=== PATIENT | female | born 1940 | race Caucasian/White ===

== ENCOUNTER 2016-03-16 10:28 | Emergency (ER) | payer MEDICARE, BC ==
[~2016-03-16] VITALS: Ht 170.2 cm; Wt 59.0 kg
[~2016-03-16 10:28] MED LIST: ALBUAER3 INH; ASPI81TA81 PO; ATEN25TA PO; CLON0.1T PO; CYCL5TAB PO; DONE10TA7 PO; FENT100T T-DERMAL; FOLI1TAB4 PO; HYDR50TA15 PO; LORA-373 PO; LORA1TAB12 PO; LOSA50TA PO; METH2.5T PO; METH8TAB3 PO; OXYC1TAB36 PO; PRAV40TA2 PO; REST0.05 EACH EYE; TORS20TA PO; TRAZ50TA12 PO; VENL37.5 PO; VIST25CA PO; VITA200013 PO
[2016-03-16 10:37] VITALS: BP 168/96; PULSE 75; RESP 18; TEMP 98.2; O2SAT 96
[2016-03-16 11:01] LABS: BLOOD, URINE TRACE (NEG); GLUCOSE,URINE NEG (NEG); KETONE, URINE NEG (NEG); NITRITE,URINE NEG (NEG)
[2016-03-16 11:06] LABS: COMMENT (UR) CULT NOT INDICATED; CULTURE IF INDICATED CULT NOT INDICATED; METHOD OF COLLECTION CLEAN CATCH; RBC, URINE 0-3 /hpf (0-3); SQUAMOUS EPITHELIAL CELL URINE 0-5 /hpf (0-5); URINE COLOR YELLOW (YELLW/STRAW)
[2016-03-16] MEDS ORDERED: ZITHTAB PO (12:26)
[2016-03-16] MEDS ORDERED: VIST25CA PO (12:26)
--- NOTE | 2016-03-16 12:26 | PD ---
HPI Chief Complaint: Hypertension Time Seen by Provider: 12:14 Travel History International Travel<30 days: No Contact w/Intl Traveler<30days: No Traveled to known affect area: No History of Present Illness HPI 75 years old female complains of coughing congestion short of breath and transient elevated blood pressure. Patient has history of asthma and has been using albuterol nebulizer treatment at home. Patient states the cough is dry cough intermittent cough worse in the morning and at night. Patient denies any chest pain. Patient states that she has intermittently shortness of breath. Patient denies any fever chills. Patient states that her blood pressures has been up and down recently. Patient blood pressure was elevated this morning and patient was advised by her home health nurse to go the ED for evaluation. Patient has been taking her blood pressure medications as directed. Patient has history anxiety. Patient states feeling anxious occasionally during the day. Patient has been taking [id number] cough medications recently. PFSH Past Medical History Hx Anticoagulant Therapy: Yes (BABY ASA DAILY) Arthritis: Yes Asthma: Yes Blood Disorders: No Anxiety: Yes Heart Rhythm Problems: No Cancer: No Cardiac Catheterization: Yes Cardiovascular Problems: Yes (HTN) High Cholesterol: Yes Chest Pain: Yes Congestive Heart Failure: No COPD: No Coronary Artery Disease: Yes Diabetes: No Diminished Hearing: No Endocrine: No Gastrointestinal Disorders: Yes (CONSTIPATION SECONDARY TO MEDICATIONS - takes laxatives regularly) Glaucoma: Yes (SX REPAIR) Genitourinary: Yes Hepatitis: No Hiatal Hernia: No Hypertension: Yes Immune Disorder: No Implanted Vascular Access Dvce: Yes Musculoskeletal: Yes (FEET AND LEGS WEAK) Neurologic: No Psychiatric: No Reproductive: No Respiratory: No Immunizations Current: Yes Myocardial Infarction: No Sleep Apnea: No Thyroid Disease: No Influenza Vaccination: Yes PNEUMOCCOCAL Vaccine (Year): 1 ?: Not Menopausal: Yes Past Surgical History Abdominal Surgery: Yes AICD: No Body Medical Devices: PLATE IN NECK; PIN LEFT HIP Cardiac Surgery: Yes (CABG X) Coronary Artery Bypass Graft: Yes (TRIPLE BYPASS 1998) Ear Surgery: No Eye Surgery: Yes (GLAUCOMA ) Gynecologic Surgery: Yes (HYSTERECTOMY,) Hysterectomy: Yes Joint Replacement: Yes ( LEFT HIP ) Neurologic Surgery: Yes (pain stimulator by conrado- since removed ) Oral Surgery: No Pacemaker: No Thoracic Surgery: No Other Surgery: Yes (cervical decompression C &, C 08/11, iliac crest bone graft C6/7) Social History Alcohol Use: No Tobacco Use: No (quit 2005? smoked for approx 10 yrs 1 ppd) Substance Use: No Allergies-Medications (Allergen,Severity, Reaction): Coded Allergies: Aricept (Verified Allergy, Severe, BLURRED VISION; PT TAKES DONEPEZIL DAILY, 03/16/16) Augmentin (Verified Allergy, Severe, VOMITING, 03/16/16) Celebrex (Verified Allergy, Severe, RASH; PT DENIES ALLERGY, 03/16/16) Contrast Media (Verified Allergy, Severe, Hives, BURNING, 03/16/16) [place] (Verified Allergy, Severe, MUSCLE SPASMS, 03/16/16) Levaquin (Verified Allergy, Severe, SOB, 03/16/16) Methadone (Verified Allergy, Severe, UNKNOWN, 03/16/16) Mobic (Verified Allergy, Severe, WHEEZING, 03/16/16) Naproxen (Verified Allergy, Severe, SWEATING, 03/16/16) Neurontin (Verified Allergy, Severe, SWELLING, 03/16/16) Sulfa (Verified Allergy, Severe, ITCHING, 03/16/16) Zydone (Verified Allergy, Severe, 03/16/16) ARTHROTEC (Verified Allergy, Unknown, 03/16/16) Baclofen (Verified Allergy, Unknown, SHAKING, PT UNSURE, 03/16/16) Cleocin (Verified Allergy, Unknown, MUSCLE PAIN, 03/16/16) Detrol (Verified Allergy, Unknown, 03/16/16) Marinol (Verified Allergy, Unknown, UNKNOWN, 03/16/16) Pletal (Verified Allergy, Unknown, UNKNOWN, 03/16/16) Soma (Verified Allergy, Unknown, UNKNOWN, 03/16/16) Topamax (Verified Allergy, Unknown, 03/16/16) Ultram (Verified Allergy, Unknown, 03/16/16) Vicodin (Verified Allergy, Unknown, 03/16/16) Cymbalta (Verified Adverse Reaction, Severe, NAUSEA, 03/16/16) Effexor (Verified Adverse Reaction, Severe, "SLEEPY", 03/16/16) Erythromycin (Verified Adverse Reaction, Severe, STOMACH CRAMPING, 03/16/16 ) Keflex (Verified Adverse Reaction, Severe, STOMACH PAIN, 03/16/16) Lexapro (Verified Adverse Reaction, Severe, "SLEEPLESSNESS", 03/16/16) Lipitor (Verified Adverse Reaction, Severe, VOMITING, 03/16/16) Lyrica (Verified Adverse Reaction, Severe, "WEAKNESS", 03/16/16) Mevacor (Verified Adverse Reaction, Severe, HEADACHE, 03/16/16) Paxil (Verified Adverse Reaction, Severe, SWEATING, 03/16/16) Provigil (Verified Adverse Reaction, Severe, ANXIETY, 03/16/16) Remeron Liliam-Tab (Verified Adverse Reaction, Severe, WEAKNESS, 03/16/16) Skelaxin (Verified Adverse Reaction, Severe, "FEEL DRUNK", 03/16/16) Tylenol/Codeine (Verified Adverse Reaction, Severe, NAUSEA, 03/16/16) Valium (Verified Adverse Reaction, Severe, JOINT PAIN, 03/16/16) Zanaflex (Verified Adverse Reaction, Severe, JITTERY, 03/16/16) Zetia (Verified Adverse Reaction, Severe, MUSCLE PAIN, 03/16/16) Zocor (Verified Adverse Reaction, Severe, MUSCLE PAIN, 03/16/16) Zoloft (Verified Adverse Reaction, Severe, DIZZINESS, 03/16/16) Celexa (Verified Adverse Reaction, Unknown, HEADACHE, 03/16/16) Cipro (Verified Adverse Reaction, Unknown, NAUSEA, 03/16/16) Cortisone (Verified Adverse Reaction, Unknown, HEADACHE, 03/16/16) PT DENIES ALLERGY TO MED 09/17 Depakote (Verified Adverse Reaction, Unknown, HEADACHE, 03/16/16) Ditropan (Verified Adverse Reaction, Unknown, NAUSEA, 03/16/16) Elavil (Verified Adverse Reaction, Unknown, SWEATING, 03/16/16) Prozac (Verified Adverse Reaction, Unknown, ITCHING, 03/16/16) Uncoded Allergies: VESICARE (Adverse Reaction, Severe, SWEATING, 10/18/08) VYTORIN (Adverse Reaction, Severe, CONSTIPATION, 10/18/08) Reported Meds & Prescriptions Reported Meds & Active Scripts Active Vistaril (Hydroxyzine Pamoate) 25 Mg Cap 25 Mg PO TID PRN Zithromax Z-Kevin (Azithromycin) 250 Mg Dspk 250 Mg PO DIRECTED 500 MG (2 tabs) day 1, then 1 tab days 2-5. Vistaril (Hydroxyzine Pamoate) 25 Mg Cap 25 Mg PO TID PRN Reported Oxycodone-Acetaminophen 10-325 mg Tab 1 Tab PO TID PRN Duragesic Patch 72 HR (Fentanyl) 100 Mcg/Hr Patch 100 Mcg T-DERMAL Q72H Remove old patch when new one placed. Proair Hfa 8.5 GM Inh (Albuterol Sulfate) 90 Mcg/Act Aer 1 Puff INH Q4H PRN 108 mcg/actuation Effexor (Venlafaxine HCl) 37.5 Mg Tab 37.5 Mg PO HS Losartan (Losartan Potassium) 50 Mg Tab 50 Mg PO DAILY Restasis Opth Drops (Cyclosporine Opth Drops) 0.05% Emul 1 Drop EACH EYE BID Pravastatin 40 Mg Tab 40 Mg PO DAILY Donepezil 10 Mg Tab 10 Mg PO HS Trazodone (Trazodone HCl) 50 Mg Tab 25 Mg PO HS Flexeril (Cyclobenzaprine HCl) 5 Mg Tab 5 Mg PO DAILY Aspir-81 (Aspirin) 81 Mg Tabdr 1 Tab PO DAILY Folate (Folic Acid) 1 Mg Tab 1 Mg PO DAILY Methotrexate 2.5 Mg Tab 5 Mg PO Q7D Vitamin D (Cholecalciferol) 2,000 Unit Cap 1 Tab PO BID Hydralazine (Hydralazine HCl) 50 Mg Tab 50 Mg PO BID Take with a meal Lorazepam 1 Mg Tab 1 Mg PO DAILY PRN Clonidine (Clonidine HCl) 0.1 Mg Tab 0.1 Mg PO BID Atenolol 25 Mg Tab 25 Mg PO BID Review of Systems General / Constitutional: No: Fever Eyes: No: Visual changes HENT: No: Headaches Cardiovascular: No: Chest Pain or Discomfort Respiratory: Positive: Cough, Shortness of Breath, Wheezing Gastrointestinal: No: Abdominal Pain Genitourinary: No: Dysuria Musculoskeletal: No: Pain Skin: No Rash Neurologic: No: Weakness Psychiatric: No: Depression Endocrine: No: Polydipsia Hematologic/Lymphatic: No: Easy Bruising Physical Exam Narrative GENERAL: Well-nourished, well-developed patient. SKIN: Warm and dry. HEAD: Normocephalic. EYES: No scleral icterus. No injection or drainage. NECK: Supple, trachea midline. No JVD or lymphadenopathy. CARDIOVASCULAR: Regular rate and rhythm without murmurs, gallops, or rubs. RESPIRATORY: Breath sounds equal bilaterally. No accessory muscle use. Patient has mild expiratory wheezes bilaterally. No rhonchi. GASTROINTESTINAL: Abdomen soft, non-tender, nondistended. MUSCULOSKELETAL: No cyanosis, or edema. BACK: Nontender without obvious deformity. No CVA tenderness. Neurologic exam normal. Data Data Last Documented VS Vital Signs Date Time Temp Pulse Resp B/P Pulse Ox O2 Delivery O2 Flow Rate FiO2 03/16/16 10:40 96 Room Air 03/16/16 10:37 98.2 75 18 168/96 Orders Urinalysis - C+S If Indicated (03/16/16 10:51) Albuterol-Ipratropium Neb (Duoneb Neb) (03/16/16 12:30) Labs Laboratory Tests Test 03/16/16 11:00 Urine Collection Type CLEAN CATCH Urine Color YELLOW Urine Turbidity CLEAR Urine pH 6.0 Urine Specific [place] 1.005 Urine Protein NEG mg/dL Urine Glucose (UA) NEG mg/dL Urine Ketones NEG mg/dL Urine Occult Blood TRACE Urine Nitrite NEG Urine Bilirubin NEG Urine Leukocyte Esterase NEG Urine RBC 0-3 /hpf Urine Squamous Epithelial 0-5 /hpf Cells Microscopic Urinalysis Comment CULT NOT INDICATED Urine Collection Time 11:00 [facility] Medical Decision Making Medical Screen Exam Complete: Yes Emergency Medical Condition: Yes Interpretation(s) 12:23 PM. UA is negative. Differential Diagnosis Differential diagnosis including transient hypertension, anxiety, acute exacerbation of asthma, bronchitis, pneumonia. Narrative Course 75 years old female with coughing wheezing and transient elevated blood pressure. History hypertension. History of asthma. Albuterol with Atrovent unit dose treatment times one. Blood pressure under control in the ED. Diagnosis Primary Impression: Acute asthma exacerbation Qualified Code: J45.31 - Mild persistent asthma with acute exacerbation Additional Impression: Labile hypertension Patient Instructions: General Instructions Additional Instructions: Take medications as directed. Continue with albuterol treatment every 4 hours at home as needed for shortness of breath. Follow-up with personal physician. Return if worse. Med/Other Pt SpecificInfo: Prescription(s) given Scripts Benzonatate (Tessalon Perles)100 Mg [id number] Mg PO TID PRN (COUGH) #21 CAP Prov:Dez Bailey MD 03/16/16 Hydroxyzine Pamoate (Vistaril)25 Mg Cap25 Mg PO TID PRN (ANXIETY) #30 CAP Ref 0 Prov:Dez Bailey MD 03/16/16 Azithromycin (Zithromax Z-Kevin)250 Mg [id number] Mg PO DIRECTED #1 DSPK 500 MG (2 tabs) day 1, then 1 tab days 2-5. Prov:Dez Bailey MD 03/16/16 Disposition: 01 DISCHARGE HOME Condition: Stable Dez Bailey MD Mar 16, 2016 12:26
[2016-03-16] MEDS ORDERED: RESP: ALBUTEROL 2.5 MG/IPRATROPIUM 0.5 MG NEB (SCH) INH ONE (12:30)
[2016-03-16] MEDS ORDERED: BENZ100 PO (12:34)
[2016-03-16 13:00] VITALS: BP 164/77; PULSE 67; RESP 18; O2SAT 95
[2016-08-02] MEDS ORDERED: LATA0.002 EACH EYE (15:11)
== END 2016-03-16 13:05 | disposition home or self-care (01) ==
LOC: PHED 10:28
DX: J45.901 Unspecified asthma with (acute) exacerbation (principal); I10 Essential (primary) hypertension; E78.00 Pure hypercholesterolemia, unspecified; I25.10 Atherosclerotic heart disease of native coronary artery without angina pectoris; Z79.01 Long term (current) use of anticoagulants; Z79.82 Long term (current) use of aspirin
CPT/HCPCS: 81001; 94664; 99283

== ENCOUNTER → 2016-04-01 | Outpatient (CLI) | payer MEDICARE, BC ==
[~2016-04-01] MED LIST changes: +ASPI-110 PO; +BENZ100 PO; +COEN400C PO; +DOXY100C PO; +FOLI400T PO; +HYDR-3800 PO; +LATA0.002 EACH EYE; -LORA-373 PO; +LORA-474 PO; -METH8TAB3 PO; +NORV2.5T PO; +SPIR25 PO; +ZITHTAB PO
[2016-04-01 12:41] LABS: HEMATOCRIT 31.1 % (35.0-46.0); MEAN CELL VOLUME 94.7 FL (80.0-100.0); MEAN CORPUSCULAR HEMOGLOBIN 31.4 PG (27.0-34.0); MEAN CORPUSCULAR HGB CONC 33.1 % (32.0-36.0); PLATELET COUNT 249 TH/MM3 (150-450); RED BLOOD COUNT 3.28 MIL/MM3 (4.00-5.30); RED CELL DISTRIBUTION WIDTH 14.2 % (11.6-17.2); REVIEW FLAG FINAL; WHITE BLOOD COUNT 7.6 TH/MM3 (4.0-11.0)
[2016-04-01 13:05] LABS: WESTERGREN SEDIMENTATION RATE 24 mm/hr (0-30)
[2016-04-01 13:10] LABS: ALKALINE PHOSPHATASE 50 U/L (45-117); ALT (GPT) 16 U/L (10-53); ANION GAP 9 MEQ/L (5-15); AST (GOT) 13 U/L (15-37); BICARBONATE 26.5 MEQ/L (21.0-32.0); BLOOD UREA NITROGEN 12 MG/DL (7-18); CHLORIDE 103 MEQ/L (98-107); GLOMERULAR FILTRATION RATE 46 ML/MIN (>89); GLUCOSE,FASTING 117 MG/DL (74-99); HDL CHOLESTEROL 63.8 MG/DL (40.0-60.0); LDL CHOLESTEROL 208 MG/DL (0-99); LDL CHOLESTEROL DIRECT 226 MG/DL (0-99); POTASSIUM 3.7 MEQ/L (3.5-5.1); SODIUM (NA) 138 MEQ/L (136-145); TOTAL BILIRUBIN ADULT 0.6 MG/DL (0.2-1.0); TRANSFERRIN IRON PROFILE 180 MG/DL (200-360)
== END ==
LOC: PLAB 10:31
PROVIDERS: ATTEND Internal Medicine Rheumatology
DX: M06.89 Other specified rheumatoid arthritis, multiple sites (principal); D64.9 Anemia, unspecified; I51.9 Heart disease, unspecified; I10 Essential (primary) hypertension; Z79.899 Other long term (current) drug therapy
CPT/HCPCS: 36415; 80053; 80061; 82746; 83540; 83550; 83721; 85027; 85652

== ENCOUNTER 2016-04-19 17:39 | Emergency (ER) | payer MEDICARE, BC ==
[~2016-04-19] VITALS: Ht 170.2 cm; Wt 60.0 kg
[~2016-04-19 17:39] MED LIST changes: -ASPI-110 PO; -COEN400C PO; -DOXY100C PO; -FOLI400T PO; -HYDR-3800 PO; -LATA0.002 EACH EYE; -LORA-474 PO; -NORV2.5T PO; -SPIR25 PO; -TORS20TA PO
[2016-04-19 17:40] VITALS: BP 155/77; PULSE 84; RESP 18; TEMP 98; O2SAT 99
[2016-04-19] MEDS ORDERED: BENZ100 PO (18:12)
[2016-04-19] MEDS ORDERED: DOXY100C PO (18:12)
--- NOTE | 2016-04-19 18:17 | PD ---
HPI Chief Complaint: Respiratory Symptoms Time Seen by Provider: 18:05 Travel History International Travel<30 days: No Contact w/Intl Traveler<30days: No Traveled to known affect area: No History of Present Illness HPI This patient called paramedics when she checked her blood pressure home and was 224 systolic. She took her medicine but it didn't go down promptly and she got nervous. No chest pain or headache or presyncopal symptoms. She's had a hacking cough for a few days sometimes bringing up dark colored phlegm. No fever. She used to smoke but quit 20 years ago. She is not short of breath. Symptoms severity is mild to moderate PFSH Past Medical History Hx Anticoagulant Therapy: Yes (BABY ASA DAILY) Arthritis: Yes Asthma: Yes Blood Disorders: No Anxiety: Yes Heart Rhythm Problems: No Cancer: No Cardiac Catheterization: Yes Cardiovascular Problems: Yes (HTN) High Cholesterol: Yes Chest Pain: Yes Congestive Heart Failure: No COPD: No Coronary Artery Disease: Yes Diabetes: No Diminished Hearing: No Endocrine: No Gastrointestinal Disorders: Yes (CONSTIPATION SECONDARY TO MEDICATIONS - takes laxatives regularly) Glaucoma: Yes (SX REPAIR) Genitourinary: Yes Hepatitis: No Hiatal Hernia: No Hypertension: Yes Immune Disorder: No Implanted Vascular Access Dvce: Yes Musculoskeletal: Yes (FEET AND LEGS WEAK) Neurologic: No Psychiatric: No Reproductive: No Respiratory: No Immunizations Current: Yes Myocardial Infarction: No Sleep Apnea: No Thyroid Disease: No Influenza Vaccination: Yes PNEUMOCCOCAL Vaccine (Year): 1 ?: Not Menopausal: Yes Past Surgical History Abdominal Surgery: Yes AICD: No Body Medical Devices: PLATE IN NECK; PIN LEFT HIP Cardiac Surgery: Yes (CABG X) Coronary Artery Bypass Graft: Yes (TRIPLE BYPASS 1998) Ear Surgery: No Eye Surgery: Yes (GLAUCOMA ) Gynecologic Surgery: Yes (HYSTERECTOMY,) Hysterectomy: Yes Joint Replacement: Yes ( LEFT HIP ) Neurologic Surgery: Yes (pain stimulator by conrado- since removed ) Oral Surgery: No Pacemaker: No Thoracic Surgery: No Other Surgery: Yes (cervical decompression C &, C 08/11, iliac crest bone graft C6/7) Social History Alcohol Use: No Tobacco Use: No (quit 2005? smoked for approx 10 yrs 1 ppd) Substance Use: No Allergies-Medications (Allergen,Severity, Reaction): Coded Allergies: Aricept (Verified Allergy, Severe, BLURRED VISION; PT TAKES DONEPEZIL DAILY, 04/19/16) Augmentin (Verified Allergy, Severe, VOMITING, 04/19/16) Celebrex (Verified Allergy, Severe, RASH; PT DENIES ALLERGY, 04/19/16) Contrast Media (Verified Allergy, Severe, Hives, BURNING, 04/19/16) [place] (Verified Allergy, Severe, MUSCLE SPASMS, 04/19/16) Levaquin (Verified Allergy, Severe, SOB, 04/19/16) Methadone (Verified Allergy, Severe, UNKNOWN, 04/19/16) Mobic (Verified Allergy, Severe, WHEEZING, 04/19/16) Naproxen (Verified Allergy, Severe, SWEATING, 04/19/16) Neurontin (Verified Allergy, Severe, SWELLING, 04/19/16) Sulfa (Verified Allergy, Severe, ITCHING, 04/19/16) Zydone (Verified Allergy, Severe, 04/19/16) ARTHROTEC (Verified Allergy, Unknown, 04/19/16) Baclofen (Verified Allergy, Unknown, SHAKING, PT UNSURE, 04/19/16) Cleocin (Verified Allergy, Unknown, MUSCLE PAIN, 04/19/16) Detrol (Verified Allergy, Unknown, 04/19/16) Marinol (Verified Allergy, Unknown, UNKNOWN, 04/19/16) Pletal (Verified Allergy, Unknown, UNKNOWN, 04/19/16) Soma (Verified Allergy, Unknown, UNKNOWN, 04/19/16) Topamax (Verified Allergy, Unknown, 04/19/16) Ultram (Verified Allergy, Unknown, 04/19/16) Vicodin (Verified Allergy, Unknown, 04/19/16) Cymbalta (Verified Adverse Reaction, Severe, NAUSEA, 04/19/16) Effexor (Verified Adverse Reaction, Severe, "SLEEPY", 04/19/16) Erythromycin (Verified Adverse Reaction, Severe, STOMACH CRAMPING, 04/19/16 ) Keflex (Verified Adverse Reaction, Severe, STOMACH PAIN, 04/19/16) Lexapro (Verified Adverse Reaction, Severe, "SLEEPLESSNESS", 04/19/16) Lipitor (Verified Adverse Reaction, Severe, VOMITING, 04/19/16) Lyrica (Verified Adverse Reaction, Severe, "WEAKNESS", 04/19/16) Mevacor (Verified Adverse Reaction, Severe, HEADACHE, 04/19/16) Paxil (Verified Adverse Reaction, Severe, SWEATING, 04/19/16) Provigil (Verified Adverse Reaction, Severe, ANXIETY, 04/19/16) Remeron Liliam-Tab (Verified Adverse Reaction, Severe, WEAKNESS, 04/19/16) Skelaxin (Verified Adverse Reaction, Severe, "FEEL DRUNK", 04/19/16) Tylenol/Codeine (Verified Adverse Reaction, Severe, NAUSEA, 04/19/16) Valium (Verified Adverse Reaction, Severe, JOINT PAIN, 04/19/16) Zanaflex (Verified Adverse Reaction, Severe, JITTERY, 04/19/16) Zetia (Verified Adverse Reaction, Severe, MUSCLE PAIN, 04/19/16) Zocor (Verified Adverse Reaction, Severe, MUSCLE PAIN, 04/19/16) Zoloft (Verified Adverse Reaction, Severe, DIZZINESS, 04/19/16) Celexa (Verified Adverse Reaction, Unknown, HEADACHE, 04/19/16) Cipro (Verified Adverse Reaction, Unknown, NAUSEA, 04/19/16) Cortisone (Verified Adverse Reaction, Unknown, HEADACHE, 04/19/16) PT DENIES ALLERGY TO MED 09/17 Depakote (Verified Adverse Reaction, Unknown, HEADACHE, 04/19/16) Ditropan (Verified Adverse Reaction, Unknown, NAUSEA, 04/19/16) Elavil (Verified Adverse Reaction, Unknown, SWEATING, 04/19/16) Prozac (Verified Adverse Reaction, Unknown, ITCHING, 04/19/16) Uncoded Allergies: VESICARE (Adverse Reaction, Severe, SWEATING, 10/18/08) VYTORIN (Adverse Reaction, Severe, CONSTIPATION, 10/18/08) Reported Meds & Prescriptions Reported Meds & Active Scripts Active Vistaril (Hydroxyzine Pamoate) 25 Mg Cap 25 Mg PO TID PRN Reported Duragesic Patch 72 HR (Fentanyl) 100 Mcg/Hr Patch 100 Mcg T-DERMAL Q72H Remove old patch when new one placed. Proair Hfa 8.5 GM Inh (Albuterol Sulfate) 90 Mcg/Act Aer 1 Puff INH Q4H PRN 108 mcg/actuation Effexor (Venlafaxine HCl) 37.5 Mg Tab 37.5 Mg PO HS Losartan (Losartan Potassium) 50 Mg Tab 50 Mg PO DAILY Restasis Opth Drops (Cyclosporine Opth Drops) 0.05% Emul 1 Drop EACH EYE BID Pravastatin 40 Mg Tab 40 Mg PO DAILY Donepezil 10 Mg Tab 10 Mg PO HS Trazodone (Trazodone HCl) 50 Mg Tab 25 Mg PO HS Flexeril (Cyclobenzaprine HCl) 5 Mg Tab 5 Mg PO DAILY Aspir-81 (Aspirin) 81 Mg Tabdr 1 Tab PO DAILY Folate (Folic Acid) 1 Mg Tab 1 Mg PO DAILY Methotrexate 2.5 Mg Tab 5 Mg PO Q7D Vitamin D (Cholecalciferol) 2,000 Unit Cap 1 Tab PO BID Hydralazine (Hydralazine HCl) 50 Mg Tab 50 Mg PO BID Take with a meal Lorazepam 1 Mg Tab 1 Mg PO DAILY PRN Clonidine (Clonidine HCl) 0.1 Mg Tab 0.1 Mg PO BID Atenolol 25 Mg Tab 25 Mg PO BID Review of Systems General / Constitutional: No: Fever HENT: No: Headaches Cardiovascular: No: Chest Pain or Discomfort Respiratory: Positive: Cough Physical Exam Narrative GENERAL: Well-nourished, well-developed patient in no apparent distress. SKIN: Warm and dry. HEAD: Atraumatic. Normocephalic. EYES: Pupils equal and round. No scleral icterus. No injection or drainage. ENT: No nasal bleeding or discharge. Mucous membranes pink and moist. NECK: Trachea midline. No JVD. CARDIOVASCULAR: Regular rate and rhythm. No murmur appreciated. RESPIRATORY: No accessory muscle use. Scattered rhonchi. Breath sounds equal bilaterally. GASTROINTESTINAL: Abdomen soft, non-tender, nondistended. Hepatic and splenic margins not palpable. MUSCULOSKELETAL: No obvious deformities. No clubbing. No cyanosis. No edema. NEUROLOGICAL: Awake and alert. No obvious cranial nerve deficits. Motor grossly within normal limits. Normal speech. PSYCHIATRIC: Appropriate mood and affect; insight and judgment normal. Data Data Last Documented VS Vital Signs Date Time Temp Pulse Resp B/P Pulse Ox O2 Delivery O2 Flow Rate FiO2 04/19/16 17:52 99 Room Air 04/19/16 17:40 98.0 84 18 155/77 [facility] Medical Decision Making Medical Screen Exam Complete: Yes Emergency Medical Condition: Yes Medical Record Reviewed: Yes Differential Diagnosis Accelerated hypertension, bronchitis, pneumonia Narrative Course I have reviewed the patient's electronic medical record. Patient had a significantly high blood pressure but after taking her medicine and came down on its own. It is right now 155/77 Presentation consistent with bronchitis. I wrote her doxycycline for one week and some Tessalon Perles The patient was advised to follow up with their physician and return if they worsen. Diagnosis Primary Impression: Accelerated hypertension Additional Impression: Bronchitis Additional Instructions: The patient was advised to follow up with their physician and return if they worsen. Check and record blood pressure daily Med/Other Pt SpecificInfo: Prescription(s) given Scripts Benzonatate (Tessalon Perles)100 Mg [id number] Mg PO TID PRN (COUGH) #20 CAP Ref 0 Prov:Judd Wheatley MD 04/19/16 Doxycycline Hyclate 100 Mg [id number] Mg PO BID #14 CAP Ref 0 Prov:Judd Wheatley MD 04/19/16 Disposition: 01 DISCHARGE HOME Condition: Stable Judd Wheatley MD Apr 19, 2016 18:17
[2016-08-02] MEDS ORDERED: LATA0.002 EACH EYE (15:11)
== END 2016-04-19 18:57 | disposition home or self-care (01) ==
LOC: PHED 17:39
DX: I10 Essential (primary) hypertension (principal); J40 Bronchitis, not specified as acute or chronic; E78.00 Pure hypercholesterolemia, unspecified; Z79.82 Long term (current) use of aspirin; Z87.39 Personal history of other diseases of the musculoskeletal system and connective tissue; Z87.09 Personal history of other diseases of the respiratory system; Z86.59 Personal history of other mental and behavioral disorders; Z86.79 Personal history of other diseases of the circulatory system; Z87.19 Personal history of other diseases of the digestive system; Z87.448 Personal history of other diseases of urinary system; Z87.891 Personal history of nicotine dependence
CPT/HCPCS: 99283

== ENCOUNTER 2016-04-26 21:21 | Observation (INO) | payer MEDICARE, BC ==
[~2016-04-26] VITALS: Ht 170.2 cm; Wt 61.4 kg
[~2016-04-26 21:21] MED LIST changes: +DOXY100C PO; -OXYC1TAB36 PO; -ZITHTAB PO
[2016-04-26 21:25] VITALS: BP_SYST 137; BP_SYST 200; BP_DIAS 65; BP_DIAS 81; PULSE 62; RESP 20; TEMP 98.1
[2016-04-26] MEDS ORDERED: SODIUM CHLORIDE 0.9% FLUSH 5 ML FLUSH IVF PRN (21:45)
[2016-04-26] MEDS ORDERED: ASPIRIN 81 MG CHEW TAB PO ONE (21:45)
--- NOTE | 2016-04-26 21:51 | PD ---
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 Lord, here for evaluation of chest pain. The patient reports that she had pain throughout the night last night over her left chest described as squeezing, radiating to her left shoulder, worse with laying flat. Pain subsided, then returned this afternoon. Currently the pain is 3 out of 10. She denies dyspnea. No paresthesias or motor deficits. She reports that she is currently recovering from bronchitis. No history of DVT or PE. She took clonidine and 81 mg aspirin at 5:30 PM. PFSH Past Medical History Hx Anticoagulant Therapy: Yes (BABY ASA DAILY) Arthritis: Yes Asthma: Yes Blood Disorders: No Anxiety: Yes Heart Rhythm Problems: No Cancer: No Cardiac Catheterization: Yes Cardiovascular Problems: Yes (HTN) High Cholesterol: Yes Chest Pain: Yes Congestive Heart Failure: No COPD: No Coronary Artery Disease: Yes Diabetes: No Diminished Hearing: No Endocrine: No Gastrointestinal Disorders: Yes (CONSTIPATION SECONDARY TO MEDICATIONS - takes laxatives regularly) Glaucoma: Yes (SX REPAIR) Genitourinary: Yes Hepatitis: No Hiatal Hernia: No Hypertension: Yes Immune Disorder: No Implanted Vascular Access Dvce: Yes Musculoskeletal: Yes (FEET AND LEGS WEAK) Neurologic: No Psychiatric: No Reproductive: No Respiratory: No Immunizations Current: Yes Myocardial Infarction: No Sleep Apnea: No Thyroid Disease: No PNEUMOCCOCAL Vaccine (Year): 1 Menopausal: Yes Past Surgical History Abdominal Surgery: Yes AICD: No Body Medical Devices: PLATE IN NECK; PIN LEFT HIP Cardiac Surgery: Yes (CABG X3,) Coronary Artery Bypass Graft: Yes (TRIPLE BYPASS 1998) Ear Surgery: No Eye Surgery: Yes (GLAUCOMA ) Gynecologic Surgery: Yes (HYSTERECTOMY,) Hysterectomy: Yes Joint Replacement: Yes ( LEFT HIP ) Neurologic Surgery: Yes (pain stimulator by conrado- since removed ) Oral Surgery: No Pacemaker: No Thoracic Surgery: No Other Surgery: Yes (cervical decompression C 3&4 , C /, iliac crest bone graft C6/7) Social History Alcohol Use: No Tobacco Use: No (quit 2005? smoked for approx 10 yrs 1 ppd) Substance Use: No Allergies-Medications (Allergen,Severity, Reaction): Coded Allergies: Aricept (Verified Allergy, Severe, BLURRED VISION; PT TAKES DONEPEZIL DAILY, 04/26/16) Augmentin (Verified Allergy, Severe, VOMITING, 04/26/16) Celebrex (Verified Allergy, Severe, RASH; PT DENIES ALLERGY, 04/26/16) Contrast Media (Verified Allergy, Severe, Hives, BURNING, 04/26/16) Wallace (Verified Allergy, Severe, MUSCLE SPASMS, 04/26/16) Levaquin (Verified Allergy, Severe, SOB, 04/26/16) Methadone (Verified Allergy, Severe, UNKNOWN, 04/26/16) Mobic (Verified Allergy, Severe, WHEEZING, 04/26/16) Naproxen (Verified Allergy, Severe, SWEATING, 04/26/16) Neurontin (Verified Allergy, Severe, SWELLING, 04/26/16) Sulfa (Verified Allergy, Severe, ITCHING, 04/26/16) Zydone (Verified Allergy, Severe, 04/26/16) ARTHROTEC (Verified Allergy, Unknown, 04/26/16) Baclofen (Verified Allergy, Unknown, SHAKING, PT UNSURE, 04/26/16) Cleocin (Verified Allergy, Unknown, MUSCLE PAIN, 04/26/16) Detrol (Verified Allergy, Unknown, 04/26/16) Marinol (Verified Allergy, Unknown, UNKNOWN, 04/26/16) Pletal (Verified Allergy, Unknown, UNKNOWN, 04/26/16) Soma (Verified Allergy, Unknown, UNKNOWN, 04/26/16) Topamax (Verified Allergy, Unknown, 04/26/16) Ultram (Verified Allergy, Unknown, 04/26/16) Vicodin (Verified Allergy, Unknown, 04/26/16) Cymbalta (Verified Adverse Reaction, Severe, NAUSEA, 04/26/16) Effexor (Verified Adverse Reaction, Severe, "SLEEPY", 04/26/16) Erythromycin (Verified Adverse Reaction, Severe, STOMACH CRAMPING, 04/26/16 ) Keflex (Verified Adverse Reaction, Severe, STOMACH PAIN, 04/26/16) Lexapro (Verified Adverse Reaction, Severe, "SLEEPLESSNESS", 04/26/16) Lipitor (Verified Adverse Reaction, Severe, VOMITING, 04/26/16) Lyrica (Verified Adverse Reaction, Severe, "WEAKNESS", 04/26/16) Mevacor (Verified Adverse Reaction, Severe, HEADACHE, 04/26/16) Paxil (Verified Adverse Reaction, Severe, SWEATING, 04/26/16) Provigil (Verified Adverse Reaction, Severe, ANXIETY, 04/26/16) Remeron Liliam-Tab (Verified Adverse Reaction, Severe, WEAKNESS, 04/26/16) Skelaxin (Verified Adverse Reaction, Severe, "FEEL DRUNK", 04/26/16) Tylenol/Codeine (Verified Adverse Reaction, Severe, NAUSEA, 04/26/16) Valium (Verified Adverse Reaction, Severe, JOINT PAIN, 04/26/16) Zanaflex (Verified Adverse Reaction, Severe, JITTERY, 04/26/16) Zetia (Verified Adverse Reaction, Severe, MUSCLE PAIN, 04/26/16) Zocor (Verified Adverse Reaction, Severe, MUSCLE PAIN, 04/26/16) Zoloft (Verified Adverse Reaction, Severe, DIZZINESS, 04/26/16) Celexa (Verified Adverse Reaction, Unknown, HEADACHE, 04/26/16) Cipro (Verified Adverse Reaction, Unknown, NAUSEA, 04/26/16) Cortisone (Verified Adverse Reaction, Unknown, HEADACHE, 04/26/16) PT DENIES ALLERGY TO MED 09/17 Depakote (Verified Adverse Reaction, Unknown, HEADACHE, 04/26/16) Ditropan (Verified Adverse Reaction, Unknown, NAUSEA, 04/26/16) Elavil (Verified Adverse Reaction, Unknown, SWEATING, 04/26/16) Prozac (Verified Adverse Reaction, Unknown, ITCHING, 04/26/16) Uncoded Allergies: VESICARE (Adverse Reaction, Severe, SWEATING, 10/18/08) VYTORIN (Adverse Reaction, Severe, CONSTIPATION, 10/18/08) Reported Meds & Prescriptions Reported Meds & Active Scripts Active Reported Duragesic Patch 72 HR (Fentanyl) 100 Mcg/Hr Patch 100 Mcg T-DERMAL Q72H Remove old patch when new one placed. Proair Hfa 8.5 GM Inh (Albuterol Sulfate) 90 Mcg/Act Aer 1 Puff INH Q4H PRN 108 mcg/actuation Losartan (Losartan Potassium) 50 Mg Tab 50 Mg PO DAILY Restasis Opth Drops (Cyclosporine Opth Drops) 0.05% Emul 1 Drop EACH EYE BID Pravastatin 40 Mg Tab 40 Mg PO DAILY Donepezil 10 Mg Tab 10 Mg PO HS Trazodone (Trazodone HCl) 50 Mg Tab 25 Mg PO HS Flexeril (Cyclobenzaprine HCl) 5 Mg Tab 5 Mg PO DAILY Aspir-81 (Aspirin) 81 Mg Tabdr 1 Tab PO DAILY Folate (Folic Acid) 1 Mg Tab 1 Mg PO DAILY Methotrexate 2.5 Mg Tab 5 Mg PO Q7D Vitamin D (Cholecalciferol) 2,000 Unit Cap 1 Tab PO BID Hydralazine (Hydralazine HCl) 50 Mg Tab 50 Mg PO BID Take with a meal Lorazepam 1 Mg Tab 1 Mg PO DAILY PRN Clonidine (Clonidine HCl) 0.1 Mg Tab 0.1 Mg PO BID Atenolol 25 Mg Tab 25 Mg PO BID Review of Systems Except as stated in HPI: all other systems reviewed are Neg Physical Exam Narrative GENERAL: Well-developed, well-nourished, elderly-appearing female, comfortable, no acute distress. SKIN: Warm and dry. HEAD: Atraumatic. Normocephalic. EYES: Pupils equal and round. No scleral icterus. No injection or drainage. ENT: No nasal bleeding or discharge. Mucous membranes pink and moist. NECK: Trachea midline. No JVD. CARDIOVASCULAR: Regular rate and rhythm. Distal pulses brisk and equal bilaterally. RESPIRATORY: No accessory muscle use. Clear to auscultation. Breath sounds equal bilaterally. GASTROINTESTINAL: Abdomen soft, non-tender, nondistended. MUSCULOSKELETAL: No obvious deformities. No clubbing. No cyanosis. No edema. NEUROLOGICAL: Awake and alert. No obvious cranial nerve deficits. Motor grossly within normal limits. Normal speech. PSYCHIATRIC: Appropriate mood and affect; insight and judgment normal. Data Data Last Documented VS Vital Signs Date Time Temp Pulse Resp B/P Pulse Ox O2 Delivery O2 Flow Rate FiO2 04/26/16 23:31 18 04/26/16 22:52 224/93 04/26/16 22:47 96 04/26/16 22:36 62 04/26/16 22:27 Room Air 04/26/16 21:25 98.1 Orders Basic Metabolic Panel (Bmp) (04/26/16 21:43) Ckmb (Isoenzyme) Profile (04/26/16 21:43) Complete Blood Count With Diff (04/26/16 21:43) Magnesium (Mg) (04/26/16 21:43) Prothrombin Time / Inr (Pt) (04/26/16 21:43) Act Partial Throm Time (Ptt) (04/26/16 21:43) Troponin I (04/26/16 21:43) Chest, Single Ap (04/26/16 21:43) Ecg Monitoring (04/26/16 21:43) Bilateral Bp Monitoring (04/26/16 21:43) Iv Access Insert/Monitor (04/26/16 21:43) Oximetry (04/26/16 21:43) Aspirin Chew (Aspirin Chew) (04/26/16 21:45) Sodium Chloride 0.9% Flush (Ns Flush) (04/26/16 21:45) Nitroglycerin Sl (Nitrostat Sl) (04/26/16 21:45) Labs Laboratory Tests Test 04/26/16 22:00 White Blood Count 12.6 TH/MM3 Red Blood Count 4.09 MIL/MM3 Hemoglobin 12.7 GM/DL Hematocrit 37.9 % Mean Corpuscular Volume 92.9 FL Mean Corpuscular Hemoglobin 31.1 PG Mean Corpuscular Hemoglobin 33.5 % Concent Red Cell Distribution Width 13.6 % Platelet Count 316 TH/MM3 Mean Platelet Volume 7.3 FL CBC Comment AUTO DIFF Differential Total Cells 100 Counted Neutrophils % (Manual) 90 % Band Neutrophils % 1 % Lymphocytes % 5 % Monocytes % 3 % Eosinophils % 1 % Neutrophils # (Manual) 11.5 TH/MM3 Differential Comment FINAL DIFF MANUAL Hypersegmented Polys 1+ Platelet Estimate NORMAL Platelet Morphology Comment NORMAL Red Cell Morphology Comment NORMAL Prothrombin Time 10.6 SEC Prothromb Time International 1.0 RATIO Ratio Activated Partial 29.3 SEC Thromboplast Time Sodium Level 137 MEQ/L Potassium Level 3.9 MEQ/L Chloride Level 98 MEQ/L Carbon Dioxide Level 30.5 MEQ/L Anion Gap 9 MEQ/L Blood Urea Nitrogen 23 MG/DL Creatinine 1.30 MG/DL Estimat Glomerular Filtration 40 ML/MIN Rate Random Glucose 103 MG/DL Calcium Level 9.6 MG/DL Magnesium Level 2.4 MG/DL Total Creatine Kinase 58 U/L Troponin I LESS THAN 0.02 NG/ML MDM Medical Decision Making Medical Screen Exam Complete: Yes Emergency Medical Condition: Yes Medical Record Reviewed: Yes Interpretation(s) EKG: Sinus, rate 65, PVCs, normal axis, normal intervals, LVH, lateral ST depression and T-wave inversion, essentially unchanged from prior. Differential Diagnosis ACS, pneumothorax, pericarditis, PE, pneumonia, dissection Narrative Course Vital signs show heart rate 62, blood pressure 200/81 in the left upper extremity, 137/65 in the right upper extremity, pulse ox 95% on room air, oral temp of 98.1F. Patient reports history of unequal blood pressures in bilateral arms. CBC is unremarkable. BMP is remarkable for BUN 23, creatinine 1.3, GFR 40, otherwise unremarkable. Cardiac enzymes are negative. Chest x-ray shows compensated mild to moderate cardiomegaly, no acute cardio pulmonary disease. Again the patient reports that she has unequal blood pressures in her bilateral arms stating that the blood pressure in her right arm is usually much lower than her left arm. Patient was made aware of all findings. She is resting comfortably. She is still complaining of an ache/squeezing sensation over her left chest that is 3 out of 10, constant. She ambulated to the restroom without difficulty and without assistance. She is in no acute distress. I do not believe she is suffering from an aortic dissection. I believe she is a good candidate for further cardiac evaluation in the chest pain center given her significant cardiac history. The patient is amenable to this plan. Case discussed with hospitalist Dr. Sandoval who will admit the patient to her service. Diagnosis Primary Impression: Chest pain Qualified Code: R07.9 - Chest pain, unspecified type Admitting Information Admitting Physician Requests: Matthew Rowland MD Apr 26, 2016 21:51
[2016-04-26 22:18] LABS: CHLORIDE 98 MEQ/L (98-107); HEMATOCRIT 37.9 % (35.0-46.0); MEAN CELL VOLUME 92.9 FL (80.0-100.0); MEAN CORPUSCULAR HEMOGLOBIN 31.1 PG (27.0-34.0); MEAN CORPUSCULAR HGB CONC 33.5 % (32.0-36.0); PLATELET COUNT 316 TH/MM3 (150-450); POTASSIUM 3.9 MEQ/L (3.5-5.1); RED BLOOD COUNT 4.09 MIL/MM3 (4.00-5.30); RED CELL DISTRIBUTION WIDTH 13.6 % (11.6-17.2); SODIUM (NA) 137 MEQ/L (136-145); WHITE BLOOD COUNT 12.6 TH/MM3 (4.0-11.0)
[2016-04-26] MEDS: NITROGLYCERIN 0.4 MG SL 25 TABS/BTL SL SCH ×3 (22:19→22:52)
[2016-04-26 22:21] LABS: ANION GAP 9 MEQ/L (5-15); BICARBONATE 30.5 MEQ/L (21.0-32.0); BLOOD UREA NITROGEN 23 MG/DL (7-18); MAGNESIUM 2.4 MG/DL (1.5-2.5)
[2016-04-26 22:22] LABS: APTT (PATIENT) 29.3 SEC (24.3-30.1); HEMO FLAGS AUTO DIFF; PROTHROMBIN TIME - PATIENT 10.6 SEC (9.8-11.6)
[2016-04-26 22:24] LABS: GLOMERULAR FILTRATION RATE 40 ML/MIN (>89)
[2016-04-26 22:27] VITALS: BP 202/65; PULSE 60; RESP 20; O2SAT 95
--- NOTE | 2016-04-26 22:31 | RADHPO ---
EXAM DATE/TIME: 04/26/2016 22:07 [facility] COMPARISON: CHEST SINGLE AP, November 17, 2015, 11:25. INDICATIONS : Patient states cough. MEDICAL HISTORY : Hypertension. Hypercholesterolemia. SURGICAL HISTORY : CABG. ENCOUNTER: Initial ACUITY: 2 days PAIN SCORE: 0/10 LOCATION: Bilateral chest FINDINGS: No infiltrate, effusion or pneumothorax demonstrated. No overt failure seen. Mild to moderate cardiom egaly again noted. Patient has had median sternotomy. CONCLUSION: Compensated mild to moderate cardiomegaly. No acute cardiopulmonary disease demonstrated. Tal Vera MD on April 26, 2016 at 22:29 Board Certified Radiologist. This report was verified electronically.
[2016-04-26 22:42] LABS: CREATINE KINASE 58 U/L (26-192)
[2016-04-26 22:47] VITALS: O2SAT 96
[2016-04-26 22:52] VITALS: BP 224/93
[2016-04-26 23:06] LABS: BANDS 1 % (0-6); EOSINOPHILS 1 % (0-4); HYPERSEGMENTED POLYS 1+ (NORMAL); NEUTROPHIL # MANUAL DIFF 11.5 TH/MM3 (1.8-7.7); PLATELET ESTIMATE SMEAR NORMAL (NORMAL); PLATELET MORPHOLOGY NORMAL (NORMAL); POLYS (SEG NEUTROPHILS) 90 % (16-70); SCAN/DIFF FINAL DIFF MANUAL; WBC DIFF SAMPLE 100
[2016-04-26 23:36] VITALS: BP 188/66; PULSE 64; RESP 18; O2SAT 97
[2016-04-27] VITALS (10 sets, daily range): BP systolic 111–208; BP diastolic 56–84; PULSE 60–76; RESP 16–18; TEMP 97.2–98.1; O2SAT 93–98
[2016-04-27] MEDS ORDERED: SODIUM CHLORIDE 0.9% FLUSH 5 ML FLUSH IVF PRN (00:45)
[2016-04-27] MEDS ORDERED: hydrALAZINE HCL 20 MG/ML VIAL IV PUSH ONE (01:45)
[2016-04-27] MEDS ORDERED: LORazepam 1 MG TAB PO PRN (02:45)
[2016-04-27 02:50] LABS: CREATINE KINASE 48 U/L (26-192)
[2016-04-27 06:23] LABS: CREATINE KINASE 43 U/L (26-192)
--- NOTE | 2016-04-27 08:12 | HHI.HP ---
cc: Sherly Salguero MD [facility] Service [facility] Primary Care Physician Sherly Salguero MD Admission Diagnosis chest pain Diagnoses: (1) Chest pain Diagnosis: Principal (2) Hypertensive urgency Diagnosis: Principal (3) Leukocytosis Diagnosis: Principal (4) Acute kidney injury superimposed on CKD Diagnosis: Principal Chief Complaint: chest pain Travel History International Travel<30 Days: No Contact w/Intl Traveler <30 Da: No Traveled to Known Affected Are: No History of Present Illness 75-year-old female with history of coronary artery disease with h/o CABG, hypertension, hyperlipidemia, arthritis presents complaining of chest pain. Patient states it started the night before last but then it came on again yesterday afternoon and states it was constant until 3:30 this morning lasting approximately 12 hours. She states it felt like her heart was "pounding " and describes the pain as "pounding" stating the pain was under the left breast and over the left shoulder blade. Patient states the pain in its worst was only a 3-4/10. Lying down makes the pain worse. Nothing alleviated the pain. She admits to a night sweat last night but denies any associated numbness or tingling, weakness, or shortness of breath. Denies any current chest pain. Patient states she has been coughing a lot but denies it being productive. She states she is getting over bronchitis and states it was gone but came back last night. She was recently on antibiotics. Denies any fevers or chills. Patient additionally states that her blood pressure was greater than 220 yesterday at home and she took an extra clonidine. The patient was recently seen in the ED last week for accelerated hypertension and bronchitis and prescribed doxycycline. Patient admits to her legs being fairly swollen when she arrived, but she denies any history of DVT or pulmonary embolus, hemoptysis, exogenous estrogen use, history of trauma/surgeries/hospitalization in the last 12 weeks, sedentary travel, or active cancer. Patient additionally states she has been urinating every 20 minutes since coming to the hospital, but later informed me she took 20 mg of Lasix and she takes this as needed for leg swelling. She denies any burning with urination. Denies any diarrhea. She denies any abdominal pain, nausea, or vomiting. Patient's protective services officer is Dr. Lord though she does not recall when she last saw him. Denies any recent stress test. Review of Systems Constitutional: COMPLAINS OF: Night Sweats, DENIES: Fever, Chills Eyes: DENIES: Blurred vision Ears, nose, mouth, throat: DENIES: Throat pain, Ear Pain, Running Nose Respiratory: COMPLAINS OF: Cough, DENIES: Sputum production, Shortness of breath Cardiovascular: COMPLAINS OF: Chest pain, Lower Extremity Edema Gastrointestinal: DENIES: Abdominal pain, Diarrhea, Nausea, Vomiting Genitourinary: COMPLAINS OF: Urinary frequency, DENIES: Dysuria Musculoskeletal: COMPLAINS OF: Back pain (L shoulder blade) Integumentary: DENIES: Rash Neurologic: COMPLAINS OF: Headache (minor), DENIES: Localized weakness, Paresthesias Past Family Social History Past Medical History CAD Hypertension Hyperlipidemia Arthritis Glaucoma Childhood asthma Past Surgical History CABG x 3 1998 Hysterectomy Glaucoma surgery right eye Left hip replacement Cervical decompression with plate in cervical spine Pain stimulator which has since been removed. Reported Medications Duragesic Patch 72 HR (Fentanyl) 100 Mcg/Hr Patch 100 Mcg T-DERMAL Q72H Remove old patch when new one placed. Proair Hfa 8.5 GM Inh (Albuterol Sulfate) 90 Mcg/Act Aer 1 Puff INH Q4H PRN 108 mcg/actuation Losartan (Losartan Potassium) 50 Mg Tab 50 Mg PO DAILY Restasis Opth Drops (Cyclosporine Opth Drops) 0.05% Emul 1 Drop EACH EYE BID Pravastatin 40 Mg Tab 40 Mg PO DAILY Donepezil 10 Mg Tab 10 Mg PO HS Trazodone (Trazodone HCl) 50 Mg Tab 25 Mg PO HS Flexeril (Cyclobenzaprine HCl) 5 Mg Tab 5 Mg PO DAILY Aspir-81 (Aspirin) 81 Mg Tabdr 1 Tab PO DAILY Folate (Folic Acid) 1 Mg Tab 1 Mg PO DAILY Methotrexate 2.5 Mg Tab 5 Mg PO Q7D Vitamin D (Cholecalciferol) 2,000 Unit Cap 1 Tab PO BID Hydralazine (Hydralazine HCl) 50 Mg Tab 50 Mg PO BID Take with a meal Lorazepam 1 Mg Tab 1 Mg PO DAILY PRN Clonidine (Clonidine HCl) 0.1 Mg Tab 0.1 Mg PO BID Atenolol 25 Mg Tab 25 Mg PO BID Allergies: Coded Allergies: Aricept (Verified Allergy, Severe, BLURRED VISION; PT TAKES DONEPEZIL DAILY, 04/26/16) Augmentin (Verified Allergy, Severe, VOMITING, 04/26/16) Celebrex (Verified Allergy, Severe, RASH; PT DENIES ALLERGY, 04/26/16) Contrast Media (Verified Allergy, Severe, Hives, BURNING, 04/26/16) [place] (Verified Allergy, Severe, MUSCLE SPASMS, 04/26/16) Levaquin (Verified Allergy, Severe, SOB, 04/26/16) Methadone (Verified Allergy, Severe, UNKNOWN, 04/26/16) Mobic (Verified Allergy, Severe, WHEEZING, 04/26/16) Naproxen (Verified Allergy, Severe, SWEATING, 04/26/16) Neurontin (Verified Allergy, Severe, SWELLING, 04/26/16) Sulfa (Verified Allergy, Severe, ITCHING, 04/26/16) Zydone (Verified Allergy, Severe, 04/26/16) ARTHROTEC (Verified Allergy, Unknown, 04/26/16) Baclofen (Verified Allergy, Unknown, SHAKING, PT UNSURE, 04/26/16) Cleocin (Verified Allergy, Unknown, MUSCLE PAIN, 04/26/16) Detrol (Verified Allergy, Unknown, 04/26/16) Marinol (Verified Allergy, Unknown, UNKNOWN, 04/26/16) Pletal (Verified Allergy, Unknown, UNKNOWN, 04/26/16) Soma (Verified Allergy, Unknown, UNKNOWN, 04/26/16) Topamax (Verified Allergy, Unknown, 04/26/16) Ultram (Verified Allergy, Unknown, 04/26/16) Vicodin (Verified Allergy, Unknown, 04/26/16) Cymbalta (Verified Adverse Reaction, Severe, NAUSEA, 04/26/16) Effexor (Verified Adverse Reaction, Severe, "SLEEPY", 04/26/16) Erythromycin (Verified Adverse Reaction, Severe, STOMACH CRAMPING, 04/26/16 ) Keflex (Verified Adverse Reaction, Severe, STOMACH PAIN, 04/26/16) Lexapro (Verified Adverse Reaction, Severe, "SLEEPLESSNESS", 04/26/16) Lipitor (Verified Adverse Reaction, Severe, VOMITING, 04/26/16) Lyrica (Verified Adverse Reaction, Severe, "WEAKNESS", 04/26/16) Mevacor (Verified Adverse Reaction, Severe, HEADACHE, 04/26/16) Paxil (Verified Adverse Reaction, Severe, SWEATING, 04/26/16) Provigil (Verified Adverse Reaction, Severe, ANXIETY, 04/26/16) Remeron Liliam-Tab (Verified Adverse Reaction, Severe, WEAKNESS, 04/26/16) Skelaxin (Verified Adverse Reaction, Severe, "FEEL DRUNK", 04/26/16) Tylenol/Codeine (Verified Adverse Reaction, Severe, NAUSEA, 04/26/16) Valium (Verified Adverse Reaction, Severe, JOINT PAIN, 04/26/16) Zanaflex (Verified Adverse Reaction, Severe, JITTERY, 04/26/16) Zetia (Verified Adverse Reaction, Severe, MUSCLE PAIN, 04/26/16) Zocor (Verified Adverse Reaction, Severe, MUSCLE PAIN, 04/26/16) Zoloft (Verified Adverse Reaction, Severe, DIZZINESS, 04/26/16) Celexa (Verified Adverse Reaction, Unknown, HEADACHE, 04/26/16) Cipro (Verified Adverse Reaction, Unknown, NAUSEA, 04/26/16) Cortisone (Verified Adverse Reaction, Unknown, HEADACHE, 04/26/16) PT DENIES ALLERGY TO MED 09/17 Depakote (Verified Adverse Reaction, Unknown, HEADACHE, 04/26/16) Ditropan (Verified Adverse Reaction, Unknown, NAUSEA, 04/26/16) Elavil (Verified Adverse Reaction, Unknown, SWEATING, 04/26/16) Prozac (Verified Adverse Reaction, Unknown, ITCHING, 04/26/16) Uncoded Allergies: VESICARE (Adverse Reaction, Severe, SWEATING, 10/18/08) VYTORIN (Adverse Reaction, Severe, CONSTIPATION, 10/18/08) Family History Mother: Severe arthritis, cancer. Father: Heart disease; patient states he was hospitalized at least twice a year. Social History Denies alcohol use. Quit smoking cigarettes 14 years ago. Denies illicit drug use. Physical Exam Vital Signs Vital Signs Date Time Temp Pulse Resp B/P Pulse Ox O2 Delivery O2 Flow Rate FiO2 2/21/17 07:20 71 16 96 Room Air 04/27/16 07:20 98.1 71 16 158/79 96 Room Air 04/27/16 05:14 72 16 111/56 97 Room Air 04/27/16 05:01 Room Air 21 04/27/16 05:01 76 16 170/68 97 Room Air 04/27/16 02:59 60 18 196/80 98 Room Air 04/27/16 02:16 70 18 179/68 Room Air 04/27/16 01:51 97 21 04/27/16 00:51 63 18 208/66 97 Room Air 04/26/16 23:36 64 18 188/66 97 Room Air 04/26/16 23:31 18 04/26/16 22:52 224/93 04/26/16 22:47 96 04/26/16 22:36 62 20 04/26/16 22:27 60 20 202/65 95 Room Air 04/26/16 21:25 200/81 137/65 04/26/16 21:25 98.1 62 20 Physical Exam GENERAL: This is an elderly well-nourished, well-developed patient, in no apparent distress. SKIN: Ecchymoses over the forearms. Dark pigmentation over the tibias bilaterally, appears as venous stasis. HEAD: Atraumatic. Normocephalic. EYES: No scleral icterus. No injection or drainage. CHEST: No reproducible chest wall tenderness. CARDIOVASCULAR: Regular rate and rhythm without murmurs, gallops, or rubs. RESPIRATORY: Clear to auscultation. Breath sounds equal bilaterally. No wheezes , rales, or rhonchi. GASTROINTESTINAL: Abdomen soft, non-tender, nondistended. No guarding. MUSCULOSKELETAL: No lower extremity edema bilaterally. Tender over bilateral calves. 2+ DP pulses bilaterally. NEUROLOGICAL: Awake and alert. Motor grossly within normal limits. Patient is able to get up out of bed unassisted to use the bedside commode, cane at bedside. 4/5 quadriceps strength bilaterally. Normal speech. PSYCHIATRIC: Normal mood and affect. Insight and judgement normal. Laboratory Laboratory Tests Test 04/26/16 04/27/16 04/27/16 22:00 02:14 04:55 White Blood Count 12.6 Red Blood Count 4.09 Hemoglobin 12.7 Hematocrit 37.9 Mean Corpuscular Volume 92.9 Mean Corpuscular Hemoglobin 31.1 Mean Corpuscular Hemoglobin 33.5 Concent Red Cell Distribution Width 13.6 Platelet Count 316 Mean Platelet Volume 7.3 CBC Comment AUTO DIFF Differential Total Cells 100 Counted Neutrophils % (Manual) 90 Band Neutrophils % 1 Lymphocytes % 5 Monocytes % 3 Eosinophils % 1 Neutrophils # (Manual) 11.5 Differential Comment FINAL DIFF MANUAL Hypersegmented Polys 1+ Platelet Estimate NORMAL Platelet Morphology Comment NORMAL Red Cell Morphology Comment NORMAL Prothrombin Time 10.6 Prothromb Time International 1.0 Ratio Activated Partial 29.3 Thromboplast Time Sodium Level 137 Potassium Level 3.9 Chloride Level 98 Carbon Dioxide Level 30.5 Anion Gap 9 Blood Urea Nitrogen 23 Creatinine 1.30 Estimat Glomerular Filtration 40 Rate Random Glucose 103 Calcium Level 9.6 Magnesium Level 2.4 Total Creatine Kinase 58 48 43 Troponin I LESS THAN 0.02 LESS THAN 0.02 LESS THAN 0.02 Result Diagram: 04/26/16219904/26/162199 Imaging Last Impressions Chest X-Ray 04/26/162142 Signed Impressions: Service Date/Time: Tuesday, April 26, 2016 22:07 - CONCLUSION: Compensated mild to moderate cardiomegaly. No acute cardiopulmonary disease demonstrated. Tal Vera MD Assessment and Plan Assessment and Plan 75-year-old female with: Chest pain: Appears atypical, constant "pounding". Chest x-ray personally interpreted with compensated mild to moderate cardiomegaly; sternal wires present; no acute disease. EKGs 3 personally interpreted. EKG #1 with sinus rhythm with PAC and left ventricular hypertrophy; T-wave inversion in aVL. EKG #2 with sinus bradycardia and left ventricular hypertrophy with flattened T waves in lead 1 and T-wave inversion in aVL although there is artifact present in these leads. EKG #3 with sinus rhythm, left ventricular hypertrophy and same isolated T- wave inversion in aVL. EKG from 03/05/16 with same T-wave inversion in aVL. -Patient received 243 mg of aspirin and 3 doses of nitroglycerin SL in ED. -Continue 81 mg aspirin daily -Patient to undergo Lexiscan as she has not had a recent stress test. Patient is informed that if test is positive for ischemia she may need a heart catheterization and she is agreeable to cath if it is absolutely necessary. -Last Lexiscan on 10/19/08 was normal; Echo 08/29/13 with mild LVH and EF of 60-65 %. Hypertensive urgency: BP 200/81 last night, persistently elevated in the supervisor record press hours. Patient received 10 mg of IV hydralazine in the ED. Could be cause of patient's chest pain. -Continue home medications unless otherwise indicated. Patient received Losartan and clonidine this morning, but atenolol and hydralazine held temporarily for stress test. Leukocytosis: WBC 12.6. Could be due to stress reaction although neutrophil count is elevated at 90%. Patient states she is recovering from bronchitis. Chest x-ray shows no acute disease. Patient is afebrile. Patient has recently been on antibiotics, but denies diarrhea. -Repeat CBC this morning with normal WBC of 10 with NO left shift. MAT on CKD: Patient appears to have stage III chronic kidney disease on record review, but BUN/Cr acutely worse at 23/1.30 whereas previously 12/1.15 on . Likely attributed to Lasix patient took at home yesterday. -Repeat BMP this morning with resolution of MAT, but mild hypokalemia of 3.3 likely due to Lasix use as well. 20 mEq po KCl ordered. DVT prevention: Early ambulation. Myocardial perfusion scan negative for ischemia. EF normal. Patient has chronic pain and is on fentanyl patch and Percocet at home. She requests pain medication for her neck, but then tells me she is going to drive home. I informed the patient that I cannot give her pain medication if she is driving and she should not be driving with Fentanyl patch either. She declines transport home. Discharge disposition: Home in stable condition. Diet: Heart healthy Activity: Resume prior activity status. Home health PT may be resumed. Medications: Resume home medications. Patient requests Tessalon Perles for cough. Follow up: PCP 1 week, Dr. Lord. Attending Statement The exam, history, and the medical decision-making described in the above note were completed with the assistance of the mid-level provider. I reviewed and agree with the findings presented. I attest that I had a [id number] encounter with the patient on the same day, and personally performed and documented my assessment and findings in the medical record. Problem Qualifiers (1) Chest pain: Qualified Code: R07.9 - Chest pain, unspecified type Kristyn Painting Apr 27, 2016 08:12 Patricia Banks MD Apr 27, 2016 16:41
[2016-04-27] MEDS ORDERED: PILL SPLITTER OTHER PRN (08:30)
[2016-04-27] MEDS ORDERED: PRAVASTATIN SOD 40 MG TAB PO SCH ×2 (09:00→21:00)
[2016-04-27] MEDS ORDERED: RESTASIS EACH EYE SCH (09:00)
[2016-04-27] MEDS ORDERED: CYCLOSPORINE OPTH EACH EYE SCH (09:00)
[2016-04-27] MEDS ORDERED: ASPIRIN EC 81 MG TABEC PO SCH (09:00)
[2016-04-27] MEDS ORDERED: CYCLOBENZAPRINE HCL 10 MG TAB PO SCH (09:00)
[2016-04-27] MEDS ORDERED: CHOLECALCIFEROL (VIT D3) 1000 UNIT TAB PO SCH (09:00)
[2016-04-27] MEDS ORDERED: FOLIC ACID 1 MG TAB PO SCH (09:00)
[2016-04-27] MEDS ORDERED: SODIUM CHLORIDE 0.9% FLUSH 5 ML FLUSH IVF SCH (09:00)
[2016-04-27] MEDS ORDERED: cloNIDine HCL 0.1 MG TAB PO SCH (09:00)
[2016-04-27] MEDS ORDERED: LOSARTAN 50 MG TAB PO SCH (09:00)
[2016-04-27] MEDS ORDERED: REGADENOSON INJ 0.4 MG/5 ML SYR IV ONE (09:57)
[2016-04-27 11:15] LABS: HEMATOCRIT 38.6 % (35.0-46.0); MEAN CELL VOLUME 92.6 FL (80.0-100.0); MEAN CORPUSCULAR HEMOGLOBIN 30.8 PG (27.0-34.0); MEAN CORPUSCULAR HGB CONC 33.2 % (32.0-36.0); PLATELET COUNT 297 TH/MM3 (150-450); RED BLOOD COUNT 4.17 MIL/MM3 (4.00-5.30); RED CELL DISTRIBUTION WIDTH 12.9 % (11.6-17.2)
[2016-04-27 11:16] LABS: HEMO FLAGS AUTO DIFF
[2016-04-27 11:17] LABS: POTASSIUM 3.3 MEQ/L (3.5-5.1)
--- NOTE | 2016-04-27 11:17 | RADHPO ---
EXAM DATE/TIME: 04/27/2016 10:06 [facility] COMPARISON: CHEST SINGLE AP, April 26, 2016, 22:07. INDICATIONS : Left sided chest pain radiating to the left shoulder for one day. Coronary artery disease. DOSE: 25.4 mCi Tc99m Myoview at stress. 8.8 mCi Tc99m Myoview at rest. 0.4 mg Lexiscan STRESS SYMPTOMS: Shortness of breath with stomach cramps. EJECTION FRACTION: 59% MEDICAL HISTORY : Peripheral vascular disease. Hypertension. SURGICAL HISTORY : CABG Hysterectomy. ENCOUNTER: Initial ACUITY: 1 day PAIN SCALE: 3/10 LOCATION: Left chest TECHNIQUE: The patient underwent pharmacologic stress with infusion of prescribed dose. Continuous ECG tracing was monitored during stress. Gated SPECT imaging was performed after stress and conventional SPECT i maging was performed at rest. The examination was performed on a SPECT/CT scanner, both attenuation and non-corrected datasets were reviewed. FINDINGS: DISTRIBUTION: The maximum perfused segment at stress is in the anterolateral wall. PERFUSION STUDY: The pattern of perfusion at stress is within normal limits. GATED STUDY: There is intact wall motion and thickening without hypokinetic or dyskinetic segments. CONCLUSION: 1. Left ventricle perfusion is within normal limits. No fixed or reversible perfusion defect is ident ified. 2. Normal left ventricle wall motion with a calculated ejection fraction of 59%. RISK CATEGORY: Low (<1% Annual Mortality Rate) Tal Vallecillo MD on April 27, 2016 at 11:13 Board Certified Radiologist. This report was verified electronically.
[2016-04-27 11:21] LABS: BICARBONATE 29.1 MEQ/L (21.0-32.0)
[2016-04-27 12:00] LABS: EOSINOPHILS 2 % (0-4); NEUTROPHIL # MANUAL DIFF 6.8 TH/MM3 (1.8-7.7); POLYS (SEG NEUTROPHILS) 68 % (16-70); WBC DIFF SAMPLE 100
[2016-04-27 12:01] LABS: PLATELET ESTIMATE SMEAR NORMAL (NORMAL); PLATELET MORPHOLOGY NORMAL (NORMAL); SCAN/DIFF AUTO DIFF CONFIRMED
[2016-04-27] MEDS ORDERED: ATENOLOL 25 MG TAB PO SCH (12:15)
[2016-04-27] MEDS ORDERED: hydrALAZINE HCL 50 MG TAB PO SCH (12:15)
[2016-04-27] MEDS ORDERED: POTASSIUM CHLORIDE 20 MEQ CONTROLLED RELEASE TAB PO ONE (12:15)
--- NOTE | 2016-04-27 12:36 | TR ---
Date Performed: 04/27/2016 Time Performed: 10:09:37 DOCTOR: Katie Woodruff DRUG LIST: CLINICAL HISTORY: ANGINA REASON FOR TEST: Angina REASON FOR ENDING: OBSERVATION: CONCLUSION: Lexiscan stress test was performed under standard four minute protocol. Radionuclid e was injected one minute prior to ending the test. No electrocardiographic abormalities were present to suggest ischemia. Nuclear imaging and interpretation are pending. COMMENTS:
--- NOTE | 2016-04-27 12:48 | HHI.FF ---
Face to Face Verification Diagnosis: (1) Pain in left hip Physical Therapy Order: Evaluate and Treat Instructions: Resume previous PT orders I have seen patient Bella Escobar on 04/27/16. My clinical findings support the need for the requested home health care services because: Ltd mobility - disease progression High risk of falls I certify that my clinical findings support that this patient is homebound because: Unsteady gait/balance (uses cane) Kristyn Painting Apr 27, 2016 12:48
[2016-04-27] MEDS ORDERED: BENZ100 PO (13:09)
--- NOTE | 2016-04-27 13:10 | HHI.DCPOC ---
Discharge Care Plan Diagnosis: (1) Chest pain (2) Hypertensive urgency (3) Acute kidney injury superimposed on CKD (4) Leukocytosis Your Health Problems Are: Chest Pain Goals to Promote Your Health * To prevent worsening of your condition and complications * To maintain your health at the optimal level Directions to Meet Your Goals Take your medications as prescribed Follow your dietary instruction Follow activity as directed Keep your appointments as scheduled Take your immunizations and boosters as scheduled If your symptoms worsen call your PCP, if no PCP go to Urgent Care Center or Emergency Room Smoking is Dangerous to Your Health. Avoid second hand smoke Call the 24-hour hour crisis hotline for domestic abuse at Kristyn Painting Apr 27, 2016 13:10
[2016-04-27] MEDS ORDERED: traZODone HCL 50 MG TAB PO SCH (21:00)
[2016-04-27] MEDS ORDERED: DONEPEZIL HCL 5 MG TAB PO SCH (21:00)
--- NOTE | 2016-04-28 23:17 | EKG ---
Date Performed: 04/27/2016 Time Performed: 04:10:12 PTAGE: 75 years EKG: Sinus rhythm . Left ventricular hypertrophy Lateral T wave changes are probably due to ventricular hypertrophy Abn ormal ECG PREVIOUS TRACING : 04/27/2016 01.04 Compared to prior tracing no significant change DOCTOR: Avtar Silvestre Interpretating Date/Time 04/28/2016 23:16:22
--- NOTE | 2016-04-28 23:20 | EKG ---
Date Performed: 04/27/2016 Time Performed: 01:04:36 PTAGE: 75 years EKG: Sinus bradycardia. Left ventricular hypertrophy Lateral T wave changes are probably due to ventricular hypertrophy Abnormal ECG PREVIOUS TRACING : 04/26/2016 21.30 Compared to prior tracing no significant change DOCTOR: Avtar Silvestre Interpretating Date/Time 04/28/2016 23:19:52
--- NOTE | 2016-04-28 23:21 | EKG ---
Date Performed: 04/26/2016 Time Performed: 21:30:12 PTAGE: 75 years EKG: Sinus rhythm with PAC(s) Left ventricular hypertrophy Lateral ST-T changes are probably due to ventricular hypert rophy Abnormal ECG PREVIOUS TRACING : 03/05/2016 17.53 Compared to the previous tracing, PACs now noted DOCTOR: Avtar Silvestre Interpretating Date/Time 04/28/2016 23:20:40
[2016-08-02] MEDS ORDERED: LATA0.002 EACH EYE (15:11)
== END 2016-04-27 15:15 | disposition home or self-care (01) ==
LOC: PHEFT 21:21 → UNDOADMOB 23:35 → PHEDA 23:35 → PHEDH 04-27 03:35 → PH3B 04-27 08:14 → UNDODISOB 04-27 15:15
PROVIDERS: ADMIT Family Medicine; ATTEND Family Medicine
DX: R07.9 Chest pain, unspecified (principal); I16.0 Hypertensive urgency; N17.9 Acute kidney failure, unspecified; D72.829 Elevated white blood cell count, unspecified; I10 Essential (primary) hypertension; I25.10 Atherosclerotic heart disease of native coronary artery without angina pectoris; E78.00 Pure hypercholesterolemia, unspecified; Z95.1 Presence of aortocoronary bypass graft; Z79.82 Long term (current) use of aspirin; Z87.891 Personal history of nicotine dependence
CPT/HCPCS: 71010; 78452; 80048; 82550; 83735; 84484; 85007; 85025; 85027; 85610; 85730; 93005; 93017; 99285; A9502; G0378; J0360; J2785

== ENCOUNTER → 2016-05-31 | Outpatient (CLI) | payer MEDICARE, BC ==
[~2016-05-31] MED LIST changes: +ASPI-110 PO; +COEN400C PO; -DOXY100C PO; +FOLI400T PO; +HYDR-3800 PO; +LATA0.002 EACH EYE; +LORA-474 PO; +NORV2.5T PO; +SPIR25 PO; +TORS20TA PO; -VENL37.5 PO; -VIST25CA PO
[2016-05-31 13:56] LABS: BICARBONATE 28.4 MEQ/L (21.0-32.0); POTASSIUM 3.8 MEQ/L (3.5-5.1)
== END ==
LOC: PLAB 10:45
PROVIDERS: ATTEND Internal Medicine Cardiovascular Disease
DX: R60.9 Edema, unspecified (principal); I34.0 Nonrheumatic mitral (valve) insufficiency; I25.10 Atherosclerotic heart disease of native coronary artery without angina pectoris
CPT/HCPCS: 36415; 80048

== ENCOUNTER → 2016-07-05 | Outpatient (CLI) | payer MEDICARE, BC ==
[~2016-07-05] MED LIST changes: +IRON27TA PO; +LACT10SO5 PO; +METH8TAB3 PO; +OXYC1TAB36 PO
[2016-07-05 18:00] LABS: HEMATOCRIT 33.7 % (35.0-46.0); MEAN CELL VOLUME 93.7 FL (80.0-100.0); MEAN CORPUSCULAR HEMOGLOBIN 30.2 PG (27.0-34.0); MEAN CORPUSCULAR HGB CONC 32.2 % (32.0-36.0); PLATELET COUNT 253 TH/MM3 (150-450); RED CELL DISTRIBUTION WIDTH 15.7 % (11.6-17.2); REVIEW FLAG FINAL; WHITE BLOOD COUNT 17.4 TH/MM3 (4.0-11.0)
[2016-07-05 18:15] LABS: ANION GAP 7 MEQ/L (5-15); AST (GOT) 20 U/L (15-37); BICARBONATE 28.2 MEQ/L (21.0-32.0); BLOOD UREA NITROGEN 37 MG/DL (7-18); CHLORIDE 104 MEQ/L (98-107); GLOMERULAR FILTRATION RATE 35 ML/MIN (>89); GLUCOSE,FASTING 97 MG/DL (74-99); POTASSIUM 4.3 MEQ/L (3.5-5.1); SODIUM (NA) 139 MEQ/L (136-145)
[2016-07-05 18:18] LABS: ALKALINE PHOSPHATASE 54 U/L (45-117); ALT (GPT) 29 U/L (10-53); TOTAL BILIRUBIN ADULT 0.4 MG/DL (0.2-1.0)
[2016-07-05 18:59] LABS: WESTERGREN SEDIMENTATION RATE 23 mm/hr (0-30)
== END ==
LOC: PLAB 14:33
PROVIDERS: ATTEND Internal Medicine Rheumatology
DX: M05.89 Other rheumatoid arthritis with rheumatoid factor of multiple sites (principal); Z79.899 Other long term (current) drug therapy
CPT/HCPCS: 80053; 85027; 85652

== ENCOUNTER 2016-08-02 14:27 | Emergency (ER) | payer MEDICARE, BC ==
[~2016-08-02 14:27] MED LIST changes: -ASPI-110 PO; -COEN400C PO; -FOLI400T PO; -HYDR-3800 PO; -IRON27TA PO; -LACT10SO5 PO; -LATA0.002 EACH EYE; -LORA-474 PO; -METH8TAB3 PO; -NORV2.5T PO; -OXYC1TAB36 PO; -SPIR25 PO; -TORS20TA PO
[2016-08-02 14:31] VITALS: BP 177/69; PULSE 70; RESP 20; TEMP 98.1; O2SAT 95
--- NOTE | 2016-08-02 14:57 | PD ---
HPI Chief Complaint: Edema Time Seen by Provider: 14:43 Travel History International Travel<30 days: No Contact w/Intl Traveler<30days: No Traveled to known affect area: No History of Present Illness HPI 76yo F with PMH of CAD s/p bypass presents to the ED with c/o worsening lower extremity edema for about 10 days. States she takes her torsemide every morning but it is not helping. Also states when she lies down, she has trouble breathing for the last few days. Uses 1 pillow. However, no sob when sitting up. Pt states she has nasal congestion and thinks she cant breathe because of her congestion. +Cough. Denies any chest pain, n/v, abdominal pain, focal weakness or numbness, or trauma. PFSH Past Medical History Hx Anticoagulant Therapy: Yes (ASA) Arthritis: Yes Asthma: Yes Atrial Fibrillation: Yes Blood Disorders: No Anxiety: Yes Heart Rhythm Problems: No Cancer: No Cardiac Catheterization: Yes Cardiovascular Problems: Yes (HTN) High Cholesterol: Yes Chest Pain: Yes Congestive Heart Failure: No COPD: No Cerebrovascular Accident: No Coronary Artery Disease: Yes Diabetes: No Diminished Hearing: No Endocrine: No Gastrointestinal Disorders: Yes (CONSTIPATION SECONDARY TO MEDICATIONS - takes laxatives regularly) Glaucoma: Yes (SX REPAIR) Genitourinary: Yes (bladder extension) Hepatitis: No Hiatal Hernia: No Hypertension: Yes Immune Disorder: No Implanted Vascular Access Dvce: Yes Kidney Stones: No Musculoskeletal: Yes (FEET AND LEGS WEAK) Neurologic: No Psychiatric: No Reproductive: No Respiratory: No Immunizations Current: Yes Migraines: No Myocardial Infarction: No Renal Failure: No Seizures: No Sleep Apnea: No Thyroid Disease: No PNEUMOCCOCAL Vaccine (Year): 1 Menopausal: Yes Past Surgical History Abdominal Surgery: Yes AICD: No Body Medical Devices: PLATE IN NECK; PIN LEFT HIP Cardiac Surgery: Yes (CABG X3,) Coronary Artery Bypass Graft: Yes (TRIPLE BYPASS 1998) Ear Surgery: No Eye Surgery: Yes (GLAUCOMA ) Gynecologic Surgery: Yes (HYSTERECTOMY,) Hysterectomy: Yes Joint Replacement: Yes ( LEFT HIP ) Neurologic Surgery: Yes (pain stimulator by conrado- since removed ) Oral Surgery: No Pacemaker: No Thoracic Surgery: No Other Surgery: Yes (cervical decompression C &, C 08/11, iliac crest bone graft C6/7) Social History Alcohol Use: No Tobacco Use: No (quit 2005? smoked for approx 10 yrs 1 ppd) Substance Use: No Allergies-Medications (Allergen,Severity, Reaction): Coded Allergies: Aricept (Verified Allergy, Severe, BLURRED VISION; PT TAKES DONEPEZIL DAILY, 04/26/16) Augmentin (Verified Allergy, Severe, VOMITING, 04/26/16) Celebrex (Verified Allergy, Severe, RASH; PT DENIES ALLERGY, 04/26/16) Contrast Media (Verified Allergy, Severe, Hives, BURNING, 04/26/16) [place] (Verified Allergy, Severe, MUSCLE SPASMS, 04/26/16) Levaquin (Verified Allergy, Severe, SOB, 04/26/16) Methadone (Verified Allergy, Severe, UNKNOWN, 04/26/16) Mobic (Verified Allergy, Severe, WHEEZING, 04/26/16) Naproxen (Verified Allergy, Severe, SWEATING, 04/26/16) Neurontin (Verified Allergy, Severe, SWELLING, 04/26/16) Sulfa (Verified Allergy, Severe, ITCHING, 04/26/16) Zydone (Verified Allergy, Severe, 04/26/16) ARTHROTEC (Verified Allergy, Unknown, 04/26/16) Baclofen (Verified Allergy, Unknown, SHAKING, PT UNSURE, 04/26/16) Cleocin (Verified Allergy, Unknown, MUSCLE PAIN, 04/26/16) Detrol (Verified Allergy, Unknown, 04/26/16) Marinol (Verified Allergy, Unknown, UNKNOWN, 04/26/16) Pletal (Verified Allergy, Unknown, UNKNOWN, 04/26/16) Soma (Verified Allergy, Unknown, UNKNOWN, 04/26/16) Topamax (Verified Allergy, Unknown, 04/26/16) Ultram (Verified Allergy, Unknown, 04/26/16) Vicodin (Verified Allergy, Unknown, 04/26/16) Cymbalta (Verified Adverse Reaction, Severe, NAUSEA, 04/26/16) Effexor (Verified Adverse Reaction, Severe, "SLEEPY", 04/26/16) Erythromycin (Verified Adverse Reaction, Severe, STOMACH CRAMPING, 04/26/16 ) Keflex (Verified Adverse Reaction, Severe, STOMACH PAIN, 04/26/16) Lexapro (Verified Adverse Reaction, Severe, "SLEEPLESSNESS", 04/26/16) Lipitor (Verified Adverse Reaction, Severe, VOMITING, 04/26/16) Lyrica (Verified Adverse Reaction, Severe, "WEAKNESS", 04/26/16) Mevacor (Verified Adverse Reaction, Severe, HEADACHE, 04/26/16) Paxil (Verified Adverse Reaction, Severe, SWEATING, 04/26/16) Provigil (Verified Adverse Reaction, Severe, ANXIETY, 04/26/16) Remeron Liliam-Tab (Verified Adverse Reaction, Severe, WEAKNESS, 04/26/16) Skelaxin (Verified Adverse Reaction, Severe, "FEEL DRUNK", 04/26/16) Tylenol/Codeine (Verified Adverse Reaction, Severe, NAUSEA, 04/26/16) Valium (Verified Adverse Reaction, Severe, JOINT PAIN, 04/26/16) Zanaflex (Verified Adverse Reaction, Severe, JITTERY, 04/26/16) Zetia (Verified Adverse Reaction, Severe, MUSCLE PAIN, 04/26/16) Zocor (Verified Adverse Reaction, Severe, MUSCLE PAIN, 04/26/16) Zoloft (Verified Adverse Reaction, Severe, DIZZINESS, 04/26/16) Celexa (Verified Adverse Reaction, Unknown, HEADACHE, 04/26/16) Cipro (Verified Adverse Reaction, Unknown, NAUSEA, 04/26/16) Cortisone (Verified Adverse Reaction, Unknown, HEADACHE, 04/26/16) PT DENIES ALLERGY TO MED 09/17 Depakote (Verified Adverse Reaction, Unknown, HEADACHE, 04/26/16) Ditropan (Verified Adverse Reaction, Unknown, NAUSEA, 04/26/16) Elavil (Verified Adverse Reaction, Unknown, SWEATING, 04/26/16) Prozac (Verified Adverse Reaction, Unknown, ITCHING, 04/26/16) Uncoded Allergies: VESICARE (Adverse Reaction, Severe, SWEATING, 10/18/08) VYTORIN (Adverse Reaction, Severe, CONSTIPATION, 10/18/08) Reported Meds & Prescriptions Reported Meds & Active Scripts Active Reported Aspirin 81 (Aspirin) 81 Mg Tabdr 81 Mg PO HS Latanoprost Opth Drops (Latanoprost) 0.005% Drops 1 Drop EACH EYE HS Refrigerate until opened. Latanoprost Opth Drops (Latanoprost) 0.005% Drops 1 Drop EACH EYE HS Refrigerate until opened. Restasis Opth 0.05% (Cyclosporine Opth 0.05%) 0.05% Emul 1 Drop EACH EYE BID Ativan (Lorazepam) 1 Mg Tab 1 Mg PO HS PRN Flexeril (Cyclobenzaprine HCl) 5 Mg Tab 5 Mg PO HS Norvasc (Amlodipine Besylate) 2.5 Mg Tab 2.5 Mg PO DAILY Coq-10 (Coenzyme Q10 (Ubidecarenone)) 400 Mg Cap 1 Tab PO DAILY Aldactone (Spironolactone) 25 Mg Tab 25 Mg PO DAILY Torsemide 20 Mg Tab 20 Mg PO DAILY Vitamin D (Cholecalciferol) 2,000 Unit Cap 2 Mg PO DAILY Hydralazine HCl 50 Mg Tablet 1 Tab PO QID Folic Acid 400 Mcg Tab 1 Mg PO DAILY Duragesic Patch 72 HR (Fentanyl) 100 Mcg/Hr Patch 100 Mcg T-DERMAL Q72H Remove old patch when new one placed. Proair Hfa 8.5 GM Inh (Albuterol Sulfate) 90 Mcg/Act Aer 1 Puff INH Q4H PRN 108 mcg/actuation Losartan (Losartan Potassium) 50 Mg Tab 50 Mg PO BID Restasis Opth 0.05% (Cyclosporine Opth 0.05%) 0.05% Emul 1 Drop EACH EYE BID Pravastatin 40 Mg Tab 40 Mg PO DAILY Donepezil 10 Mg Tab 10 Mg PO HS Trazodone (Trazodone HCl) 50 Mg Tab 25 Mg PO HS Flexeril (Cyclobenzaprine HCl) 5 Mg Tab 5 Mg PO DAILY Aspir-81 (Aspirin) 81 Mg Tabdr 1 Tab PO DAILY Methotrexate 2.5 Mg Tab 5 Mg PO Q7D Vitamin D (Cholecalciferol) 2,000 Unit Cap 1 Tab PO BID Lorazepam 1 Mg Tab 1 Mg PO DAILY PRN Clonidine (Clonidine HCl) 0.1 Mg Tab 0.1 Mg PO BID Atenolol 25 Mg Tab 25 Mg PO BID Review of Systems Except as stated in HPI: all other systems reviewed are Neg Physical Exam Narrative GENERAL: 76yo F not in distress. SKIN: Focused skin assessment warm/dry. HEAD: Atraumatic. Normocephalic. EYES: Pupils equal and round. No scleral icterus. No injection or drainage. ENT: No nasal bleeding or discharge. Mucous membranes pink and moist. NECK: Trachea midline. No JVD. CARDIOVASCULAR: Regular rate and rhythm. No murmur appreciated. RESPIRATORY: No accessory muscle use. Clear to auscultation. Breath sounds equal bilaterally. Speaking in complete sentences. GASTROINTESTINAL: Abdomen soft, non-tender, nondistended. MUSCULOSKELETAL: No obvious deformities. No clubbing. No cyanosis. +Bilateral lower ext pitting edema. Bilateral lower extremity brown discoloration. No erythema or warmth. NEUROLOGICAL: Awake and alert. No obvious cranial nerve deficits. Motor grossly within normal limits. Normal speech. PSYCHIATRIC: Appropriate mood and affect; insight and judgment normal. Data Data Last Documented VS Vital Signs Date Time Temp Pulse Resp B/P Pulse Ox O2 Delivery O2 Flow Rate FiO2 08/02/16 16:30 55 16 176/70 93 Room Air 08/02/16 14:31 98.1 Orders Complete Blood Count With Diff (08/02/16 14:53) Basic Metabolic Panel (Bmp) (08/02/16 14:53) B-Type Natriuretic Peptide (08/02/16 14:53) Act Partial Throm Time (Ptt) (08/02/16 14:53) Prothrombin Time / Inr (Pt) (08/02/16 14:53) Ckmb (Isoenzyme) Profile (08/02/16 14:53) Troponin I (08/02/16 14:53) Iv Access Insert/Monitor (08/02/16 14:53) Electrocardiogram (08/02/16 14:53) Ecg Monitoring (08/02/16 14:53) Oximetry (08/02/16 14:53) Chest, Single Ap (08/02/16 14:53) Furosemide Inj (Lasix Inj) (08/02/16 16:45) Labs Laboratory Tests Test 08/02/16 15:35 White Blood Count 11.9 TH/MM3 Red Blood Count 3.47 MIL/MM3 Hemoglobin 10.8 GM/DL Hematocrit 32.6 % Mean Corpuscular Volume 94.2 FL Mean Corpuscular Hemoglobin 31.1 PG Mean Corpuscular Hemoglobin 33.0 % Concent Red Cell Distribution Width 15.1 % Platelet Count 368 TH/MM3 Mean Platelet Volume 6.7 FL Neutrophils (%) (Auto) 74.6 % Lymphocytes (%) (Auto) 13.8 % Monocytes (%) (Auto) 8.6 % Eosinophils (%) (Auto) 2.3 % Basophils (%) (Auto) 0.7 % Neutrophils # (Auto) 8.9 TH/MM3 Lymphocytes # (Auto) 1.6 TH/MM3 Monocytes # (Auto) 1.0 TH/MM3 Eosinophils # (Auto) 0.3 TH/MM3 Basophils # (Auto) 0.1 TH/MM3 CBC Comment DIFF FINAL Differential Comment Prothrombin Time 10.3 SEC Prothromb Time International 0.9 RATIO Ratio Activated Partial 29.9 SEC Thromboplast Time Sodium Level 138 MEQ/L Potassium Level 3.9 MEQ/L Chloride Level 98 MEQ/L Carbon Dioxide Level 33.7 MEQ/L Anion Gap 6 MEQ/L Blood Urea Nitrogen 30 MG/DL Creatinine 1.40 MG/DL Estimat Glomerular Filtration 36 ML/MIN Rate Random Glucose 95 MG/DL Calcium Level 8.7 MG/DL Total Creatine Kinase 75 U/L Troponin I LESS THAN 0.02 NG/ML B-Type Natriuretic Peptide 264 PG/ML MDM Medical Decision Making Medical Screen Exam Complete: Yes Emergency Medical Condition: Yes Interpretation(s) EKG: Sinus bradycardia at 59bpm. Normal axis. No ST segment elevation or depression. Differential Diagnosis CHF exacerbation vs. kidney disease vs. liver disease vs. chronic venous stasis. Narrative Course 76yo F presents to the ED with c/o bilateral lower extremity edema. Denies any leg pain. States it is better when she elevates them with pillow. Labs reviewed, H/H low but at baseline. BUN/creatinine elevated but at baseline. Troponin negative. BNP mildly elevated at 264. CXR showed cardiomegaly. No acute focal pulmonary infiltrate or pulmonary vascular congestion. Pt is speaking in complete sentences and not sob when she sits there. Saturating at 97% on RA. Pt given lasix 40mg IV and has been diuresing. Pt reevaluated at bedside and states she thinks it is better. Pt has appointment with PMD tomorrow. Return precautions given. Diagnosis Primary Impression: Bilateral lower extremity edema Patient Instructions: General Instructions Departure Forms: Tests/Procedures Additional Instructions: Please follow up with your PMD tomorrow. Return to the ED if symptoms worsen. Disposition: 01 DISCHARGE HOME Condition: Stable Brigid Ballesteros DO August 02, 2016 14:57
[2016-08-02] MEDS ORDERED: CYCL5TAB PO (15:11)
[2016-08-02] MEDS ORDERED: HYDR-3800 PO (15:11)
[2016-08-02] MEDS ORDERED: NORV2.5T PO (15:11)
[2016-08-02] MEDS ORDERED: LATA0.002 EACH EYE ×2 (15:11)
[2016-08-02] MEDS ORDERED: LORA-474 PO (15:11)
[2016-08-02] MEDS ORDERED: TORS20TA PO (15:11)
[2016-08-02] MEDS ORDERED: SPIR25 PO (15:11)
[2016-08-02] MEDS ORDERED: ASPI-110 PO (15:11)
[2016-08-02] MEDS ORDERED: REST0.05 EACH EYE (15:11)
[2016-08-02] MEDS ORDERED: FOLI400T PO (15:11)
[2016-08-02] MEDS ORDERED: COEN400C PO (15:11)
[2016-08-02] MEDS ORDERED: VITA200013 PO (15:11)
[2016-08-02 15:16] VITALS: O2SAT 98
[2016-08-02 15:53] LABS: AUTOMATED NEUTROPHIL # 8.9 TH/MM3 (1.8-7.7); BASOPHIL # 0.1 TH/MM3 (0-0.2); BASOPHIL % 0.7 % (0.0-2.0); EOSINOPHIL # 0.3 TH/MM3 (0-0.4); EOSINOPHIL % 2.3 % (0.0-4.0); HEMATOCRIT 32.6 % (35.0-46.0); HEMO FLAGS DIFF FINAL; LYMPH % 13.8 % (9.0-44.0); LYMPHOCYTE # 1.6 TH/MM3 (1.0-4.8); MEAN CELL VOLUME 94.2 FL (80.0-100.0); MEAN CORPUSCULAR HEMOGLOBIN 31.1 PG (27.0-34.0); MONO % 8.6 % (0.0-8.0); NEUT % 74.6 % (16.0-70.0); PLATELET COUNT 368 TH/MM3 (150-450); RED BLOOD COUNT 3.47 MIL/MM3 (4.00-5.30); RED CELL DISTRIBUTION WIDTH 15.1 % (11.6-17.2); WHITE BLOOD COUNT 11.9 TH/MM3 (4.0-11.0)
[2016-08-02 16:09] LABS: CHLORIDE 98 MEQ/L (98-107); POTASSIUM 3.9 MEQ/L (3.5-5.1); SODIUM (NA) 138 MEQ/L (136-145)
--- NOTE | 2016-08-02 16:12 | RADHPO ---
EXAM DATE/TIME: 08/02/2016 15:38 [facility] COMPARISON: CHEST SINGLE AP, April 26, 2016, 22:07. INDICATIONS : Short of breath. MEDICAL HISTORY : None. SURGICAL HISTORY : CABG. ENCOUNTER: Initial ACUITY: 1 day PAIN SCORE: 2/10 LOCATION: Bilateral chest FINDINGS: Median sternotomy wires are noted status-post cardiac surgery. The heart is enlarged. Hardware is a gain noted within the cervicothoracic spine and is unchanged. The lungs are clear. Degenerative alvaro nges and scoliosis of the thoracic spine are again noted. CONCLUSION: 1. Cardiomegaly. 2. No acute focal pulmonary infiltrate or pulmonary vascular congestion. 3. Degenerative changes and scoliosis of the thoracolumbar spine. Raad Gregg MD on August 02, 2016 at 15:52 Board Certified Radiologist. This report was verified electronically.
[2016-08-02 16:13] LABS: ANION GAP 6 MEQ/L (5-15); APTT (PATIENT) 29.9 SEC (24.3-30.1); BICARBONATE 33.7 MEQ/L (21.0-32.0); BLOOD UREA NITROGEN 30 MG/DL (7-18); INTERNATIONAL NORMALIZED RATIO 0.9 RATIO; PROTHROMBIN TIME - PATIENT 10.3 SEC (9.8-11.6)
[2016-08-02 16:17] LABS: GLOMERULAR FILTRATION RATE 36 ML/MIN (>89)
[2016-08-02 16:30] VITALS: BP 176/70; PULSE 55; RESP 16; O2SAT 93
[2016-08-02 16:37] LABS: CREATINE KINASE 75 U/L (26-192)
[2016-08-02] MEDS ORDERED: FUROSEMIDE 40 MG/4 ML VIAL IV PUSH ONE (16:45)
--- NOTE | 2016-08-03 08:23 | EKG ---
Date Performed: 08/02/2016 Time Performed: 14:57:14 PTAGE: 76 years EKG: Sinus bradycardia Normal ECG except for rate PREVIOUS TRACING : 04/27/2016 04.10 No significant change from previous tracing noted. DOCTOR: Brent Schofield Interpretating Date/Time 08/03/2016 08:22:50
== END 2016-08-02 17:40 | disposition home or self-care (01) ==
LOC: PHED 14:27
DX: R60.0 Localized edema (principal); I51.7 Cardiomegaly; R00.1 Bradycardia, unspecified; R09.81 Nasal congestion; R05 Cough; R06.89 Other abnormalities of breathing; I25.10 Atherosclerotic heart disease of native coronary artery without angina pectoris; I48.91 Unspecified atrial fibrillation; Z95.1 Presence of aortocoronary bypass graft
CPT/HCPCS: 71010; 80048; 82550; 83880; 84484; 85025; 85610; 85730; 93005; 96374; 99285; J1940

== ENCOUNTER → 2016-08-25 | Outpatient (CLI) | payer MEDICARE, BC ==
[~2016-08-25] MED LIST changes: +ASPI-110 PO; -BENZ100 PO; +COEN400C PO; -FOLI1TAB4 PO; +FOLI400T PO; +HYDR-3800 PO; -HYDR50TA15 PO; +LATA0.002 EACH EYE; +LORA-474 PO; +NORV2.5T PO; +SPIR25 PO; +TORS20TA PO
[2016-08-25 13:04] LABS: AUTOMATED NEUTROPHIL # 5.5 TH/MM3 (1.8-7.7); BASOPHIL # 0.1 TH/MM3 (0-0.2); BASOPHIL % 0.8 % (0.0-2.0); EOSINOPHIL # 0.1 TH/MM3 (0-0.4); EOSINOPHIL % 0.8 % (0.0-4.0); HEMATOCRIT 32.7 % (35.0-46.0); HEMO FLAGS DIFF FINAL; LYMPH % 16.6 % (9.0-44.0); LYMPHOCYTE # 1.2 TH/MM3 (1.0-4.8); MEAN CELL VOLUME 94.2 FL (80.0-100.0); MONO % 5.9 % (0.0-8.0); NEUT % 75.9 % (16.0-70.0); PLATELET COUNT 332 TH/MM3 (150-450); RED BLOOD COUNT 3.47 MIL/MM3 (4.00-5.30); RED CELL DISTRIBUTION WIDTH 14.5 % (11.6-17.2); WHITE BLOOD COUNT 7.3 TH/MM3 (4.0-11.0)
[2016-08-25 13:18] LABS: URINE TOTAL PROTEIN TIMED 5.2 MG/DL
[2016-08-25 13:19] LABS: BLOOD, URINE NEG (NEG); GLUCOSE,URINE NEG (NEG); HYALINE CAST, URINE 1 /lpf (RARE); KETONE, URINE NEG (NEG); NITRITE,URINE NEG (NEG); SQUAMOUS EPITHELIAL CELL URINE <1 /hpf (0-5); URINE COLOR LIGHT-YELLOW (YELLW/STRAW)
[2016-08-25 13:42] LABS: ANION GAP 8 MEQ/L (5-15); BICARBONATE 30.8 MEQ/L (21.0-32.0); BLOOD UREA NITROGEN 22 MG/DL (7-18); CHLORIDE 100 MEQ/L (98-107); POTASSIUM 3.5 MEQ/L (3.5-5.1); SODIUM (NA) 139 MEQ/L (136-145)
[2016-08-25 14:02] LABS: ALKALINE PHOSPHATASE 49 U/L (45-117); ALT (GPT) 24 U/L (10-53); AST (GOT) 23 U/L (15-37); GLOMERULAR FILTRATION RATE 50 ML/MIN (>89); GLUCOSE,FASTING 79 MG/DL (74-99); HDL CHOLESTEROL 63.2 MG/DL (40.0-60.0); LDL CHOLESTEROL 269 MG/DL (0-99); LDL CHOLESTEROL DIRECT 263 MG/DL (0-99); TOTAL BILIRUBIN ADULT 0.8 MG/DL (0.2-1.0)
[2016-08-25 14:09] LABS: IMMUNOGLOBULIN A 82 MG/DL (90-497); IMMUNOGLOBULIN G 400 MG/DL (650-1610); IMMUNOGLOBULIN M 155 MG/DL (42-255); LAMBDA LIGHT CHAIN 69 MG/DL (90-210); TRANSFERRIN IRON PROFILE 236 MG/DL (200-360)
[2016-08-26 22:20] LABS: ALBUMIN SPE 4.84 GM/DL (3.50-5.00); ALPHA 1 GLOBULIN 0.25 GM/DL (0.11-0.29); ALPHA 2 GLOBULIN 0.73 GM/DL (0.22-1.00); BETA GLOBULINS (SPE) 0.69 GM/DL (0.53-1.03)
[2016-08-27 03:52] LABS: KAPPA/LAMBDA FREE 0.85 (0.26-1.65)
[2016-08-27 13:53] LABS: MYELOPEROXIDASE LESS THAN 1.0 AI (<1.0); PROTEINASE-3 LESS THAN 1.0 AI (<1.0)
== END ==
LOC: PLAB 10:42
PROVIDERS: ATTEND Family Medicine
DX: E55.9 Vitamin D deficiency, unspecified (principal); N18.3 Chronic kidney disease, stage 3 (moderate); D63.1 Anemia in chronic kidney disease; R50.9 Fever, unspecified; I25.10 Atherosclerotic heart disease of native coronary artery without angina pectoris; R53.83 Other fatigue; M35.3 Polymyalgia rheumatica
CPT/HCPCS: 36415; 80053; 80061; 81001; 82570; 82784; 83540; 83550; 83721; 83883; 83970; 84100; 84156; 84165; 84443; 85025; 85652; 86021; 86160; 86162; 86334; 86335; 86803; 87040

== ENCOUNTER 2016-09-06 11:09 | Emergency (ER) | payer MEDICARE, BC ==
[~2016-09-06] VITALS: Ht 170.2 cm; Wt 65.0 kg
[2016-09-06 11:14] VITALS: BP 131/44; PULSE 67; RESP 18; TEMP 98.2; O2SAT 98
[2016-09-06] MEDS ORDERED: LACT10SO5 PO (11:36)
[2016-09-06] MEDS ORDERED: IRON27TA PO (11:36)
[2016-09-06] MEDS ORDERED: OXYC1TAB36 PO (11:36)
[2016-09-06] MEDS ORDERED: METH8TAB3 PO (11:36)
--- NOTE | 2016-09-06 11:38 | PD ---
HPI Chief Complaint: Injury Time Seen by Provider: 11:38 Travel History International Travel<30 days: No Contact w/Intl Traveler<30days: No Traveled to known affect area: No History of Present Illness HPI 76-year-old female presents to the ED for evaluation of injury to the fifth digit of the right hand. Patient states she was attempting to put her flight and the flagpole when her finger got caught and she fell, catching the finger between the flagpole and the mounting hardware. She denies numbness, tingling, weakness, limitations or range of motion of the extremity. Baby aspirin daily. PFSH Past Medical History Hx Anticoagulant Therapy: Yes (BABY ASA DAILY) Arthritis: Yes Asthma: Yes Atrial Fibrillation: Yes Blood Disorders: No Anxiety: Yes Heart Rhythm Problems: No Cancer: No Cardiac Catheterization: Yes Cardiovascular Problems: Yes (HTN, CHOL) High Cholesterol: Yes Chest Pain: Yes Congestive Heart Failure: No COPD: No Cerebrovascular Accident: No Coronary Artery Disease: Yes Diabetes: No Diminished Hearing: No Endocrine: No Gastrointestinal Disorders: Yes (CONSTIPATION SECONDARY TO MEDICATIONS - takes laxatives regularly) Glaucoma: Yes (SX REPAIR) Genitourinary: Yes (bladder extension) Headaches: No Hepatitis: No Hiatal Hernia: No Hypertension: Yes Immune Disorder: No Implanted Vascular Access Dvce: Yes Kidney Stones: No Medical other: Yes (CHR. NECK PAIN) Musculoskeletal: Yes (FEET AND LEGS WEAK) Neurologic: No Psychiatric: No Reproductive: No Respiratory: Yes (ATHMA) Immunizations Current: Yes Migraines: No Myocardial Infarction: No Renal Failure: No Seizures: No Sleep Apnea: No Thyroid Disease: No Tetanus Vaccination: < 5 Years Influenza Vaccination: Yes PNEUMOCCOCAL Vaccine (Year): 1 ?: Not Menopausal: Yes Past Surgical History Abdominal Surgery: Yes AICD: No Body Medical Devices: PLATE IN NECK; PIN LEFT HIP Cardiac Surgery: Yes (CABG X3,) Coronary Artery Bypass Graft: Yes (Triple) Ear Surgery: No Eye Surgery: Yes (Glaucoma ) Gynecologic Surgery: Yes (HYSTERECTOMY,) Hysterectomy: Yes Joint Replacement: Yes (Lt. hip) Neurologic Surgery: Yes (Pain stimulator by Radha, since removed ) Oral Surgery: No Pacemaker: No Thoracic Surgery: No Other Surgery: Yes (cervical decompression C &, C 08/11, iliac crest bone graft C6/7) Social History Alcohol Use: No Tobacco Use: No (quit 2005? smoked for approx 10 yrs 1 ppd) Substance Use: No Allergies-Medications (Allergen,Severity, Reaction): Coded Allergies: Aricept (Verified Allergy, Severe, BLURRED VISION; PT TAKES DONEPEZIL DAILY, 09/06/16) Augmentin (Verified Allergy, Severe, VOMITING, 09/06/16) Celebrex (Verified Allergy, Severe, RASH; PT DENIES ALLERGY, 09/06/16) Contrast Media (Verified Allergy, Severe, Hives, BURNING, 09/06/16) [place] (Verified Allergy, Severe, MUSCLE SPASMS, 09/06/16) Levaquin (Verified Allergy, Severe, SOB, 09/06/16) Methadone (Verified Allergy, Severe, UNKNOWN, 09/06/16) Mobic (Verified Allergy, Severe, WHEEZING, 09/06/16) Naproxen (Verified Allergy, Severe, SWEATING, 09/06/16) Neurontin (Verified Allergy, Severe, SWELLING, 09/06/16) Sulfa (Verified Allergy, Severe, ITCHING, 09/06/16) Zydone (Verified Allergy, Severe, 09/06/16) ARTHROTEC (Verified Allergy, Unknown, 09/06/16) Baclofen (Verified Allergy, Unknown, SHAKING, PT UNSURE, 09/06/16) Cleocin (Verified Allergy, Unknown, MUSCLE PAIN, 09/06/16) Detrol (Verified Allergy, Unknown, 09/06/16) Marinol (Verified Allergy, Unknown, UNKNOWN, 09/06/16) Pletal (Verified Allergy, Unknown, UNKNOWN, 09/06/16) Soma (Verified Allergy, Unknown, UNKNOWN, 09/06/16) Topamax (Verified Allergy, Unknown, 09/06/16) Ultram (Verified Allergy, Unknown, 09/06/16) Vicodin (Verified Allergy, Unknown, 09/06/16) Cymbalta (Verified Adverse Reaction, Severe, NAUSEA, 09/06/16) Effexor (Verified Adverse Reaction, Severe, "SLEEPY", 09/06/16) Erythromycin (Verified Adverse Reaction, Severe, STOMACH CRAMPING, 09/06/16) Keflex (Verified Adverse Reaction, Severe, STOMACH PAIN, 09/06/16) Lexapro (Verified Adverse Reaction, Severe, "SLEEPLESSNESS", 09/06/16) Lipitor (Verified Adverse Reaction, Severe, VOMITING, 09/06/16) Lyrica (Verified Adverse Reaction, Severe, "WEAKNESS", 09/06/16) Mevacor (Verified Adverse Reaction, Severe, HEADACHE, 09/06/16) Paxil (Verified Adverse Reaction, Severe, SWEATING, 09/06/16) Provigil (Verified Adverse Reaction, Severe, ANXIETY, 09/06/16) Remeron Liliam-Tab (Verified Adverse Reaction, Severe, WEAKNESS, 09/06/16) Skelaxin (Verified Adverse Reaction, Severe, "FEEL DRUNK", 09/06/16) Tylenol/Codeine (Verified Adverse Reaction, Severe, NAUSEA, 09/06/16) Valium (Verified Adverse Reaction, Severe, JOINT PAIN, 09/06/16) Zanaflex (Verified Adverse Reaction, Severe, JITTERY, 09/06/16) Zetia (Verified Adverse Reaction, Severe, MUSCLE PAIN, 09/06/16) Zocor (Verified Adverse Reaction, Severe, MUSCLE PAIN, 09/06/16) Zoloft (Verified Adverse Reaction, Severe, DIZZINESS, 09/06/16) Celexa (Verified Adverse Reaction, Unknown, HEADACHE, 09/06/16) Cipro (Verified Adverse Reaction, Unknown, NAUSEA, 09/06/16) Cortisone (Verified Adverse Reaction, Unknown, HEADACHE, 09/06/16) PT DENIES ALLERGY TO MED 09/17 Depakote (Verified Adverse Reaction, Unknown, HEADACHE, 09/06/16) Ditropan (Verified Adverse Reaction, Unknown, NAUSEA, 09/06/16) Elavil (Verified Adverse Reaction, Unknown, SWEATING, 09/06/16) Prozac (Verified Adverse Reaction, Unknown, ITCHING, 09/06/16) Uncoded Allergies: VESICARE (Adverse Reaction, Severe, SWEATING, 10/18/08) VYTORIN (Adverse Reaction, Severe, CONSTIPATION, 10/18/08) Reported Meds & Prescriptions Reported Meds & Active Scripts Active Reported Iron (Ferrous Gluconate) 27 Mg Tab 1 Tab PO DAILY Lactulose 10 Gm/15 Ml Solution 10 Gm PO DIRECTED Methylprednisolone 8 Mg Tab 4 Mg PO DIRECTED Oxycodone-Acetaminophen 10-325 mg Tab 1 Tab PO TID PRN Latanoprost Opth Drops (Latanoprost) 0.005% Drops 1 Drop EACH EYE BID Refrigerate until opened. Norvasc (Amlodipine Besylate) 2.5 Mg Tab 5 Mg PO DIRECTED Torsemide 20 Mg Tab 20 Mg PO DAILY Hydralazine HCl 50 Mg Tablet 1 Tab PO QID Folic Acid 400 Mcg Tab 1 Mg PO DAILY Duragesic Patch 72 HR (Fentanyl) 100 Mcg/Hr Patch 100 Mcg T-DERMAL Q72H Remove old patch when new one placed. Proair Hfa 8.5 GM Inh (Albuterol Sulfate) 90 Mcg/Act Aer 1 Puff INH Q4H PRN 108 mcg/actuation Losartan (Losartan Potassium) 50 Mg Tab 50 Mg PO BID Restasis Opth 0.05% (Cyclosporine Opth 0.05%) 0.05% Emul 1 Drop EACH EYE BID Pravastatin 40 Mg Tab 40 Mg PO DAILY Donepezil 10 Mg Tab 10 Mg PO HS Trazodone (Trazodone HCl) 50 Mg Tab 25 Mg PO HS Flexeril (Cyclobenzaprine HCl) 5 Mg Tab 5 Mg PO DAILY Aspir-81 (Aspirin) 81 Mg Tabdr 1 Tab PO DAILY Methotrexate 2.5 Mg Tab 5 Mg PO Q7D Vitamin D (Cholecalciferol) 2,000 Unit Cap 1 Tab PO BID Lorazepam 1 Mg Tab 1 Mg PO DAILY PRN Atenolol 25 Mg Tab 25 Mg PO BID Review of Systems Except as stated in HPI: all other systems reviewed are Neg Physical Exam Narrative GENERAL: Well-nourished, well-developed elderly white female in no acute distress. SKIN: Focused skin assessment warm/dry. There is a 1 cm skin tear on the palmar aspect of the distal tip of the right fifth digit. HEAD: Normocephalic. EYES: No scleral icterus. No injection or drainage. NECK: Supple, trachea midline. No JVD or lymphadenopathy. CARDIOVASCULAR: Regular rate and rhythm without murmurs, gallops, or rubs. RESPIRATORY: Breath sounds equal bilaterally. No accessory muscle use. GASTROINTESTINAL: Abdomen soft, non-tender, nondistended. MUSCULOSKELETAL: No cyanosis, or edema. FOCUSED RIGHT UPPER EXTREMITY EXAM: 2+ radial pulse. Patient retains full, active, painless ROM of the entire extremity. Vascular intact. BACK: Nontender without obvious deformity. No CVA tenderness. Data Data Last Documented VS Vital Signs Date Time Temp Pulse Resp B/P Pulse Ox O2 Delivery O2 Flow Rate FiO2 09/06/16 11:14 98.2 67 18 131/44 98 Orders Finger ([id number]) (09/06/16 11:48) MDM Medical Decision Making Medical Screen Exam Complete: Yes Emergency Medical Condition: Yes Differential Diagnosis Laceration versus nail avulsion versus fracture versus contusion versus other Narrative Course 76-year-old female presents to the ED for evaluation of injury to the fifth digit of the right hand. Patient states she was attempting to put her flight and the flagpole when her finger got caught and she fell, catching the finger between the flagpole and the mounting hardware. She denies numbness, tingling, weakness, limitations or range of motion of the extremity. Baby aspirin daily. Vitals reviewed. Physical exam reveals a 1 cm skin flap of the tuft of the fifth digit of the right hand. X-ray reveals no acute bony injury. Laceration repair was performed. Please see my procedure note for details. Patient was advised to keep the wound clean, dry, covered, follow up with primary care provider. She indicated understanding of the instructions and is agreeable with the care plan. She is stable and discharged home. Procedures Procedure Narrative LACERATION LOCATION: Tuft of right fifth finger LENGTH: 1 cm NUMBER OF STITCHES/QUANG: 3/4 inch Steri-Strips x 3 REPAIR: The area of the laceration was cleaned with peroxide, irrigated and explored without evidence of tendon injury or neurovascular injury. The wound was closed with Steri-Strips, single layer repair. A sterile dressing was applied. The patient was advised to keep the dressing clean and dry. Patient tolerated the procedure well. Diagnosis Primary Impression: Skin tear of right hand without complication Qualified Code: S61.411A - Skin tear of right hand without complication, initial encounter Referrals: Primary Care Physician Patient Instructions: General Instructions, Skin Tear (ED) Additional Instructions: Keep the wound clean, dry and covered. The Steri-Strips will fall off on their own. Follow-up with the primary care provider. Return to the ED for any urgent or emergent medical condition. Disposition: 01 DISCHARGE HOME Condition: Stable Lacey Hernandez Sep 06, 2016 11:38
--- NOTE | 2016-09-06 12:14 | RADRPT ---
EXAM DATE/TIME: 09/06/2016 12:03 [facility] COMPARISON: No previous studies available for comparison. INDICATIONS : Laceration right hand 5th digit. MEDICAL HISTORY : None. SURGICAL HISTORY : None. ENCOUNTER: Initial ACUITY: 1 day PAIN SCORE: 9/10 LOCATION: Right 5th digit FINDINGS: Examination of the fifth digit of the right hand demonstrates no evidence of fracture or dislocation. No radiopaque foreign bodies are seen. There is no radiopaque foreign body. CONCLUSION: Laceration without radiopaque foreign body. Rasheed Xiao MD FACR on September 06, 2016 at 12:11 Board Certified Radiologist. This report was verified electronically.
== END 2016-09-06 12:40 | disposition home or self-care (01) ==
LOC: PHEFT 11:09
DX: S61.216A Laceration without foreign body of right little finger without damage to nail, initial encounter (principal); W23.1XXA Caught, crushed, jammed, or pinched between stationary objects, initial encounter; Y93.89 Activity, other specified; Y92.009 Unspecified place in unspecified non-institutional (private) residence as the place of occurrence of the external cause; I48.91 Unspecified atrial fibrillation; I10 Essential (primary) hypertension; E78.00 Pure hypercholesterolemia, unspecified; H40.9 Unspecified glaucoma; Z95.1 Presence of aortocoronary bypass graft; Z96.642 Presence of left artificial hip joint
CPT/HCPCS: 73140; 99283

== ENCOUNTER 2016-09-16 19:58 | Emergency (ER) | payer MEDICARE, BC ==
[~2016-09-16] VITALS: Ht 170.2 cm; Wt 68.0 kg
[~2016-09-16 19:58] MED LIST changes: -ASPI-110 PO; -CLON0.1T PO; -COEN400C PO; +IRON27TA PO; +LACT10SO5 PO; -LORA-474 PO; +METH8TAB3 PO; +OXYC1TAB36 PO; -SPIR25 PO
[2016-09-16 20:16] VITALS: BP 137/56; PULSE 75; RESP 20; TEMP 98; O2SAT 96
[2016-09-16] MEDS ORDERED: SODIUM CHLORIDE 0.9% FLUSH 10 ML FLUSH IVF PRN (20:45)
--- NOTE | 2016-09-16 21:03 | PD ---
HPI Chief Complaint: Flank/Kidney Pain Time Seen by Provider: 20:44 Travel History International Travel<30 days: No Contact w/Intl Traveler<30days: No Traveled to known affect area: No History of Present Illness HPI 76-year-old female presents to the emergency department by private transportation the care of her friend for complaint of generalized myalgias arthralgias increasing chronic right flank pain that has been worsening over the past 2 months and swelling and pain to the right lower extremity with recent development of an open wound to the distal anterior jade. Patient denies fever or chills. Patient states at times she has felt warm and flushed but when she checks her temperature her temperature is in normal range. Patient has not contacted her primary care provider regarding any of these concerns. Patient is under the care of Dr. Atkinson. Patient reports that she has extensive past medical history that includes rheumatoid arthritis CAD with previous CABG multiple back surgeries hypertension dyslipidemia and COPD. Patient also reports history of atrial fibrillation and is presently on aspirin patient's had no increasing shortness of breath and no chest pain or pleuritic pain. Patient denies any abdominal pain. Patient's had no nausea or vomiting and denies any diarrhea has chronic constipation related to chronic opiate use and chronic laxative dependence. Patient denies any recent change in medications denies any recent antibiotic use. Patient rates her pain as 3/10 in intensity. Patient denies any new numbness tingling or weakness to the lower extremities. Patient has not noticed any coolness or pallor of the legs. Patient does not report pain with ambulation. Patient does not report any bladder or bowel incontinence. PFSH Past Medical History Narrative Medical Rheumatoid arthritis asthma atrial fibrillation anxiety CABG CAD cardiac catheterization hypertension dyslipidemia opiate-induced and laxative-induced chronic constipation, chronic neck and back pain back surgery neck surgery left hip surgery CABG hysterectomy nerve stimulator removed multiple medication allergies; no tobacco use; nursing notes reviewed Hx Anticoagulant Therapy: Yes (BABY ASA DAILY) Arthritis: Yes Asthma: Yes Atrial Fibrillation: Yes Blood Disorders: No Anxiety: Yes Heart Rhythm Problems: No Cancer: No Cardiac Catheterization: Yes Cardiovascular Problems: Yes (HTN, CHOL) High Cholesterol: Yes Chest Pain: Yes Congestive Heart Failure: No COPD: No Cerebrovascular Accident: No Coronary Artery Disease: Yes Diabetes: No Diminished Hearing: No Endocrine: No Gastrointestinal Disorders: Yes (CONSTIPATION SECONDARY TO MEDICATIONS - takes laxatives regularly) Glaucoma: Yes (SX REPAIR) Genitourinary: Yes (bladder extension) Headaches: No Hepatitis: No Hiatal Hernia: No Hypertension: Yes Immune Disorder: No Implanted Vascular Access Dvce: Yes Kidney Stones: No Musculoskeletal: Yes (FEET AND LEGS WEAK) Neurologic: No Psychiatric: No Reproductive: No Respiratory: Yes (ATHMA) Immunizations Current: Yes Migraines: No Myocardial Infarction: No Renal Failure: No Seizures: No Sleep Apnea: No Thyroid Disease: No PNEUMOCCOCAL Vaccine (Year): 1 Menopausal: Yes Past Surgical History Abdominal Surgery: Yes AICD: No Body Medical Devices: PLATE IN NECK; PIN LEFT HIP Cardiac Surgery: Yes (CABG X3,') Coronary Artery Bypass Graft: Yes (Triple) Ear Surgery: No Eye Surgery: Yes (Glaucoma ) Gynecologic Surgery: Yes (HYSTERECTOMY,) Hysterectomy: Yes Joint Replacement: Yes (Lt. hip) Neurologic Surgery: Yes (Pain stimulator by Radha, since removed ) Oral Surgery: No Pacemaker: No Thoracic Surgery: No Other Surgery: Yes (cervical decompression C 3&4 , C / ', iliac crest bone graft C6/7) Social History Alcohol Use: No Tobacco Use: No (quit 2005? smoked for approx 10 yrs 1 ppd) Substance Use: No Allergies-Medications (Allergen,Severity, Reaction): Coded Allergies: Aricept (Verified Allergy, Severe, BLURRED VISION; PT TAKES DONEPEZIL DAILY, 09/16/16) Augmentin (Verified Allergy, Severe, VOMITING, 09/16/16) Celebrex (Verified Allergy, Severe, RASH; PT DENIES ALLERGY, 09/16/16) Contrast Media (Verified Allergy, Severe, Hives, BURNING, 09/16/16) Cubero (Verified Allergy, Severe, MUSCLE SPASMS, 09/16/16) Levaquin (Verified Allergy, Severe, SOB, 09/16/16) Methadone (Verified Allergy, Severe, UNKNOWN, 09/16/16) Mobic (Verified Allergy, Severe, WHEEZING, 09/16/16) Naproxen (Verified Allergy, Severe, SWEATING, 09/16/16) Neurontin (Verified Allergy, Severe, SWELLING, 09/16/16) Sulfa (Verified Allergy, Severe, ITCHING, 09/16/16) Zydone (Verified Allergy, Severe, 09/16/16) ARTHROTEC (Verified Allergy, Unknown, 09/16/16) Baclofen (Verified Allergy, Unknown, SHAKING, PT UNSURE, 09/16/16) Cleocin (Verified Allergy, Unknown, MUSCLE PAIN, 09/16/16) Detrol (Verified Allergy, Unknown, 09/16/16) Marinol (Verified Allergy, Unknown, UNKNOWN, 09/16/16) Pletal (Verified Allergy, Unknown, UNKNOWN, 09/16/16) Soma (Verified Allergy, Unknown, UNKNOWN, 09/16/16) Topamax (Verified Allergy, Unknown, 09/16/16) Ultram (Verified Allergy, Unknown, 09/16/16) Vicodin (Verified Allergy, Unknown, 09/16/16) Cymbalta (Verified Adverse Reaction, Severe, NAUSEA, 09/16/16) Effexor (Verified Adverse Reaction, Severe, "SLEEPY", 09/16/16) Erythromycin (Verified Adverse Reaction, Severe, STOMACH CRAMPING, 09/16/16 ) Keflex (Verified Adverse Reaction, Severe, STOMACH PAIN, 09/16/16) Lexapro (Verified Adverse Reaction, Severe, "SLEEPLESSNESS", 09/16/16) Lipitor (Verified Adverse Reaction, Severe, VOMITING, 09/16/16) Lyrica (Verified Adverse Reaction, Severe, "WEAKNESS", 09/16/16) Mevacor (Verified Adverse Reaction, Severe, HEADACHE, 09/16/16) Paxil (Verified Adverse Reaction, Severe, SWEATING, 09/16/16) Provigil (Verified Adverse Reaction, Severe, ANXIETY, 09/16/16) Remeron Liliam-Tab (Verified Adverse Reaction, Severe, WEAKNESS, 09/16/16) Skelaxin (Verified Adverse Reaction, Severe, "FEEL DRUNK", 09/16/16) Tylenol/Codeine (Verified Adverse Reaction, Severe, NAUSEA, 09/16/16) Valium (Verified Adverse Reaction, Severe, JOINT PAIN, 09/16/16) Zanaflex (Verified Adverse Reaction, Severe, JITTERY, 09/16/16) Zetia (Verified Adverse Reaction, Severe, MUSCLE PAIN, 09/16/16) Zocor (Verified Adverse Reaction, Severe, MUSCLE PAIN, 09/16/16) Zoloft (Verified Adverse Reaction, Severe, DIZZINESS, 09/16/16) Celexa (Verified Adverse Reaction, Unknown, HEADACHE, 09/16/16) Cipro (Verified Adverse Reaction, Unknown, NAUSEA, 09/16/16) Cortisone (Verified Adverse Reaction, Unknown, HEADACHE, 09/16/16) PT DENIES ALLERGY TO MED 09/17 Depakote (Verified Adverse Reaction, Unknown, HEADACHE, 09/16/16) Ditropan (Verified Adverse Reaction, Unknown, NAUSEA, 09/16/16) Elavil (Verified Adverse Reaction, Unknown, SWEATING, 09/16/16) Prozac (Verified Adverse Reaction, Unknown, ITCHING, 09/16/16) Uncoded Allergies: VESICARE (Adverse Reaction, Severe, SWEATING, 10/18/08) VYTORIN (Adverse Reaction, Severe, CONSTIPATION, 10/18/08) Reported Meds & Prescriptions Reported Meds & Active Scripts Active Reported Albuterol Neb (Albuterol Sulfate) 1.25 Mg/3 Ml Neb 1.25 Mg NEB Q6HR NEB PRN Restasis Opth 0.05% (Cyclosporine Opth 0.05%) 0.05% Emul 1 Drop EACH EYE BID Clonidine (Clonidine HCl) 0.2 Mg Tab 0.2 Mg PO BID Iron (Ferrous Gluconate) 27 Mg Tab 1 Tab PO DAILY Lactulose 10 Gm/15 Ml Solution 10 Gm PO DIRECTED Methylprednisolone 8 Mg Tab 4 Mg PO DIRECTED Oxycodone-Acetaminophen 10-325 mg Tab 1 Tab PO TID PRN Latanoprost Opth Drops (Latanoprost) 0.005% Drops 1 Drop EACH EYE BID Refrigerate until opened. Torsemide 20 Mg Tab 20 Mg PO DAILY Hydralazine HCl 50 Mg Tablet 1 Tab PO QID Folic Acid 400 Mcg Tab 1 Mg PO DAILY Duragesic Patch 72 HR (Fentanyl) 100 Mcg/Hr Patch 100 Mcg T-DERMAL Q48 Remove old patch when new one placed. Proair Hfa 8.5 GM Inh (Albuterol Sulfate) 90 Mcg/Act Aer 1 Puff INH Q4H PRN 108 mcg/actuation Losartan (Losartan Potassium) 50 Mg Tab 50 Mg PO BID Pravastatin 40 Mg Tab 40 Mg PO DAILY Donepezil 10 Mg Tab 10 Mg PO HS Trazodone (Trazodone HCl) 50 Mg Tab 25 Mg PO HS Flexeril (Cyclobenzaprine HCl) 5 Mg Tab 5 Mg PO DAILY Aspir-81 (Aspirin) 81 Mg Tabdr 1 Tab PO DAILY Methotrexate 2.5 Mg Tab 5 Mg PO Q7D Vitamin D (Cholecalciferol) 2,000 Unit Cap 1 Tab PO BID Lorazepam 1 Mg Tab 1 Mg PO DAILY PRN Atenolol 25 Mg Tab 25 Mg PO BID Review of Systems Except as stated in HPI: all other systems reviewed are Neg General / Constitutional: No: Fever, Chills HENT: No: Congestion Cardiovascular: No: Chest Pain or Discomfort Respiratory: No: Shortness of Breath Gastrointestinal: Positive: Constipation, No: Nausea, Vomiting, Diarrhea, Abdominal Pain, Loss of Appetite Genitourinary: No: Dysuria, Decreased Urinary Output Musculoskeletal: Positive: Edema, No: Myalgias, Arthralgias Skin: Positive Rash (RLE) Neurologic: Positive: Weakness, No: Dizziness, Syncope, Focal Abnormalities, Coordination Problem Psychiatric: No: Anxiety Hematologic/Lymphatic: No: Easy Bruising Physical Exam Narrative GENERAL: Well-developed well-nourished female in no acute distress no respiratory distress; GCS 15; triage blood pressure hypotensive SKIN: Warm and dry. HEAD: Normocephalic. EYES: No scleral icterus. No injection or drainage. NECK: Supple, trachea midline. No JVD or lymphadenopathy. CARDIOVASCULAR: Regular rate and rhythm without murmurs, gallops, or rubs. RESPIRATORY: Breath sounds equal bilaterally. No accessory muscle use. GASTROINTESTINAL: Abdomen soft, non-tender, nondistended. MUSCULOSKELETAL: No cyanosis, right lower extremity edema with erythema and tenderness to similar by 2 cm oval superficial pretibial ulceration with scant purulence noted no induration nonfluctuant. Bilateral lower extremities without pallor or coolness brisk capillary refill less than 2 seconds per digit BACK: Nontender without obvious deformity. No CVA tenderness. Data Data Last Documented VS Vital Signs Date Time Temp Pulse Resp B/P Pulse Ox O2 Delivery O2 Flow Rate FiO2 09/16/16 22:26 71 18 126/52 97 Room Air 09/16/16 20:16 98.0 Orders Electrocardiogram (09/16/16 20:44) Complete Blood Count With Diff (09/16/16 20:44) Comprehensive Metabolic Panel (09/16/16 20:44) Magnesium (Mg) (09/16/16 20:44) B-Type Natriuretic Peptide (09/16/16 20:44) Ckmb (Isoenzyme) Profile (09/16/16 20:44) Troponin I (09/16/16 20:44) Act Partial Throm Time (Ptt) (09/16/16 20:44) Prothrombin Time / Inr (Pt) (09/16/16 20:44) Urinalysis - C+S If Indicated (09/16/16 20:44) Chest, Single Ap (09/16/16 20:44) Ecg Monitoring (09/16/16 20:44) Iv Access Insert/Monitor (09/16/16 20:44) Oximetry (09/16/16 20:44) Sodium Chloride 0.9% Flush (Ns Flush) (09/16/16 20:45) Us Leg Venous Doppler (09/16/16 ) Wound Culture And Gram Stain (09/16/16 20:44) Ct Abd/Pel W/O Iv Contrast (09/16/16 ) CKMB (09/16/16 21:07) CKMB% (09/16/16 21:07) Labs Laboratory Tests Test 09/16/16 09/16/16 21:07 21:10 White Blood Count 6.9 TH/MM3 Red Blood Count 3.32 MIL/MM3 Hemoglobin 10.4 GM/DL Hematocrit 31.0 % Mean Corpuscular Volume 93.3 FL Mean Corpuscular Hemoglobin 31.3 PG Mean Corpuscular Hemoglobin 33.5 % Concent Red Cell Distribution Width 12.9 % Platelet Count 311 TH/MM3 Mean Platelet Volume 6.8 FL Neutrophils (%) (Auto) 71.5 % Lymphocytes (%) (Auto) 15.7 % Monocytes (%) (Auto) 9.0 % Eosinophils (%) (Auto) 2.6 % Basophils (%) (Auto) 1.2 % Neutrophils # (Auto) 4.9 TH/MM3 Lymphocytes # (Auto) 1.1 TH/MM3 Monocytes # (Auto) 0.6 TH/MM3 Eosinophils # (Auto) 0.2 TH/MM3 Basophils # (Auto) 0.1 TH/MM3 CBC Comment DIFF FINAL Differential Comment Prothrombin Time 10.5 SEC Prothromb Time International 1.0 RATIO Ratio Activated Partial 34.1 SEC Thromboplast Time Sodium Level 132 MEQ/L Potassium Level 4.1 MEQ/L Chloride Level 95 MEQ/L Carbon Dioxide Level 31.9 MEQ/L Anion Gap 5 MEQ/L Blood Urea Nitrogen 25 MG/DL Creatinine 1.40 MG/DL Estimat Glomerular Filtration 36 ML/MIN Rate Random Glucose 100 MG/DL Calcium Level 9.0 MG/DL Magnesium Level 2.2 MG/DL Total Bilirubin 0.6 MG/DL Aspartate Amino Transf 30 U/L (AST/SGOT) Alanine Aminotransferase 27 U/L (ALT/SGPT) Alkaline Phosphatase 66 U/L Total Creatine Kinase 256 U/L Creatine Kinase MB 2.0 NG/ML Creatine Kinase MB % 0.8 % Troponin I LESS THAN 0.02 NG/ML B-Type Natriuretic Peptide 217 PG/ML Total Protein 6.9 GM/DL Albumin 3.9 GM/DL Urine Color YELLOW Urine Turbidity CLEAR Urine pH 5.5 Urine Specific [place] 1.015 Urine Protein NEG mg/dL Urine Glucose (UA) NEG mg/dL Urine Ketones NEG mg/dL Urine Occult Blood NEG Urine Nitrite NEG Urine Bilirubin NEG Urine Leukocyte Esterase NEG Urine WBC 0-2 /hpf Urine Squamous Epithelial 0-5 /hpf Cells Microscopic Urinalysis Comment CULT NOT INDICATED MDM Medical Decision Making Medical Screen Exam Complete: Yes Emergency Medical Condition: Yes Medical Record Reviewed: Yes Interpretation(s) EKG: Normal sinus rhythm rate [address] elevation or injury pattern change or ectopy CK total less than 0.02, not elevated; CK total mildly elevated 256 with 0.8% MB percent not elevated BNP mildly elevated to 17 Increase in size in normal range LFTs within normal limits Last Impressions Chest X-Ray 09/16/162043 Signed Impressions: Service Date/Time: September 21:03 - CONCLUSION: No acute cardiopulmonary disease. Lexi Hdez MD Lower Extremity Ultrasound 09/16/16 0000 Signed Impressions: Service Date/Time: September 21:48 - CONCLUSION: Normal examination. Lexi Hdez MD Abdomen/Pelvis CT 09/16/16 0000 Signed Impressions: Service Date/Time: September 21:30 - CONCLUSION: 1. Small right kidney with a tiny nonobstructing stone. 2. Mild right lung base atelectasis and/or infiltrate is seen. Lexi Hdez MD CBC & BMP Diagram 09/16/16 21:07 Vital Signs Date Time Temp Pulse Resp B/P Pulse Ox O2 Delivery O2 Flow Rate FiO2 09/16/16 22:26 71 18 126/52 97 Room Air 09/16/16 21:45 69 18 164/72 97 Room Air 09/16/16 20:58 Room Air 09/16/16 20:16 98.0 75 20 137/56 96 Differential Diagnosis Generalized weakness, sepsis, cellulitis, DVT, exacerbation chronic pain syndrome, excess opiate use, UTI, renal colic, abdominal aortic aneurysm Narrative Course IV access obtained specimens collected and sent for resulting ultrasound ordered CT abdomen and pelvis ordered EKG reveals no acute injury pattern change Ultrasound shows no DVT extent CT abdomen and pelvis remarkable for small area of atelectasis and small nephrolithiasis without obstruction no other acute findings identified next line chest x-ray no lobar infiltrate Patient clinically improved will start on oral antibiotic for focal area of right lower leg cellulitis at site of skin contusion abrasion with secondary superficial ulceration patient is stable for outpatient management and follow- up with her primary care provider will be given oral prescription for antibiotic. Patient encouraged to monitor temperature every 4 hours and take acetaminophen as needed for fever return to the emergency department for fever or pain or any concerns. Patient is encouraged to follow up with her primary care provider and call office in a.m. to schedule follow-up appointment Diagnosis Primary Impression: Cellulitis of right leg without foot Referrals: Primary Care Physician 1 day Patient Instructions: General Instructions Additional Instructions: Monitor temperature every 4 hours with thermometer take acetaminophen/Tylenol every 4 hours for fever 100.4F or greater Complete course of antibiotic as prescribed Elevate right lower extremity Return to the emergency department for any concerns or change in condition Keep Polysporin ointment dressing to right lower leg abrasion/superficial ulceration Follow-up with primary care provider call office in a.m. to schedule follow-up appointment Med/Other Pt SpecificInfo: Prescription(s) given Scripts Doxycycline Hyclate 100 Mg [id number] Mg PO BID 7 Days Ref 0 Prov:Yi Calloway MD 09/16/16 Disposition: 01 DISCHARGE HOME Condition: Stable Yi Calloway MD Sep 16, 2016 21:03
--- NOTE | 2016-09-16 21:14 | RADRPT ---
EXAM DATE/TIME: 09/16/2016 21:03 [facility] COMPARISON: CHEST SINGLE AP, August 02, 2016, 15:38. INDICATIONS : Right lower chest pain and heart palpitations. MEDICAL HISTORY : Hypertension. Hypercholesterolemia. SURGICAL HISTORY : CABG. ENCOUNTER: Initial ACUITY: 2 days PAIN SCORE: 5/10 LOCATION: Bilateral chest FINDINGS: The lungs are clear without infiltrate, nodule, or mass. There is no appreciable pleural effusion fo r technique. Cardiomegaly has not changed. There is evidence for prior median sternotomy. CONCLUSION: No acute cardiopulmonary disease. Lexi Hdez MD on September 16, 2016 at 21:12 Board Certified Radiologist. This report was verified electronically.
[2016-09-16 21:23] LABS: AUTOMATED NEUTROPHIL # 4.9 TH/MM3 (1.8-7.7); BASOPHIL # 0.1 TH/MM3 (0-0.2); BASOPHIL % 1.2 % (0.0-2.0); EOSINOPHIL # 0.2 TH/MM3 (0-0.4); EOSINOPHIL % 2.6 % (0.0-4.0); HEMO FLAGS DIFF FINAL; LYMPH % 15.7 % (9.0-44.0); LYMPHOCYTE # 1.1 TH/MM3 (1.0-4.8); MEAN CELL VOLUME 93.3 FL (80.0-100.0); MEAN CORPUSCULAR HEMOGLOBIN 31.3 PG (27.0-34.0); MEAN CORPUSCULAR HGB CONC 33.5 % (32.0-36.0); NEUT % 71.5 % (16.0-70.0); PLATELET COUNT 311 TH/MM3 (150-450); RED BLOOD COUNT 3.32 MIL/MM3 (4.00-5.30); RED CELL DISTRIBUTION WIDTH 12.9 % (11.6-17.2); WHITE BLOOD COUNT 6.9 TH/MM3 (4.0-11.0)
[2016-09-16 21:26] LABS: BLOOD, URINE NEG (NEG); GLUCOSE,URINE NEG (NEG); KETONE, URINE NEG (NEG); NITRITE,URINE NEG (NEG); PH, URINE 5.5 (5.0-8.5)
[2016-09-16 21:33] LABS: URINE COLOR YELLOW (YELLW/STRAW)
[2016-09-16 21:34] LABS: COMMENT (UR) CULT NOT INDICATED; CULTURE IF INDICATED CULT NOT INDICATED; SQUAMOUS EPITHELIAL CELL URINE 0-5 /hpf (0-5); WBC, URINE 0-2 /hpf (0-5)
[2016-09-16] MEDS ORDERED: CLON0.2T PO (21:38)
[2016-09-16] MEDS ORDERED: REST0.05 EACH EYE (21:38)
[2016-09-16] MEDS ORDERED: ALBU1.25 NEB (21:38)
[2016-09-16 21:42] LABS: CHLORIDE 95 MEQ/L (98-107); POTASSIUM 4.1 MEQ/L (3.5-5.1); SODIUM (NA) 132 MEQ/L (136-145)
[2016-09-16 21:45] VITALS: BP 164/72; PULSE 69; RESP 18; O2SAT 97
[2016-09-16 21:46] LABS: ANION GAP 5 MEQ/L (5-15); BICARBONATE 31.9 MEQ/L (21.0-32.0); BLOOD UREA NITROGEN 25 MG/DL (7-18); MAGNESIUM 2.2 MG/DL (1.5-2.5)
[2016-09-16 21:48] LABS: APTT (PATIENT) 34.1 SEC (24.3-30.1); PROTHROMBIN TIME - PATIENT 10.5 SEC (9.8-11.6)
[2016-09-16 21:49] LABS: ALT (GPT) 27 U/L (10-53); AST (GOT) 30 U/L (15-37); GLOMERULAR FILTRATION RATE 36 ML/MIN (>89)
[2016-09-16 21:51] LABS: TOTAL BILIRUBIN ADULT 0.6 MG/DL (0.2-1.0)
[2016-09-16 21:52] LABS: ALKALINE PHOSPHATASE 66 U/L (45-117); CREATINE KINASE 256 U/L (26-192)
--- NOTE | 2016-09-16 22:01 | RADRPT ---
EXAM DATE/TIME: 09/16/2016 21:30 [facility] COMPARISON: No previous studies available for comparison. INDICATIONS : Right flank pain ORAL CONTRAST: No oral contrast ingested. RADIATION DOSE: 7.05 CTDIvol (mGy) MEDICAL HISTORY : Cardiovascular disease. Dementia. Hypertension. SURGICAL HISTORY : CABG Hysterectomy.Left hip ENCOUNTER: Initial ACUITY: 2 weeks PAIN SCALE: 6/10 LOCATION: Right flank TECHNIQUE: Volumetric scanning of the abdomen and pelvis was performed. Using automated exposure control and ad justment of the mA and/or kV according to patient size, radiation dose was kept as low as reasonably achievable to obtain optimal diagnostic quality images. DICOM format image data is available electro nically for review and comparison. FINDINGS: CT Abdomen: The liver, spleen, pancreas, left kidney, adrenals are unremarkable. There is no evidence for any appreciable pathological adenopathy, free fluid, or bowel obstruction. There are old healed rib fractures in the left chest. Mild right lung base and right middle lobe atelectasis and/or infil trate is seen. Chronic vascular calcifications are present involving the aorta, iliac arteries withou t any significant stenosis or aneurysmal dilatations for technique, however a stenosis at the origin of visceral arteries is suspected not adequately characterized. The right kidney is small and measure s 6.9 cm in length chronic in nature with a tiny 3 mm stone within it. This is probably due to chroni c long-standing renal artery stenosis. The right kidney measures 9.1 cm in size. There is no ureteral stone and there is no hydronephrosis on either side. CT pelvis: There is no evidence for mass, abscess formation, or any significant adenopathy within the pelvis. There are old healed fractures of right symphysis pubis and pubic rami. There is evidence fo r prior vertebroplasty. CONCLUSION: 1. Small right kidney with a tiny nonobstructing stone. 2. Mild right lung base atelectasis and/or infiltrate is seen. Lexi Hdez MD on September 16, 2016 at 21:54 Board Certified Radiologist. This report was verified electronically.
--- NOTE | 2016-09-16 22:13 | RADRPT ---
EXAM DATE/TIME: 09/16/2016 21:48 [facility] COMPARISON: No previous studies available for comparison. INDICATIONS : Right leg swelling. MEDICAL HISTORY : Hypercholesterolemia. Glaucoma. Enlarged heart. Asthma. Dementia. A-fib. Claustraphobia. Depress ion. SURGICAL HISTORY : Hysterectomy. Coronary bypass. Cervical disectomy. ENCOUNTER: Initial ACUITY: 4 - 6 days PAIN SCORE: 5/10 LOCATION: Right leg. TECHNIQUE: Venous ultrasound of the leg was performed from the inguinal ligament to the proximal calf. Real-carla e, color Doppler and spectral tracing, compression and augmentation techniques were used. FINDINGS: There is normal compressibility of the deep venous system from the inguinal region to the proximal ca lf. No echogenic clot is seen in the lumen of the common femoral, femoral, popliteal, and posterior tibial veins. There is a normal response of the venous system to proximal and distal augmentation an d respiration. CONCLUSION: Normal examination. Lexi Hdez MD on September 16, 2016 at 22:12 Board Certified Radiologist. This report was verified electronically.
[2016-09-16 22:26] VITALS: BP 126/52; PULSE 71; RESP 18; O2SAT 97
[2016-09-16] MEDS ORDERED: DOXY100C PO (23:13)
[2016-09-16] MEDS ORDERED: DOXYCYCLINE HYCLATE 100 MG CAP PO ONE (23:15)
[2016-09-16 23:20] VITALS: BP 135/68; PULSE 73; RESP 18; O2SAT 98
[2016-09-17 00:50] VITALS: BP 125/64; PULSE 82; RESP 16; O2SAT 98
--- NOTE | 2016-09-18 11:00 | EKG ---
Date Performed: 09/16/2016 Time Performed: 20:56:47 PTAGE: 76 years EKG: Sinus rhythm NONSPECIFIC T-WAVE ABNORMALITY BORDERLINE ECG PREVIOUS TRACING : 08/02/2016 14.57 DOCTOR: Israel Porter Interpretating Date/Time 09/18/2016 10:54:58
== END 2016-09-16 23:57 | disposition home or self-care (01) ==
LOC: PHED 19:58
DX: L03.115 Cellulitis of right lower limb (principal); B95.62 Methicillin resistant Staphylococcus aureus infection as the cause of diseases classified elsewhere; B96.89 Other specified bacterial agents as the cause of diseases classified elsewhere; R10.9 Unspecified abdominal pain; I48.91 Unspecified atrial fibrillation; I25.10 Atherosclerotic heart disease of native coronary artery without angina pectoris; I10 Essential (primary) hypertension; Z87.891 Personal history of nicotine dependence
CPT/HCPCS: 71010; 74176; 80053; 81001; 82550; 82552; 83735; 83880; 84484; 85025; 85610; 85730; 86403; 87070; 87077; 87186; 87205; 93005; 93971; 99285

== ENCOUNTER 2016-09-20 14:41 | Emergency (ER) | payer MEDICARE, BC ==
[~2016-09-20 14:41] MED LIST changes: +ALBU1.25 NEB; +CLON0.2T PO; +DOXY100C PO; -NORV2.5T PO
[2016-09-20 14:57] VITALS: BP 124/39; PULSE 66; RESP 20; TEMP 98.3; O2SAT 90
--- NOTE | 2016-09-20 17:33 | PD ---
HPI . Bleeding Chief Complaint: Bleeding Time Seen by Provider: 16:21 Travel History International Travel<30 days: No Contact w/Intl Traveler<30days: No Traveled to known affect area: No History of Present Illness HPI Patient presents with a chief complaint of bleeding from her right lower extremity. This patient was seen here on 09/16 and diagnosed with cellulitis of her right lower extremity. She was treated with doxycycline. She states that she was doing something with the dressing today and inadvertently pulled off some skin and that it started bleeding. She states that it has continued issues. She further reports some drainage of serous fluid. She was very concerned and came to the hospital for treatment. She states that she is not running fever. She is not having any significant pain in her leg. The bleeding and oozing has improved with a dressing. PFSH Past Medical History Hx Anticoagulant Therapy: Yes (asa) Arthritis: Yes (ra) Asthma: Yes Atrial Fibrillation: Yes Blood Disorders: No Anxiety: Yes Heart Rhythm Problems: No Cancer: No Cardiac Catheterization: Yes Cardiovascular Problems: Yes High Cholesterol: Yes Chest Pain: Yes Congestive Heart Failure: No COPD: No Cerebrovascular Accident: No Coronary Artery Disease: Yes (enlarged heart, ) Dementia: Yes Diabetes: No Diminished Hearing: No Endocrine: No Gastrointestinal Disorders: Yes (CONSTIPATION SECONDARY TO MEDICATIONS - takes laxatives regularly) Glaucoma: Yes (SX REPAIR) Genitourinary: Yes (bladder extension) Headaches: No Hepatitis: No Hiatal Hernia: No Hypertension: Yes Immune Disorder: No Implanted Vascular Access Dvce: Yes Kidney Stones: No Medical other: No (CHR. NECK PAIN) Musculoskeletal: Yes (FEET AND LEGS WEAK, hip surgery) Neurologic: No Psychiatric: No Reproductive: No Respiratory: Yes (ATHMA) Immunizations Current: Yes Migraines: No Myocardial Infarction: No Renal Failure: No Seizures: No Sleep Apnea: No Thyroid Disease: No PNEUMOCCOCAL Vaccine (Year): 1 Menopausal: Yes Past Surgical History Abdominal Surgery: Yes AICD: No Body Medical Devices: PLATE IN NECK; PIN LEFT HIP Cardiac Surgery: Yes (CABG X3,') Coronary Artery Bypass Graft: Yes (Triple) Ear Surgery: No Eye Surgery: Yes (Glaucoma ) Gynecologic Surgery: Yes (HYSTERECTOMY,) Hysterectomy: Yes Joint Replacement: Yes (Lt. hip) Neurologic Surgery: Yes (Pain stimulator by Radha, since removed ) Oral Surgery: No Pacemaker: No Thoracic Surgery: No Other Surgery: Yes (cervical decompression C &, C 08/11, iliac crest bone graft C6/7) Social History Alcohol Use: No Tobacco Use: No (quit 2005? smoked for approx 10 yrs 1 ppd) Substance Use: No Allergies-Medications (Allergen,Severity, Reaction): Coded Allergies: Aricept (Verified Allergy, Severe, BLURRED VISION; PT TAKES DONEPEZIL DAILY, 09/20/16) Augmentin (Verified Allergy, Severe, VOMITING, 09/20/16) Celebrex (Verified Allergy, Severe, RASH; PT DENIES ALLERGY, 09/20/16) Contrast Media (Verified Allergy, Severe, Hives, BURNING, 09/20/16) [place] (Verified Allergy, Severe, MUSCLE SPASMS, 09/20/16) Levaquin (Verified Allergy, Severe, SOB, 09/20/16) Methadone (Verified Allergy, Severe, UNKNOWN, 09/20/16) Mobic (Verified Allergy, Severe, WHEEZING, 09/20/16) Naproxen (Verified Allergy, Severe, SWEATING, 09/20/16) Neurontin (Verified Allergy, Severe, SWELLING, 09/20/16) Sulfa (Verified Allergy, Severe, ITCHING, 09/20/16) Zydone (Verified Allergy, Severe, 09/20/16) ARTHROTEC (Verified Allergy, Unknown, 09/20/16) Baclofen (Verified Allergy, Unknown, SHAKING, PT UNSURE, 09/20/16) Cleocin (Verified Allergy, Unknown, MUSCLE PAIN, 09/20/16) Detrol (Verified Allergy, Unknown, 09/20/16) Marinol (Verified Allergy, Unknown, UNKNOWN, 09/20/16) Pletal (Verified Allergy, Unknown, UNKNOWN, 09/20/16) Soma (Verified Allergy, Unknown, UNKNOWN, 09/20/16) Topamax (Verified Allergy, Unknown, 09/20/16) Ultram (Verified Allergy, Unknown, 09/20/16) Vicodin (Verified Allergy, Unknown, 09/20/16) Cymbalta (Verified Adverse Reaction, Severe, NAUSEA, 09/20/16) Effexor (Verified Adverse Reaction, Severe, "SLEEPY", 09/20/16) Erythromycin (Verified Adverse Reaction, Severe, STOMACH CRAMPING, 09/20/16 ) Keflex (Verified Adverse Reaction, Severe, STOMACH PAIN, 09/20/16) Lexapro (Verified Adverse Reaction, Severe, "SLEEPLESSNESS", 09/20/16) Lipitor (Verified Adverse Reaction, Severe, VOMITING, 09/20/16) Lyrica (Verified Adverse Reaction, Severe, "WEAKNESS", 09/20/16) Mevacor (Verified Adverse Reaction, Severe, HEADACHE, 09/20/16) Paxil (Verified Adverse Reaction, Severe, SWEATING, 09/20/16) Provigil (Verified Adverse Reaction, Severe, ANXIETY, 09/20/16) Remeron Liliam-Tab (Verified Adverse Reaction, Severe, WEAKNESS, 09/20/16) Skelaxin (Verified Adverse Reaction, Severe, "FEEL DRUNK", 09/20/16) Tylenol/Codeine (Verified Adverse Reaction, Severe, NAUSEA, 09/20/16) Valium (Verified Adverse Reaction, Severe, JOINT PAIN, 09/20/16) Zanaflex (Verified Adverse Reaction, Severe, JITTERY, 09/20/16) Zetia (Verified Adverse Reaction, Severe, MUSCLE PAIN, 09/20/16) Zocor (Verified Adverse Reaction, Severe, MUSCLE PAIN, 09/20/16) Zoloft (Verified Adverse Reaction, Severe, DIZZINESS, 09/20/16) *MDRO Multi-Drug Resistant Organism (Verified Adverse Reaction, Unknown, ) 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/16/16 Celexa (Verified Adverse Reaction, Unknown, HEADACHE, 09/20/16) Cipro (Verified Adverse Reaction, Unknown, NAUSEA, 09/20/16) Cortisone (Verified Adverse Reaction, Unknown, HEADACHE, 09/20/16) PT DENIES ALLERGY TO MED 09/17 Depakote (Verified Adverse Reaction, Unknown, HEADACHE, 09/20/16) Ditropan (Verified Adverse Reaction, Unknown, NAUSEA, 09/20/16) Elavil (Verified Adverse Reaction, Unknown, SWEATING, 09/20/16) Prozac (Verified Adverse Reaction, Unknown, ITCHING, 09/20/16) Uncoded Allergies: VESICARE (Adverse Reaction, Severe, SWEATING, 10/18/08) VYTORIN (Adverse Reaction, Severe, CONSTIPATION, 10/18/08) Reported Meds & Prescriptions Reported Meds & Active Scripts Active Doxycycline Hyclate 100 Mg Cap 100 Mg PO BID 7 Days Reported Albuterol Neb (Albuterol Sulfate) 1.25 Mg/3 Ml Neb 1.25 Mg NEB Q6HR NEB PRN Restasis Opth 0.05% (Cyclosporine Opth 0.05%) 0.05% Emul 1 Drop EACH EYE BID Clonidine (Clonidine HCl) 0.2 Mg Tab 0.2 Mg PO BID Iron (Ferrous Gluconate) 27 Mg Tab 1 Tab PO DAILY Lactulose 10 Gm/15 Ml Solution 10 Gm PO DIRECTED Methylprednisolone 8 Mg Tab 4 Mg PO DIRECTED Oxycodone-Acetaminophen 10-325 mg Tab 1 Tab PO TID PRN Latanoprost Opth Drops (Latanoprost) 0.005% Drops 1 Drop EACH EYE BID Refrigerate until opened. Torsemide 20 Mg Tab 20 Mg PO DAILY Hydralazine HCl 50 Mg Tablet 1 Tab PO QID Folic Acid 400 Mcg Tab 1 Mg PO DAILY Duragesic Patch 72 HR (Fentanyl) 100 Mcg/Hr Patch 100 Mcg T-DERMAL Q48 Remove old patch when new one placed. Proair Hfa 8.5 GM Inh (Albuterol Sulfate) 90 Mcg/Act Aer 1 Puff INH Q4H PRN 108 mcg/actuation Losartan (Losartan Potassium) 50 Mg Tab 50 Mg PO BID Pravastatin 40 Mg Tab 40 Mg PO DAILY Donepezil 10 Mg Tab 10 Mg PO HS Trazodone (Trazodone HCl) 50 Mg Tab 25 Mg PO HS Flexeril (Cyclobenzaprine HCl) 5 Mg Tab 5 Mg PO DAILY Aspir-81 (Aspirin) 81 Mg Tabdr 1 Tab PO DAILY Methotrexate 2.5 Mg Tab 5 Mg PO Q7D Vitamin D (Cholecalciferol) 2,000 Unit Cap 1 Tab PO BID Lorazepam 1 Mg Tab 1 Mg PO DAILY PRN Atenolol 25 Mg Tab 25 Mg PO BID Review of Systems Except as stated in HPI: all other systems reviewed are Neg General / Constitutional: No: Fever, Chills Gastrointestinal: No: Nausea, Vomiting Skin: Positive Other (bleeding and oozing from the right lower extremity) Physical Exam Narrative GENERAL: Awake and alert and in no acute distress. SKIN: Warm and dry. She has a couple places on her right lower extremity with some fresh blood but no active bleeding. She appears to have some some very minor skin tears. The skin is red but is not hot to the touch. There is some mild edema of the leg. HEAD: Atraumatic. Normocephalic. EYES: Pupils equal and round. NECK: Trachea midline. CARDIOVASCULAR: Regular rate and rhythm. RESPIRATORY: No accessory muscle use. MUSCULOSKELETAL: No obvious deformities. No edema. NEUROLOGICAL: Awake and alert. No obvious cranial nerve deficits. Motor grossly within normal limits. Normal speech. PSYCHIATRIC: Appropriate mood and affect; insight and judgment normal. Data Data Last Documented VS Vital Signs Date Time Temp Pulse Resp B/P Pulse Ox O2 Delivery O2 Flow Rate FiO2 09/20/16 14:57 98.3 66 20 124/39 90 Orders Wound Care (09/20/16 17:21) MDM Medical Decision Making Medical Screen Exam Complete: Yes Emergency Medical Condition: Yes Medical Record Reviewed: Yes (patient was seen here on 09/16 and had a thorough workup including CT of her abdomen and pelvis. Her final diagnosis was cellulitis of the right lower extremity. She was not septic. She was discharged home on doxycycline and close follow-up.) Differential Diagnosis My differential diagnosis includes but is not limited to localized wound infection, cellulitis, abscess Narrative Course This patient presents complaining of bleeding from her right lower extremity. The patient has cellulitis in her right lower extremity. She has thin skin. She had a dressing on her leg which was taped to the skin. I had hoped to place an Unna boot. However, we do not seem to have one here. A nonadherent dressing will be applied and then covered by Kerlix and an Lroenzo wrap. We will not place any tape on her skin. The patient is to follow-up with her primary care provider in 2 days for recheck. Diagnosis Primary Impression: Skin tear of right lower leg without complication Qualified Code: S81.811A - Skin tear of right lower leg without complication, initial encounter Referrals: Trudi Atkinson MD 2 days Patient Instructions: General Instructions, Skin Tear (ED) Disposition: 01 DISCHARGE HOME Condition: Stable Holly Bneito MD Sep 20, 2016 17:33
[2016-09-20 17:45] VITALS: BP 155/69; PULSE 68; RESP 18; O2SAT 94
== END 2016-09-20 18:00 | disposition home or self-care (01) ==
LOC: PHED 14:41
DX: L03.115 Cellulitis of right lower limb (principal); I48.91 Unspecified atrial fibrillation; I10 Essential (primary) hypertension; E78.00 Pure hypercholesterolemia, unspecified; Z87.891 Personal history of nicotine dependence
CPT/HCPCS: 99282

== ENCOUNTER → 2016-09-21 | Outpatient (CLI) | payer MEDICARE, BC ==
[2016-09-21 16:07] LABS: BICARBONATE 30.9 MEQ/L (21.0-32.0); POTASSIUM 4.1 MEQ/L (3.5-5.1)
== END ==
LOC: PLAB 13:10
PROVIDERS: ATTEND Internal Medicine Nephrology
DX: I12.9 Hypertensive chronic kidney disease with stage 1 through stage 4 chronic kidney disease, or unspecified chronic kidney disease (principal); N18.3 Chronic kidney disease, stage 3 (moderate); I70.1 Atherosclerosis of renal artery
CPT/HCPCS: 36415; 80048

== ENCOUNTER 2016-09-24 20:22 | Emergency (ER) | payer MEDICARE, BC ==
[2016-09-24 20:28] VITALS: BP 214/79; PULSE 68; RESP 20; TEMP 98.3; O2SAT 96
--- NOTE | 2016-09-24 21:15 | PD ---
HPI Chief Complaint: General Weakness Time Seen by Provider: 20:48 Travel History International Travel<30 days: No Contact w/Intl Traveler<30days: No Traveled to known affect area: No History of Present Illness HPI The patient is a 76-year-old female that states she had several episodes of jumping up suddenly like she was gasping for air but yet denies any shortness of breath or chest pain after her visit for x-rays at [facility] today. She states she had a CAT scan of the kidneys and thoracic x-rays. The patient is on lorazepam 1 mg daily and oxycodone 10 mg daily. She states she has been on this long time. 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 She has oxygen at home at 2 L nasal cannula and she is 98% here on room air. She denies any shortness of breath at this time. PFSH Past Medical History Hx Anticoagulant Therapy: Yes (asa) Arthritis: Yes (ra) Asthma: Yes Atrial Fibrillation: Yes Blood Disorders: No Anxiety: Yes Heart Rhythm Problems: No Cancer: No Cardiac Catheterization: Yes Cardiovascular Problems: Yes High Cholesterol: Yes Chest Pain: Yes Congestive Heart Failure: No COPD: No Cerebrovascular Accident: No Coronary Artery Disease: Yes (enlarged heart, ) Dementia: Yes Diabetes: No Diminished Hearing: No Endocrine: No Gastrointestinal Disorders: Yes (CONSTIPATION SECONDARY TO MEDICATIONS - takes laxatives regularly) Glaucoma: Yes (SX REPAIR) Genitourinary: Yes (bladder extension) Headaches: No Hepatitis: No Hiatal Hernia: No Hypertension: Yes Immune Disorder: No Implanted Vascular Access Dvce: Yes Kidney Stones: No Musculoskeletal: Yes (FEET AND LEGS WEAK, hip surgery) Neurologic: No Psychiatric: No Reproductive: No Respiratory: Yes (ATHMA) Immunizations Current: Yes Migraines: No Myocardial Infarction: No Renal Failure: No Seizures: No Sleep Apnea: No Thyroid Disease: No PNEUMOCCOCAL Vaccine (Year): 1 Menopausal: Yes Past Surgical History Abdominal Surgery: Yes AICD: No Body Medical Devices: PLATE IN NECK; PIN LEFT HIP Cardiac Surgery: Yes (CABG X3,) Coronary Artery Bypass Graft: Yes (Triple) Ear Surgery: No Eye Surgery: Yes (Glaucoma ) Gynecologic Surgery: Yes (HYSTERECTOMY,) Hysterectomy: Yes Joint Replacement: Yes (Lt. hip) Neurologic Surgery: Yes (Pain stimulator by Radha, since removed ) Oral Surgery: No Pacemaker: No Thoracic Surgery: No Other Surgery: Yes (cervical decompression C &, C 08/11, iliac crest bone graft C6/7) Social History Alcohol Use: No Tobacco Use: No (quit 2005? smoked for approx 10 yrs 1 ppd) Substance Use: No Allergies-Medications (Allergen,Severity, Reaction): Coded Allergies: Aricept (Verified Allergy, Severe, BLURRED VISION; PT TAKES DONEPEZIL DAILY, 09/20/16) Augmentin (Verified Allergy, Severe, VOMITING, 09/20/16) Celebrex (Verified Allergy, Severe, RASH; PT DENIES ALLERGY, 09/20/16) Contrast Media (Verified Allergy, Severe, Hives, BURNING, 09/20/16) [place] (Verified Allergy, Severe, MUSCLE SPASMS, 09/20/16) Levaquin (Verified Allergy, Severe, SOB, 09/20/16) Methadone (Verified Allergy, Severe, UNKNOWN, 09/20/16) Mobic (Verified Allergy, Severe, WHEEZING, 09/20/16) Naproxen (Verified Allergy, Severe, SWEATING, 09/20/16) Neurontin (Verified Allergy, Severe, SWELLING, 09/20/16) Sulfa (Verified Allergy, Severe, ITCHING, 09/20/16) Zydone (Verified Allergy, Severe, 09/20/16) ARTHROTEC (Verified Allergy, Unknown, 09/20/16) Baclofen (Verified Allergy, Unknown, SHAKING, PT UNSURE, 09/20/16) Cleocin (Verified Allergy, Unknown, MUSCLE PAIN, 09/20/16) Detrol (Verified Allergy, Unknown, 09/20/16) Marinol (Verified Allergy, Unknown, UNKNOWN, 09/20/16) Pletal (Verified Allergy, Unknown, UNKNOWN, 09/20/16) Soma (Verified Allergy, Unknown, UNKNOWN, 09/20/16) Topamax (Verified Allergy, Unknown, 09/20/16) Ultram (Verified Allergy, Unknown, 09/20/16) Vicodin (Verified Allergy, Unknown, 09/20/16) Cymbalta (Verified Adverse Reaction, Severe, NAUSEA, 09/20/16) Effexor (Verified Adverse Reaction, Severe, "SLEEPY", 09/20/16) Erythromycin (Verified Adverse Reaction, Severe, STOMACH CRAMPING, 09/20/16 ) Keflex (Verified Adverse Reaction, Severe, STOMACH PAIN, 09/20/16) Lexapro (Verified Adverse Reaction, Severe, "SLEEPLESSNESS", 09/20/16) Lipitor (Verified Adverse Reaction, Severe, VOMITING, 09/20/16) Lyrica (Verified Adverse Reaction, Severe, "WEAKNESS", 09/20/16) Mevacor (Verified Adverse Reaction, Severe, HEADACHE, 09/20/16) Paxil (Verified Adverse Reaction, Severe, SWEATING, 09/20/16) Provigil (Verified Adverse Reaction, Severe, ANXIETY, 09/20/16) Remeron Liliam-Tab (Verified Adverse Reaction, Severe, WEAKNESS, 09/20/16) Skelaxin (Verified Adverse Reaction, Severe, "FEEL DRUNK", 09/20/16) Tylenol/Codeine (Verified Adverse Reaction, Severe, NAUSEA, 09/20/16) Valium (Verified Adverse Reaction, Severe, JOINT PAIN, 09/20/16) Zanaflex (Verified Adverse Reaction, Severe, JITTERY, 09/20/16) Zetia (Verified Adverse Reaction, Severe, MUSCLE PAIN, 09/20/16) Zocor (Verified Adverse Reaction, Severe, MUSCLE PAIN, 09/20/16) Zoloft (Verified Adverse Reaction, Severe, DIZZINESS, 09/20/16) *MDRO Multi-Drug Resistant Organism (Verified Adverse Reaction, Unknown, ) 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/16/16 Celexa (Verified Adverse Reaction, Unknown, HEADACHE, 09/20/16) Cipro (Verified Adverse Reaction, Unknown, NAUSEA, 09/20/16) Cortisone (Verified Adverse Reaction, Unknown, HEADACHE, 09/20/16) PT DENIES ALLERGY TO MED 09/17 Depakote (Verified Adverse Reaction, Unknown, HEADACHE, 09/20/16) Ditropan (Verified Adverse Reaction, Unknown, NAUSEA, 09/20/16) Elavil (Verified Adverse Reaction, Unknown, SWEATING, 09/20/16) Prozac (Verified Adverse Reaction, Unknown, ITCHING, 09/20/16) Uncoded Allergies: VESICARE (Adverse Reaction, Severe, SWEATING, 10/18/08) VYTORIN (Adverse Reaction, Severe, CONSTIPATION, 10/18/08) Reported Meds & Prescriptions Reported Meds & Active Scripts Active Doxycycline Hyclate 100 Mg Cap 100 Mg PO BID 7 Days Reported Albuterol Neb (Albuterol Sulfate) 1.25 Mg/3 Ml Neb 1.25 Mg NEB Q6HR NEB PRN Restasis Opth 0.05% (Cyclosporine Opth 0.05%) 0.05% Emul 1 Drop EACH EYE BID Clonidine (Clonidine HCl) 0.2 Mg Tab 0.2 Mg PO BID Iron (Ferrous Gluconate) 27 Mg Tab 1 Tab PO DAILY Lactulose 10 Gm/15 Ml Solution 10 Gm PO DIRECTED Methylprednisolone 8 Mg Tab 4 Mg PO DIRECTED Oxycodone-Acetaminophen 10-325 mg Tab 1 Tab PO TID PRN Latanoprost Opth Drops (Latanoprost) 0.005% Drops 1 Drop EACH EYE BID Refrigerate until opened. Torsemide 20 Mg Tab 20 Mg PO DAILY Hydralazine HCl 50 Mg Tablet 1 Tab PO QID Folic Acid 400 Mcg Tab 1 Mg PO DAILY Duragesic Patch 72 HR (Fentanyl) 100 Mcg/Hr Patch 100 Mcg T-DERMAL Q48 Remove old patch when new one placed. Proair Hfa 8.5 GM Inh (Albuterol Sulfate) 90 Mcg/Act Aer 1 Puff INH Q4H PRN 108 mcg/actuation Losartan (Losartan Potassium) 50 Mg Tab 50 Mg PO BID Pravastatin 40 Mg Tab 40 Mg PO DAILY Donepezil 10 Mg Tab 10 Mg PO HS Trazodone (Trazodone HCl) 50 Mg Tab 25 Mg PO HS Flexeril (Cyclobenzaprine HCl) 5 Mg Tab 5 Mg PO DAILY Aspir-81 (Aspirin) 81 Mg Tabdr 1 Tab PO DAILY Methotrexate 2.5 Mg Tab 5 Mg PO Q7D Vitamin D (Cholecalciferol) 2,000 Unit Cap 1 Tab PO BID Lorazepam 1 Mg Tab 1 Mg PO DAILY PRN Atenolol 25 Mg Tab 25 Mg PO BID Review of Systems Except as stated in HPI: all other systems reviewed are Neg Physical Exam Narrative GENERAL: The patient is alert, oriented 3, anxious in no apparent distress. Her vital signs show blood pressure 214/79 but otherwise normal. SKIN: Focused skin assessment warm/dry. HEAD: Atraumatic. Normocephalic. EYES: Pupils equal and round. No scleral icterus. No injection or drainage. ENT: No nasal bleeding or discharge. Mucous membranes pink and moist. NECK: Trachea midline. No JVD. CARDIOVASCULAR: Regular rate and rhythm. No murmur appreciated. RESPIRATORY: No accessory muscle use. Clear to auscultation. Breath sounds equal bilaterally. GASTROINTESTINAL: Abdomen soft, non-tender, nondistended. Hepatic and splenic margins not palpable. MUSCULOSKELETAL: No obvious deformities. No clubbing. No cyanosis. No edema. NEUROLOGICAL: Awake and alert. No obvious cranial nerve deficits. Motor grossly within normal limits. Normal speech. PSYCHIATRIC: Appropriate mood and affect; insight and judgment normal. Data Data Last Documented VS Vital Signs Date Time Temp Pulse Resp B/P Pulse Ox O2 Delivery O2 Flow Rate FiO2 09/24/16 21:31 64 20 167/70 95 09/24/16 20:28 98.3 Orders Electrocardiogram (09/24/16 21:43) Complete Blood Count With Diff (09/24/16 21:43) Comprehensive Metabolic Panel (09/24/16 21:43) Troponin I (09/24/16 21:43) Urinalysis - C+S If Indicated (09/24/16 21:43) Labs Laboratory Tests Test 09/24/16 09/24/16 21:45 22:00 Urine Color YELLOW Urine Turbidity CLEAR Urine pH 6.0 Urine Specific [place] 1.010 Urine Protein NEG mg/dL Urine Glucose (UA) NEG mg/dL Urine Ketones NEG mg/dL Urine Occult Blood NEG Urine Nitrite NEG Urine Bilirubin NEG Urine Leukocyte Esterase NEG Urine RBC 0-3 /hpf Urine WBC 0-2 /hpf Urine Squamous Epithelial 0-5 /hpf Cells Urine Mucus FEW /lpf Microscopic Urinalysis Comment CULT NOT INDICATED White Blood Count 8.6 TH/MM3 Red Blood Count 3.62 MIL/MM3 Hemoglobin 11.5 GM/DL Hematocrit 34.1 % Mean Corpuscular Volume 94.3 FL Mean Corpuscular Hemoglobin 31.9 PG Mean Corpuscular Hemoglobin 33.8 % Concent Red Cell Distribution Width 13.1 % Platelet Count 415 TH/MM3 Mean Platelet Volume 6.4 FL Neutrophils (%) (Auto) 65.3 % Lymphocytes (%) (Auto) 20.2 % Monocytes (%) (Auto) 9.2 % Eosinophils (%) (Auto) 4.2 % Basophils (%) (Auto) 1.1 % Neutrophils # (Auto) 5.6 TH/MM3 Lymphocytes # (Auto) 1.7 TH/MM3 Monocytes # (Auto) 0.8 TH/MM3 Eosinophils # (Auto) 0.4 TH/MM3 Basophils # (Auto) 0.1 TH/MM3 CBC Comment DIFF FINAL Differential Comment Sodium Level 134 MEQ/L Potassium Level 4.1 MEQ/L Chloride Level 94 MEQ/L Carbon Dioxide Level 33.7 MEQ/L Anion Gap 6 MEQ/L Blood Urea Nitrogen 25 MG/DL Creatinine 1.40 MG/DL Estimat Glomerular Filtration 36 ML/MIN Rate Random Glucose 82 MG/DL Calcium Level 9.2 MG/DL Total Bilirubin 0.5 MG/DL Aspartate Amino Transf 21 U/L (AST/SGOT) Alanine Aminotransferase 25 U/L (ALT/SGPT) Alkaline Phosphatase 62 U/L Troponin I LESS THAN 0.02 NG/ML Total Protein 7.3 GM/DL Albumin 4.4 GM/DL [facility] Medical Decision Making Medical Screen Exam Complete: Yes Emergency Medical Condition: Yes Medical Record Reviewed: Yes Interpretation(s) The EKG shows sinus rhythm with a rate of 66 and is completely normal. The complete metabolic profile shows a sodium of 134, bicarbonate 33.7, BUN of 25 with creatinine 1.4 but is otherwise normal. The troponin I is normal. The urinalysis is normal. The CBC is normal except for hemoglobin of 11.5 and hematocrit of 34.1. Differential Diagnosis Anemia, electrolyte disorder, dysrhythmia, anxiety reaction, reaction etiology undetermined. Narrative Course The patient has a reaction etiology undetermined. This may be an anxiety reaction. Her constipation is most likely opioid-induced but she will not allow it to bleed blamed on opioids. She is noncompliant on her doxycycline because she thinks it constipates her. Diagnosis Primary Impression: Anxiety reaction Additional Instructions: As we discussed, follow-up with Dr. Wilcox. We cannot find anything wrong at this time. Increase liquid intake and cut back on the oxycodone because of the constipation. Disposition: 01 DISCHARGE HOME Condition: Stable Marvin Coello MD Sep 24, 2016 21:15 Condition: Stable Marvin Coello MD Sep 24, 2016 21:15
[2016-09-24 21:31] VITALS: BP 167/70; PULSE 64; RESP 20; O2SAT 95
[2016-09-24 21:56] LABS: BLOOD, URINE NEG (NEG); GLUCOSE,URINE NEG (NEG); KETONE, URINE NEG (NEG); NITRITE,URINE NEG (NEG)
[2016-09-24 22:00] LABS: URINE COLOR YELLOW (YELLW/STRAW)
[2016-09-24 22:01] LABS: MUCUS URINE FEW /lpf (OCC); RBC, URINE 0-3 /hpf (0-3); SQUAMOUS EPITHELIAL CELL URINE 0-5 /hpf (0-5); WBC, URINE 0-2 /hpf (0-5)
[2016-09-24 22:02] LABS: COMMENT (UR) CULT NOT INDICATED; CULTURE IF INDICATED CULT NOT INDICATED
[2016-09-24 22:07] LABS: AUTOMATED NEUTROPHIL # 5.6 TH/MM3 (1.8-7.7); BASOPHIL # 0.1 TH/MM3 (0-0.2); BASOPHIL % 1.1 % (0.0-2.0); EOSINOPHIL # 0.4 TH/MM3 (0-0.4); EOSINOPHIL % 4.2 % (0.0-4.0); HEMATOCRIT 34.1 % (35.0-46.0); HEMO FLAGS DIFF FINAL; LYMPH % 20.2 % (9.0-44.0); LYMPHOCYTE # 1.7 TH/MM3 (1.0-4.8); MEAN CELL VOLUME 94.3 FL (80.0-100.0); MEAN CORPUSCULAR HEMOGLOBIN 31.9 PG (27.0-34.0); MEAN CORPUSCULAR HGB CONC 33.8 % (32.0-36.0); MONO % 9.2 % (0.0-8.0); NEUT % 65.3 % (16.0-70.0); PLATELET COUNT 415 TH/MM3 (150-450); RED BLOOD COUNT 3.62 MIL/MM3 (4.00-5.30); RED CELL DISTRIBUTION WIDTH 13.1 % (11.6-17.2); WHITE BLOOD COUNT 8.6 TH/MM3 (4.0-11.0)
[2016-09-24 22:14] LABS: CHLORIDE 94 MEQ/L (98-107); POTASSIUM 4.1 MEQ/L (3.5-5.1); SODIUM (NA) 134 MEQ/L (136-145)
[2016-09-24 22:18] LABS: ANION GAP 6 MEQ/L (5-15); BICARBONATE 33.7 MEQ/L (21.0-32.0); BLOOD UREA NITROGEN 25 MG/DL (7-18)
[2016-09-24 22:21] LABS: ALT (GPT) 25 U/L (10-53); AST (GOT) 21 U/L (15-37); GLOMERULAR FILTRATION RATE 36 ML/MIN (>89)
[2016-09-24 22:22] LABS: TOTAL BILIRUBIN ADULT 0.5 MG/DL (0.2-1.0)
[2016-09-24 22:24] LABS: ALKALINE PHOSPHATASE 62 U/L (45-117)
[2016-09-24 23:15] VITALS: BP 162/78; PULSE 64; RESP 20; O2SAT 99
--- NOTE | 2016-09-26 18:21 | EKG ---
Date Performed: 09/24/2016 Time Performed: 21:52:45 PTAGE: 76 years EKG: Sinus rhythm NORMAL ECG PREVIOUS TRACING : 09/16/2016 20.56 Compared to prior tracing no significant change DOCTOR: Sanjeev Roa Interpretating Date/Time 09/26/2016 18:21:08
== END 2016-09-24 23:40 | disposition home or self-care (01) ==
LOC: PHED 20:22
DX: F41.1 Generalized anxiety disorder (principal); J45.909 Unspecified asthma, uncomplicated; I10 Essential (primary) hypertension; I48.91 Unspecified atrial fibrillation; Z79.82 Long term (current) use of aspirin; Z79.899 Other long term (current) drug therapy; Z87.891 Personal history of nicotine dependence; Z95.1 Presence of aortocoronary bypass graft
CPT/HCPCS: 80053; 81001; 84484; 85025; 93005

== ENCOUNTER 2016-10-12 14:09 | Emergency (ER) | payer MEDICARE, BC ==
[~2016-10-12] VITALS: Ht 170.2 cm; Wt 63.5 kg
[~2016-10-12 14:09] MED LIST changes: -CARV6.252 PO; -CO Q100C9 PO; -DOXY100T PO; -FURO20TA PO; -IPRASOL INH; -LABE300T PO; -LACT10SO PO; -SPIR25 PO
[2016-10-12 14:15] VITALS: BP 214/85; PULSE 73; RESP 15; TEMP 98; O2SAT 99
--- NOTE | 2016-10-12 14:40 | PD ---
Physical Exam Time Seen by Provider: 14:39 Narrative 76 y/o female presents after developing neck pain during pulmonary function tests. Denies cp or acute sob. Vital signs reviewed. Seen at triage desk. Awaiting bed placement. Data Data Last Documented VS Vital Signs Date Time Temp Pulse Resp B/P Pulse Ox O2 Delivery O2 Flow Rate FiO2 10/12/16 14:15 98.0 73 15 214/85 99 MDM Medical Record Reviewed: Yes Supervised Visit with RAYNE: Abel Alfaro Oct 12, 2016 14:40
== END 2016-10-12 14:46 | disposition left against medical advice (07) ==
LOC: NED 14:09
DX: M54.2 Cervicalgia (principal); Z53.21 Procedure and treatment not carried out due to patient leaving prior to being seen by health care provider
CPT/HCPCS: 99281

== ENCOUNTER → 2016-10-12 | Outpatient (CLI) | payer MEDICARE, BC ==
[~2016-10-12] MED LIST changes: +CARV6.252 PO; +CO Q100C9 PO; +DOXY100T PO; +FURO20TA PO; +IPRASOL INH; +LABE300T PO; +LACT10SO PO; +SPIR25 PO
[2016-10-12 14:05] LABS: BLOOD GAS BASE EXCESS 2.9 mmol/L (-2-2); BLOOD GAS CARBOXYHEMOGLOBIN 1.9 % (0-4); BLOOD GAS HCO3 27 mmol/L (22-26); BLOOD GAS METHEMOGLOBIN 0.9 % (0-2); BLOOD GAS O2 HGB SATURATION 93 % (90-100); BLOOD GAS PCO2 41 mmHg (38-42); BLOOD GAS PO2 78 mmHg (61-120); BLOOD GAS TOTAL HGB 10.6 G/DL (12.0-16.0); CRITICAL VALUE NO; DRAW SITE RT RADIAL; FIO2 21 %; NUMBER OF ARTERIAL PUNCTURES 1; STAT NO; TEMP CORR TO 98.6; ULNAR PULSE PRESENT
== END ==
LOC: HRSP 13:13
PROVIDERS: ATTEND Specialist
DX: J44.9 Chronic obstructive pulmonary disease, unspecified (principal)
CPT/HCPCS: 36600; 82805

== ENCOUNTER → 2016-10-15 | Outpatient (CLI) | payer MEDICARE, BC ==
[~2016-10-15] MED LIST changes: +CARV6.252 PO; +CO Q100C9 PO; +DOXY100T PO; +FURO20TA PO; +IPRASOL INH; +LABE300T PO; +LACT10SO PO; +SPIR25 PO
[2016-10-15 13:42] LABS: BASOPHIL # 0.1 TH/MM3 (0-0.2); BASOPHIL % 1.2 % (0.0-2.0); EOSINOPHIL # 0.4 TH/MM3 (0-0.4); EOSINOPHIL % 3.1 % (0.0-4.0); HEMATOCRIT 28.7 % (35.0-46.0); HEMO FLAGS DIFF FINAL; LYMPH % 8.8 % (9.0-44.0); MEAN CELL VOLUME 95.7 FL (80.0-100.0); MEAN CORPUSCULAR HEMOGLOBIN 32.3 PG (27.0-34.0); MEAN CORPUSCULAR HGB CONC 33.7 % (32.0-36.0); MONO % 7.4 % (0.0-8.0); NEUT % 79.5 % (16.0-70.0); PLATELET COUNT 275 TH/MM3 (150-450); RED CELL DISTRIBUTION WIDTH 13.6 % (11.6-17.2); WHITE BLOOD COUNT 11.4 TH/MM3 (4.0-11.0)
[2016-10-15 13:43] LABS: BLOOD, URINE NEG (NEG); COMMENT (UR) CULT NOT INDICATED; CULTURE IF INDICATED CULT NOT INDICATED; GLUCOSE,URINE NEG (NEG); KETONE, URINE NEG (NEG); MUCUS URINE FEW /lpf (OCC); NITRITE,URINE NEG (NEG); SQUAMOUS EPITHELIAL CELL URINE 1 /hpf (0-5); URINE COLOR YELLOW (YELLW/STRAW)
[2016-10-15 13:48] LABS: HYALINE CAST, URINE A /lpf (RARE)
[2016-10-15 13:51] LABS: ANION GAP 8 MEQ/L (5-15); AST (GOT) 19 U/L (15-37); BICARBONATE 28.6 MEQ/L (21.0-32.0); BLOOD UREA NITROGEN 21 MG/DL (7-18); CHLORIDE 92 MEQ/L (98-107); GLOMERULAR FILTRATION RATE 36 ML/MIN (>89); POTASSIUM 4.1 MEQ/L (3.5-5.1); SODIUM (NA) 129 MEQ/L (136-145)
[2016-10-15 13:52] LABS: ALT (GPT) 20 U/L (10-53)
[2016-10-15 13:54] LABS: ALKALINE PHOSPHATASE 55 U/L (45-117); TOTAL BILIRUBIN ADULT 0.4 MG/DL (0.2-1.0)
== END ==
LOC: PLAB 11:38
PROVIDERS: ATTEND Internal Medicine Nephrology
DX: M06.09 Rheumatoid arthritis without rheumatoid factor, multiple sites (principal); N18.3 Chronic kidney disease, stage 3 (moderate); E55.9 Vitamin D deficiency, unspecified; Z79.899 Other long term (current) drug therapy
CPT/HCPCS: 36415; 80053; 81001; 82570; 83970; 84100; 84156; 85025; 85652; 86140

== ENCOUNTER 2016-10-16 18:02 | Emergency (ER) | payer MEDICARE, BC ==
[~2016-10-16] VITALS: Ht 170.2 cm; Wt 65.5 kg
[~2016-10-16 18:02] MED LIST changes: -CARV6.252 PO; -CO Q100C9 PO; -DOXY100T PO; -FURO20TA PO; -IPRASOL INH; -LABE300T PO; -LACT10SO PO; -SPIR25 PO
[2016-10-16 18:15] VITALS: BP 148/54; PULSE 68; RESP 16; TEMP 98.2; O2SAT 95
--- NOTE | 2016-10-16 18:30 | PD ---
HPI Chief Complaint: General Weakness Time Seen by Provider: 18:07 Travel History International Travel<30 days: No Contact w/Intl Traveler<30days: No Traveled to known affect area: No History of Present Illness HPI This 76-year-old female is complaining of pain in her legs. She says she's been having pain in her legs that has been worse today. Pain is aggravated by standing. 7 outpatient ultrasound to assess for possible DVT which was negative in July. She has a wound right leg draining some fluid. She does go to pain management. She says she's had 4 neck surgeries in the past. She is on lidocaine patch as well as fentanyl patch and she takes oral oxycodone. She has been having swelling of her legs since July. She was on torsemide and Aldactone was recently taken off. she has a history of COPD and is on oxygen as needed PFSH Past Medical History Hx Anticoagulant Therapy: Yes (asa) Arthritis: Yes (RA) Asthma: Yes Atrial Fibrillation: Yes Blood Disorders: No Anxiety: Yes Heart Rhythm Problems: No Cancer: No Cardiac Catheterization: Yes Cardiovascular Problems: Yes High Cholesterol: Yes Chest Pain: Yes Congestive Heart Failure: No COPD: No Cerebrovascular Accident: No Coronary Artery Disease: Yes Dementia: Yes Diabetes: No Diminished Hearing: No Endocrine: No Gastrointestinal Disorders: Yes (CHRONIC CONSTIPATION) Glaucoma: Yes (SX REPAIR) Genitourinary: Yes (BLADDER EXTENSION) Headaches: No Hepatitis: No Hiatal Hernia: No Hypertension: Yes Immune Disorder: No Implanted Vascular Access Dvce: Yes Kidney Stones: No Medical other: Yes (CHR. NECK PAIN) Musculoskeletal: Yes (FEET AND LEGS WEAK) Neurologic: No Psychiatric: No Reproductive: No Respiratory: Yes (Asthma ) Immunizations Current: Yes Migraines: No Myocardial Infarction: No Renal Failure: No Seizures: No Sleep Apnea: No Thyroid Disease: No Tetanus Vaccination: < 5 Years Influenza Vaccination: Yes PNEUMOCCOCAL Vaccine (Year): 1 ?: Not Menopausal: Yes Past Surgical History Abdominal Surgery: Yes AICD: No Body Medical Devices: PLATE IN NECK; PIN LEFT HIP Cardiac Surgery: Yes Coronary Artery Bypass Graft: Yes (TRIPLE) Ear Surgery: No Eye Surgery: Yes (GLAUCOMA) Gynecologic Surgery: Yes Hysterectomy: Yes Joint Replacement: Yes (LEFT HIP) Neurologic Surgery: Yes Oral Surgery: No Pacemaker: No Thoracic Surgery: No Other Surgery: Yes Social History Alcohol Use: No Tobacco Use: No Substance Use: No Allergies-Medications (Allergen,Severity, Reaction): Coded Allergies: Aricept (Verified Allergy, Severe, BLURRED VISION; PT TAKES DONEPEZIL DAILY, 10/16/16) Augmentin (Verified Allergy, Severe, VOMITING, 10/16/16) Celebrex (Verified Allergy, Severe, RASH; PT DENIES ALLERGY, 10/16/16) Contrast Media (Verified Allergy, Severe, Hives, BURNING, 10/16/16) [place] (Verified Allergy, Severe, MUSCLE SPASMS, 10/16/16) Levaquin (Verified Allergy, Severe, SOB, 10/16/16) Methadone (Verified Allergy, Severe, UNKNOWN, 10/16/16) Mobic (Verified Allergy, Severe, WHEEZING, 10/16/16) Naproxen (Verified Allergy, Severe, SWEATING, 10/16/16) Neurontin (Verified Allergy, Severe, SWELLING, 10/16/16) Sulfa (Verified Allergy, Severe, ITCHING, 10/16/16) Zydone (Verified Allergy, Severe, 10/16/16) ARTHROTEC (Verified Allergy, Unknown, 10/16/16) Baclofen (Verified Allergy, Unknown, SHAKING, PT UNSURE, 10/16/16) Cleocin (Verified Allergy, Unknown, MUSCLE PAIN, 10/16/16) Detrol (Verified Allergy, Unknown, 10/16/16) Marinol (Verified Allergy, Unknown, UNKNOWN, 10/16/16) Pletal (Verified Allergy, Unknown, UNKNOWN, 10/16/16) Soma (Verified Allergy, Unknown, UNKNOWN, 10/16/16) Topamax (Verified Allergy, Unknown, 10/16/16) Ultram (Verified Allergy, Unknown, 10/16/16) Vicodin (Verified Allergy, Unknown, 10/16/16) Cymbalta (Verified Adverse Reaction, Severe, NAUSEA, 10/16/16) Effexor (Verified Adverse Reaction, Severe, "SLEEPY", 10/16/16) Erythromycin (Verified Adverse Reaction, Severe, STOMACH CRAMPING, 10/16/16 ) Keflex (Verified Adverse Reaction, Severe, STOMACH PAIN, 10/16/16) Lexapro (Verified Adverse Reaction, Severe, "SLEEPLESSNESS", 10/16/16) Lipitor (Verified Adverse Reaction, Severe, VOMITING, 10/16/16) Lyrica (Verified Adverse Reaction, Severe, "WEAKNESS", 10/16/16) Mevacor (Verified Adverse Reaction, Severe, HEADACHE, 10/16/16) Paxil (Verified Adverse Reaction, Severe, SWEATING, 10/16/16) Provigil (Verified Adverse Reaction, Severe, ANXIETY, 10/16/16) Remeron Liliam-Tab (Verified Adverse Reaction, Severe, WEAKNESS, 10/16/16) Skelaxin (Verified Adverse Reaction, Severe, "FEEL DRUNK", 10/16/16) Tylenol/Codeine (Verified Adverse Reaction, Severe, NAUSEA, 10/16/16) Valium (Verified Adverse Reaction, Severe, JOINT PAIN, 10/16/16) Zanaflex (Verified Adverse Reaction, Severe, JITTERY, 10/16/16) Zetia (Verified Adverse Reaction, Severe, MUSCLE PAIN, 10/16/16) Zocor (Verified Adverse Reaction, Severe, MUSCLE PAIN, 10/16/16) Zoloft (Verified Adverse Reaction, Severe, DIZZINESS, 10/16/16) *MDRO Multi-Drug Resistant Organism (Verified Adverse Reaction, Unknown, ) 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/16/16 Celexa (Verified Adverse Reaction, Unknown, HEADACHE, 10/16/16) Cipro (Verified Adverse Reaction, Unknown, NAUSEA, 10/16/16) Cortisone (Verified Adverse Reaction, Unknown, HEADACHE, 10/16/16) PT DENIES ALLERGY TO MED 09/17 Depakote (Verified Adverse Reaction, Unknown, HEADACHE, 10/16/16) Ditropan (Verified Adverse Reaction, Unknown, NAUSEA, 10/16/16) Elavil (Verified Adverse Reaction, Unknown, SWEATING, 10/16/16) Prozac (Verified Adverse Reaction, Unknown, ITCHING, 10/16/16) Uncoded Allergies: VESICARE (Adverse Reaction, Severe, SWEATING, 10/18/08) VYTORIN (Adverse Reaction, Severe, CONSTIPATION, 10/18/08) Reported Meds & Prescriptions Reported Meds & Active Scripts Active Reported Labetalol (Labetalol HCl) 300 Mg Tab 300 Mg PO TID Aldactone (Spironolactone) 25 Mg Tab 25 Mg PO DAILY Vitamin D (Cholecalciferol) 2,000 Unit Cap 1 Cap PO DAILY Co Q 10 (Coenzyme Q10 (Ubidecarenone)) 100 Mg Cap 1 Cap PO DAILY Duoneb (Ipratropium-Albuterol Neb) 0.5-2.5 Mg/3 Ml Neb 1 Nebule INH Q8HR NEB PRN Restasis Opth 0.05% (Cyclosporine Opth 0.05%) 0.05% Emul 1 Drop EACH EYE BID Iron (Ferrous Gluconate) 27 Mg Tab 1 Tab PO DAILY Methylprednisolone 8 Mg Tab 4 Mg PO DIRECTED Latanoprost Opth Drops (Latanoprost) 0.005% Drops 1 Drop EACH EYE BID Refrigerate until opened. Hydralazine HCl 50 Mg Tablet 1 Tab PO QID Folic Acid 400 Mcg Tab 1 Mg PO DAILY Duragesic Patch 72 HR (Fentanyl) 100 Mcg/Hr Patch 100 Mcg T-DERMAL Q48 Remove old patch when new one placed. Pravastatin 40 Mg Tab 40 Mg PO DAILY Donepezil 10 Mg Tab 10 Mg PO HS Trazodone (Trazodone HCl) 50 Mg Tab 25 Mg PO HS Flexeril (Cyclobenzaprine HCl) 5 Mg Tab 5 Mg PO DAILY Aspir-81 (Aspirin) 81 Mg Tabdr 1 Tab PO DAILY Methotrexate 2.5 Mg Tab 5 Mg PO Q7D Lorazepam 1 Mg Tab 1 Mg PO DAILY PRN Review of Systems General / Constitutional: No: Fever, Chills Eyes: No: Diploplia, Blurred Vision HENT: No: Headaches, Vertigo Cardiovascular: No: Chest Pain or Discomfort, Palpitations Respiratory: No: Cough, Shortness of Breath Gastrointestinal: No: Vomiting, Diarrhea Genitourinary: No: Urgency Musculoskeletal: Positive: Myalgias, Arthralgias Skin: Positive Rash Neurologic: Positive: Weakness Psychiatric: Positive: Anxiety Hematologic/Lymphatic: Positive: Easy Bruising Physical Exam Narrative GENERAL: Well-developed female SKIN: Focused skin assessment warm/dry. There are scattered ecchymotic areas. Small draining area back of the right knee HEAD: Atraumatic. Normocephalic. EYES: Pupils equal and round. No scleral icterus. No injection or drainage. ENT: No nasal bleeding or discharge. Mucous membranes pink and moist. NECK: Trachea midline. No JVD. CARDIOVASCULAR: Regular rate and rhythm. No murmur appreciated. RESPIRATORY: No accessory muscle use. Clear to auscultation. Breath sounds equal bilaterally. GASTROINTESTINAL: Abdomen soft, non-tender, nondistended. Hepatic and splenic margins not palpable. MUSCULOSKELETAL: No obvious deformities. No clubbing. No cyanosis. No edema. Dorsalis pedal pulses and brisk bilaterally NEUROLOGICAL: Awake and alert. No obvious cranial nerve deficits. Motor grossly within normal limits. Normal speech. PSYCHIATRIC: Appropriate mood and affect; insight and judgment normal. Data Data Last Documented VS Vital Signs Date Time Temp Pulse Resp B/P Pulse Ox O2 Delivery O2 Flow Rate FiO2 10/16/16 20:31 168/79 10/16/16 18:15 98.2 68 16 95 Orders Complete Blood Count With Diff (10/16/16 18:18) Comprehensive Metabolic Panel (10/16/16 18:18) B-Type Natriuretic Peptide (10/16/16 18:18) Urinalysis - C+S If Indicated (10/16/16 18:18) Labs Laboratory Tests Test 10/16/16 18:45 White Blood Count 10.6 TH/MM3 Red Blood Count 3.22 MIL/MM3 Hemoglobin 10.3 GM/DL Hematocrit 30.5 % Mean Corpuscular Volume 94.8 FL Mean Corpuscular Hemoglobin 32.0 PG Mean Corpuscular Hemoglobin 33.7 % Concent Red Cell Distribution Width 13.8 % Platelet Count 287 TH/MM3 Mean Platelet Volume 7.3 FL Neutrophils (%) (Auto) 76.4 % Lymphocytes (%) (Auto) 9.8 % Monocytes (%) (Auto) 8.6 % Eosinophils (%) (Auto) 3.9 % Basophils (%) (Auto) 1.3 % Neutrophils # (Auto) 8.2 TH/MM3 Lymphocytes # (Auto) 1.0 TH/MM3 Monocytes # (Auto) 0.9 TH/MM3 Eosinophils # (Auto) 0.4 TH/MM3 Basophils # (Auto) 0.1 TH/MM3 CBC Comment DIFF FINAL Differential Comment Urine Color YELLOW Urine Turbidity CLEAR Urine pH 6.0 Urine Specific [place] 1.012 Urine Protein NEG mg/dL Urine Glucose (UA) NEG mg/dL Urine Ketones NEG mg/dL Urine Occult Blood NEG Urine Nitrite NEG Urine Bilirubin NEG Urine Leukocyte Esterase NEG Urine RBC 4-9 /hpf Urine WBC 0-2 /hpf Urine Squamous Epithelial 6-8 /hpf Cells Microscopic Urinalysis Comment CULT NOT INDICATED Sodium Level 126 MEQ/L Potassium Level 5.0 MEQ/L Chloride Level 91 MEQ/L Carbon Dioxide Level 26.5 MEQ/L Anion Gap 9 MEQ/L Blood Urea Nitrogen 26 MG/DL Creatinine 1.50 MG/DL Estimat Glomerular Filtration 34 ML/MIN Rate Random Glucose 88 MG/DL Calcium Level 8.7 MG/DL Total Bilirubin 0.5 MG/DL Aspartate Amino Transf 20 U/L (AST/SGOT) Alanine Aminotransferase 21 U/L (ALT/SGPT) Alkaline Phosphatase 61 U/L B-Type Natriuretic Peptide 512 PG/ML Total Protein 6.7 GM/DL Albumin 3.9 GM/DL [facility] Medical Decision Making Medical Screen Exam Complete: Yes Emergency Medical Condition: Yes Medical Record Reviewed: Yes Differential Diagnosis Differential includes aspiration of chronic pain, neuropathy, pedal edema Narrative Course Blood work shows a sodium of 126 and potassium of 5. Her BNP is 500. She has had a recent ultrasound which is normal. I don't find any acute issue here this lady does have a lot of chronic problems and does take a lot of pain medication. Her main complaint is of pain when she stands. She is stable for outpatient follow-up Diagnosis Primary Impression: Pedal edema Additional Impression: Neuropathic pain Disposition: 01 DISCHARGE HOME Condition: Stable Bennie Liu MD Oct 16, 2016 18:29
[2016-10-16] MEDS ORDERED: SPIR25 PO (18:33)
[2016-10-16] MEDS ORDERED: VITA200013 PO (18:33)
[2016-10-16] MEDS ORDERED: LABE300T PO (18:33)
[2016-10-16] MEDS ORDERED: IPRASOL INH (18:33)
[2016-10-16] MEDS ORDERED: CO Q100C9 PO (18:33)
[2016-10-16 19:08] LABS: BLOOD, URINE NEG (NEG); GLUCOSE,URINE NEG (NEG); KETONE, URINE NEG (NEG); NITRITE,URINE NEG (NEG)
[2016-10-16 19:30] LABS: CHLORIDE 91 MEQ/L (98-107); SODIUM (NA) 126 MEQ/L (136-145)
[2016-10-16 19:32] LABS: AUTOMATED NEUTROPHIL # 8.2 TH/MM3 (1.8-7.7); BASOPHIL # 0.1 TH/MM3 (0-0.2); BASOPHIL % 1.3 % (0.0-2.0); EOSINOPHIL # 0.4 TH/MM3 (0-0.4); EOSINOPHIL % 3.9 % (0.0-4.0); HEMATOCRIT 30.5 % (35.0-46.0); LYMPH % 9.8 % (9.0-44.0); MEAN CELL VOLUME 94.8 FL (80.0-100.0); MEAN CORPUSCULAR HGB CONC 33.7 % (32.0-36.0); MONO % 8.6 % (0.0-8.0); NEUT % 76.4 % (16.0-70.0); PLATELET COUNT 287 TH/MM3 (150-450); RED BLOOD COUNT 3.22 MIL/MM3 (4.00-5.30); RED CELL DISTRIBUTION WIDTH 13.8 % (11.6-17.2); WHITE BLOOD COUNT 10.6 TH/MM3 (4.0-11.0)
[2016-10-16 19:33] LABS: HEMO FLAGS DIFF FINAL
[2016-10-16 19:34] LABS: ANION GAP 9 MEQ/L (5-15); BICARBONATE 26.5 MEQ/L (21.0-32.0); BLOOD UREA NITROGEN 26 MG/DL (7-18)
[2016-10-16 19:37] LABS: ALT (GPT) 21 U/L (10-53); AST (GOT) 20 U/L (15-37); GLOMERULAR FILTRATION RATE 34 ML/MIN (>89)
[2016-10-16 19:39] LABS: TOTAL BILIRUBIN ADULT 0.5 MG/DL (0.2-1.0); URINE COLOR YELLOW (YELLW/STRAW)
[2016-10-16 19:40] LABS: ALKALINE PHOSPHATASE 61 U/L (45-117); COMMENT (UR) CULT NOT INDICATED; CULTURE IF INDICATED CULT NOT INDICATED; WBC, URINE 0-2 /hpf (0-5)
[2016-10-16 20:31] VITALS: BP 168/79
== END 2016-10-16 21:37 | disposition home or self-care (01) ==
LOC: PHED 18:02
DX: R60.0 Localized edema (principal); M79.2 Neuralgia and neuritis, unspecified; I48.91 Unspecified atrial fibrillation; I25.10 Atherosclerotic heart disease of native coronary artery without angina pectoris; I10 Essential (primary) hypertension; Z88.6 Allergy status to analgesic agent; Z79.899 Other long term (current) drug therapy
CPT/HCPCS: 80053; 81001; 83880; 85025; 99283

== ENCOUNTER 2016-10-21 20:18 | Inpatient (IN) | payer MEDICARE, BC ==
[~2016-10-21] VITALS: Ht 170.2 cm; Wt 67.6 kg
[~2016-10-21 20:18] MED LIST changes: -ALBU1.25 NEB; -ALBUAER3 INH; -ATEN25TA PO; -CLON0.2T PO; +CO Q100C9 PO; -DOXY100C PO; +IPRASOL INH; +LABE300T PO; -LACT10SO5 PO; -LOSA50TA PO; -OXYC1TAB36 PO; +SPIR25 PO; -TORS20TA PO
[2016-10-21 20:20] VITALS: BP 140/48; PULSE 63; RESP 18; TEMP 98.4; O2SAT 91; O2SAT 93
[2016-10-21] MEDS ORDERED: SODIUM CHLOR 0.9% 1000 ML INJ 1,000 ML IV ONE (20:44)
[2016-10-21] MEDS ORDERED: SODIUM CHLORIDE 0.9% FLUSH 10 ML FLUSH IVF PRN (20:45)
[2016-10-21] MEDS ORDERED: ONDANSETRON HCL 4 MG/2 ML VIAL IVP ONE (20:45)
--- NOTE | 2016-10-21 21:09 | PD ---
HPI . Weakness Chief Complaint: Weakness Time Seen by Provider: 20:26 Travel History International Travel<30 days: No Contact w/Intl Traveler<30days: No Traveled to known affect area: No History of Present Illness HPI This patient is a 76 year old female who presents to the [place] ED with three days of worsening weakness, fatigue, nausea, cough, shortness of breath and dizziness. She was recently seen here 6 days ago for leg edema. She states her symptoms have worsened over the last few days and has had little to eat or drink because of the nausea. She denies any vomiting but admits to dry heaving, she denies any fever or chills, chest pain, hemoptysis, abdominal pain , urinary symptoms, or black or bloody stools. She last saw her PCP on Tuesday. She has an extensive past medical history including coronary artery disease with triple bypass, chronic leg edema, COPD and musculoskeletal surgeries. She denies any alcohol or tobacco use. PFSH Past Medical History Hx Anticoagulant Therapy: Yes (asa) Arthritis: Yes (RA) Asthma: Yes Atrial Fibrillation: Yes Blood Disorders: No Anxiety: Yes Heart Rhythm Problems: No Cancer: No Cardiac Catheterization: Yes Cardiovascular Problems: Yes High Cholesterol: Yes Chest Pain: Yes Congestive Heart Failure: No COPD: No Cerebrovascular Accident: No Coronary Artery Disease: Yes Dementia: Yes Diabetes: No Diminished Hearing: No Endocrine: No Gastrointestinal Disorders: Yes (CHRONIC CONSTIPATION) Glaucoma: Yes (SX REPAIR) Genitourinary: Yes (BLADDER EXTENSION) Headaches: No Hepatitis: No Hiatal Hernia: No Hypertension: Yes Immune Disorder: No Implanted Vascular Access Dvce: Yes Kidney Stones: No Musculoskeletal: Yes (FEET AND LEGS WEAK) Neurologic: No Psychiatric: No Reproductive: No Respiratory: Yes (Asthma ) Immunizations Current: Yes Migraines: No Myocardial Infarction: No Renal Failure: No Seizures: No Sleep Apnea: No Thyroid Disease: No PNEUMOCCOCAL Vaccine (Year): 1 Menopausal: Yes Past Surgical History Abdominal Surgery: Yes AICD: No Body Medical Devices: PLATE IN NECK; PIN LEFT HIP Cardiac Surgery: Yes Coronary Artery Bypass Graft: Yes (TRIPLE) Ear Surgery: No Eye Surgery: Yes (GLAUCOMA) Gynecologic Surgery: Yes Hysterectomy: Yes Joint Replacement: Yes (LEFT HIP) Neurologic Surgery: Yes Oral Surgery: No Pacemaker: No Thoracic Surgery: No Other Surgery: Yes Social History Alcohol Use: No Tobacco Use: No Substance Use: No Allergies-Medications (Allergen,Severity, Reaction): Coded Allergies: Sulfa (Sulfonamide Antibiotics) (Unverified Allergy, Severe, ITCHING, 10/19) amoxicillin (Unverified Allergy, Severe, VOMITING, 10/19/16) celecoxib (Unverified Allergy, Severe, RASH; PT DENIES ALLERGY, 10/19/16) clavulanic acid (Unverified Allergy, Severe, VOMITING, 10/19/16) corn (Unverified Allergy, Severe, MUSCLE SPASMS, 10/19/16) diatrizoate meglumine (Unverified Allergy, Severe, Hives, BURNING, 10/19/16 ) donepezil (Unverified Allergy, Severe, BLURRED VISION; PT TAKES DONEPEZIL DAILY, 10/19/16) gabapentin (Unverified Allergy, Severe, SWELLING, 10/19/16) gadobenic acid (Unverified Allergy, Severe, Hives, BURNING, 10/19/16) gadodiamide (Unverified Allergy, Severe, Hives, BURNING, 10/19/16) gadoteridol (Unverified Allergy, Severe, Hives, BURNING, 10/19/16) iodixanol (Unverified Allergy, Severe, Hives, BURNING, 10/19/16) iohexol (Unverified Allergy, Severe, Hives, BURNING, 10/19/16) levofloxacin (Unverified Allergy, Severe, SOB, 10/19/16) meloxicam (Unverified Allergy, Severe, WHEEZING, 10/19/16) methadone (Unverified Allergy, Severe, UNKNOWN, 10/19/16) naproxen (Unverified Allergy, Severe, SWEATING, 10/19/16) baclofen (Unverified Allergy, Unknown, SHAKING, PT UNSURE, 10/19/16) carisoprodol (Unverified Allergy, Unknown, UNKNOWN, 10/19/16) cilostazol (Unverified Allergy, Unknown, UNKNOWN, 10/19/16) clindamycin (Unverified Allergy, Unknown, MUSCLE PAIN, 10/19/16) diclofenac (Unverified Allergy, Unknown, 10/19/16) dronabinol (Unverified Allergy, Unknown, UNKNOWN, 10/19/16) hydrocodone (Unverified Allergy, Unknown, 10/19/16) misoprostol (Unverified Allergy, Unknown, 10/19/16) tolterodine (Unverified Allergy, Unknown, 10/19/16) topiramate (Unverified Allergy, Unknown, 10/19/16) tramadol (Unverified Allergy, Unknown, 10/19/16) acetaminophen (Unverified Adverse Reaction, Severe, NAUSEA, 10/19/16) atorvastatin (Unverified Adverse Reaction, Severe, VOMITING, 10/19/16) cephalexin (Unverified Adverse Reaction, Severe, STOMACH PAIN, 10/19/16) codeine (Unverified Adverse Reaction, Severe, NAUSEA, 10/19/16) diazepam (Unverified Adverse Reaction, Severe, JOINT PAIN, 10/19/16) duloxetine (Unverified Adverse Reaction, Severe, NAUSEA, 10/19/16) erythromycin base (Unverified Adverse Reaction, Severe, STOMACH CRAMPING, 10/19/16) escitalopram (Unverified Adverse Reaction, Severe, "SLEEPLESSNESS", ) ezetimibe (Unverified Adverse Reaction, Severe, MUSCLE PAIN, 10/19/16) lovastatin (Unverified Adverse Reaction, Severe, HEADACHE, 10/19/16) metaxalone (Unverified Adverse Reaction, Severe, "FEEL DRUNK", 10/19/16) mirtazapine (Unverified Adverse Reaction, Severe, WEAKNESS, 10/19/16) modafinil (Unverified Adverse Reaction, Severe, ANXIETY, 10/19/16) paroxetine (Unverified Adverse Reaction, Severe, SWEATING, 10/19/16) pregabalin (Unverified Adverse Reaction, Severe, "WEAKNESS", 10/19/16) sertraline (Unverified Adverse Reaction, Severe, DIZZINESS, 10/19/16) simvastatin (Unverified Adverse Reaction, Severe, MUSCLE PAIN, 10/19/16) tizanidine (Unverified Adverse Reaction, Severe, JITTERY, 10/19/16) venlafaxine (Unverified Adverse Reaction, Severe, "SLEEPY", 10/19/16) *MDRO Multi-Drug Resistant Organism (Verified Adverse Reaction, Unknown, ) 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/16/16 amitriptyline (Unverified Adverse Reaction, Unknown, SWEATING, 10/19/16) ciprofloxacin (Unverified Adverse Reaction, Unknown, NAUSEA, 10/19/16) citalopram (Unverified Adverse Reaction, Unknown, HEADACHE, 10/19/16) cortisone (Unverified Adverse Reaction, Unknown, HEADACHE, 10/19/16) PT DENIES ALLERGY TO MED 09/17 divalproex sodium (Unverified Adverse Reaction, Unknown, HEADACHE, 10/19/16 ) fluoxetine (Unverified Adverse Reaction, Unknown, ITCHING, 10/19/16) oxybutynin (Unverified Adverse Reaction, Unknown, NAUSEA, 10/19/16) Uncoded Allergies: VESICARE (Adverse Reaction, Severe, SWEATING, 10/18/08) VYTORIN (Adverse Reaction, Severe, CONSTIPATION, 10/18/08) Reported Meds & Prescriptions Reported Meds & Active Scripts Active Reported Labetalol (Labetalol HCl) 300 Mg Tab 300 Mg PO TID Aldactone (Spironolactone) 25 Mg Tab 25 Mg PO DAILY Vitamin D (Cholecalciferol) 2,000 Unit Cap 1 Cap PO DAILY Co Q 10 (Coenzyme Q10 (Ubidecarenone)) 100 Mg Cap 1 Cap PO DAILY Duoneb (Ipratropium-Albuterol Neb) 0.5-2.5 Mg/3 Ml Neb 1 Nebule INH Q8HR NEB PRN Restasis Opth 0.05% (Cyclosporine Opth 0.05%) 0.05% Emul 1 Drop EACH EYE BID Iron (Ferrous Gluconate) 27 Mg Tab 1 Tab PO DAILY Methylprednisolone 8 Mg Tab 4 Mg PO DIRECTED Latanoprost Opth Drops (Latanoprost) 0.005% Drops 1 Drop EACH EYE BID Refrigerate until opened. Hydralazine HCl 50 Mg Tablet 1 Tab PO QID Folic Acid 400 Mcg Tab 1 Mg PO DAILY Duragesic Patch 72 HR (Fentanyl) 100 Mcg/Hr Patch 100 Mcg T-DERMAL Q48 Remove old patch when new one placed. Pravastatin 40 Mg Tab 40 Mg PO DAILY Donepezil 10 Mg Tab 10 Mg PO HS Trazodone (Trazodone HCl) 50 Mg Tab 25 Mg PO HS Flexeril (Cyclobenzaprine HCl) 5 Mg Tab 5 Mg PO DAILY Aspir-81 (Aspirin) 81 Mg Tabdr 1 Tab PO DAILY Methotrexate 2.5 Mg Tab 5 Mg PO Q7D Lorazepam 1 Mg Tab 1 Mg PO DAILY PRN Review of Systems Except as stated in HPI: all other systems reviewed are Neg General / Constitutional: No: Fever, Chills HENT: No: Headaches, Sore Throat, Neck Stiffness, Neck Pain Cardiovascular: Positive: Edema, No: Chest Pain or Discomfort, Palpitations, Syncope Respiratory: Positive: Cough, Shortness of Breath, No: Hemoptysis, Night Sweats Gastrointestinal: Positive: Nausea, Constipation, Loss of Appetite, No: Vomiting, Diarrhea, Hematemesis, Hematochezia Genitourinary: No: Urgency, Frequency, Dysuria, Hematuria Musculoskeletal: Positive: Weakness, Edema Neurologic: Positive: Weakness, Dizziness, No: Syncope, Change in Mentation Physical Exam Narrative GENERAL: This is a pleasant elderly female examined at bedside. She appears fatigued and pale but is not in any acute distress. She is alert and oriented x3. SKIN: Warm and dry. Venous stasis changes on BUE, BLE. Skin pale. HEAD: Atraumatic. Normocephalic. EYES: Pupils equal and round. Conjunctiva pale. ENT: No nasal bleeding or discharge. Mucous membranes dry. NECK: Trachea midline. Carotid endarterectomy scars. CARDIOVASCULAR: Regular rate and rhythm. No murmurs or extra beats RESPIRATORY: No accessory muscle use. Some diffuse wheezing and crackles. GASTROINTESTINAL: Abdomen soft, non-tender, nondistended. MUSCULOSKELETAL: No obvious deformities. Significant bilateral lower leg edema , right leg wrapped in bandage. NEUROLOGICAL: Awake and alert. No obvious cranial nerve deficits. Motor grossly within normal limits. Normal speech. PSYCHIATRIC: Appropriate mood and affect; insight and judgment normal. Data Data Last Documented VS Vital Signs Date Time Temp Pulse Resp B/P Pulse Ox O2 Delivery O2 Flow Rate FiO2 10/21/16 20:30 63 18 91 Room Air 10/21/16 20:20 98.4 140/48 Orders Electrocardiogram (10/21/16 20:44) Complete Blood Count With Diff (10/21/16 20:44) Comprehensive Metabolic Panel (10/21/16 20:44) Magnesium (Mg) (10/21/16 20:44) B-Type Natriuretic Peptide (10/21/16 20:44) Prothrombin Time / Inr (Pt) (10/21/16 20:44) Urinalysis - C+S If Indicated (10/21/16 20:44) Chest, Single Ap (10/21/16 20:44) Ecg Monitoring (10/21/16 20:44) Iv Access Insert/Monitor (10/21/16 20:44) Oximetry (10/21/16 20:44) Ondansetron Inj (Zofran Inj) (10/21/16 20:45) Sodium Chloride 0.9% Flush (Ns Flush) (10/21/16 20:45) Sodium Chlor 0.9% 1000 Ml Inj (Ns 1000 M (10/21/16 20:44) Furosemide Inj (Lasix Inj) (10/21/16 22:15) Insulin Human Regular Inj (Novolin R Inj (10/21/16 22:30) Dextrose 50% In Ralph (Syr) Inj (D50w (Syr (10/21/16 22:30) Sodium Bicarb 4.2% (Inf) Inj (Sodium Bic (10/21/16 22:30) Calcium Gluconate Inj (Calcium Gluconate (10/21/16 22:30) Labs Laboratory Tests Test 10/21/16 21:05 White Blood Count 8.8 TH/MM3 Red Blood Count 3.00 MIL/MM3 Hemoglobin 9.3 GM/DL Hematocrit 28.1 % Mean Corpuscular Volume 93.7 FL Mean Corpuscular Hemoglobin 31.0 PG Mean Corpuscular Hemoglobin 33.1 % Concent Red Cell Distribution Width 12.8 % Platelet Count 331 TH/MM3 Mean Platelet Volume 6.8 FL Neutrophils (%) (Auto) 82.7 % Lymphocytes (%) (Auto) 6.4 % Monocytes (%) (Auto) 7.1 % Eosinophils (%) (Auto) 2.9 % Basophils (%) (Auto) 0.9 % Neutrophils # (Auto) 7.2 TH/MM3 Lymphocytes # (Auto) 0.6 TH/MM3 Monocytes # (Auto) 0.6 TH/MM3 Eosinophils # (Auto) 0.3 TH/MM3 Basophils # (Auto) 0.1 TH/MM3 CBC Comment DIFF FINAL Differential Comment Prothrombin Time 10.9 SEC Prothromb Time International 1.0 RATIO Ratio Urine Color YELLOW Urine Turbidity CLEAR Urine pH 5.0 Urine Specific [place] 1.022 Urine Protein NEG mg/dL Urine Glucose (UA) NEG mg/dL Urine Ketones TRACE mg/dL Urine Occult Blood NEG Urine Nitrite NEG Urine Bilirubin NEG Urine Leukocyte Esterase NEG Urine RBC 0-3 /hpf Urine WBC 6-8 /hpf Urine Squamous Epithelial 6-8 /hpf Cells Urine Mucus FEW /lpf Microscopic Urinalysis Comment CULT NOT INDICATED Sodium Level 125 MEQ/L Potassium Level 5.8 MEQ/L Chloride Level 93 MEQ/L Carbon Dioxide Level 25.5 MEQ/L Anion Gap 7 MEQ/L Blood Urea Nitrogen 20 MG/DL Creatinine 1.40 MG/DL Estimat Glomerular Filtration 36 ML/MIN Rate Random Glucose 106 MG/DL Calcium Level 8.3 MG/DL Magnesium Level 2.0 MG/DL Total Bilirubin 0.6 MG/DL Aspartate Amino Transf 20 U/L (AST/SGOT) Alanine Aminotransferase 20 U/L (ALT/SGPT) Alkaline Phosphatase 94 U/L B-Type Natriuretic Peptide 789 PG/ML Total Protein 6.4 GM/DL Albumin 3.5 GM/DL MDM Medical Decision Making Medical Screen Exam Complete: Yes Emergency Medical Condition: Yes Medical Record Reviewed: Yes (COPD on occasional oxygen, Hypertension, CKD, CAD , Multiple joint, neck, back pain ) Interpretation(s) EKG shows a sinus rhythm with no acute ST segment elevation or depression. Differential Diagnosis Anemia, electrolyte/metabolic disorder, infection, ACS, COPD exacerbation, CHF exacerbation, UTI, Pneumonia. Narrative Course The patient presents with 3 days of worsening weakness. She has a past medical history of CAD, COPD, CKD, HTN etc. She was given Zofran for nausea. CBC & BMP Diagram 10/21/16 21:05 Previous potassium 5 days ago was 5.0. Other electrolytes and renal function appear stable. BNP = 789. The BNP is slightly increased from 5 days ago. Liver function studies are normal. UA is contaminated but does not appear infected. CXR: Cardiomegaly with minimal interstitial edema. No significant effusion. The chest x-ray was independently viewed by me. Physician Communication Physician Communication Case discussed with Dr. Simon who will admit to observation. She has requested that the patient receive calcium and insulin/D50. These have been ordered as well as sodium bicarbonate. Diagnosis Primary Impression: Hyperkalemia Additional Impressions: Hyponatremia CHF (congestive heart failure) Qualified Code: I50.9 - Acute on chronic congestive heart failure, unspecified congestive heart failure type Admitting Information Admitting Physician Requests: Observation Condition: Stable Holly Benito MD Oct 21, 2016 21:09
[2016-10-21 21:10] LABS: AUTOMATED NEUTROPHIL # 7.2 TH/MM3 (1.8-7.7); BASOPHIL # 0.1 TH/MM3 (0-0.2); BASOPHIL % 0.9 % (0.0-2.0); EOSINOPHIL # 0.3 TH/MM3 (0-0.4); EOSINOPHIL % 2.9 % (0.0-4.0); HEMATOCRIT 28.1 % (35.0-46.0); HEMO FLAGS DIFF FINAL; LYMPH % 6.4 % (9.0-44.0); LYMPHOCYTE # 0.6 TH/MM3 (1.0-4.8); MEAN CELL VOLUME 93.7 FL (80.0-100.0); MEAN CORPUSCULAR HGB CONC 33.1 % (32.0-36.0); MONO % 7.1 % (0.0-8.0); NEUT % 82.7 % (16.0-70.0); PLATELET COUNT 331 TH/MM3 (150-450); RED CELL DISTRIBUTION WIDTH 12.8 % (11.6-17.2); WHITE BLOOD COUNT 8.8 TH/MM3 (4.0-11.0)
[2016-10-21 21:11] LABS: BLOOD, URINE NEG (NEG); GLUCOSE,URINE NEG (NEG); KETONE, URINE TRACE mg/dL (NEG); NITRITE,URINE NEG (NEG)
[2016-10-21 21:19] LABS: URINE COLOR YELLOW (YELLW/STRAW)
[2016-10-21 21:20] VITALS: BP 146/56; PULSE 64; RESP 18; O2SAT 95
[2016-10-21 21:20] LABS: COMMENT (UR) CULT NOT INDICATED; CULTURE IF INDICATED CULT NOT INDICATED; MUCUS URINE FEW /lpf (OCC); RBC, URINE 0-3 /hpf (0-3)
[2016-10-21 21:21] LABS: CHLORIDE 93 MEQ/L (98-107); POTASSIUM 5.8 MEQ/L (3.5-5.1); SODIUM (NA) 125 MEQ/L (136-145)
[2016-10-21 21:23] LABS: PROTHROMBIN TIME - PATIENT 10.9 SEC (9.8-11.6)
[2016-10-21 21:25] LABS: ANION GAP 7 MEQ/L (5-15); BICARBONATE 25.5 MEQ/L (21.0-32.0); BLOOD UREA NITROGEN 20 MG/DL (7-18)
[2016-10-21 21:28] LABS: ALT (GPT) 20 U/L (10-53); AST (GOT) 20 U/L (15-37); GLOMERULAR FILTRATION RATE 36 ML/MIN (>89)
[2016-10-21 21:29] LABS: TOTAL BILIRUBIN ADULT 0.6 MG/DL (0.2-1.0)
[2016-10-21 21:31] LABS: ALKALINE PHOSPHATASE 94 U/L (45-117)
--- NOTE | 2016-10-21 22:03 | RADRPT ---
EXAM DATE/TIME: 10/21/2016 21:00 [facility] COMPARISON: CHEST SINGLE AP, September 16, 2016, 21:03. INDICATIONS : Short of breath and very weak for a week. MEDICAL HISTORY : Hypercholesterolemia. Glaucoma. Enlarged heart. Asthma. Dementia. A-fib. SURGICAL HISTORY : Hysterectomy. Coronary bypass. Cervical disectomy. ENCOUNTER: Initial ACUITY: 1 week PAIN SCORE: 0/10 LOCATION: Bilateral chest FINDINGS: Global cardiomegaly present. Previous CABG. Minimal interstitial prominence similar to September 16. No pn eumothorax. Previous fusion cervical spine. CONCLUSION: 1. Cardiomegaly with minimal interstitial edema. No significant effusion. Justin Kimbrough MD on October 21, 2016 at 22:00 Board Certified Radiologist. This report was verified electronically.
[2016-10-21] MEDS ORDERED: FUROSEMIDE 40 MG/4 ML VIAL IV PUSH ONE (22:15)
[2016-10-21 22:20] VITALS: BP 153/67; PULSE 62; RESP 18; O2SAT 96
[2016-10-21] MEDS ORDERED: DEXTROSE 50% IN WATER 50 ML SYRINGE IV ONE (22:30)
[2016-10-21] MEDS ORDERED: CALCIUM GLUCONATE INJ 1 GM in DEXTROSE 5% IN WATER 100ML INJ 100 ML IV ONE ×2 (22:30)
[2016-10-21] MEDS ORDERED: SODIUM BICARB 4.2% (INF) INJ 5 MEQ/10 ML SYR IV PUSH ONE (22:30)
[2016-10-21] MEDS ORDERED: INSULIN HUMAN REGULAR 1,000 UNITS/10 ML VIAL IV PUSH ONE (22:30)
[2016-10-21] MEDS ORDERED: LACT10SO PO (22:36)
[2016-10-21] MEDS ORDERED: SODIUM CHLORIDE 0.9% FLUSH 10 ML FLUSH IV FLUSH PRN (22:45)
[2016-10-21] MEDS ORDERED: BISACODYL 10 MG SUPP RECTAL PRN (22:45)
[2016-10-21] MEDS ORDERED: SODIUM BICARBONATE 8.4% INJ 50 MEQ/50 ML SYR IV PUSH ONE (23:00)
[2016-10-21 23:20] VITALS: BP 149/50; PULSE 64; RESP 18; O2SAT 95
[2016-10-21 23:42] VITALS: O2SAT 95
[2016-10-21] MEDS: RESP: ALBUTEROL 2.5 MG/IPRATROPIUM 0.5 MG NEB (PRN) INH (23:42)
[2016-10-22] VITALS (10 sets, daily range): BP systolic 93–147; BP diastolic 52–83; PULSE 64–82; RESP 16–20; TEMP 97.2–98.8; O2SAT 90–95
[2016-10-22] MEDS ORDERED: fentaNYL 100 MCG/HR PATCH T-DERMAL SCH
[2016-10-22 06:01] LABS: AUTOMATED NEUTROPHIL # 10.3 TH/MM3 (1.8-7.7); BASOPHIL # 0.1 TH/MM3 (0-0.2); BASOPHIL % 0.7 % (0.0-2.0); EOSINOPHIL # 0.2 TH/MM3 (0-0.4); EOSINOPHIL % 1.5 % (0.0-4.0); HEMATOCRIT 27.3 % (35.0-46.0); HEMO FLAGS DIFF FINAL; LYMPH % 5.1 % (9.0-44.0); LYMPHOCYTE # 0.6 TH/MM3 (1.0-4.8); MEAN CELL VOLUME 93.6 FL (80.0-100.0); MEAN CORPUSCULAR HEMOGLOBIN 31.7 PG (27.0-34.0); MEAN CORPUSCULAR HGB CONC 33.9 % (32.0-36.0); MONO % 4.6 % (0.0-8.0); NEUT % 88.1 % (16.0-70.0); PLATELET COUNT 314 TH/MM3 (150-450); RED BLOOD COUNT 2.92 MIL/MM3 (4.00-5.30); RED CELL DISTRIBUTION WIDTH 12.7 % (11.6-17.2); WHITE BLOOD COUNT 11.7 TH/MM3 (4.0-11.0)
[2016-10-22 06:03] LABS: CHLORIDE 94 MEQ/L (98-107); POTASSIUM 5.4 MEQ/L (3.5-5.1); SODIUM (NA) 129 MEQ/L (136-145)
[2016-10-22 06:09] LABS: ANION GAP 9 MEQ/L (5-15); BICARBONATE 26.2 MEQ/L (21.0-32.0); BLOOD UREA NITROGEN 20 MG/DL (7-18)
[2016-10-22 06:11] LABS: ALT (GPT) 20 U/L (10-53); AST (GOT) 22 U/L (15-37)
[2016-10-22 06:12] LABS: GLOMERULAR FILTRATION RATE 36 ML/MIN (>89)
[2016-10-22 06:13] LABS: TOTAL BILIRUBIN ADULT 0.7 MG/DL (0.2-1.0)
[2016-10-22 06:14] LABS: ALKALINE PHOSPHATASE 93 U/L (45-117)
[2016-10-22] MEDS ORDERED: LABETALOL HCL 300 MG TAB PO SCH (09:00)
[2016-10-22] MEDS ORDERED: SPIRONOLACTONE 25 MG TAB PO SCH (09:00)
[2016-10-22] MEDS ORDERED: DOCUSATE SODIUM 50 MG/SENNA 8.6 MG TAB PO SCH (09:00)
[2016-10-22] MEDS: RESTASIS EYE EACH EYE SCH ×2 (09:00→20:58)
[2016-10-22] MEDS: SODIUM CHLORIDE 0.9% FLUSH 10 ML FLUSH IV FLUSH SCH ×2 (09:00→20:58)
[2016-10-22] MEDS ORDERED: LABETALOL HCL 200 MG TAB PO SCH ×2 (09:00)
--- NOTE | 2016-10-22 09:15 | EKG ---
Date Performed: 10/21/2016 Time Performed: 21:10:52 PTAGE: 76 years EKG: Sinus rhythm MODERATE INTRAVENTRICULAR CONDUCTION DELAY MINIMAL ST DEPRESSION ABNORMAL ECG PREVIOUS TRACING : 09/24/2016 21.52 Compared to prior tracing no significant change DOCTOR: Abdon Stanley Interpretating Date/Time 10/22/2016 09:15:15
[2016-10-22] MEDS: ASPIRIN EC 81 MG TABEC PO SCH (09:31)
[2016-10-22] MEDS: hydrALAZINE HCL 50 MG TAB PO SCH ×4 (09:31→20:58)
[2016-10-22] MEDS: PRAVASTATIN SOD 40 MG TAB PO SCH (09:31)
[2016-10-22] MEDS: FOLIC ACID 1 MG TAB PO SCH (09:31)
[2016-10-22] MEDS: SENNOSIDES 8.6 MG TAB PO PRN (09:36)
[2016-10-22] MEDS: LATANOPROST 0.005% OPHT SOLN 2.5 ML BTL EACH EYE SCH ×2 (09:36→20:58)
[2016-10-22] MEDS: ONDANSETRON HCL 4 MG/2 ML VIAL IVP PRN ×2 (10:22→23:35)
[2016-10-22] MEDS: MORPHINE SULFATE 4 MG/ML INJ IV PRN ×2 (10:22→18:06)
[2016-10-22] MEDS: MUPIROCIN 2% OINT 22 GM TUBE TOPICAL SCH (10:45)
--- NOTE | 2016-10-22 11:07 | HHI.HP ---
[facility] Service [facility] Hospitalists Primary Care Physician Jorje Wilcox MD Admission Diagnosis hyperkalemia Diagnoses: Chief Complaint: Short of breath and cough for 5 days Travel History International Travel<30 Days: No Contact w/Intl Traveler <30 Da: No Traveled to Known Affected Are: No History of Present Illness This patient is a 76-year-old female with a known history of COPD and coronary artery disease who complained of 4-5 days of increased work of breathing, dyspnea on exertion and productive cough over the last 5 days. She was taking cough medicine at home and thought that it improved however she was still having more symptoms and decided to come to the hospital. Here she has been found to be hyponatremic, edematous and hyperkalemic. Patient appears to have exacerbation of congestive heart failure. Stress test was done 04/2016 due to patient complaining of increased chest discomfort. The stress test was negative. Patient here has a BNP of 789 with signs and symptoms of congestive heart failure and volume overload. She has been admitted to the hospital for treatment of the same. She also has a right lower extremity skin tear which happened in September but is been slow to heal due to increased edema. It was MRSA positive in September and the patient was given doxycycline. Of note also the patient has excessive allergies/drug intolerance list which will be adjusted during this hospitalization due to multiple drug interactions and patient denies many of these adverse side effects and says that these are not true allergies. Review of Systems Constitutional: DENIES: Diaphoretic episodes, Fatigue, Fever, Weight gain, Weight loss, Chills, Dizziness, Change in appetite, Night Sweats Endocrine: DENIES: Abnorml menstrual pattern, Heat/cold intolerance, Polydipsia , Polyuria, Polyphagia Eyes: DENIES: Blurred vision, Diplopia, Eye inflammation, Eye pain, Vision loss , Photosensitivity, Double Vision Ears, nose, mouth, throat: DENIES: Tinnitus, Hearing loss, Vertigo, Nasal discharge, Oral lesions, Throat pain, Hoarseness, Ear Pain, Running Nose, Epistaxis, Sinus Pain, Toothache, Odynophagia Respiratory: COMPLAINS OF: Cough, Sputum production, Shortness of breath, DENIES: Apneas, Snoring, Wheezing, Hemoptysis Cardiovascular: COMPLAINS OF: Chest pain, Dyspnea on Exertion, Lower Extremity Edema, Orthopnea, DENIES: Palpitations, Syncope, PND, Claudication Gastrointestinal: DENIES: Abdominal pain, Black stools, Bloody stools, Constipation, Diarrhea, Nausea, Vomiting, Difficulty Swallowing, Anorexia Genitourinary: DENIES: Abnormal vaginal bleeding, Dysmenorrhea, Dyspareunia, Sexual dysfunction, Urinary frequency, Urinary incontinence, Urgency, Hematuria , Dysuria, Nocturia, Vaginal discharge Musculoskeletal: DENIES: Joint pain, Muscle aches, Stiffness, Joint Swelling, Back pain, Neck pain Integumentary: DENIES: Abnormal pigmentation, Pruritus, Rash, Nail changes, Breast masses, Breast skin changes, Nipple discharge Hematologic/lymphatic: DENIES: Bruising, Lymphadenopathy Immunologic/allergic: DENIES: Eczema, Urticaria Neurologic: DENIES: Abnormal gait, Headache, Localized weakness, Paresthesias, Seizures, Speech Problems, Tremor, Poor Balance Psychiatric: DENIES: Anxiety, Confusion, Mood changes, Depression, Hallucinations, Agitation, Suicidal Ideation, Homicidal Ideation, Delusions Past Family Social History Past Medical History Congestive heart failure Coronary artery disease Chronic weakness Past Surgical History Cardiac bypass Neck and hip surgery Eye surgery Reported Medications Reviewed in the medical record Allergies: Coded Allergies: Sulfa (Sulfonamide Antibiotics) (Unverified Allergy, Severe, ITCHING, 10/19) amoxicillin (Unverified Allergy, Severe, VOMITING, 10/19/16) celecoxib (Unverified Allergy, Severe, RASH; PT DENIES ALLERGY, 10/19/16) clavulanic acid (Unverified Allergy, Severe, VOMITING, 10/19/16) corn (Unverified Allergy, Severe, MUSCLE SPASMS, 10/19/16) diatrizoate meglumine (Unverified Allergy, Severe, Hives, BURNING, 10/19/16 ) donepezil (Unverified Allergy, Severe, BLURRED VISION; PT TAKES DONEPEZIL DAILY, 10/19/16) gabapentin (Unverified Allergy, Severe, SWELLING, 10/19/16) gadobenic acid (Unverified Allergy, Severe, Hives, BURNING, 10/19/16) gadodiamide (Unverified Allergy, Severe, Hives, BURNING, 10/19/16) gadoteridol (Unverified Allergy, Severe, Hives, BURNING, 10/19/16) iodixanol (Unverified Allergy, Severe, Hives, BURNING, 10/19/16) iohexol (Unverified Allergy, Severe, Hives, BURNING, 10/19/16) levofloxacin (Unverified Allergy, Severe, SOB, 10/19/16) meloxicam (Unverified Allergy, Severe, WHEEZING, 10/19/16) methadone (Unverified Allergy, Severe, UNKNOWN, 10/19/16) naproxen (Unverified Allergy, Severe, SWEATING, 10/19/16) baclofen (Unverified Allergy, Unknown, SHAKING, PT UNSURE, 10/19/16) carisoprodol (Unverified Allergy, Unknown, UNKNOWN, 10/19/16) cilostazol (Unverified Allergy, Unknown, UNKNOWN, 10/19/16) clindamycin (Unverified Allergy, Unknown, MUSCLE PAIN, 10/19/16) diclofenac (Unverified Allergy, Unknown, 10/19/16) dronabinol (Unverified Allergy, Unknown, UNKNOWN, 10/19/16) hydrocodone (Unverified Allergy, Unknown, 10/19/16) misoprostol (Unverified Allergy, Unknown, 10/19/16) tolterodine (Unverified Allergy, Unknown, 10/19/16) topiramate (Unverified Allergy, Unknown, 10/19/16) tramadol (Unverified Allergy, Unknown, 10/19/16) acetaminophen (Unverified Adverse Reaction, Severe, NAUSEA, 10/19/16) atorvastatin (Unverified Adverse Reaction, Severe, VOMITING, 10/19/16) cephalexin (Unverified Adverse Reaction, Severe, STOMACH PAIN, 10/19/16) codeine (Unverified Adverse Reaction, Severe, NAUSEA, 10/19/16) diazepam (Unverified Adverse Reaction, Severe, JOINT PAIN, 10/19/16) duloxetine (Unverified Adverse Reaction, Severe, NAUSEA, 10/19/16) erythromycin base (Unverified Adverse Reaction, Severe, STOMACH CRAMPING, 10/19/16) escitalopram (Unverified Adverse Reaction, Severe, "SLEEPLESSNESS", ) ezetimibe (Unverified Adverse Reaction, Severe, MUSCLE PAIN, 10/19/16) lovastatin (Unverified Adverse Reaction, Severe, HEADACHE, 10/19/16) metaxalone (Unverified Adverse Reaction, Severe, "FEEL DRUNK", 10/19/16) mirtazapine (Unverified Adverse Reaction, Severe, WEAKNESS, 10/19/16) modafinil (Unverified Adverse Reaction, Severe, ANXIETY, 10/19/16) paroxetine (Unverified Adverse Reaction, Severe, SWEATING, 10/19/16) pregabalin (Unverified Adverse Reaction, Severe, "WEAKNESS", 10/19/16) sertraline (Unverified Adverse Reaction, Severe, DIZZINESS, 10/19/16) simvastatin (Unverified Adverse Reaction, Severe, MUSCLE PAIN, 10/19/16) tizanidine (Unverified Adverse Reaction, Severe, JITTERY, 10/19/16) venlafaxine (Unverified Adverse Reaction, Severe, "SLEEPY", 10/19/16) *MDRO Multi-Drug Resistant Organism (Verified Adverse Reaction, Unknown, ) 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/16/16 amitriptyline (Unverified Adverse Reaction, Unknown, SWEATING, 10/19/16) ciprofloxacin (Unverified Adverse Reaction, Unknown, NAUSEA, 10/19/16) citalopram (Unverified Adverse Reaction, Unknown, HEADACHE, 10/19/16) cortisone (Unverified Adverse Reaction, Unknown, HEADACHE, 10/19/16) PT DENIES ALLERGY TO MED 09/17 divalproex sodium (Unverified Adverse Reaction, Unknown, HEADACHE, 10/19/16 ) fluoxetine (Unverified Adverse Reaction, Unknown, ITCHING, 10/19/16) oxybutynin (Unverified Adverse Reaction, Unknown, NAUSEA, 10/19/16) Uncoded Allergies: VESICARE (Adverse Reaction, Severe, SWEATING, 10/18/08) VYTORIN (Adverse Reaction, Severe, CONSTIPATION, 10/18/08) Active Ordered Medications Reviewed in the medical record Family History Patient does not know her family history is they are all in [place] Social History No tobacco or alcohol dependency Lives alone No recent travel Physical Exam Vital Signs Vital Signs Date Time Temp Pulse Resp B/P Pulse Ox O2 Delivery O2 Flow Rate FiO2 10/22/16 08:00 97.2 70 20 134/59 92 10/22/16 04:00 82 10/22/16 04:00 98.0 82 16 93/65 93 10/22/16 01:15 98.8 75 16 138/83 93 10/22/16 00:20 72 18 147/55 95 Nasal Cannula 10/21/16 23:42 95 Nasal Cannula 2.00 10/21/16 23:20 64 18 149/50 95 Nasal Cannula 10/21/16 22:20 62 18 153/67 96 Nasal Cannula 10/21/16 21:20 64 18 146/56 95 Nasal Cannula 10/21/16 20:30 63 18 91 Room Air 10/21/16 20:20 18 91 Room Air 10/21/16 20:20 98.4 63 18 140/48 93 Physical Exam GENERAL: This is a well-nourished, well-developed patient, complaining of weakness SKIN: There is a right lateral 2.5" x 1 and skin tear, edematous without evidence of erythema or drainage. Chronic lower extremity hyperpigmentation. Otherwise Cool and dry. HEAD: Atraumatic. Normocephalic. No temporal or scalp tenderness. EYES: Pupils equal round and reactive. Extraocular motions intact. No scleral icterus. No injection or drainage. ENT: Nose without bleeding, purulent drainage or septal hematoma. Throat without erythema, tonsillar hypertrophy or exudate. Uvula midline. Airway patent. NECK: Trachea midline. No JVD or lymphadenopathy. Supple, nontender, no meningeal signs. CARDIOVASCULAR: Regular rate and rhythm without murmurs, gallops, or rubs. RESPIRATORY: Clear to auscultation. Breath sounds equal bilaterally. No wheezes , rales, or rhonchi. GASTROINTESTINAL: Abdomen soft, non-tender, nondistended. No hepato-splenomegaly , or palpable masses. No guarding. MUSCULOSKELETAL: Extremities without clubbing, cyanosis, there is +2-3 bilateral lower extremity edema. No joint tenderness, effusion, or edema noted. No calf tenderness. Negative Homans sign bilaterally. NEUROLOGICAL: Awake and alert. Cranial nerves II through XII intact. Motor and sensory grossly within normal limits. Five out of 5 muscle strength in all muscle groups. Normal speech. Laboratory Laboratory Tests Test 10/21/16 10/22/16 21:05 05:30 White Blood Count 8.8 11.7 Red Blood Count 3.00 2.92 Hemoglobin 9.3 9.2 Hematocrit 28.1 27.3 Mean Corpuscular Volume 93.7 93.6 Mean Corpuscular Hemoglobin 31.0 31.7 Mean Corpuscular Hemoglobin 33.1 33.9 Concent Red Cell Distribution Width 12.8 12.7 Platelet Count 331 314 Mean Platelet Volume 6.8 7.2 Neutrophils (%) (Auto) 82.7 88.1 Lymphocytes (%) (Auto) 6.4 5.1 Monocytes (%) (Auto) 7.1 4.6 Eosinophils (%) (Auto) 2.9 1.5 Basophils (%) (Auto) 0.9 0.7 Neutrophils # (Auto) 7.2 10.3 Lymphocytes # (Auto) 0.6 0.6 Monocytes # (Auto) 0.6 0.5 Eosinophils # (Auto) 0.3 0.2 Basophils # (Auto) 0.1 0.1 CBC Comment DIFF FINAL DIFF FINAL Differential Comment Prothrombin Time 10.9 Prothromb Time International 1.0 Ratio Urine Color YELLOW Urine Turbidity CLEAR Urine pH 5.0 Urine Specific [place] 1.022 Urine Protein NEG Urine Glucose (UA) NEG Urine Ketones TRACE Urine Occult Blood NEG Urine Nitrite NEG Urine Bilirubin NEG Urine Leukocyte Esterase NEG Urine RBC 0-3 Urine WBC 6-8 Urine Squamous Epithelial 6-8 Cells Urine Mucus FEW Microscopic Urinalysis Comment CULT NOT INDICATED Sodium Level 125 129 Potassium Level 5.8 5.4 Chloride Level 93 94 Carbon Dioxide Level 25.5 26.2 Anion Gap 7 9 Blood Urea Nitrogen 20 20 Creatinine 1.40 1.40 Estimat Glomerular Filtration 36 36 Rate Random Glucose 106 84 Calcium Level 8.3 8.6 Magnesium Level 2.0 Total Bilirubin 0.6 0.7 Aspartate Amino Transf 20 22 (AST/SGOT) Alanine Aminotransferase 20 20 (ALT/SGPT) Alkaline Phosphatase 94 93 B-Type Natriuretic Peptide 789 Total Protein 6.4 5.8 Albumin 3.5 3.1 Result Diagram: 10/22/1630 10/22/16 0530 Imaging Last Impressions Chest X-Ray 10/21/162043 Signed Impressions: Service Date/Time: October 21:00 - CONCLUSION: 1. Cardiomegaly with minimal interstitial edema. No significant effusion. Justin Kimbrough MD Assessment and Plan Problem List: (1) CHF (congestive heart failure) ICD Code: I50.9 Status: Acute Plan: Acute exacerbation of likely chronic systolic heart failure Continue with Lasix, dc labetalol and use Coreg We'll hold off on ANGELES inhibitor until potassium is improved DC Aldactone due to hyperkalemia ST negative 04/2016 ECHO Pending (2) Hyponatremia ICD Code: E87.1 Status: Acute Plan: Related to congestive heart failure and volume overload We'll continue to diuresis and follow sodium If no improvement will continue with evaluation (3) Skin tear of right lower leg without complication ICD Code: S81.811A Status: Chronic Plan: Would recommend continue fluid management as the area slow to heal due to edema Positive MRSA and wound on cultures (09/2016) (4) Hyperkalemia ICD Code: E87.5 Status: Acute Plan: Will DC Aldactone, and Lasix and follow-up after diuresis (5) Neuropathic pain ICD Code: M79.2 Status: Chronic Plan: Patient's home medications for pain and follow clinically Assessment and Plan Plan of care to be determined by Hospital course Code Status Full code Discussed Condition With Patient, Veto AMIN Problem Qualifiers (1) CHF (congestive heart failure): Qualified Code: I50.9 - Acute on chronic congestive heart failure, unspecified congestive heart failure type Gabbie Young MD Oct 22, 2016 11:07
[2016-10-22] MEDS: FUROSEMIDE 20 MG/2 ML VIAL IV PUSH SCH ×2 (11:51→18:04)
[2016-10-22] MEDS: BENZONATATE 100 MG CAP PO PRN (11:52)
[2016-10-22 13:13] LABS: AUTOMATED NEUTROPHIL # 8.2 TH/MM3 (1.8-7.7); BASOPHIL # 0.1 TH/MM3 (0-0.2); EOSINOPHIL # 0.2 TH/MM3 (0-0.4); EOSINOPHIL % 1.8 % (0.0-4.0); HEMATOCRIT 29.1 % (35.0-46.0); HEMO FLAGS DIFF FINAL; LYMPH % 6.6 % (9.0-44.0); LYMPHOCYTE # 0.6 TH/MM3 (1.0-4.8); MEAN CELL VOLUME 93.2 FL (80.0-100.0); MEAN CORPUSCULAR HEMOGLOBIN 31.3 PG (27.0-34.0); MEAN CORPUSCULAR HGB CONC 33.6 % (32.0-36.0); MONO % 6.7 % (0.0-8.0); NEUT % 83.9 % (16.0-70.0); PLATELET COUNT 345 TH/MM3 (150-450); RED BLOOD COUNT 3.13 MIL/MM3 (4.00-5.30); RED CELL DISTRIBUTION WIDTH 12.9 % (11.6-17.2); WHITE BLOOD COUNT 9.8 TH/MM3 (4.0-11.0)
[2016-10-22] MEDS: traZODone HCL 50 MG TAB PO SCH (20:58)
[2016-10-22] MEDS: CARVEDILOL 6.25 MG TAB PO SCH (20:58)
[2016-10-22] MEDS: MAGNESIUM HYDROXIDE SUSP 30 ML CUP PO PRN (23:39)
[2016-10-23] VITALS (13 sets, daily range): BP systolic 129–194; BP diastolic 67–91; PULSE 75–148; RESP 17–20; TEMP 97.6–99.4; O2SAT 91–99
[2016-10-23] MEDS: LORazepam 1 MG TAB PO PRN ×2 (03:22→20:28)
[2016-10-23 07:24] LABS: POTASSIUM 5.1 MEQ/L (3.5-5.1)
[2016-10-23 07:27] LABS: BICARBONATE 29.3 MEQ/L (21.0-32.0)
[2016-10-23] MEDS: hydrALAZINE HCL 50 MG TAB PO SCH ×4 (08:59→20:28)
[2016-10-23] MEDS: PRAVASTATIN SOD 40 MG TAB PO SCH (08:59)
[2016-10-23] MEDS: FOLIC ACID 1 MG TAB PO SCH (08:59)
[2016-10-23] MEDS: CARVEDILOL 6.25 MG TAB PO SCH ×2 (08:59→20:30)
[2016-10-23] MEDS: FUROSEMIDE 20 MG/2 ML VIAL IV PUSH SCH (08:59)
[2016-10-23] MEDS: LATANOPROST 0.005% OPHT SOLN 2.5 ML BTL EACH EYE SCH ×2 (08:59→20:29)
[2016-10-23] MEDS: SODIUM CHLORIDE 0.9% FLUSH 10 ML FLUSH IV FLUSH SCH ×2 (08:59→20:29)
[2016-10-23] MEDS: ASPIRIN EC 81 MG TABEC PO SCH (08:59)
[2016-10-23] MEDS: MUPIROCIN 2% OINT 22 GM TUBE TOPICAL SCH (09:00)
[2016-10-23] MEDS: RESTASIS EYE EACH EYE SCH ×2 (09:00→21:00)
[2016-10-23] MEDS: fentaNYL 100 MCG/HR PATCH T-DERMAL SCH ×2 (09:01→09:14)
--- NOTE | 2016-10-23 10:32 | HHI.PR ---
Subjective Remarks Patient seen today in follow-up for acute exacerbation of chronic systolic heart failure. No events on telemetry. 1250 mL out after Lasix. Edema is improved. Objective Vitals Vital Signs Date Time Temp Pulse Resp B/P Pulse Ox O2 Delivery O2 Flow Rate FiO2 10/23/16 08:00 97.6 90 19 140/76 96 10/23/16 04:47 97.9 79 18 150/71 91 10/23/16 00:00 98.8 76 18 143/67 99 10/22/16 21:21 97.9 81 20 147/64 90 10/22/16 20:40 Nasal Cannula 2.00 10/22/16 20:00 82 10/22/16 16:00 97.7 79 20 118/79 91 10/22/16 12:00 97.4 68 18 127/52 95 I/O 10/22/16 10/22/16 10/22/16 10/23/16 10/23/16 10/23/16 07:00 15:00 23:00 07:00 15:00 23:00 Intake Total 650 ml 325 ml Output Total 500 ml 850 ml 400 ml Balance -500 ml -200 ml -75 ml Intake Oral 650 ml 325 ml Output Urine Total 500 ml 850 ml 400 ml # Voids 6 # Bowel Movements 0 1 Result Diagram: 10/22/16 1244 10/23/16 0608 Imaging Last Impressions Chest X-Ray 10/21/162043 Signed Impressions: Service Date/Time: October 21:00 - CONCLUSION: 1. Cardiomegaly with minimal interstitial edema. No significant effusion. Justin Kimbrough MD Objective Remarks GENERAL: This is a well-nourished, well-developed patient, in no apparent distress. CARDIOVASCULAR: Regular rate and rhythm without murmurs, gallops, or rubs. RESPIRATORY: Clear to auscultation. Breath sounds equal bilaterally. No wheezes , rales, or rhonchi. GASTROINTESTINAL: Abdomen soft, non-tender, nondistended. Normal active bowel sounds MUSCULOSKELETAL: Bilateral hyperpigmentation lower extremities, right lateral skin laceration is about the same. Otherwise Extremities without clubbing, cyanosis, but there is +1 edema bilateral lower extremities NEURO: Alert & Oriented x4 to person, place, time, situation. Moves all ext x4 A/P Problem List: (1) CHF (congestive heart failure) ICD Code: I50.9 Status: Acute Plan: Acute exacerbation of likely chronic systolic heart failure Continue with Lasix, Coreg We'll hold off on ANGELES inhibitor until potassium is improved ST negative 04/2016 ECHO Pending (2) Hyponatremia ICD Code: E87.1 Status: Acute Plan: Related to congestive heart failure and volume overload We'll continue to diuresis and follow sodium improved (3) Skin tear of right lower leg without complication ICD Code: S81.811A Status: Chronic Plan: Would recommend continue fluid management as the area slow to heal due to edema Positive MRSA and wound on cultures (09/2016) bactroban (4) Hyperkalemia ICD Code: E87.5 Status: Acute Plan: improved with lasix (5) Neuropathic pain ICD Code: M79.2 Status: Chronic Plan: continue Patient's home medications for pain and follow clinically Discharge Planning 1-2 days [facility] Problem Qualifiers (1) CHF (congestive heart failure): Qualified Code: I50.9 - Acute on chronic congestive heart failure, unspecified congestive heart failure type Gabbie Young MD Oct 23, 2016 10:32
[2016-10-23] MEDS ORDERED: FURO20TA PO (10:35)
[2016-10-23] MEDS ORDERED: CARV6.252 PO (10:35)
[2016-10-23] MEDS: MORPHINE SULFATE 4 MG/ML INJ IV PRN ×3 (13:40→23:00)
--- NOTE | 2016-10-23 15:05 | ECHRPT ---
Indication: HEART FAILURE CONCLUSIONS Normal left ventricular size and wall thickness. The left ventricular systolic function is normal wi th an estimated ejection fraction in the range of 60-65% The left atrial size is mildly dilated. Moderate mitral valve regurgitation. Mitral annular calcification is present. There is mild to moderate tricuspid valve regurgitation. There is estimated [id number] pulmonary hypertension present (range 61 mmHg). The inferior vena cava is dilated. BP: / HR: Rhythm: Sinus MEASUREMENTS (Male / Female) Normal Values Technical Quality:Good 2D ECHO LV Diastolic Diameter PLAX 4.5 cm 4.2 - 5.9 / 3.9 - 5.3 cm LV Systolic Diameter PLAX 3.1 cm IVS Diastolic Thickness 1.5 cm 0.6 - 1.0 / 0.6 - 0.9 cm LVPW Diastolic Thickness 1.5 cm 0.6 - 1.0 / 0.6 - 0.9 cm LV Relative Wall Thickness 0.7 RV Internal Dim ED PLAX 2.6 cm LVOT Diameter 2.0 cm LA Systolic Diameter LX 3.9 cm 3.0 - 4.0 / 2.7 - 3.8 cm M-MODE Aortic Root Diameter MM 3.1 cm AV Cusp Separation MM 1.5 cm DOPPLER AV Peak Velocity 146.0 cm/s AV Peak Gradient 8.5 mmHg LVOT Peak Velocity 111.0 cm/s LVOT Peak Gradient 4.9 mmHg AV Area Cont Eq pk 2.4 cm MV Area PHT 8.5 cm Mitral E Point Velocity 120.0 cm/s Mitral A Point Velocity 92.8 cm/s Mitral E to A Ratio 1.3 LV E' Lateral Velocity 11.4 cm/s Mitral E to LV E' Lateral Ratio 10.5 LV E' Septal Velocity 8.0 cm/s Mitral E to LV E' Septal Ratio 15.0 TV Peak Velocity 390.0 cm/s TR Peak Velocity 277.0 cm/s TR Peak Gradient 30.7 mmHg PV Peak Velocity 99.1 cm/s PV Peak Gradient 3.9 mmHg FINDINGS LEFT VENTRICLE Normal left ventricular size and wall thickness. The left ventricular systolic function is normal wi th an estimated ejection fraction in the range of 60-65%. Left ventricular diastolic function parameters a re normal. RIGHT VENTRICLE The right ventriclar size is upper limits of normal. LEFT ATRIUM The left atrial size is mildly dilated. ATRIAL SEPTUM Normal atrial septal thickness without atrial level shunting by limited color doppler interrogation. AORTA The aortic root and proximal ascending aorta are normal in size on limited imaging. MITRAL VALVE Calcification of both mitral valve leaflets. Moderate mitral valve regurgitation. Mitral annular calcification is present. AORTIC VALVE Trileaflet aortic valve. No aortic valve stenosis or regurgitation. TRICUSPID VALVE There is mild to moderate tricuspid valve regurgitation. There is estimated [id number] pulmonary hypertension present (range 61 mmHg). PULMONARY VALVE Pulmaonary valve is normal. VESSELS The inferior vena cava is dilated. There is greater than 50% respiratory change in dimension of the inferior vena cava (normal). PERICARDIUM No pericardial effusion. Lino Cortés MD (Electronically Signed) Final Date:23 October 2016 15:04
[2016-10-23] MEDS: RESP: ALBUTEROL 2.5 MG/IPRATROPIUM 0.5 MG NEB (PRN) INH (16:41)
[2016-10-23] MEDS: traZODone HCL 50 MG TAB PO SCH (20:28)
[2016-10-23] MEDS ORDERED: METOPROLOL TARTRATE 25 MG TAB PO ONE (22:45)
[2016-10-24] VITALS (14 sets, daily range): BP systolic 118–196; BP diastolic 72–104; PULSE 66–116; RESP 16–24; TEMP 97.7–98.9; O2SAT 89–96
[2016-10-24] MEDS: RESP: ALBUTEROL 2.5 MG/IPRATROPIUM 0.5 MG NEB (PRN) INH ×4 (00:56→19:41)
[2016-10-24] MEDS: MORPHINE SULFATE 4 MG/ML INJ IV PRN ×4 (02:02→23:41)
[2016-10-24] MEDS ORDERED: FUROSEMIDE 20 MG/2 ML VIAL IV PUSH ONE (02:45)
--- NOTE | 2016-10-24 03:16 | RADRPT ---
EXAM DATE/TIME: 10/24/2016 03:00 [facility] COMPARISON: CHEST SINGLE AP, October 21, 2016, 21:00. INDICATIONS : Dyspnea. MEDICAL HISTORY : Hypercholesterolemia. Glaucoma. Enlarged heart. Asthma. Dementia. Afib. SURGICAL HISTORY : Hysterectomy. Coronary bypass. Cervical disectomy. ENCOUNTER: Subsequent ACUITY: 1 week PAIN SCORE: 0/10 LOCATION: Bilateral chest FINDINGS: A single view of the chest demonstrates increasing interstitial prominence with developing bibasilar atelectasis/effusions. Stable cardiomegaly. Intact median sternotomy wires with multilevel kyphoplast y. Extensive anterior fixation of the lower and mid cervical spine. Nodular density just inferior to the left scapular tip was not present previously and therefore, likely represents an regional fluid i n the fissure. CONCLUSION: Cardiomegaly with worsening interstitial edema and developing bibasilar atelectasis/effusions. Petros Sanchez MD on October 24, 2016 at 3:11 Board Certified Radiologist. This report was verified electronically.
[2016-10-24] MEDS ORDERED: LORazepam 2 MG/ML VIAL IV PUSH ONE (05:45)
--- NOTE | 2016-10-24 07:29 | HHI.PR ---
Subjective Remarks patient seen in follow up for weakness and CHF exacerbation AFib with RVR overnight, SOme Increased work of breathing and anxiety D/W RN, Given IV lasix and bb with some improvement Ativan for anxiety Objective Vitals Vital Signs Date Time Temp Pulse Resp B/P Pulse Ox O2 Delivery O2 Flow Rate FiO2 10/24/16 06:14 20 184/97 95 10/24/16 05:16 24 92 10/24/16 04:13 98.9 116 24 181/99 92 10/24/16 01:50 98 24 196/104 91 10/24/16 00:51 98.0 90 18 156/72 96 10/23/16 23:47 97 10/23/16 23:38 Nasal Cannula 2.00 10/23/16 22:41 148 10/23/16 22:21 99.4 148 20 157/91 93 10/23/16 20:30 97 10/23/16 20:11 98.7 95 18 194/84 94 10/23/16 17:21 18 10/23/16 17:15 85 18 129/79 10/23/16 16:42 93 Nasal Cannula 2.00 10/23/16 16:00 98.6 95 17 191/87 93 10/23/16 12:00 97.7 89 18 130/71 95 10/23/16 10:14 18 10/23/16 08:15 75 10/23/16 08:00 97.6 90 19 140/76 96 I/O 10/23/16 10/23/16 10/23/16 10/24/16 10/24/16 10/24/16 07:00 15:00 23:00 07:00 15:00 23:00 Intake Total 550 ml Output Total 500 ml 200 ml 300 ml Balance 50 ml -200 ml -300 ml Intake Oral 550 ml Output Urine Total 500 ml 200 ml 300 ml Bladder Scan Volume Amount 0 ml # Voids 6 9 11 4 # Bowel Movements 1 Result Diagram: 10/22/16 1244 10/23/16 0608 Imaging Last Impressions Chest X-Ray 10/24/16 0000 Signed Impressions: Service Date/Time: Monday, October 24, 2016 03:00 - CONCLUSION: Cardiomegaly with worsening interstitial edema and developing bibasilar atelectasis/effusions. Petros Sanchez MD Objective Remarks GENERAL: This is a well-nourished, well-developed patient, somnolent with ativan CARDIOVASCULAR: afib tachy without murmurs, gallops, or rubs. RESPIRATORY: Clear to auscultation. Breath sounds equal bilaterally. No wheezes , rales, or rhonchi. GASTROINTESTINAL: Abdomen soft, non-tender, nondistended. Normal active bowel sounds MUSCULOSKELETAL: Bilateral hyperpigmentation lower extremities, right lateral skin laceration is about the same. Otherwise Extremities without clubbing, cyanosis, but there is +1 edema bilateral lower extremities NEURO: when awakened Alert & Oriented x4 to person, place, time, situation. Moves all ext x4 A/P Problem List: (1) CHF (congestive heart failure) ICD Code: I50.9 Status: Acute Plan: Acute exacerbation of chronic diastolic heart failure Continue metoprolol, bumex and aldactone We'll hold off on ANGELES inhibitor until potassium is improved ST negative 04/2016 ECHO shows right sided heart failure (2) Hyponatremia ICD Code: E87.1 Status: Acute Plan: Related to congestive heart failure and volume overload We'll continue to diuresis and follow sodium improved (3) Skin tear of right lower leg without complication ICD Code: S81.811A Status: Chronic Plan: Would recommend continue fluid management as the area slow to heal due to edema Positive MRSA and wound on cultures (09/2016) bactroban (4) Hyperkalemia ICD Code: E87.5 Status: Acute Plan: improved with lasix (5) Neuropathic pain ICD Code: M79.2 Status: Chronic Plan: continue Patient's home medications for pain and follow clinically (6) Atrial fibrillation ICD Code: I48.91 Status: Acute Plan: with RVR overnight cont telemetry Electrolytes pending with correct as needed check ABG Cont BB, Discharge Planning ?inpatient rehab when stable Problem Qualifiers (1) CHF (congestive heart failure): Qualified Code: I50.9 - Acute on chronic congestive heart failure, unspecified congestive heart failure type Gabbie Young MD Oct 24, 2016 07:29
[2016-10-24 07:39] LABS: AUTOMATED NEUTROPHIL # 16.8 TH/MM3 (1.8-7.7); BASOPHIL # 0.6 TH/MM3 (0-0.2); BASOPHIL % 3.3 % (0.0-2.0); EOSINOPHIL % 0.2 % (0.0-4.0); HEMATOCRIT 33.5 % (35.0-46.0); HEMO FLAGS DIFF FINAL; LYMPH % 4.8 % (9.0-44.0); LYMPHOCYTE # 0.9 TH/MM3 (1.0-4.8); MEAN CELL VOLUME 93.7 FL (80.0-100.0); MEAN CORPUSCULAR HEMOGLOBIN 32.8 PG (27.0-34.0); MONO % 6.2 % (0.0-8.0); NEUT % 85.5 % (16.0-70.0); PLATELET COUNT 409 TH/MM3 (150-450); RED BLOOD COUNT 3.57 MIL/MM3 (4.00-5.30); WHITE BLOOD COUNT 19.5 TH/MM3 (4.0-11.0)
[2016-10-24 07:46] LABS: POTASSIUM 5.2 MEQ/L (3.5-5.1)
[2016-10-24 07:51] LABS: BICARBONATE 27.8 MEQ/L (21.0-32.0); MAGNESIUM 1.9 MG/DL (1.5-2.5)
[2016-10-24] MEDS: ONDANSETRON HCL 4 MG/2 ML VIAL IVP PRN ×2 (07:51→21:37)
[2016-10-24] MEDS: PRAVASTATIN SOD 40 MG TAB PO SCH (07:52)
[2016-10-24] MEDS: METOPROLOL TARTRATE 25 MG TAB PO SCH ×2 (07:52→21:16)
[2016-10-24] MEDS: FOLIC ACID 1 MG TAB PO SCH (07:52)
[2016-10-24] MEDS: ASPIRIN EC 81 MG TABEC PO SCH (07:52)
[2016-10-24] MEDS: hydrALAZINE HCL 50 MG TAB PO SCH ×4 (07:52→21:16)
[2016-10-24] MEDS: BENZONATATE 100 MG CAP PO PRN (07:52)
[2016-10-24] MEDS: SODIUM CHLORIDE 0.9% FLUSH 10 ML FLUSH IV FLUSH SCH ×2 (07:53→21:17)
[2016-10-24] MEDS: RESTASIS EYE EACH EYE SCH ×2 (07:53→21:00)
[2016-10-24] MEDS: LATANOPROST 0.005% OPHT SOLN 2.5 ML BTL EACH EYE SCH ×2 (09:00→21:17)
[2016-10-24] MEDS: MUPIROCIN 2% OINT 22 GM TUBE TOPICAL SCH (09:00)
[2016-10-24] MEDS ORDERED: BUMETANIDE 1 MG TAB PO SCH (09:00)
[2016-10-24] MEDS ORDERED: SPIRONOLACTONE 25 MG TAB PO SCH (09:00)
[2016-10-24] MEDS ORDERED: BUMETANIDE INJ 1 MG/4 ML VIAL ONE (11:20)
[2016-10-24] MEDS ORDERED: BUMETANIDE INJ 1 MG/4 ML VIAL IV PUSH ONE (12:00)
[2016-10-24 13:10] LABS: BLOOD GAS BASE EXCESS 3.7 mmol/L (-2-2); BLOOD GAS CARBOXYHEMOGLOBIN 1.8 % (0-4); BLOOD GAS HCO3 28 mmol/L (22-26); BLOOD GAS METHEMOGLOBIN 0.9 % (0-2); BLOOD GAS O2 HGB SATURATION 90 % (90-100); BLOOD GAS OXYGEN CONTENT 15.3 Vol % (12.0-20.0); BLOOD GAS PCO2 46 mmHG (38-42); BLOOD GAS PO2 62 mmHG (61-120); BLOOD GAS TOTAL HGB 12.1 G/DL (12.0-16.0); CRITICAL VALUE NO; DRAW SITE RT RADIAL; LITER FLOW 3 L/M; NUMBER OF ARTERIAL PUNCTURES 1; OXYGEN DEVICE NASAL CANNULA; TEMP CORR TO 98.6; ULNAR PULSE PRESENT
[2016-10-24 13:11] LABS: STAT NO
[2016-10-24] MEDS: AZTREONAM 2,000 MG/NS 100 ML IV SCH ×4 (15:23→21:17)
[2016-10-24] MEDS ORDERED: VANCOMYCIN 1,000 MG/NS 250 ML IV SCH ×2 (16:00)
[2016-10-24] MEDS: BUMETANIDE INJ 1 MG/4 ML VIAL IV PUSH SCH (21:15)
[2016-10-24] MEDS: LORazepam 1 MG TAB PO PRN (21:16)
[2016-10-24] MEDS: traZODone HCL 50 MG TAB PO SCH (21:16)
[2016-10-24] MEDS: LACTULOSE SYRUP 20 GM/30 ML CUP PO PRN (23:39)
[2016-10-25] VITALS (57 sets, daily range): BP systolic 79–155; BP diastolic 54–102; PULSE 86–192; RESP 18–34; TEMP 97.4–98.3; O2SAT 85–98
[2016-10-25] MEDS: RESP: ALBUTEROL 2.5 MG/IPRATROPIUM 0.5 MG NEB (PRN) INH (02:39)
[2016-10-25 02:51] LABS: BLOOD GAS BASE EXCESS 3.9 mmol/L (-2-2); BLOOD GAS CARBOXYHEMOGLOBIN 1.6 % (0-4); BLOOD GAS HCO3 28 mmol/L (22-26); BLOOD GAS METHEMOGLOBIN 0.8 % (0-2); BLOOD GAS O2 HGB SATURATION 86 % (90-100); BLOOD GAS OXYGEN CONTENT 14.8 Vol % (12.0-20.0); BLOOD GAS PCO2 40 mmHG (38-42); BLOOD GAS PO2 54 mmHG (61-120); BLOOD GAS TOTAL HGB 12.3 G/DL (12.0-16.0); TEMP CORR TO 98.6
[2016-10-25 02:52] LABS: CRITICAL VALUE YES; DRAW SITE LT RADIAL; LITER FLOW 3 L/M; NUMBER OF ARTERIAL PUNCTURES 1; OXYGEN DEVICE NASAL CANNULA; STAT YES; ULNAR PULSE PRESENT
[2016-10-25] MEDS: ONDANSETRON HCL 4 MG/2 ML VIAL IVP PRN ×3 (03:43→20:30)
[2016-10-25] MEDS: AZTREONAM 2,000 MG/NS 100 ML IV SCH ×2 (04:42)
[2016-10-25] MEDS ORDERED: METOPROLOL TARTRATE 5 MG/5 ML VIAL IV PUSH ONE (05:15)
[2016-10-25 05:52] LABS: AUTOMATED NEUTROPHIL # 18.5 TH/MM3 (1.8-7.7); BASOPHIL # 0.1 TH/MM3 (0-0.2); BASOPHIL % 0.3 % (0.0-2.0); HEMATOCRIT 36.4 % (35.0-46.0); LYMPH % 3.2 % (9.0-44.0); LYMPHOCYTE # 0.6 TH/MM3 (1.0-4.8); MEAN CELL VOLUME 93.4 FL (80.0-100.0); MEAN CORPUSCULAR HEMOGLOBIN 31.6 PG (27.0-34.0); MEAN CORPUSCULAR HGB CONC 33.8 % (32.0-36.0); MONO % 4.7 % (0.0-8.0); NEUT % 91.8 % (16.0-70.0); PLATELET COUNT 413 TH/MM3 (150-450); RED CELL DISTRIBUTION WIDTH 13.7 % (11.6-17.2); WHITE BLOOD COUNT 20.1 TH/MM3 (4.0-11.0)
[2016-10-25 05:57] LABS: HEMO FLAGS DIFF FINAL
[2016-10-25 06:00] LABS: POTASSIUM 4.9 MEQ/L (3.5-5.1)
[2016-10-25 06:03] LABS: MAGNESIUM 2.2 MG/DL (1.5-2.5)
[2016-10-25] MEDS ORDERED: DILTIAZEM HCL 25 MG/5 ML VIAL ONE (08:05)
--- NOTE | 2016-10-25 08:05 | RADRPT ---
EXAM DATE/TIME: 10/25/2016 07:57 [facility] COMPARISON: CHEST SINGLE AP, October 24, 2016, 3:00. INDICATIONS : Short of breath. MEDICAL HISTORY : Hypertension. Hypercholesterolemia. Asthma, Afib SURGICAL HISTORY : CABG. ENCOUNTER: Subsequent ACUITY: 4 - 6 days PAIN SCORE: 0/10 LOCATION: Bilateral chest FINDINGS: Cardiac silhouette is enlarged. Mild diffuse interstitial prominence and small bilateral pleural effu sions and associated lower lobe airspace disease. This has improved slightly since prior exam. Remain justine of the exam is unchanged. CONCLUSION: 1. Cardiomegaly with minimally improved positive fluid balance. 2. Stable small bilateral pleural effusions and associated lower lobe airspace disease. Edvin Broussard MD on October 25, 2016 at 8:02 Board Certified Radiologist. This report was verified electronically.
[2016-10-25] MEDS ORDERED: DILTIAZEM INJ 125 MG in SODIUM CHLORIDE 0.9% INJ 100 ML IV PRN (08:15)
[2016-10-25] MEDS ORDERED: DILTIAZEM HCL 25 MG/5 ML VIAL IV ONE (08:15)
[2016-10-25] MEDS: BUMETANIDE INJ 1 MG/4 ML VIAL IV PUSH SCH (08:47)
[2016-10-25] MEDS: RESTASIS EYE EACH EYE SCH ×2 (09:00→20:31)
--- NOTE | 2016-10-25 09:47 | HHI.PR ---
Subjective Remarks Patient seen and evaluated today in follow-up for respiratory failure, acute myocardial infarction, acute exacerbation of diastolic congestive heart failure , and generalized weakness. Overnight patient with increased ventricular rate with associated atrial fibrillation. Evidence of acute DE by enzymes today. 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 Care plan discussed with ICU team Objective Vitals Vital Signs Date Time Temp Pulse Resp B/P (MAP) Pulse Ox O2 Delivery O2 Flow Rate FiO2 10/25/16 08:16 95 Non-Rebreather 12.00 10/25/16 04:00 98.2 112 31 155/97 (116) 98 10/25/16 04:00 112 10/25/16 03:00 97 Partial Rebreather 12.00 10/25/16 02:14 113 24 145/91 (109) 90 10/25/16 00:10 98.0 102 26 100/77 (85) 92 10/24/16 23:38 118/91 (100) 10/24/16 23:36 108 22 144/80 (101) 10/24/16 20:30 113 10/24/16 20:25 98.8 106 24 137/100 (112) 94 10/24/16 19:43 92 Nasal Cannula 3.00 10/24/16 16:00 97.8 106 18 180/93 (122) 94 10/24/16 15:50 20 10/24/16 12:00 97.8 66 17 150/91 (110) 93 I/O 10/24/16 10/24/16 10/24/16 10/25/16 10/25/16 10/25/16 06:59 14:59 22:59 06:59 14:59 22:59 Intake Total 150 ml 100 ml Output Total 300 ml 1400 ml 50 ml Balance -300 ml -1250 ml 50 ml IV Total 150 ml 100 ml Output Urine Total 300 ml 1400 ml 50 ml Bladder Scan Volume Amount 0 ml 0 ml # Voids 4 1 Result Diagram: 10/25/16 0540 10/25/16 0540 Imaging Last Impressions Chest X-Ray 10/24/16 0000 Signed Impressions: Service Date/Time: Monday, October 24, 2016 03:00 - CONCLUSION: Cardiomegaly with worsening interstitial edema and developing bibasilar atelectasis/effusions. Petros Sanchez MD Objective Remarks GENERAL: This is a well-nourished, well-developed patient, awake and oriented CARDIOVASCULAR: afib tachy without murmurs, gallops, or rubs. RESPIRATORY: Clear to auscultation. Breath sounds equal bilaterally. No wheezes , rales, or rhonchi. GASTROINTESTINAL: Abdomen soft, non-tender, nondistended. Normal active bowel sounds MUSCULOSKELETAL: Bilateral hyperpigmentation lower extremities, right lateral skin laceration is about the same. Otherwise Extremities without clubbing, cyanosis, but there is +1 edema bilateral lower extremities NEURO: Alert and oriented 4, moves all 4 extremities weakly A/P Problem List: (1) CHF (congestive heart failure) ICD Code: I50.9 - Heart failure, unspecified Status: Acute Plan: Acute exacerbation of chronic diastolic heart failure Continue metoprolol, bumex We'll hold off on ANGELES inhibitor due to arf ST negative 04/2016 ECHO shows right sided heart failure Cardio consult pending due to ami (2) Hyponatremia ICD Code: E87.1 - Hyponatremia Status: Acute Plan: Related to congestive heart failure and volume overload We'll continue to diuresis and follow sodium improved (3) Skin tear of right lower leg without complication ICD Code: S81.811A - Laceration without foreign body, right lower leg, initial encounter Status: Chronic Plan: Would recommend continue fluid management as the area slow to heal due to edema Positive MRSA and wound on cultures (09/2016) Bactroban (4) Hyperkalemia ICD Code: E87.5 - Hyperkalemia Status: Acute Plan: 4.9 today improved with bumex (5) Neuropathic pain ICD Code: M79.2 - Neuralgia and neuritis, unspecified Status: Chronic Plan: continue Patient's home medications for pain and follow clinically (6) Atrial fibrillation ICD Code: I48.91 - Unspecified atrial fibrillation Status: Acute Plan: with RVR again and now Elevated trop, cardio consult cont telemetry, transferred to ICU [facility] (7) Acute renal failure ICD Code: N17.9 - Acute renal failure Status: Acute Plan: Probably due to aggressive diuresis Continue with monitoring fluid balance and avoid nephrotoxic medications Catheter placed for accurate ins and outs (8) Sepsis due to pneumonia ICD Code: J18.9 - Pneumonia, unspecified organism; A41.9 - Sepsis, unspecified organism Plan: Patient with tachycardia, leukocytosis related to acute changes and a chest x-ray Patient with multiple drug allergies and vancomycin/aztreonam have been prescribed for possible hospital associated pneumonia We'll taper accordingly as assigned his symptoms may be related to acute DE also. Assessment and Plan The decision was made for DO NOT RESUSCITATE status during this hospital encounter. Problem Qualifiers (1) CHF (congestive heart failure): Gabbie Young MD Oct 25, 2016 09:47
[2016-10-25] MEDS ORDERED: RESP: ALBUTEROL 2.5 MG/IPRATROPIUM 0.5 MG NEB (PRN) INH (10:00)
[2016-10-25] MEDS ORDERED: ENOXAPARIN SODIUM 60 MG/0.6 ML SYRINGE SQ SCH (10:00)
[2016-10-25] MEDS ORDERED: Vancomycin Consult Pharmacy 1 EA OTHER SCH (10:00)
[2016-10-25] MEDS: SODIUM CHLORIDE 0.9% FLUSH 10 ML FLUSH IV FLUSH SCH ×2 (10:01→20:31)
[2016-10-25] MEDS: ASPIRIN 325 MG TAB PO SCH (10:01)
[2016-10-25] MEDS: LATANOPROST 0.005% OPHT SOLN 2.5 ML BTL EACH EYE SCH ×2 (10:02→20:31)
[2016-10-25] MEDS: METOPROLOL TARTRATE 25 MG TAB PO SCH ×2 (10:02→20:32)
[2016-10-25] MEDS: hydrALAZINE HCL 50 MG TAB PO SCH ×2 (10:02→13:00)
[2016-10-25] MEDS: FOLIC ACID 1 MG TAB PO SCH (10:02)
[2016-10-25] MEDS: PRAVASTATIN SOD 40 MG TAB PO SCH (10:02)
[2016-10-25 10:26] LABS: LACTIC ACID GHOST NOT REPORTABLE
--- NOTE | 2016-10-25 12:02 | PD.CONS ---
Consult Service Palliative Care . Consult Requested By Dr. Gabbie Young . Primary Care Physician Jorje Wilcox MD . Reason for Consultation a. To assist with evaluation and management of symptoms including: dyspnea ; constipation; nausea; edema; weakness; pain b. To assist medical decision maker(s) with: better understanding of current medical conditions; weighing benefits/burdens of medical treatment options; making medical treatment decisions. . HPI History of Present Illness Ms. Escobar is a 76-year-old female with a known medical history of COPD; coronary artery disease status post cardiac bypass surgery; congestive heart failure; osteoarthritis; rheumatoid arthritis; atrial fibrillation; hyperlipidemia; dementia; and chronic weakness ; who presented to [facility] Emergency Department on 10/21/16 complaining of a 3 day history of worsening weakness, fatigue, nausea, cough, shortness of breath, and dizziness. The patient had been seen previously in the emergency department about 6 days prior for leg edema. She was taking cough medicine at home which initially seemed to help the cough but then failed. The patient reported she had had little to eat or drink over the few days leading up to emergency department presentation because of her nausea. She denied vomiting but did report some "dry heaving.". She denied fevers, chills, chest pain, hemoptysis, abdominal pain, urinary symptoms, black stools, or bloody stools. The patient has had 9 emergency department visits and 1 hospital stay under observation status since March of this year. Radionuclide stress testing done for evaluation of chest pain on 04/27/16 showed no evidence of ischemia. Ejection fraction per that exam was 59%. The patient has had a right lower extremity skin tear which is slow to heal because of her significant edema. The wound culture positive for MRSA in September and the patient was placed on doxycycline at that time. The patient's overall care has been challenged by her multiple reported allergies versus adverse reactions. Ms. Escobar has chronic neck pain . She has had multiple cervical spine surgeries. She can't really describe or quantify the pain but she normally uses a 100 mcg/hr fentanyl patch and up to 2-3 Percocet 10/325 per day for breakthrough pain. She describes the sudden onset of muscular weakness which began several weeks ago. It began in her upper extremities and then involved her lower extremities. She has become less mobile since then. She had a cane at home which she normally used only when leaving the house, but has more recently been needing it daily. She says she was started on home 02 several months ago. She rarely uses it during the day, but uses it most nights. She believes the nausea has been present for many weeks. She has at least two bad episodes per day. She also has chronic constipation. Though the nursing notes record a bowel movement since admission, the patient believes her bowels have not moved in 5 days. Her lower extremity edema has been incapacitating. She reports her legs are about half the size they have been recently. She would need to cut her slacks to fit her knees in. In the emergency department, vital signs are noted as follows > temperature 98.4 ; pulse 63; respiratory rate 18; blood pressure 140/48; pulse oximetry 91% on room air Physical examination by the emergency department of sociology chair noted the following > patient was fatigued and pale but not in any acute distress area did she was alert and oriented 3. There is some diffuse wheezing and crackles in her lung ramirez. There is significant bilateral lower leg edema with her right leg wrapped in a bandage. The physical exam was otherwise unremarkable. Initial diagnostic testing noted the following: * CBC showed WBC 8.8; hemoglobin 9.3; platelet count 05/06/30 * Coagulation profile showed PT 10.9; INR 1.0 * Urinalysis was unremarkable * Chemistry panel showed sodium 125; potassium 5.8; chloride 93; CO2 25.5; anion gap 7; BUN 20; creatinine 1.4; GFR 36; glucose 106; calcium 8.3; magnesium 2.0 * Liver function studies show total bilirubin 0.6; AST 20; ALT 20; alkaline phosphatase 94; total protein 6.4; albumin 3.5 * B-type natriuretic peptide was 789 * EKG showed sinus rhythm with no acute ST segment elevation or depression * Chest x-ray showed minimal interstitial edema with no significant effusion. The patient was kept in the hospital under observation status under the care of the hospitalist team. The patient received calcium, insulin with D50, and sodium bicarbonate. She was started on diuretic therapy and began to diuresis. Echocardiogram performed on 10/23/16 showed normal left ventricular systolic function with an estimated ejection fraction of 60-65%. There was moderate mitral valve regurgitation and [id number] tricuspid valve regurgitation. There was moderate to severe pulmonary hypertension. On the night of 10/23-10/24, the patient developed atrial fibrillation with rapid ventricular rate. There was accompanying increased work of breathing as well as anxiety. Chest x-ray on 10/24/16 revealed cardiomegaly with worsening interstitial edema and developing bibasilar atelectasis/effusions. Troponin was ordered on 10/25/16 and came back elevated at 3.17. The sodium has improved to 131 and potassium is normalized, renal function has declined with BUN increasing to 31 and creatinine increasing to 1.7 with an estimated GFR of 29. White count has increased to 20.1. Blood cultures were taken on 10/24/16 and have shown no growth to date. At time of my visit, patient is resting comfortably in an ICU bed. She is awake , alert, conversant, and cognitively clear. She denies pain. She had nausea earlier today. She denies dyspnea withe the non-breather while at rest. She is happy that much of her lower extremity edema has subsided. . Function/Cognitive Trajectory Patient lives alone. She recently had to hire someone to help with cleaining. Otherwise , she has been independent taking care of all of her ADLs and driving. With her recent weakness and nausea over the last weeks, she has been dependent on friends to help with shopping. she was started on home 02 at night several months ago. She has been more reliant on a cane for ambulation. There have been no falls but there has been easy bruising as she bumps against things. With the nausea she has been enduring for the past weeks, she has no appetite and she believes she has lost a lot of wieght , but does not know how much. . Review of Systems Constitutional: COMPLAINS OF: Fatigue, Weight loss, Change in appetite (Very little appetite), Generalized weakness, DENIES: Diaphoretic episodes, Fever, Weight gain, Chills, Dizziness Endocrine: DENIES: Heat/cold intolerance, Polydipsia, Polyuria, Polyphagia Eyes: COMPLAINS OF: Vision loss, DENIES: Diplopia, Eye pain, Double Vision Ears, nose, mouth, throat: DENIES: Tinnitus, Hearing loss, Vertigo, Throat pain , Hoarseness, Ear Pain, Running Nose, Epistaxis Respiratory: COMPLAINS OF: Cough, Wheezing, Sputum production, Shortness of breath, DENIES: Apneas, Snoring, Hemoptysis Cardiovascular: COMPLAINS OF: Chest pain, Dyspnea on Exertion, Lower Extremity Edema, DENIES: Palpitations, Syncope, PND, Orthopnea Gastrointestinal: COMPLAINS OF: Constipation, Nausea, Anorexia, DENIES: Abdominal pain, Black stools, Bloody stools, Diarrhea, Vomiting, Vomiting blood Genitourinary: DENIES: Urinary frequency, Urinary incontinence, Urgency, Hematuria, Dysuria, Nocturia Musculoskeletal: COMPLAINS OF: Back pain, Neck pain Integumentary: DENIES: Pruritus, Breast masses Hematologic/Lymphatics: DENIES: Bruising Immunologic/Allergic: DENIES: Eczema Neurologic: DENIES: Headache, Localized weakness, Seizures, Tremor Psychiatric: COMPLAINS OF: Confusion, DENIES: Anxiety, Depression, Hallucinations, Delusions Past Family Social History Coded Allergies: Sulfa (Sulfonamide Antibiotics) (Unverified Allergy, Severe, ITCHING, 10/19) diatrizoate meglumine (Unverified Allergy, Severe, Hives, BURNING, 10/19/16 ) gabapentin (Unverified Allergy, Severe, SWELLING, 10/19/16) gadobenic acid (Unverified Allergy, Severe, Hives, BURNING, 10/19/16) gadodiamide (Unverified Allergy, Severe, Hives, BURNING, 10/19/16) gadoteridol (Unverified Allergy, Severe, Hives, BURNING, 10/19/16) iodixanol (Unverified Allergy, Severe, Hives, BURNING, 10/19/16) iohexol (Unverified Allergy, Severe, Hives, BURNING, 10/19/16) levofloxacin (Unverified Allergy, Severe, SOB, 10/19/16) meloxicam (Unverified Allergy, Severe, WHEEZING, 10/19/16) methadone (Unverified Allergy, Severe, UNKNOWN, 10/19/16) carisoprodol (Unverified Allergy, Unknown, UNKNOWN, 10/19/16) cilostazol (Unverified Allergy, Unknown, UNKNOWN, 10/19/16) diclofenac (Unverified Allergy, Unknown, 10/19/16) dronabinol (Unverified Allergy, Unknown, UNKNOWN, 10/19/16) hydrocodone (Unverified Allergy, Unknown, 10/19/16) misoprostol (Unverified Allergy, Unknown, 10/19/16) tolterodine (Unverified Allergy, Unknown, 10/19/16) topiramate (Unverified Allergy, Unknown, 10/19/16) tramadol (Unverified Allergy, Unknown, 10/19/16) acetaminophen (Unverified Adverse Reaction, Severe, NAUSEA, 10/19/16) amoxicillin (Unverified Adverse Reaction, Severe, VOMITING, 10/22/16) atorvastatin (Unverified Adverse Reaction, Severe, VOMITING, 10/19/16) cephalexin (Unverified Adverse Reaction, Severe, STOMACH PAIN, 10/19/16) clavulanic acid (Unverified Adverse Reaction, Severe, VOMITING, 10/22/16) codeine (Unverified Adverse Reaction, Severe, NAUSEA, 10/19/16) corn (Unverified Adverse Reaction, Severe, MUSCLE SPASMS, 10/22/16) diazepam (Unverified Adverse Reaction, Severe, JOINT PAIN, 10/19/16) donepezil (Unverified Adverse Reaction, Severe, BLURRED VISION; PT TAKES DONEPEZIL DAILY, 10/22/16) duloxetine (Unverified Adverse Reaction, Severe, NAUSEA, 10/19/16) erythromycin base (Unverified Adverse Reaction, Severe, STOMACH CRAMPING, 10/19/16) escitalopram (Unverified Adverse Reaction, Severe, "SLEEPLESSNESS", ) ezetimibe (Unverified Adverse Reaction, Severe, MUSCLE PAIN, 10/19/16) lovastatin (Unverified Adverse Reaction, Severe, HEADACHE, 10/19/16) metaxalone (Unverified Adverse Reaction, Severe, "FEEL DRUNK", 10/19/16) mirtazapine (Unverified Adverse Reaction, Severe, WEAKNESS, 10/19/16) modafinil (Unverified Adverse Reaction, Severe, ANXIETY, 10/19/16) naproxen (Unverified Adverse Reaction, Severe, SWEATING, 10/22/16) paroxetine (Unverified Adverse Reaction, Severe, SWEATING, 10/19/16) pregabalin (Unverified Adverse Reaction, Severe, "WEAKNESS", 10/19/16) sertraline (Unverified Adverse Reaction, Severe, DIZZINESS, 10/19/16) simvastatin (Unverified Adverse Reaction, Severe, MUSCLE PAIN, 10/19/16) tizanidine (Unverified Adverse Reaction, Severe, JITTERY, 10/19/16) venlafaxine (Unverified Adverse Reaction, Severe, "SLEEPY", 10/19/16) *MDRO Multi-Drug Resistant Organism (Verified Adverse Reaction, Unknown, ) 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/16/16 amitriptyline (Unverified Adverse Reaction, Unknown, SWEATING, 10/19/16) baclofen (Unverified Adverse Reaction, Unknown, SHAKING, PT UNSURE, ) ciprofloxacin (Unverified Adverse Reaction, Unknown, NAUSEA, 10/19/16) citalopram (Unverified Adverse Reaction, Unknown, HEADACHE, 10/19/16) clindamycin (Unverified Adverse Reaction, Unknown, MUSCLE PAIN, 10/22/16) cortisone (Unverified Adverse Reaction, Unknown, HEADACHE, 10/19/16) PT DENIES ALLERGY TO MED 09/17 divalproex sodium (Unverified Adverse Reaction, Unknown, HEADACHE, 10/19/16 ) fluoxetine (Unverified Adverse Reaction, Unknown, ITCHING, 10/19/16) oxybutynin (Unverified Adverse Reaction, Unknown, NAUSEA, 10/19/16) Uncoded Allergies: VESICARE (Adverse Reaction, Severe, SWEATING, 10/18/08) VYTORIN (Adverse Reaction, Severe, CONSTIPATION, 10/18/08) Past Medical History Congestive heart failure Coronary artery disease Chronic weakness COPD; coronary artery disease status post cardiac bypass surgery; osteoarthritis; rheumatoid arthritis; atrial fibrillation; hyperlipidemia; dementia Chronic lower extremity edema Crhonic constipation Glaucoma Hypertension Asthma Peripheral vascular disease. Past Surgical History Cardiac bypass -- 3 vessel Left hip replacement C6-C7 cervical discectomy Cervical kyphoplasty Neck and hip surgery -- has a plate in her neck and a pain in the left hip Eye surgery for glaucoma Hysterectomy Insertion and subsequent removal of a pain stimulator. Reported Medications Pre-hospital medications included the following: Labetalol (Labetalol HCl) 300 Mg Tab 300 Mg PO TID Aldactone (Spironolactone) 25 Mg Tab 25 Mg PO DAILY Vitamin D (Cholecalciferol) 2,000 Unit Cap 1 Cap PO DAILY Co Q 10 (Coenzyme Q10 (Ubidecarenone)) 100 Mg Cap 1 Cap PO DAILY Duoneb (Ipratropium-Albuterol Neb) 0.5-2.5 Mg/3 Ml Neb 1 Nebule INH Q8HR NEB PRN Restasis Opth 0.05% (Cyclosporine Opth 0.05%) 0.05% Emul 1 Drop EACH EYE BID Iron (Ferrous Gluconate) 27 Mg Tab 1 Tab PO DAILY Methylprednisolone 8 Mg Tab 4 Mg PO DIRECTED Latanoprost Opth Drops (Latanoprost) 0.005% Drops 1 Drop EACH EYE BID Hydralazine HCl 50 Mg Tablet 1 Tab PO QID Folic Acid 400 Mcg Tab 1 Mg PO DAILY Duragesic Patch 72 HR (Fentanyl) 100 Mcg/Hr Patch 100 Mcg T-DERMAL Q48 Pravastatin 40 Mg Tab 40 Mg PO DAILY Donepezil 10 Mg Tab 10 Mg PO HS Trazodone (Trazodone HCl) 50 Mg Tab 25 Mg PO HS Flexeril (Cyclobenzaprine HCl) 5 Mg Tab 5 Mg PO DAILY Aspir-81 (Aspirin) 81 Mg Tabdr 1 Tab PO DAILY Methotrexate 2.5 Mg Tab 5 Mg PO Q7D Lorazepam 1 Mg Tab 1 Mg PO DAILY PRN . Current Medications Medications (Trade) Dose Ordered Sig/Tammy Route Start Time Stop Time Status Last Admin (NS Flush) 2 ml UNSCH PRN IV FLUSH 10/21/16 22:45 10/23/16 17:17 (NS Flush) 2 ml BID IV FLUSH 10/22/16 09:00 10/25/16 10:01 (Zofran Inj) 4 mg Q6H PRN IVP 10/21/16 22:45 10/25/16 03:43 (Morphine Inj) 2 mg Q3H PRN IV 10/21/16 22:45 10/24/16 23:41 (Milk Of Magnesia Liq) 30 ml Q12H PRN PO 10/21/16 22:45 10/22/16 23:39 (Senokot) 17.2 mg Q12H PRN PO 10/21/16 22:45 10/22/16 09:36 (Lactulose Liq) 30 ml DAILY PRN PO 10/21/16 22:45 10/24/16 23:39 (Folate) 1 mg DAILY PO 10/22/16 09:00 10/25/16 10:02 (Apresoline) 50 mg QID PO 10/22/16 09:00 10/25/16 10:02 (Xalatan 0.005% Opth Soln) 1 drop BID EACH EYE 10/22/16 09:00 10/25/16 10:02 (Ativan) 1 mg DAILY PRN PO 10/21/16 22:45 10/24/16 21:16 (Pravachol) 40 mg DAILY PO 10/22/16 09:00 10/25/16 10:02 (Desyrel) 25 mg HS PO 10/22/16 21:00 10/24/16 21:16 Patient Own Medication PT OWN MED: RESTA... BID EACH EYE 10/22/16 09:00 10/24/16 07:53 (Duragesic 100 Mcg Patch.72 Hr) 1 patch Q72H T-DERMAL 10/23/16 10:00 10/23/16 09:14 (Bactroban 2% Oint) 1 applic DAILY TOPICAL 10/22/16 10:45 10/24/16 09:00 (Tessalon) 100 mg TID PRN PO 10/22/16 10:45 10/24/16 07:52 (Lopressor) 25 mg Q12HR PO 10/24/16 09:00 10/25/16 10:02 Aztreonam 2000 mg/ Sodium Chloride 100 ml @ 200 mls/hr Q8H IV 10/24/16 14:00 10/25/16 04:42 (Lovenox Inj) 60 mg Q12H SQ 10/25/16 10:00 10/25/16 10:02 (Aspirin) 325 mg DAILY PO 10/25/16 10:00 10/25/16 10:01 Pharmacy Profile Note 0 ml @ 0 mls/hr UNSCH OTHER 10/25/16 10:00 Diltiazem HCl 125 mg/Sodium Chloride 125 ml @ 5 mls/hr TITRATE PRN IV 10/25/16 09:45 (Bumex Inj) 1 mg DAILY IV PUSH 10/26/16 09:00 (Duoneb Neb) 1 ampule Q4HR NEB PRN INH 10/25/16 10:00 Vancomycin HCl 1000 mg/Sodium Chloride 250 ml @ 250 mls/hr Q36H IV 10/26/16 04:00 Miscellaneous Information SPECIFIC LAB TO BE DRAWN:VANCOMY... ONCE ONCE .XX 10/29/16 03:45 10/29/16 03:46 . Family History Patient does not know her family history as they are all in [place] . Substance Use Tobacco: Quit smoking about 20 years ago Alcohol: No history of abuse Prescription med abuse: No abuse, but has been requiring chronic opiates for years Illicits: No known use of illicits. . Psychosocial History Originally from [place]. Moved to the in the s. 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 Has one stepson -- her only family who she says she is not very close to. Lives alone. . Spiritual/Cultural Factors Identifies herself as Presbyterian. Went to confucianist more regularly before she became weak and less able to get around. . Living Will: Completed, but not made available Health Care Surrogate: Completed, but not made available Durable Power of Pipe Finisher: Never completed Date completed: Patient completed an advance directive in the past and has brought it in. She is angry that we do not have it on file. She does not know the date she completed it. . Health Care Surrogate(s): No written designation of health care surrogate at this time. She has verbally stated that she wants her stepson -- Normal Astwood -- to serve as her surrogate. . Documented care wishes: No written documentation of healthcare preferences or wishes. . Today's verbally stated goals: Patient states she wants NOT to be resuscitated. She is uncertain of other goals. Wants to speak with her aeronautical test engineer and perhaps her stepson. . Family/friends goals: No family or friends present. . Ethical and Legal Issues Patient appears cognitively sharp with good understanding of her health issues. I believe she is capacitated to make her own healthcare decisions today. . Physical Exam Vital Signs Date Time Temp Pulse Resp B/P (MAP) Pulse Ox O2 Delivery O2 Flow Rate FiO2 10/25/16 08:16 95 Non-Rebreather 12.00 10/25/16 04:00 98.2 112 31 155/97 (116) 98 10/25/16 04:00 112 10/25/16 03:00 97 Partial Rebreather 12.00 10/25/16 02:14 113 24 145/91 (109) 90 10/25/16 00:10 98.0 102 26 100/77 (85) 92 10/24/16 23:38 118/91 (100) 10/24/16 23:36 108 22 144/80 (101) 10/24/16 20:30 113 10/24/16 20:25 98.8 106 24 137/100 (112) 94 10/24/16 19:43 92 Nasal Cannula 3.00 10/24/16 16:00 97.8 106 18 180/93 (122) 94 10/24/16 15:50 20 10/24/16 12:00 97.8 66 17 150/91 (110) 93 . Exam CONSTITUTIONAL/GENERAL: This is a pale, adequately nourished patient, in no apparent distress in an ICU bed. Non-rebreather mask is in place. TUBES/LINES/DRAINS: Peripheral IV; Sheffield catheter; Non-rebreather mask SKIN: No jaundice, rashes. Skin tear RLE. Ecchymoses on all extremities. Skin temperature appropriate. Not diaphoretic. HEAD: Atraumatic. Normocephalic. EYES: Pupils equal and round and reactive. Extraocular motions intact. No scleral icterus. No injection or drainage. Fundi not examined. ENT: Hearing grossly normal. Nose without bleeding or purulent drainage. Throat without visible erythema, exudates, masses, or lesions. Dentures. NECK: Trachea midline. Supple, nontender. No palpable thyroid enlargement or nodularity. CARDIOVASCULAR: Irregularly irregular rhythm without murmurs, gallops, or rubs. JVD is present. Peripheral pulses symmetric. RESPIRATORY/CHEST: Symmetric, unlabored respirations. Breath sounds equal bilaterally. Faint crackles at bases -- no audible wheezing. GASTROINTESTINAL: Abdomen soft, distended, non-tender. No hepato-splenomegaly, or palpable masses. No guarding. Bowel sounds present. GENITOURINARY: Without palpable bladder distension. Sheffield catheter in place. MUSCULOSKELETAL: 2-3+ lower extremity edema. No calf tenderness. No mottling or clubbing. LYMPHATICS: No palpable cervical or supraclavicular adenopathy. NEUROLOGICAL: Awake and alert. Motor and sensory grossly within normal limits. Follows commands. Cognitively sharp. Moves all extremities. PSYCHIATRIC: No obvious anxiety/depression. No apparent hallucinations or other psychotic thought process. . Diagnostic Tests Laboratory Laboratory Tests Test 10/22/16 12:44 10/23/16 06:08 10/24/16 07:35 10/24/16 08:03 White Blood Count 9.8 TH/MM3 (4.0-11.0) 19.5 TH/MM3 (4.0-11.0) Red Blood Count 3.13 MIL/MM3 (4.00-5.30) 3.57 MIL/MM3 (4.00-5.30) Hemoglobin 9.8 GM/DL (11.6-15.3) 11.7 GM/DL (11.6-15.3) Hematocrit 29.1 % (35.0-46.0) 33.5 % (35.0-46.0) Mean Corpuscular Volume 93.2 FL (80.0-100.0) 93.7 FL (80.0-100.0) Mean Corpuscular Hemoglobin 31.3 PG (27.0-34.0) 32.8 PG (27.0-34.0) Mean Corpuscular Hemoglobin Concent 33.6 % (32.0-36.0) 35.0 % (32.0-36.0) Red Cell Distribution Width 12.9 % (11.6-17.2) 13.0 % (11.6-17.2) Platelet Count 345 TH/MM3 (150-450) 409 TH/MM3 (150-450) Mean Platelet Volume 7.0 FL (7.0-11.0) 6.5 FL (7.0-11.0) Neutrophils (%) (Auto) 83.9 % (16.0-70.0) 85.5 % (16.0-70.0) Lymphocytes (%) (Auto) 6.6 % (9.0-44.0) 4.8 % (9.0-44.0) Monocytes (%) (Auto) 6.7 % (0.0-8.0) 6.2 % (0.0-8.0) Eosinophils (%) (Auto) 1.8 % (0.0-4.0) 0.2 % (0.0-4.0) Basophils (%) (Auto) 1.0 % (0.0-2.0) 3.3 % (0.0-2.0) Neutrophils # (Auto) 8.2 TH/MM3 (1.8-7.7) 16.8 TH/MM3 (1.8-7.7) Lymphocytes # (Auto) 0.6 TH/MM3 (1.0-4.8) 0.9 TH/MM3 (1.0-4.8) Monocytes # (Auto) 0.7 TH/MM3 (0-0.9) 1.2 TH/MM3 (0-0.9) Eosinophils # (Auto) 0.2 TH/MM3 (0-0.4) 0.0 TH/MM3 (0-0.4) Basophils # (Auto) 0.1 TH/MM3 (0-0.2) 0.6 TH/MM3 (0-0.2) CBC Comment DIFF FINAL DIFF FINAL Differential Comment Blood Urea Nitrogen 20 MG/DL (7-18) 18 MG/DL (7-18) Creatinine 1.20 MG/DL (0.50-1.00) 1.10 MG/DL (0.50-1.00) Random Glucose 80 MG/DL (74-106) 130 MG/DL (74-106) Calcium Level 8.6 MG/DL (8.5-10.1) 9.4 MG/DL (8.5-10.1) Sodium Level 130 MEQ/L (136-145) 128 MEQ/L (136-145) Potassium Level 5.1 MEQ/L (3.5-5.1) 5.2 MEQ/L (3.5-5.1) Chloride Level 95 MEQ/L (98-107) 92 MEQ/L (98-107) Carbon Dioxide Level 29.3 MEQ/L (21.0-32.0) 27.8 MEQ/L (21.0-32.0) Anion Gap 6 MEQ/L (5-15) 8 MEQ/L (5-15) Estimat Glomerular Filtration Rate 44 ML/MIN (>89) 48 ML/MIN (>89) Magnesium Level 1.9 MG/DL (1.5-2.5) Blood Gas Puncture Site RT RADIAL Blood Gas Patient Temperature 98.6 Blood Gas HCO3 28 mmol/L (22-26) Blood Gas Base Excess 3.7 mmol/L (-2-2) Blood Gas Oxygen Saturation 90 % (90-100) Arterial Blood pH 7.40 (7.380-7.420) Arterial Blood Partial Pressure CO2 46 mmHG (38-42) Arterial Blood Partial Pressure O2 62 mmHG (61-120) Arterial Blood Oxygen Content 15.3 Vol % (12.0-20.0) Arterial Blood Carboxyhemoglobin 1.8 % (0-4) Arterial Blood Methemoglobin 0.9 % (0-2) Blood Gas Hemoglobin 12.1 G/DL (12.0-16.0) Oxygen Delivery Device NASAL CANNULA Blood Gas Liter Flow 3 L/M Test 10/25/16 02:40 10/25/16 05:40 10/25/16 08:20 10/25/16 10:45 Blood Gas Puncture Site LT RADIAL Blood Gas Patient Temperature 98.6 Blood Gas HCO3 28 mmol/L (22-26) Blood Gas Base Excess 3.9 mmol/L (-2-2) Blood Gas Oxygen Saturation 86 % (90-100) Arterial Blood pH 7.46 (7.380-7.420) Arterial Blood Partial Pressure CO2 40 mmHG (38-42) Arterial Blood Partial Pressure O2 54 mmHG (61-120) Arterial Blood Oxygen Content 14.8 Vol % (12.0-20.0) Arterial Blood Carboxyhemoglobin 1.6 % (0-4) Arterial Blood Methemoglobin 0.8 % (0-2) Blood Gas Hemoglobin 12.3 G/DL (12.0-16.0) Oxygen Delivery Device NASAL CANNULA Blood Gas Liter Flow 3 L/M White Blood Count 20.1 TH/MM3 (4.0-11.0) Red Blood Count 3.90 MIL/MM3 (4.00-5.30) Hemoglobin 12.3 GM/DL (11.6-15.3) Hematocrit 36.4 % (35.0-46.0) Mean Corpuscular Volume 93.4 FL (80.0-100.0) Mean Corpuscular Hemoglobin 31.6 PG (27.0-34.0) Mean Corpuscular Hemoglobin Concent 33.8 % (32.0-36.0) Red Cell Distribution Width 13.7 % (11.6-17.2) Platelet Count 413 TH/MM3 (150-450) Mean Platelet Volume 7.1 FL (7.0-11.0) Neutrophils (%) (Auto) 91.8 % (16.0-70.0) Lymphocytes (%) (Auto) 3.2 % (9.0-44.0) Monocytes (%) (Auto) 4.7 % (0.0-8.0) Eosinophils (%) (Auto) 0.0 % (0.0-4.0) Basophils (%) (Auto) 0.3 % (0.0-2.0) Neutrophils # (Auto) 18.5 TH/MM3 (1.8-7.7) Lymphocytes # (Auto) 0.6 TH/MM3 (1.0-4.8) Monocytes # (Auto) 0.9 TH/MM3 (0-0.9) Eosinophils # (Auto) 0.0 TH/MM3 (0-0.4) Basophils # (Auto) 0.1 TH/MM3 (0-0.2) CBC Comment DIFF FINAL Differential Comment Blood Urea Nitrogen 31 MG/DL (7-18) Creatinine 1.70 MG/DL (0.50-1.00) Random Glucose 158 MG/DL (74-106) Calcium Level 9.2 MG/DL (8.5-10.1) Magnesium Level 2.2 MG/DL (1.5-2.5) Sodium Level 131 MEQ/L (136-145) Potassium Level 4.9 MEQ/L (3.5-5.1) Chloride Level 93 MEQ/L (98-107) Carbon Dioxide Level 28.0 MEQ/L (21.0-32.0) Anion Gap 10 MEQ/L (5-15) Estimat Glomerular Filtration Rate 29 ML/MIN (>89) Total Creatine Kinase 95 U/L (26-192) Troponin I 3.17 NG/ML (0.02-0.05) Lactic Acid Level 2.6 mmol/L (0.4-2.0) . Result Diagram: 10/25/16 0540 10/25/16 0540 Microbiology Microbiology Date/Time Source Procedure Growth Status 10/24/16 10:55 Blood Peripheral Aerobic Blood Culture Pending Received 10/24/16 10:55 Blood Peripheral Anaerobic Blood Culture Pending Received 10/24/16 10:45 Blood Peripheral Aerobic Blood Culture Pending Received 10/24/16 10:45 Blood Peripheral Anaerobic Blood Culture Pending Received . Imaging Last Impressions Chest X-Ray 10/24/16 0000 Signed Impressions: Service Date/Time: Monday, October 24, 2016 03:00 - CONCLUSION: Cardiomegaly with worsening interstitial edema and developing bibasilar atelectasis/effusions. Petros Sanchez MD . Patient/Family Conference Present at Family Conference: Patient only. . Family Conference Time (mins): 25 Family Conference Location: Bedside Issues Discussed: * Palliative care role, purpose, approach * Additional medical, psychosocial, and spiritual history * Patients general health, functional status, and cognitive changes in the months leading up to the current hospitalization * Patient understanding of the current medical problems * Patient understanding of prognosis * Patients goals of medical treatment. * Current medical treatment options and benefits/burdens of those options * Questions answered to the best of my ability * Palliative care contact information provided . Assessment and Plan Disease Oriented Problem List: (1) Diastolic heart failure (2) Pulmonary hypertension (3) Atrial fibrillation with RVR (4) Mitral valve regurgitation (5) Tricuspid valve regurgitation (6) Acute kidney injury (7) Asthma (8) Hyperkalemia (9) Hyponatremia Symptom Scale: (1) Pain 0-10 Scale: Unable to quantify Comment: Patient has chronic musculoskeletal pain -- worse in her neck - for which she uses a 100 mcg/hr fentanyl patch and 2-3 Percocet 10's per day. More recently she has had some abdominal pain. She gets occasional chest pain. She has pain in her lower extremities when they are highly edematous. She has a difficult time quantifying or qualifying the pain. . (2) Dyspnea 0-10 Scale: 2 Comment: She reports dyspnea is controlled to her satisfaction with a non- rebreather mask in place. . (3) Nausea 0-10 Scale: Unable to quantify Comment: Has been having at least 2 episodes of bad nausea per day. Sometimes with vomiting or dry heaves. . (4) Pedal edema 0-10 Scale: Unable to quantify Comment: Since being hospitalized she reports her lower extremities are 1/2 the size they were at home. . (5) Constipation 0-10 Scale: 0 Comment: She reports constipation as a chronic problem. . Pertinent Non-Medical Issues Psychosocial: Lives alone. Only family is a thiago (Louis Escobar) who lives in [place]. Unclear she will be able to live alone again. Spiritual: Pres[employer]. Attended confucianist more regularly when she was less frail. Legal: Reports she has completed an advance directive in the past. Ethical issues impacting care: Currently appears capacitated to make her own healthcare decisions. . Important Contacts * Louis Hassan (step- son) [phone] Patient has verbally stated she wants her step-son to serve as her healthcare surrogate. . Prognosis Though the patient has a number of medical problems, she was functioning at a fairly high level up until the last weeks to months. It is not yet clear to me what might be reversible and what might be end stage disease. A look at her history over the last year shows multiple ER visits and suggests someone who is failing and declining. She says she is losing weight. Could it be she does not take her meds as directed at home and would be in much better shape if in a monitored environment? On top of her ongoing problems she has had new onset a- fib with RVR and possibly an associated OH. Await cardiology to weigh in on prognosis. . Code Status: No Code Plan == Code Status: NO CODE per patient's direct request. == Decision making: Though she takes Aricept and there is a diagnosis of dementia on her chart, at time of my visit, she appeared cognitively sharp with insight into her current condition. I felt she was capacitated to make her own health care decisions. Should she become incapacitated, she has stated she would want her stepson -- Louis Escobar -- to be her surrogate. == Goals of medical treatment: Patient is clear that she does not want to be resuscitated. Other goals are less clear. She wants to speak to cardiology and her stepson before deciding further. Until we get further guidance, goals will be aggressive short of resuscitation. == Pain: Patient has chronic musculo-skeletal pain worse in the neck. She is normally controlled with a 100 mcg/hr fentanyl patch and Up to 3 Percocet 10 per day for breakthrough pain. This pain appears controlled here. No further recommendations at this time. == Dyspnea : Probably secondary to diastolic heart failure, pulmonary hypertension, COPD, possible pnuemonia, and her tachycardia. Controlled with non-rebreather mask. Hopefully, will improve with diuresis, anti-biotics, rate control. She has orders for morphine and lorazepam. Currently, those orders are for pain and anxiety respectively -- recommend that we also permit these for dyspnea or tachypnea. == Constipation: This is a chronic problem for the patient. Her current bowel protocol is all PRN. I would recommend scheduling her senna twice daily and encouraging nursing staff to give more frequent PRN's. == Weakness: The rapid onset of this makes me wonder if this was secondary to hypokalemia. It will be interesting to see if strength improves with electrolyte correction. == Nausea: In case part of her nausea is secondary to her level of constipation, would encourage an aggressive bowel protocol as noted above. If nausea persists, may want to schedule an anti-emetic == Disposition: Her frequent ER usage and apparent decline makes me wonder if she is able to live alone any longer. I wonder if she is able to take her medications correctly at this point. If cardiology feels life expectancy is 6 months or less or patient opts for comfort measures, she would certainly be a candidate for hospice care. == Miscellaneous * WIll have staff assist patient in completing another advance directive * She will hopefully have a better idea of her goals of treatment once her thiago gets here (on 10/27/16?) and after she speaks to cardiology. * WIll try and speak to thiago when he arrives. == Palliative care will continue to follow to assist with symptom management and to further clarify goals of medical treatment as the clinical course evolves. . Thank you for the opportunity to participate in the care of Ms. Escobar. . Attestation To help prompt me to consider important information that might be impacting today's encounter and assessment, information from prior notes written by myself or my colleagues may have been "brought forward" into today's note. My signature on this note, however, is an attestation that I personally performed the exam, history, and/or decision-making noted today, and, unless otherwise indicated, the interactions with patient, family, and staff as well as the review of records all occurred today. I also attest that the listed assessment and stated plan reflect my best clinical judgment today based on the combination of historical information, prior notes, and today's exam/ interactions. When time spent is documented, it refers only to time spent today by the signer, or if indicated, combined time spent today by collaborating physician/nurse practitioner. . Cliff Ramachandran MD Oct 25, 2016 12:02
--- NOTE | 2016-10-25 12:09 | EKG ---
Date Performed: 10/25/2016 Time Performed: 08:10:27 PTAGE: 76 years EKG: ATRIAL FIBRILLATION WITH RAPID VENTRICULAR RESPONSE LEFT AXIS DEVIATION VOLTAGE CRITERIA FO R LVH, CONSIDER NORMAL VARIANT ANTERIOR MYOCARDIAL INFARCTION AGE UNDETERMINED LATERAL T WAVE ABNORMA LITY, CONSIDER ISCHEMIA PREVIOUS TRACING : 10/21/2016 21.10 Compared to previous tracing, atrial fibrillation wit h a rapid ventricular response is now present, lateral T wave changes are now evident, anterior infar ct pattern is now evident. DOCTOR: Brent Schofield Interpretating Date/Time 10/25/2016 12:08:57
[2016-10-25] MEDS: AZTREONAM INJ 1,000 MG in SODIUM CHLORIDE 0.9% INJ 100 ML IV SCH ×2 (14:14→20:32)
[2016-10-25] MEDS: MUPIROCIN 2% OINT 22 GM TUBE TOPICAL SCH (14:14)
[2016-10-25] MEDS: SENNOSIDES 8.6 MG TAB PO PRN (14:14)
[2016-10-25] MEDS: DILTIAZEM INJ 125 MG in SODIUM CHLORIDE 0.9% INJ 100 ML IV PRN ×2 (16:00→20:33)
[2016-10-25] MEDS ORDERED: CHLORHEXIDINE GLUCONATE 2 % 1 PACK (2 CLOTHS)(extra cloths) TOPICAL PRN (17:45)
[2016-10-25] MEDS: traZODone HCL 50 MG TAB PO SCH (20:31)
--- NOTE | 2016-10-25 23:20 | MB ---
cc: WALTER LORD M.D. DATE OF CONSULTATION 10/25/[address] Gabbie Young for asking us see this very pleasant lady who is known to me well. She presents with a complex history of multiple medical problems. From a cardiac perspective, she has a high pulmonary artery pressure with severe pulmonary hypertension. Her nuclear stress test showed no significant coronary artery disease on 04/27/16 with a normal ejection fraction. Her most recent echo showed a normal ejection fraction. Her chest x-ray from today shows mild diffuse interstitial prominence and small bilateral effusions and associated lower air space disease which is mildly improved. There is no definite severe pulmonary edema. The patient from a sepsis perspective had a very high white count, has evidence of infected wound, has a high lactic acid, white count on 10/25 today is 20.1. Troponin is markedly elevated at 2.57 and 3.17. The patient did have an episode of tachycardia, possibly prior to the troponin rise after discussion with the attending nurse. From a respiratory perspective the patient has had a long history of COPD. At this point she is a DNR and has had assessment with palliative care. She is very ill and this is a consultation for elevated troponin. She is not a cardiac catheterization candidate at this time and appears very ill with multiple medical problems. There was a history of MRSA positive skin tear with her lactic acidosis one could consider possible sepsis. PAST MEDICAL HISTORY Coronary artery disease, chronic weakness, cardiac bypass, neck and hip surgery, COPD, CKD, carotid artery disease, status post CABG in 1998, mitral vegetation, hypertension, hyperlipidemia, peripheral vascular disease, chronic pain syndrome, tobacco abuse, cervical stenosis status post surgery x4. in 07/2013. Atherosclerotic heart disease, COPD, cor pulmonale. PAST SURGICAL HISTORY Surgical history is positive for right carotid enterectomy, patent grafts heart cath in 2005 [facility] [place]. FAMILY HISTORY Noncontributory. SOCIAL HISTORY Former smoker. PHYSICAL EXAMINATION GENERAL: This is a very unfortunate and very ill lady. VITAL SIGNS: Pulse of 98, blood pressure of 109/80, respiration 25, pulse ox 93. HEENT: Eyes showed no xanthelasma. Mouth showed no cyanosis or pallor. NECK: Showed no JVD. HEART: She had two heart sounds. No murmurs. CHEST: Clear. no rales and rhonchi ABDOMEN: Soft. No hepatosplenomegaly. EXTREMITIES: The legs were discolored, evidence of a skin tear. ASSESSMENT/PLAN This is a very ill patient who at this point wishes to consult with palliative care. She has seen Dr. Ramachandran and I feel this may be appropriate. The patient appears to be very ill. She is also do not resuscitate. At this point I believe the heart catheterization would not be in her interest. Given his severe pulmonary hypertension which is most likely secondary to the cor pulmonale we will consider doing a VQ scan to exclude the treatable cause such as pulmonary embolism. At this point she does appear very ill with multisystem and multiorgan failure. Her creatinine is elevated at 1.7, lactic acid 2.6 and 2.5 with the white count increasing, all of which point towards possible infection. Her prognosis is extremely guarded. She is currently on Lovenox which would cover both coronary disease and pulmonary embolism. Will continue diuresis in case she has some degree of diastolic dysfunction given her normal ejection fraction. She will continue on medications for COPD and respiratory treatment for chronic COPD/ cor pulmonale. Heart rate has been controlled with low-dose metoprolol. At this point her prognosis is extremely guarded and I believe a heart catheterization would be detrimental. Thank you for asking us to see this patient. Walter Lord MD, FRCP,[facility] /7:59 PM /10:56 PM [facility]ITALEligio
[2016-10-26] VITALS (34 sets, daily range): BP systolic 94–140; BP diastolic 68–96; PULSE 88–124; RESP 11–37; TEMP 97–97.8; O2SAT 86–100
[2016-10-26] MEDS: ONDANSETRON HCL 4 MG/2 ML VIAL IVP PRN ×2 (02:52→07:57)
[2016-10-26] MEDS ORDERED: VANCOMYCIN 1,000 MG/NS 250 ML IV SCH ×2 (04:00)
[2016-10-26] MEDS: CHLORHEXIDINE GLUCONATE 2 % 1 PACK (2 CLOTHS)(taper/protocol) TOPICAL SCH (04:00)
[2016-10-26 05:30] LABS: AUTOMATED NEUTROPHIL # 20.4 TH/MM3 (1.8-7.7); BASOPHIL # 0.1 TH/MM3 (0-0.2); BASOPHIL % 0.4 % (0.0-2.0); EOSINOPHIL # 0.1 TH/MM3 (0-0.4); EOSINOPHIL % 0.3 % (0.0-4.0); HEMATOCRIT 34.7 % (35.0-46.0); LYMPH % 4.8 % (9.0-44.0); LYMPHOCYTE # 1.1 TH/MM3 (1.0-4.8); MEAN CELL VOLUME 93.8 FL (80.0-100.0); MEAN CORPUSCULAR HEMOGLOBIN 31.7 PG (27.0-34.0); MEAN CORPUSCULAR HGB CONC 33.8 % (32.0-36.0); MONO % 6.6 % (0.0-8.0); NEUT % 87.9 % (16.0-70.0); PLATELET COUNT 421 TH/MM3 (150-450); RED CELL DISTRIBUTION WIDTH 13.2 % (11.6-17.2); WHITE BLOOD COUNT 23.1 TH/MM3 (4.0-11.0)
[2016-10-26] MEDS: AZTREONAM INJ 1,000 MG in SODIUM CHLORIDE 0.9% INJ 100 ML IV SCH ×3 (05:36→20:38)
[2016-10-26 05:39] LABS: HEMO FLAGS AUTO DIFF
[2016-10-26 05:46] LABS: POTASSIUM 4.3 MEQ/L (3.5-5.1)
[2016-10-26 05:48] LABS: BICARBONATE 26.4 MEQ/L (21.0-32.0); MAGNESIUM 2.2 MG/DL (1.5-2.5)
[2016-10-26 06:48] LABS: SCAN/DIFF AUTO DIFF CONFIRMED
[2016-10-26] MEDS: BUMETANIDE INJ 1 MG/4 ML VIAL IV PUSH SCH (07:45)
[2016-10-26] MEDS: ASPIRIN 325 MG TAB PO SCH (07:45)
[2016-10-26] MEDS: FOLIC ACID 1 MG TAB PO SCH (07:45)
[2016-10-26] MEDS: LATANOPROST 0.005% OPHT SOLN 2.5 ML BTL EACH EYE SCH ×2 (07:46→21:23)
[2016-10-26] MEDS: PRAVASTATIN SOD 40 MG TAB PO SCH (07:46)
[2016-10-26] MEDS: METOPROLOL TARTRATE 25 MG TAB PO SCH ×2 (07:46→20:37)
[2016-10-26] MEDS: SODIUM CHLORIDE 0.9% FLUSH 10 ML FLUSH IV FLUSH SCH ×2 (07:47→21:23)
[2016-10-26] MEDS: RESTASIS EYE EACH EYE SCH (08:01)
[2016-10-26] MEDS: ENOXAPARIN SODIUM 60 MG/0.6 ML SYRINGE SQ SCH (10:33)
[2016-10-26] MEDS: fentaNYL 100 MCG/HR PATCH T-DERMAL SCH (10:34)
--- NOTE | 2016-10-26 11:03 | HHI.PR ---
Subjective Remarks Patient seen and evaluated for acute myocardial infarction, respiratory failure with hypoxemia and pulmonary hypertension which is severe, and atrial fibrillation with rapid ventricular response. Leukocytosis is Increased today and patient continues to require oxygen. Cardiology consult appreciated as well as palliative consult. Patient agreeable for hospice evaluation Patient continues to have dyspnea and would like further discussion for comfort care measures. Palliative consult appreciated and patient has understood the plan for medical management from the cardiology team Objective Vitals Vital Signs Date Time Temp Pulse Resp B/P (MAP) Pulse Ox O2 Delivery O2 Flow Rate FiO2 10/26/16 10:00 90 19 94/80 (85) 96 10/26/16 09:00 96 23 140/72 (94) 90 10/26/16 08:00 114 31 125/93 (104) 95 10/26/16 08:00 112 10/26/16 08:00 95 Non-Rebreather 15.00 10/26/16 07:45 96 Non-Rebreather 15.00 96 10/26/16 07:40 94 50 10/26/16 07:00 93 Bi-Pap 50 10/26/16 07:00 97.8 106 27 128/82 (97) 93 10/26/16 06:00 102 10/26/16 06:00 102 19 136/96 (109) 95 10/26/16 05:30 93 50 10/26/16 05:00 108 24 121/81 (94) 95 10/26/16 04:00 97.3 112 24 111/82 (92) 93 10/26/16 04:00 112 10/26/16 03:00 102 22 110/77 (88) 95 10/26/16 02:00 124 10/26/16 02:00 124 20 110/84 (93) 94 10/26/16 01:15 95 50 10/26/16 01:00 124 16 100/75 (83) 95 10/26/16 00:00 97.0 92 16 94/68 (77) 97 10/26/16 00:00 92 10/25/16 23:15 92 50 10/25/16 23:15 Bi-Pap 50 10/25/16 23:00 116 27 108/81 (90) 87 10/25/16 22:00 126 10/25/16 22:00 126 20 129/85 (100) 98 10/25/16 21:00 110 26 117/89 (98) 93 10/25/16 20:10 94 Non-Rebreather 15.00 10/25/16 20:00 98.3 104 27 119/73 (88) 93 10/25/16 20:00 104 10/25/16 19:00 102 23 121/75 (90) 93 10/25/16 18:30 102 26 123/81 (95) 93 10/25/16 18:00 98 10/25/16 18:00 98 27 110/78 (89) 91 10/25/16 17:30 102 25 115/72 (86) 97 10/25/16 17:15 94 19 98/67 (77) 96 10/25/16 17:00 100 21 108/77 (87) 93 10/25/16 16:45 98 25 109/80 (90) 93 10/25/16 16:30 96 24 107/80 (89) 91 10/25/16 16:15 100 28 105/70 (82) 93 10/25/16 16:00 97.5 94 19 86/64 (71) 96 10/25/16 16:00 100 10/25/16 15:45 96 25 100/73 (82) 93 10/25/16 15:30 94 23 107/76 (86) 94 10/25/16 15:15 94 25 109/65 (80) 95 10/25/16 15:00 96 23 103/80 (88) 88 10/25/16 14:45 98 25 103/71 (82) 87 10/25/16 14:30 100 28 99/75 (83) 86 10/25/16 14:15 104 28 89/64 (72) 90 10/25/16 14:00 102 10/25/16 14:00 102 25 109/74 (86) 92 10/25/16 13:45 102 22 111/76 (88) 92 10/25/16 13:30 102 26 105/73 (84) 91 10/25/16 13:15 100 26 103/76 (85) 92 10/25/16 13:00 104 22 94/67 (76) 93 10/25/16 12:45 88 18 91/61 (71) 95 10/25/16 12:30 86 18 81/60 (67) 95 10/25/16 12:15 88 19 86/54 (65) 95 10/25/16 12:00 88 10/25/16 12:00 98.2 88 23 79/62 (68) 94 10/25/16 11:45 90 23 83/63 (70) 95 10/25/16 11:30 104 30 87/65 (72) 93 10/25/16 11:15 94 24 91/63 (72) 95 10/25/16 11:05 96 26 80/59 (66) 93 10/25/16 11:00 102 30 90/70 (77) 93 I/O 10/25/16 10/25/16 10/25/16 10/26/16 10/26/16 10/26/16 07:00 15:00 23:00 07:00 15:00 23:00 Intake Total 100 ml 898 ml 982 ml Output Total 50 ml 700 ml 200 ml Balance 50 ml 198 ml 782 ml Intake Oral 560 ml 240 ml IV Total 100 ml 338 ml 742 ml Output Urine Total 50 ml 700 ml 200 ml # Bowel Movements 0 Result Diagram: 10/26/16 0447 10/26/16 0447 Imaging Last Impressions Chest X-Ray 10/24/16 0000 Signed Impressions: Service Date/Time: Monday, October 24, 2016 03:00 - CONCLUSION: Cardiomegaly with worsening interstitial edema and developing bibasilar atelectasis/effusions. Petros Sanchez MD Objective Remarks GENERAL: This is a well-nourished, well-developed patient, with accessory muscle use with respirations, frail appearing CARDIOVASCULAR: afib rate controlled without murmurs, gallops, or rubs. RESPIRATORY: Decreased breath sounds due to shallow breathing bilaterally. No wheezes, rales, or rhonchi. GASTROINTESTINAL: Abdomen soft, non-tender, nondistended. Normal active bowel sounds MUSCULOSKELETAL: Bilateral hyperpigmentation lower extremities, right lateral skin laceration is about the same. Otherwise Extremities without clubbing, cyanosis, but there is +1 edema bilateral lower extremities NEURO: Alert and oriented 4, moves all 4 extremities weakly A/P Problem List: (1) CHF (congestive heart failure) ICD Code: I50.9 - Heart failure, unspecified Status: Acute Plan: Acute exacerbation of chronic diastolic heart failure Continue metoprolol, bumex We'll hold off on ANGELES inhibitor due to arf ST negative 04/2016 ECHO shows right sided heart failure (2) Hyponatremia ICD Code: E87.1 - Hyponatremia Status: Acute Plan: Related to congestive heart failure and volume overload We'll continue to diuresis and follow sodium improved (3) Skin tear of right lower leg without complication ICD Code: S81.811A - Laceration without foreign body, right lower leg, initial encounter Status: Chronic Plan: improved Would recommend continue fluid management as the area slow to heal due to edema Positive MRSA and wound on cultures (09/2016) Bactroban (4) Hyperkalemia ICD Code: E87.5 - Hyperkalemia Status: Acute Plan: 4.3 today improved with bumex (5) Neuropathic pain ICD Code: M79.2 - Neuralgia and neuritis, unspecified Status: Chronic Plan: continue Patient's home medications for pain and follow clinically (6) Atrial fibrillation ICD Code: I48.91 - Unspecified atrial fibrillation Status: Acute Plan: HR stable, Elevated trop, cardio consult appreciated, continue medical management cont telemetry, Cardizem gtt decreased (7) Acute renal failure ICD Code: N17.9 - Acute renal failure Status: Acute Plan: Probably due to aggressive diuresis Continue with monitoring fluid balance and avoid nephrotoxic medications Catheter placed for accurate ins and outs (8) Sepsis due to pneumonia ICD Code: J18.9 - Pneumonia, unspecified organism; A41.9 - Sepsis, unspecified organism Plan: Patient with tachycardia, leukocytosis related to acute changes and a chest x-ray Patient with multiple drug allergies and vancomycin/aztreonam have been prescribed for possible hospital associated pneumonia We'll taper accordingly as symptoms may be related to acute AR also. VQ scanned cancelled as patient frail and refused (9) Acute myocardial infarction ICD Code: I21.3 - ST elevation (STEMI) myocardial infarction of unspecified site Plan: Continue with medical management, beta jeff, heparin Poor candidate for heart catheterization due to pulmonary disease (10) Constipation ICD Code: K59.00 - Constipation Status: Acute Plan: senna bid Assessment and Plan The decision was made for DO NOT RESUSCITATE status during this hospital encounter. Hospice consult pending, palliative care consultation appreciated Discharge Planning possible to hospice Problem Qualifiers (1) CHF (congestive heart failure): Gabbie Young MD Oct 26, 2016 11:03
[2016-10-26] MEDS: MUPIROCIN 2% OINT 22 GM TUBE TOPICAL SCH (11:26)
[2016-10-26] MEDS: SENNOSIDES 8.6 MG TAB PO SCH ×2 (11:28→20:37)
[2016-10-26] MEDS: LACTULOSE SYRUP 20 GM/30 ML CUP PO PRN (13:45)
--- NOTE | 2016-10-26 15:25 | PD.CARD.PN ---
Objective Vital Signs / I&O Vital Signs Date Time Temp Pulse Resp B/P (MAP) Pulse Ox O2 Delivery O2 Flow Rate FiO2 10/26/16 13:00 100 10/26/16 13:00 100 20 116/72 (87) 96 10/26/16 12:00 97.6 102 25 103/79 (87) 96 10/26/16 12:00 102 10/26/16 11:00 96 10/26/16 11:00 96 21 112/83 (93) 95 10/26/16 10:00 90 10/26/16 10:00 90 19 94/80 (85) 96 10/26/16 09:00 96 23 140/72 (94) 90 10/26/16 08:00 114 31 125/93 (104) 95 10/26/16 08:00 112 10/26/16 08:00 95 Non-Rebreather 15.00 10/26/16 07:45 96 Non-Rebreather 15.00 96 10/26/16 07:40 94 50 10/26/16 07:00 93 Bi-Pap 50 10/26/16 07:00 97.8 106 27 128/82 (97) 93 10/26/16 06:00 102 10/26/16 06:00 102 19 136/96 (109) 95 10/26/16 05:30 93 50 10/26/16 05:00 108 24 121/81 (94) 95 10/26/16 04:00 97.3 112 24 111/82 (92) 93 10/26/16 04:00 112 10/26/16 03:00 102 22 110/77 (88) 95 10/26/16 02:00 124 10/26/16 02:00 124 20 110/84 (93) 94 10/26/16 01:15 95 50 10/26/16 01:00 124 16 100/75 (83) 95 10/26/16 00:00 97.0 92 16 94/68 (77) 97 10/26/16 00:00 92 10/25/16 23:15 92 50 10/25/16 23:15 Bi-Pap 50 10/25/16 23:00 116 27 108/81 (90) 87 10/25/16 22:00 126 10/25/16 22:00 126 20 129/85 (100) 98 10/25/16 21:00 110 26 117/89 (98) 93 10/25/16 20:10 94 Non-Rebreather 15.00 10/25/16 20:00 98.3 104 27 119/73 (88) 93 10/25/16 20:00 104 10/25/16 19:00 102 23 121/75 (90) 93 10/25/16 18:30 102 26 123/81 (95) 93 10/25/16 18:00 98 10/25/16 18:00 98 27 110/78 (89) 91 10/25/16 17:30 102 25 115/72 (86) 97 10/25/16 17:15 94 19 98/67 (77) 96 10/25/16 17:00 100 21 108/77 (87) 93 10/25/16 16:45 98 25 109/80 (90) 93 10/25/16 16:30 96 24 107/80 (89) 91 10/25/16 16:15 100 28 105/70 (82) 93 10/25/16 16:00 97.5 94 19 86/64 (71) 96 10/25/16 16:00 100 10/25/16 15:45 96 25 100/73 (82) 93 10/25/16 15:30 94 23 107/76 (86) 94 I/O 10/25/16 10/25/16 10/25/16 10/26/16 10/26/16 10/26/16 07:00 15:00 23:00 07:00 15:00 23:00 Intake Total 100 ml 898 ml 982 ml Output Total 50 ml 700 ml 200 ml Balance 50 ml 198 ml 782 ml Intake Oral 560 ml 240 ml IV Total 100 ml 338 ml 742 ml Output Urine Total 50 ml 700 ml 200 ml # Bowel Movements 0 Laboratory Laboratory Tests Test 10/25/16 17:30 10/26/16 04:47 Nasal Screen MRSA (PCR) MRSA NOT DETECTED White Blood Count 23.1 TH/MM3 Red Blood Count 3.70 MIL/MM3 Hemoglobin 11.7 GM/DL Hematocrit 34.7 % Mean Corpuscular Volume 93.8 FL Mean Corpuscular Hemoglobin 31.7 PG Mean Corpuscular Hemoglobin Concent 33.8 % Red Cell Distribution Width 13.2 % Platelet Count 421 TH/MM3 Mean Platelet Volume 7.6 FL Neutrophils (%) (Auto) 87.9 % Lymphocytes (%) (Auto) 4.8 % Monocytes (%) (Auto) 6.6 % Eosinophils (%) (Auto) 0.3 % Basophils (%) (Auto) 0.4 % Neutrophils # (Auto) 20.4 TH/MM3 Lymphocytes # (Auto) 1.1 TH/MM3 Monocytes # (Auto) 1.5 TH/MM3 Eosinophils # (Auto) 0.1 TH/MM3 Basophils # (Auto) 0.1 TH/MM3 CBC Comment AUTO DIFF Differential Comment AUTO DIFF CONFIRMED Blood Urea Nitrogen 47 MG/DL Creatinine 1.80 MG/DL Random Glucose 134 MG/DL Calcium Level 9.5 MG/DL Magnesium Level 2.2 MG/DL Sodium Level 129 MEQ/L Potassium Level 4.3 MEQ/L Chloride Level 93 MEQ/L Carbon Dioxide Level 26.4 MEQ/L Anion Gap 10 MEQ/L Estimat Glomerular Filtration Rate 27 ML/MIN Troponin I 2.32 NG/ML Assessment and Plan Assessment and Plan Has WA by ecg and cardiac enzymes.. Will check troponin and further ecg. Walter Lord MD Oct 26, 2016 15:25
[2016-10-26] MEDS: BENZONATATE 100 MG CAP PO PRN (17:21)
[2016-10-26] MEDS: MAGNESIUM HYDROXIDE SUSP 30 ML CUP PO PRN (17:21)
--- NOTE | 2016-10-26 19:45 | HHI.HCPN ---
Reason for visit a. To assist with evaluation and management of symptoms including: dyspnea ; constipation; nausea; edema; weakness; pain b. To assist medical decision maker(s) with: better understanding of current medical conditions; weighing benefits/burdens of medical treatment options; making medical treatment decisions. . Subjective/Interval History Ms. Hassan is awake and alert at time of my visit. She reports pain is well controlled. She is tolerating nasal cannula at time of my visit but has required the non-breather intermittently. She reports having some nausea and "dry-heaving" this AM which was helped by the odansetron. She had trouble sleeping because her room is close to the door and the noise keeps her awake. No bowel movement today. She has complained of diaphoretic episodes though she has not appeared febrile. No use of prn opiates or benzos in the last 24 hours. Cardiology (Dr. Lord) has seen the patient. He thinks she has very advanced disease. He felt she was a poor candidate for a catheterization at this time. Hospice came to speak to the patient , but she did not want to talk to them until her stepson arrives. He is driving from [place] and is scheduled to be here on 10/27/16. The patient has completed a living will and designation of health care surrogate. Cultures remain negative. WBC up to 23.1. Renal function and sodium declining with diuresis. .Troponin still elevated but coming down. . . Family/friend interactions No interactions. . Advance Directives Living Will: Copy in medical record Health Care Surrogate: Copy in medical record Durable Power of Cell Operator: Never completed Advance Directive Specifics Date completed: Living will and health care surrogate designation completed on 10/25/16 . . Health Care Surrogate(s): She has designated her thiago -- Jaren Escobar -- to serve as her surrogate. . . Documented care wishes: She has completed a typical Sd living will. She does not want life prolonging measures if she is found to have a terminal or end stage condition or persistent vegetative state. . Significant change in goals: None . Objective Vital Signs Date Time Temp Pulse Resp B/P (MAP) Pulse Ox O2 Delivery O2 Flow Rate FiO2 10/26/16 18:00 106 10/26/16 18:00 102 16 119/79 (92) 98 10/26/16 17:00 106 21 127/84 (98) 95 8/22/17 16:00 102 10/26/16 16:00 97.7 102 16 133/75 (94) 99 10/26/16 15:00 97.5 102 21 131/90 (104) 98 10/26/16 15:00 102 10/26/16 14:00 104 10/26/16 14:00 104 37 118/75 (89) 86 10/26/16 13:00 100 10/26/16 13:00 100 20 116/72 (87) 96 10/26/16 12:00 97.6 102 25 103/79 (87) 96 10/26/16 12:00 102 10/26/16 11:00 96 10/26/16 11:00 96 21 112/83 (93) 95 10/26/16 10:00 90 10/26/16 10:00 90 19 94/80 (85) 96 10/26/16 09:00 96 23 140/72 (94) 90 10/26/16 08:00 114 31 125/93 (104) 95 10/26/16 08:00 112 10/26/16 08:00 95 Non-Rebreather 15.00 10/26/16 07:45 96 Non-Rebreather 15.00 96 10/26/16 07:40 94 50 10/26/16 07:00 93 Bi-Pap 50 10/26/16 07:00 97.8 106 27 128/82 (97) 93 10/26/16 06:00 102 10/26/16 06:00 102 19 136/96 (109) 95 10/26/16 05:30 93 50 10/26/16 05:00 108 24 121/81 (94) 95 10/26/16 04:00 97.3 112 24 111/82 (92) 93 10/26/16 04:00 112 10/26/16 03:00 102 22 110/77 (88) 95 10/26/16 02:00 124 10/26/16 02:00 124 20 110/84 (93) 94 10/26/16 01:15 95 50 10/26/16 01:00 124 16 100/75 (83) 95 10/26/16 00:00 97.0 92 16 94/68 (77) 97 10/26/16 00:00 92 10/25/16 23:15 92 50 10/25/16 23:15 Bi-Pap 50 10/25/16 23:00 116 27 108/81 (90) 87 10/25/16 22:00 126 10/25/16 22:00 126 20 129/85 (100) 98 10/25/16 21:00 110 26 117/89 (98) 93 10/25/16 20:10 94 Non-Rebreather 15.00 10/25/16 20:00 98.3 104 27 119/73 (88) 93 10/25/16 20:00 104 . Physical Exam CONSTITUTIONAL/GENERAL: This is a pale, adequately nourished patient, in no apparent distress in an ICU bed. TUBES/LINES/DRAINS: Peripheral IV; Sheffield catheter; Nasal cannula 02. SKIN: No jaundice, rashes. Skin tear RLE. Ecchymoses on all extremities. Skin temperature appropriate. Not diaphoretic. EYES: Pupils equal and round. Extraocular motions intact. No scleral icterus. No injection or drainage. Fundi not examined. ENT: Hearing grossly normal. Nose without bleeding or purulent drainage. Throat without visible erythema, exudates, masses, or lesions. Dentures. NECK: Trachea midline. Supple, nontender. CARDIOVASCULAR: Irregularly irregular rhythm without murmurs, gallops, or rubs. JVD is present. RESPIRATORY/CHEST: Symmetric, unlabored respirations. Breath sounds equal bilaterally. Diminshed at bases, but no crackles /wheezes. GASTROINTESTINAL: Abdomen distended, moderately firm, non-tender. No hepato- splenomegaly, or palpable masses. No guarding. Bowel sounds present. GENITOURINARY: Without palpable bladder distension. Sheffield catheter in place. MUSCULOSKELETAL: 1-2+ lower extremity edema. No calf tenderness. No mottling or clubbing. LYMPHATICS: Not examined. NEUROLOGICAL: Awake and alert. Motor and sensory grossly within normal limits. Follows commands. Cognitively sharp. Moves all extremities. PSYCHIATRIC: No obvious anxiety/depression. No apparent hallucinations or other psychotic thought process. . Diagnostic Tests Laboratory Laboratory Tests Test 10/24/16 07:35 10/24/16 08:03 10/25/16 02:40 10/25/16 05:40 White Blood Count 19.5 TH/MM3 (4.0-11.0) 20.1 TH/MM3 (4.0-11.0) Red Blood Count 3.57 MIL/MM3 (4.00-5.30) 3.90 MIL/MM3 (4.00-5.30) Hemoglobin 11.7 GM/DL (11.6-15.3) 12.3 GM/DL (11.6-15.3) Hematocrit 33.5 % (35.0-46.0) 36.4 % (35.0-46.0) Mean Corpuscular Volume 93.7 FL (80.0-100.0) 93.4 FL (80.0-100.0) Mean Corpuscular Hemoglobin 32.8 PG (27.0-34.0) 31.6 PG (27.0-34.0) Mean Corpuscular Hemoglobin Concent 35.0 % (32.0-36.0) 33.8 % (32.0-36.0) Red Cell Distribution Width 13.0 % (11.6-17.2) 13.7 % (11.6-17.2) Platelet Count 409 TH/MM3 (150-450) 413 TH/MM3 (150-450) Mean Platelet Volume 6.5 FL (7.0-11.0) 7.1 FL (7.0-11.0) Neutrophils (%) (Auto) 85.5 % (16.0-70.0) 91.8 % (16.0-70.0) Lymphocytes (%) (Auto) 4.8 % (9.0-44.0) 3.2 % (9.0-44.0) Monocytes (%) (Auto) 6.2 % (0.0-8.0) 4.7 % (0.0-8.0) Eosinophils (%) (Auto) 0.2 % (0.0-4.0) 0.0 % (0.0-4.0) Basophils (%) (Auto) 3.3 % (0.0-2.0) 0.3 % (0.0-2.0) Neutrophils # (Auto) 16.8 TH/MM3 (1.8-7.7) 18.5 TH/MM3 (1.8-7.7) Lymphocytes # (Auto) 0.9 TH/MM3 (1.0-4.8) 0.6 TH/MM3 (1.0-4.8) Monocytes # (Auto) 1.2 TH/MM3 (0-0.9) 0.9 TH/MM3 (0-0.9) Eosinophils # (Auto) 0.0 TH/MM3 (0-0.4) 0.0 TH/MM3 (0-0.4) Basophils # (Auto) 0.6 TH/MM3 (0-0.2) 0.1 TH/MM3 (0-0.2) CBC Comment DIFF FINAL DIFF FINAL Differential Comment Blood Urea Nitrogen 18 MG/DL (7-18) 31 MG/DL (7-18) Creatinine 1.10 MG/DL (0.50-1.00) 1.70 MG/DL (0.50-1.00) Random Glucose 130 MG/DL (74-106) 158 MG/DL (74-106) Calcium Level 9.4 MG/DL (8.5-10.1) 9.2 MG/DL (8.5-10.1) Magnesium Level 1.9 MG/DL (1.5-2.5) 2.2 MG/DL (1.5-2.5) Sodium Level 128 MEQ/L (136-145) 131 MEQ/L (136-145) Potassium Level 5.2 MEQ/L (3.5-5.1) 4.9 MEQ/L (3.5-5.1) Chloride Level 92 MEQ/L (98-107) 93 MEQ/L (98-107) Carbon Dioxide Level 27.8 MEQ/L (21.0-32.0) 28.0 MEQ/L (21.0-32.0) Anion Gap 8 MEQ/L (5-15) 10 MEQ/L (5-15) Estimat Glomerular Filtration Rate 48 ML/MIN (>89) 29 ML/MIN (>89) Blood Gas Puncture Site RT RADIAL LT RADIAL Blood Gas Patient Temperature 98.6 98.6 Blood Gas HCO3 28 mmol/L (22-26) 28 mmol/L (22-26) Blood Gas Base Excess 3.7 mmol/L (-2-2) 3.9 mmol/L (-2-2) Blood Gas Oxygen Saturation 90 % (90-100) 86 % (90-100) Arterial Blood pH 7.40 (7.380-7.420) 7.46 (7.380-7.420) Arterial Blood Partial Pressure CO2 46 mmHG (38-42) 40 mmHG (38-42) Arterial Blood Partial Pressure O2 62 mmHG (61-120) 54 mmHG (61-120) Arterial Blood Oxygen Content 15.3 Vol % (12.0-20.0) 14.8 Vol % (12.0-20.0) Arterial Blood Carboxyhemoglobin 1.8 % (0-4) 1.6 % (0-4) Arterial Blood Methemoglobin 0.9 % (0-2) 0.8 % (0-2) Blood Gas Hemoglobin 12.1 G/DL (12.0-16.0) 12.3 G/DL (12.0-16.0) Oxygen Delivery Device NASAL CANNULA NASAL CANNULA Blood Gas Liter Flow 3 L/M 3 L/M Total Creatine Kinase 95 U/L (26-192) Troponin I 3.17 NG/ML (0.02-0.05) Test 10/25/16 08:20 10/25/16 10:45 10/25/16 15:18 10/25/16 17:30 Lactic Acid Level 2.6 mmol/L (0.4-2.0) 2.5 mmol/L (0.4-2.0) Troponin I 2.57 NG/ML (0.02-0.05) Nasal Screen MRSA (PCR) MRSA NOT DETECTED (NOT Test 10/26/16 04:47 10/26/16 16:15 White Blood Count 23.1 TH/MM3 (4.0-11.0) Red Blood Count 3.70 MIL/MM3 (4.00-5.30) Hemoglobin 11.7 GM/DL (11.6-15.3) Hematocrit 34.7 % (35.0-46.0) Mean Corpuscular Volume 93.8 FL (80.0-100.0) Mean Corpuscular Hemoglobin 31.7 PG (27.0-34.0) Mean Corpuscular Hemoglobin Concent 33.8 % (32.0-36.0) Red Cell Distribution Width 13.2 % (11.6-17.2) Platelet Count 421 TH/MM3 (150-450) Mean Platelet Volume 7.6 FL (7.0-11.0) Neutrophils (%) (Auto) 87.9 % (16.0-70.0) Lymphocytes (%) (Auto) 4.8 % (9.0-44.0) Monocytes (%) (Auto) 6.6 % (0.0-8.0) Eosinophils (%) (Auto) 0.3 % (0.0-4.0) Basophils (%) (Auto) 0.4 % (0.0-2.0) Neutrophils # (Auto) 20.4 TH/MM3 (1.8-7.7) Lymphocytes # (Auto) 1.1 TH/MM3 (1.0-4.8) Monocytes # (Auto) 1.5 TH/MM3 (0-0.9) Eosinophils # (Auto) 0.1 TH/MM3 (0-0.4) Basophils # (Auto) 0.1 TH/MM3 (0-0.2) CBC Comment AUTO DIFF Differential Comment AUTO DIFF CONFIRMED Blood Urea Nitrogen 47 MG/DL (7-18) Creatinine 1.80 MG/DL (0.50-1.00) Random Glucose 134 MG/DL (74-106) Calcium Level 9.5 MG/DL (8.5-10.1) Magnesium Level 2.2 MG/DL (1.5-2.5) Sodium Level 129 MEQ/L (136-145) Potassium Level 4.3 MEQ/L (3.5-5.1) Chloride Level 93 MEQ/L (98-107) Carbon Dioxide Level 26.4 MEQ/L (21.0-32.0) Anion Gap 10 MEQ/L (5-15) Estimat Glomerular Filtration Rate 27 ML/MIN (>89) Troponin I 2.32 NG/ML (0.02-0.05) 1.77 NG/ML (0.02-0.05) . Result Diagram: 10/26/16 0447 10/26/16 0447 Microbiology Microbiology Date/Time Source Procedure Growth Status 10/24/16 10:55 Blood Peripheral Aerobic Blood Culture - Preliminary NO GROWTH IN 2 DAYS Resulted 10/24/16 10:55 Blood Peripheral Anaerobic Blood Culture - Preliminary NO GROWTH IN 2 DAYS Resulted 10/24/16 10:45 Blood Peripheral Aerobic Blood Culture - Preliminary NO GROWTH IN 2 DAYS Resulted 10/24/16 10:45 Blood Peripheral Anaerobic Blood Culture - Preliminary NO GROWTH IN 2 DAYS Resulted . Imaging Last Impressions Chest X-Ray 10/25/16 0000 Signed Impressions: Service Date/Time: Tuesday, October 25, 2016 07:57 - CONCLUSION: 1. Cardiomegaly with minimally improved positive fluid balance. 2. Stable small bilateral pleural effusions and associated lower lobe airspace disease. Edvin Broussard MD . Assessment and Plan Disease Oriented Problem List: (1) Diastolic heart failure (2) Pulmonary hypertension (3) Sepsis due to pneumonia (4) Atrial fibrillation with RVR (5) Mitral valve regurgitation (6) Tricuspid valve regurgitation (7) Acute kidney injury (8) Asthma (9) Hyperkalemia (10) Hyponatremia Symptom Scale: (1) Pain 0-10 Scale: Unable to quantify Comment: Patient has chronic musculoskeletal pain -- worse in her neck - for which she uses a 100 mcg/hr fentanyl patch and 2-3 Percocet 10's per day. More recently she has had some abdominal pain. She gets occasional chest pain. She has pain in her lower extremities when they are highly edematous. She has a difficult time quantifying or qualifying the pain. Pain is controlled today without use of PRN opiates. . (2) Dyspnea 0-10 Scale: 2 Comment: She reports dyspnea is controlled to her satisfaction with a non- rebreather mask in place. Also has periods when she is comfortable on nasal cannula 02 only. . . (3) Nausea 0-10 Scale: Unable to quantify Comment: Has been having at least 2 episodes of bad nausea per day. Sometimes with vomiting or dry heaves. . (4) Pedal edema 0-10 Scale: Unable to quantify Comment: Since being hospitalized she reports her lower extremities are 1/2 the size they were at home. . (5) Constipation 0-10 Scale: 0 Comment: She reports constipation as a chronic problem. Has not had a satisfactory bowel movement since admission. . . Pertinent Non-Medical Issues Psychosocial: Lives alone. Only family is a stepson (Louis Escobar) who lives in [place]. Unclear she will be able to live alone again. Spiritual: [employer]. Attended pentecostal more regularly when she was less frail. Legal: Completed advance directives during this admission on 10/25/16 Ethical issues impacting care: Currently appears capacitated to make her own healthcare decisions. . Important Contacts * Louis Hassan (step- son and health care surrogate) [phone] Lives in [place]. . Prognosis Though the patient has a number of medical problems, she was functioning at a fairly high level up until the last weeks to months. It is not yet clear to me what might be reversible and what might be end stage disease. A look at her history over the last year shows multiple ER visits and suggests someone who is failing and declining. She says she is losing weight. Could it be she does not take her meds as directed at home and would be in much better shape if in a monitored environment? On top of her ongoing problems she has had new onset a- fib with RVR and possibly an associated UT. She has pulmonary hypertension and some valvular disease. It is becoming hard to control her congestive symptoms without exacerbating renal function and sodium levels. . . Code Status: No Code Plan == Code Status: NO CODE per patient's direct request. == Decision making: Though she takes Aricept and there is a diagnosis of dementia on her chart, at time of my visits, she has appeared cognitively sharp with insight into her current condition. I deem her capacitated to make her own health care decisions. Should she become incapacitated, she has designated her stepson -- Louis Escobar -- to be her surrogate. == Goals of medical treatment: Patient is clear that she does not want to be resuscitated. Other goals are less clear. She wants to speak to her stepson before deciding further. Until we get further guidance, goals will be aggressive short of resuscitation. == Pain: Patient has chronic musculo-skeletal pain worse in the neck. She is normally controlled with a 100 mcg/hr fentanyl patch and Up to 3 Percocet 10 per day for breakthrough pain. This pain appears controlled here. No further recommendations at this time. == Dyspnea : Probably secondary to diastolic heart failure, pulmonary hypertension, COPD, possible pnuemonia, and her tachycardia. Controlled with non-rebreather mask. Hopefully, will improve with diuresis, anti-biotics, rate control. She has orders for morphine and lorazepam. Currently, those orders are for pain and anxiety respectively -- recommend that we also permit these for dyspnea or tachypnea. == Constipation: This is a chronic problem for the patient. Now on scheduled senna in addition to prn's. == Weakness: The rapid onset of this makes me wonder if this was secondary to electrolyte abnormalities -- e.g. potassium. It will be interesting to see if strength improves with electrolyte correction. == Nausea: In case part of her nausea is secondary to her level of constipation, would encourage an aggressive bowel protocol as noted above. If nausea persists, may want to schedule an anti-emetic. She is not in good shape to consider EGD at this time unless there are no good alternatives. == Disposition: Her frequent ER usage and apparent decline makes me wonder if she is able to live alone any longer. I wonder if she is able to take her medications correctly at this point. If cardiology feels life expectancy is 6 months or less or patient opts for comfort measures, she would certainly be a candidate for hospice care. == Hospice has been consulted. Patient does not want to speak to hospice until her stepson arrives (expected 10/27/16). == Palliative care will continue to follow to assist with symptom management and to further clarify goals of medical treatment as the clinical course evolves. . Attestation To help prompt me to consider important information that might be impacting today's encounter and assessment, information from prior notes written by myself or my colleagues may have been "brought forward" into today's note. My signature on this note, however, is an attestation that I personally performed the exam, history, and/or decision-making noted today, and, unless otherwise indicated, the interactions with patient, family, and staff as well as the review of records all occurred today. I also attest that the listed assessment and stated plan reflect my best clinical judgment today based on the combination of historical information, prior notes, and today's exam/ interactions. When time spent is documented, it refers only to time spent today by the signer, or if indicated, combined time spent today by collaborating physician/nurse practitioner. Cliff Ramachandran MD Oct 26, 2016 19:44
[2016-10-26] MEDS: traZODone HCL 50 MG TAB PO SCH (20:37)
[2016-10-26] MEDS: DILTIAZEM INJ 125 MG in SODIUM CHLORIDE 0.9% INJ 100 ML IV PRN (21:22)
[2016-10-27] VITALS (27 sets, daily range): BP systolic 87–144; BP diastolic 57–81; PULSE 66–90; RESP 9–26; TEMP 97.4–98.2; O2SAT 94–100
[2016-10-27] MEDS: CHLORHEXIDINE GLUCONATE 2 % 1 PACK (2 CLOTHS)(taper/protocol) TOPICAL SCH (04:00)
[2016-10-27 05:20] LABS: AUTOMATED NEUTROPHIL # 17.8 TH/MM3 (1.8-7.7); BASOPHIL # 0.4 TH/MM3 (0-0.2); BASOPHIL % 2.1 % (0.0-2.0); EOSINOPHIL # 0.2 TH/MM3 (0-0.4); EOSINOPHIL % 1.1 % (0.0-4.0); HEMATOCRIT 33.8 % (35.0-46.0); LYMPHOCYTE # 1.3 TH/MM3 (1.0-4.8); MEAN CELL VOLUME 94.9 FL (80.0-100.0); MEAN CORPUSCULAR HEMOGLOBIN 30.7 PG (27.0-34.0); MEAN CORPUSCULAR HGB CONC 32.4 % (32.0-36.0); MONO % 7.2 % (0.0-8.0); NEUT % 83.6 % (16.0-70.0); PLATELET COUNT 459 TH/MM3 (150-450); RED BLOOD COUNT 3.56 MIL/MM3 (4.00-5.30); RED CELL DISTRIBUTION WIDTH 13.7 % (11.6-17.2); WHITE BLOOD COUNT 21.2 TH/MM3 (4.0-11.0)
[2016-10-27] MEDS: AZTREONAM INJ 1,000 MG in SODIUM CHLORIDE 0.9% INJ 100 ML IV SCH ×2 (05:27→12:18)
[2016-10-27 05:33] LABS: POTASSIUM 4.2 MEQ/L (3.5-5.1)
[2016-10-27 05:36] LABS: BICARBONATE 30.2 MEQ/L (21.0-32.0)
[2016-10-27 05:43] LABS: HEMO FLAGS AUTO DIFF
[2016-10-27 07:09] LABS: SCAN/DIFF AUTO DIFF CONFIRMED
[2016-10-27] MEDS: ENOXAPARIN SODIUM 60 MG/0.6 ML SYRINGE SQ SCH (08:43)
[2016-10-27] MEDS: ASPIRIN 325 MG TAB PO SCH (08:43)
[2016-10-27] MEDS: SENNOSIDES 8.6 MG TAB PO SCH ×2 (08:43→20:01)
[2016-10-27] MEDS: PRAVASTATIN SOD 40 MG TAB PO SCH (08:43)
[2016-10-27] MEDS: BUMETANIDE INJ 1 MG/4 ML VIAL IV PUSH SCH (08:44)
[2016-10-27] MEDS: LATANOPROST 0.005% OPHT SOLN 2.5 ML BTL EACH EYE SCH ×2 (08:44→20:02)
[2016-10-27] MEDS: METOPROLOL TARTRATE 25 MG TAB PO SCH ×2 (08:44→20:01)
[2016-10-27] MEDS: FOLIC ACID 1 MG TAB PO SCH (08:44)
[2016-10-27] MEDS: SODIUM CHLORIDE 0.9% FLUSH 10 ML FLUSH IV FLUSH SCH ×2 (08:44→20:02)
[2016-10-27] MEDS ORDERED: SOD PHOSPHATE/SOD BIPHOSPHATE (ADULT) ENEMA 133ML RECTAL ONE (10:45)
--- NOTE | 2016-10-27 11:21 | RADRPT ---
EXAM DATE/TIME: 10/27/2016 10:57 [facility] COMPARISON: No previous studies available for comparison. INDICATIONS : Abdominal and nausea MEDICAL HISTORY : Constipation SURGICAL HISTORY : Hip replacement ENCOUNTER: Subsequent ACUITY: 1 day PAIN SCORE: 3/10 LOCATION: Abdomen FINDINGS: Left hip arthroplasty. Degenerative changes of the spine with mild dextroscoliosis, and previous vert ebral plasty at the L2 level. There is moderate gaseous distention of what is felt to represent large bowel likely transverse colon and cecum. Nondilated small bowel loops are noted, gas-filled. CONCLUSION: Nonspecific bowel gas pattern with dilated colon seen. Yoni Lopez MD on October 27, 2016 at 11:18 Board Certified Radiologist. This report was verified electronically.
[2016-10-27] MEDS: DILTIAZEM-CD 180 MG CAP ER PO SCH (11:54)
[2016-10-27] MEDS: MUPIROCIN 2% OINT 22 GM TUBE TOPICAL SCH (11:58)
[2016-10-27] MEDS: ONDANSETRON HCL 4 MG/2 ML VIAL IVP PRN (12:18)
[2016-10-27] MEDS: BENZONATATE 100 MG CAP PO PRN (12:38)
[2016-10-27] MEDS ORDERED: BISACODYL 10 MG SUPP RECTAL ONE (14:00)
--- NOTE | 2016-10-27 14:00 | HHI.HCPN ---
Reason for visit a. To assist with evaluation and management of symptoms including: dyspnea ; constipation; nausea; edema; weakness; pain b. To assist medical decision maker(s) with: better understanding of current medical conditions; weighing benefits/burdens of medical treatment options; making medical treatment decisions. . Subjective/Interval History Ms. Hassan is awake and alert at time of my visit. Her stepson has arrived from [place] which has lifted her spirits. Pain remains well managed without need for PRNs above her fentanyl patch. She does describe some generalized weakness and achiness that seems to involve all muscle groups. She is not aware of ameliorating or exacerbating factors and can 't give it a number. She has denied pain to the nurse and nursing pain scores are "0." Nausea persists. She had a couple of episodes already today without vomiting. Nurse reports some nausea occurred after lactulose administration. Appetite remains very poor. In spite of increasing the bowel protocol (scheduled Senna, MOM, lactulose, and recent enema) bowels have not moved yet. Dyspnea remains controlled with 02 supplementation. Back on non-rebreather. . . Family/friend interactions spoke with patient and her stepson at bedside for about 25 minutes. I reviewed her medical problems, her decline in functional status over the last months, her multiple ER visits, and the hospital course. We discussed how it has become harder to manage her symptoms as treating the congestive symptoms impacts kidney function and electrolytes. We spoke about her low probability of being able to function on her own and the high probability of more exacerbations in the near future. We discussed aggressive care vs hospice. I answered all questions. Patient and stepson are leaning toward hospice enrollment as of tomorrow. They have met with a hospice admission nurse to discuss hospice services earlier today. . Advance Directives Living Will: Copy in medical record Health Care Surrogate: Copy in medical record Durable Power of Human Services Supervisor: Never completed Advance Directive Specifics Date completed: Living will and health care surrogate designation completed on 10/25/16 . . Health Care Surrogate(s): She has designated her thiago -- Jaren Escobar -- to serve as her surrogate. . . Documented care wishes: She has completed a typical Md living will. She does not want life prolonging measures if she is found to have a terminal or end stage condition or persistent vegetative state. . Objective Vital Signs Date Time Temp Pulse Resp B/P (MAP) Pulse Ox O2 Delivery O2 Flow Rate FiO2 10/27/16 13:00 78 17 89/65 (73) 99 10/27/16 12:00 98.1 74 14 98/73 (81) 96 10/27/16 12:00 72 10/27/16 11:00 66 9 87/68 (74) 96 10/27/16 10:00 68 10/27/16 10:00 68 11 87/61 (70) 96 10/27/16 09:00 80 17 97/68 (78) 98 10/27/16 08:00 79 10/27/16 08:00 86 23 100/57 (71) 10/27/16 07:31 78 19 98/64 (75) 100 10/27/16 07:00 96 Non-Rebreather 13.00 10/27/16 07:00 97.5 76 13 103/62 (76) 100 10/27/16 06:01 74 18 110/66 (81) 99 10/27/16 06:00 78 10/27/16 05:01 76 15 89/60 (70) 98 10/27/16 04:31 86 26 94/67 (76) 94 10/27/16 04:01 97.4 82 12 99/72 (81) 99 10/27/16 04:00 82 10/27/16 03:31 76 10 97/59 (72) 98 10/27/16 02:01 80 10/27/16 02:01 80 10 95/67 (76) 100 10/27/16 01:01 86 15 114/76 (89) 100 10/27/16 00:31 80 12 111/64 (80) 98 10/27/16 00:07 98.0 88 20 115/80 (92) 96 10/27/16 00:00 90 10/26/16 23:31 88 11 113/70 (84) 100 10/26/16 23:31 88 11 113/70 (84) 100 10/26/16 23:01 90 11 105/70 (82) 100 10/26/16 22:31 96 12 111/80 (90) 100 10/26/16 22:01 102 17 120/79 (93) 99 10/26/16 22:01 102 10/26/16 21:31 102 19 116/74 (88) 98 10/26/16 21:01 100 14 121/73 (89) 97 10/26/16 21:01 100 10/26/16 20:31 96 11 116/78 (91) 100 10/26/16 20:01 97.4 100 18 107/79 (88) 97 10/26/16 20:01 100 10/26/16 20:00 98 Non-Rebreather 10.00 10/26/16 19:31 100 12 103/76 (85) 98 10/26/16 19:01 98 13 102/69 (80) 100 10/26/16 19:01 98 10/26/16 19:00 100 Non-Rebreather 13.00 10/26/16 18:00 106 10/26/16 18:00 102 16 119/79 (92) 98 10/26/16 17:00 106 21 127/84 (98) 95 10/26/16 16:00 102 10/26/16 16:00 97.7 102 16 133/75 (94) 99 10/26/16 15:00 97.5 102 21 131/90 (104) 98 10/26/16 15:00 102 10/26/16 14:00 104 10/26/16 14:00 104 37 118/75 (89) 86 Intake & Output 10/27/16 10/27/16 07:00 19:00 Intake Total 1152 ml Output Total 600 ml Balance 552 ml Intake Oral 480 ml IV Total 672 ml Output Urine Total 600 ml . Physical Exam CONSTITUTIONAL/GENERAL: This is a pale, adequately nourished patient, in no apparent distress in an ICU bed. TUBES/LINES/DRAINS: Peripheral IV; Sheffield catheter; Nasal cannula 02. SKIN: No jaundice, rashes. Skin tear RLE. Ecchymoses on all extremities. Skin temperature appropriate. Not diaphoretic. EYES: Pupils equal and round. Extraocular motions intact. No scleral icterus. No injection or drainage. Fundi not examined. ENT: Hearing grossly normal. Nose without bleeding or purulent drainage. Throat without visible erythema, exudates, masses, or lesions. Dentures. NECK: Trachea midline. Supple, nontender. CARDIOVASCULAR: Irregularly irregular rhythm without murmurs, gallops, or rubs. JVD is present. RESPIRATORY/CHEST: Symmetric, unlabored respirations. Breath sounds equal bilaterally. Diminshed at bases, but no crackles /wheezes. GASTROINTESTINAL: Abdomen distended, moderately firm, non-tender. No hepato- splenomegaly, or palpable masses. No guarding. Bowel sounds present. GENITOURINARY: Without palpable bladder distension. Sheffield catheter in place. MUSCULOSKELETAL: 1 + lower extremity edema. No calf tenderness. No mottling or clubbing. LYMPHATICS: Not examined. NEUROLOGICAL: Awake and alert. Motor and sensory grossly within normal limits. Follows commands. Cognitively sharp. Moves all extremities. PSYCHIATRIC: No obvious anxiety/depression. No apparent hallucinations or other psychotic thought process. . Diagnostic Tests Laboratory Laboratory Tests Test 10/25/16 02:40 10/25/16 05:40 10/25/16 08:20 10/25/16 10:45 Blood Gas Puncture Site LT RADIAL Blood Gas Patient Temperature 98.6 Blood Gas HCO3 28 mmol/L (22-26) Blood Gas Base Excess 3.9 mmol/L (-2-2) Blood Gas Oxygen Saturation 86 % (90-100) Arterial Blood pH 7.46 (7.380-7.420) Arterial Blood Partial Pressure CO2 40 mmHG (38-42) Arterial Blood Partial Pressure O2 54 mmHG (61-120) Arterial Blood Oxygen Content 14.8 Vol % (12.0-20.0) Arterial Blood Carboxyhemoglobin 1.6 % (0-4) Arterial Blood Methemoglobin 0.8 % (0-2) Blood Gas Hemoglobin 12.3 G/DL (12.0-16.0) Oxygen Delivery Device NASAL CANNULA Blood Gas Liter Flow 3 L/M White Blood Count 20.1 TH/MM3 (4.0-11.0) Red Blood Count 3.90 MIL/MM3 (4.00-5.30) Hemoglobin 12.3 GM/DL (11.6-15.3) Hematocrit 36.4 % (35.0-46.0) Mean Corpuscular Volume 93.4 FL (80.0-100.0) Mean Corpuscular Hemoglobin 31.6 PG (27.0-34.0) Mean Corpuscular Hemoglobin Concent 33.8 % (32.0-36.0) Red Cell Distribution Width 13.7 % (11.6-17.2) Platelet Count 413 TH/MM3 (150-450) Mean Platelet Volume 7.1 FL (7.0-11.0) Neutrophils (%) (Auto) 91.8 % (16.0-70.0) Lymphocytes (%) (Auto) 3.2 % (9.0-44.0) Monocytes (%) (Auto) 4.7 % (0.0-8.0) Eosinophils (%) (Auto) 0.0 % (0.0-4.0) Basophils (%) (Auto) 0.3 % (0.0-2.0) Neutrophils # (Auto) 18.5 TH/MM3 (1.8-7.7) Lymphocytes # (Auto) 0.6 TH/MM3 (1.0-4.8) Monocytes # (Auto) 0.9 TH/MM3 (0-0.9) Eosinophils # (Auto) 0.0 TH/MM3 (0-0.4) Basophils # (Auto) 0.1 TH/MM3 (0-0.2) CBC Comment DIFF FINAL Differential Comment Blood Urea Nitrogen 31 MG/DL (7-18) Creatinine 1.70 MG/DL (0.50-1.00) Random Glucose 158 MG/DL (74-106) Calcium Level 9.2 MG/DL (8.5-10.1) Magnesium Level 2.2 MG/DL (1.5-2.5) Sodium Level 131 MEQ/L (136-145) Potassium Level 4.9 MEQ/L (3.5-5.1) Chloride Level 93 MEQ/L (98-107) Carbon Dioxide Level 28.0 MEQ/L (21.0-32.0) Anion Gap 10 MEQ/L (5-15) Estimat Glomerular Filtration Rate 29 ML/MIN (>89) Total Creatine Kinase 95 U/L (26-192) Troponin I 3.17 NG/ML (0.02-0.05) Lactic Acid Level 2.6 mmol/L (0.4-2.0) 2.5 mmol/L (0.4-2.0) Test 10/25/16 15:18 10/25/16 17:30 10/26/16 04:47 10/26/16 16:15 Troponin I 2.57 NG/ML (0.02-0.05) 2.32 NG/ML (0.02-0.05) 1.77 NG/ML (0.02-0.05) Nasal Screen MRSA (PCR) MRSA NOT DETECTED (NOT White Blood Count 23.1 TH/MM3 (4.0-11.0) Red Blood Count 3.70 MIL/MM3 (4.00-5.30) Hemoglobin 11.7 GM/DL (11.6-15.3) Hematocrit 34.7 % (35.0-46.0) Mean Corpuscular Volume 93.8 FL (80.0-100.0) Mean Corpuscular Hemoglobin 31.7 PG (27.0-34.0) Mean Corpuscular Hemoglobin Concent 33.8 % (32.0-36.0) Red Cell Distribution Width 13.2 % (11.6-17.2) Platelet Count 421 TH/MM3 (150-450) Mean Platelet Volume 7.6 FL (7.0-11.0) Neutrophils (%) (Auto) 87.9 % (16.0-70.0) Lymphocytes (%) (Auto) 4.8 % (9.0-44.0) Monocytes (%) (Auto) 6.6 % (0.0-8.0) Eosinophils (%) (Auto) 0.3 % (0.0-4.0) Basophils (%) (Auto) 0.4 % (0.0-2.0) Neutrophils # (Auto) 20.4 TH/MM3 (1.8-7.7) Lymphocytes # (Auto) 1.1 TH/MM3 (1.0-4.8) Monocytes # (Auto) 1.5 TH/MM3 (0-0.9) Eosinophils # (Auto) 0.1 TH/MM3 (0-0.4) Basophils # (Auto) 0.1 TH/MM3 (0-0.2) CBC Comment AUTO DIFF Differential Comment AUTO DIFF CONFIRMED Blood Urea Nitrogen 47 MG/DL (7-18) Creatinine 1.80 MG/DL (0.50-1.00) Random Glucose 134 MG/DL (74-106) Calcium Level 9.5 MG/DL (8.5-10.1) Magnesium Level 2.2 MG/DL (1.5-2.5) Sodium Level 129 MEQ/L (136-145) Potassium Level 4.3 MEQ/L (3.5-5.1) Chloride Level 93 MEQ/L (98-107) Carbon Dioxide Level 26.4 MEQ/L (21.0-32.0) Anion Gap 10 MEQ/L (5-15) Estimat Glomerular Filtration Rate 27 ML/MIN (>89) Test 10/27/16 05:00 White Blood Count 21.2 TH/MM3 (4.0-11.0) Red Blood Count 3.56 MIL/MM3 (4.00-5.30) Hemoglobin 10.9 GM/DL (11.6-15.3) Hematocrit 33.8 % (35.0-46.0) Mean Corpuscular Volume 94.9 FL (80.0-100.0) Mean Corpuscular Hemoglobin 30.7 PG (27.0-34.0) Mean Corpuscular Hemoglobin Concent 32.4 % (32.0-36.0) Red Cell Distribution Width 13.7 % (11.6-17.2) Platelet Count 459 TH/MM3 (150-450) Mean Platelet Volume 7.1 FL (7.0-11.0) Neutrophils (%) (Auto) 83.6 % (16.0-70.0) Lymphocytes (%) (Auto) 6.0 % (9.0-44.0) Monocytes (%) (Auto) 7.2 % (0.0-8.0) Eosinophils (%) (Auto) 1.1 % (0.0-4.0) Basophils (%) (Auto) 2.1 % (0.0-2.0) Neutrophils # (Auto) 17.8 TH/MM3 (1.8-7.7) Lymphocytes # (Auto) 1.3 TH/MM3 (1.0-4.8) Monocytes # (Auto) 1.5 TH/MM3 (0-0.9) Eosinophils # (Auto) 0.2 TH/MM3 (0-0.4) Basophils # (Auto) 0.4 TH/MM3 (0-0.2) CBC Comment AUTO DIFF Differential Comment AUTO DIFF CONFIRMED Blood Urea Nitrogen 55 MG/DL (7-18) Creatinine 2.00 MG/DL (0.50-1.00) Random Glucose 119 MG/DL (74-106) Calcium Level 8.8 MG/DL (8.5-10.1) Sodium Level 132 MEQ/L (136-145) Potassium Level 4.2 MEQ/L (3.5-5.1) Chloride Level 93 MEQ/L (98-107) Carbon Dioxide Level 30.2 MEQ/L (21.0-32.0) Anion Gap 9 MEQ/L (5-15) Estimat Glomerular Filtration Rate 24 ML/MIN (>89) . Result Diagram: 10/27/16 0500 10/27/16 0500 Microbiology Microbiology Date/Time Source Procedure Growth Status 10/24/16 10:55 Blood Peripheral Aerobic Blood Culture - Preliminary NO GROWTH IN 3 DAYS Resulted 10/24/16 10:55 Blood Peripheral Anaerobic Blood Culture - Preliminary NO GROWTH IN 3 DAYS Resulted . Imaging Last Impressions Abdomen X-Ray 10/27/16 0000 Signed Impressions: Service Date/Time: Thursday, October 27, 2016 10:57 - CONCLUSION: Nonspecific bowel gas pattern with dilated colon seen. Yoni Lopez MD Chest X-Ray 10/25/16 0000 Signed Impressions: Service Date/Time: Tuesday, October 25, 2016 07:57 - CONCLUSION: 1. Cardiomegaly with minimally improved positive fluid balance. 2. Stable small bilateral pleural effusions and associated lower lobe airspace disease. Edvin Broussard MD . Assessment and Plan Disease Oriented Problem List: (1) Diastolic heart failure (2) Pulmonary hypertension (3) Sepsis due to pneumonia (4) Atrial fibrillation with RVR (5) Mitral valve regurgitation (6) Tricuspid valve regurgitation (7) Acute kidney injury (8) Asthma (9) Hyperkalemia (10) Hyponatremia Symptom Scale: (1) Pain 0-10 Scale: Unable to quantify Comment: Patient has chronic musculoskeletal pain -- worse in her neck - for which she normally uses a 100 mcg/hr fentanyl patch and 2-3 Percocet 10's per day. More recently she has had some abdominal pain. She gets occasional chest pain. She has pain in her lower extremities when they are highly edematous. She has a difficult time quantifying or qualifying the pain. She has described some generalized pain accompanied by weakness in all muscle groups today. Pain is controlled today without use of PRN opiates. . (2) Dyspnea 0-10 Scale: 2 Comment: She reports dyspnea is controlled to her satisfaction with a non- rebreather mask in place. Dyspnea is probably multi-factorial: COPD, long hx of asthma, ?pneumonia, pulmonary hypertension, heart failure. . . (3) Nausea 0-10 Scale: Unable to quantify Comment: Has been having at least 2 episodes of bad nausea per day. Sometimes with vomiting or dry heaves. Helped by odansetron. May be related to her constipation? Gastroparesis? . (4) Pedal edema 0-10 Scale: Unable to quantify Comment: Since being hospitalized she reports her lower extremities are 1/2 the size they were at home. . (5) Constipation 0-10 Scale: 0 Comment: She reports constipation as a chronic problem. Has not had a satisfactory bowel movement since admission in spite of an advancing bowel protocol. . . Pertinent Non-Medical Issues Psychosocial: Lives alone. Only family is a stepson (Louis Escobar) who lives in [place]. Louis is now visiting and may be in town until mid November. Unclear she will be able to live alone again. Spiritual: Pres[employer]. Attended yazdanism more regularly when she was less frail. Legal: Completed advance directives during this admission on 10/25/16. Living will and health care surrogate completed. Ethical issues impacting care: Currently appears capacitated to make her own healthcare decisions. . Important Contacts * Louis Hassan (step- son and health care surrogate) [phone] Lives in [place]. . Prognosis Though the patient has a number of medical problems, she was functioning at a fairly high level up until the last weeks to months. It now appears that many of her problems will not be reversible. A look at her history over the last year shows multiple ER visits and suggests someone who is failing and declining. She says she is losing weight. Could it be she does not take her meds as directed at home and would be in much better shape if in a monitored environment? On top of her ongoing problems she has had new onset a-fib with RVR and an associated KS. She has pulmonary hypertension and some valvular disease. It is becoming hard to control her severe congestive symptoms without exacerbating renal function and sodium levels. . . Code Status: No Code Plan == Code Status: NO CODE per patient's direct request. == Decision making: Though she takes Aricept and there is a diagnosis of dementia on her chart, at time of my visits, she has appeared cognitively sharp with insight into her current condition. I deem her capacitated to make her own health care decisions. Should she become incapacitated, she has designated her stepson -- Louis Escobar -- to be her surrogate. Now that her stepson is in town, most of her decision making is shared with him. == Goals of medical treatment: Patient is clear that she does not want to be resuscitated. Her current plan after discussing with her stepson, is to enroll with hospice on 10/28/16 == Pain: Patient has chronic musculo-skeletal pain worse in the neck. She is normally controlled with a 100 mcg/hr fentanyl patch and Up to 3 Percocet 10 per day for breakthrough pain. This pain appears controlled here. No further recommendations at this time. She continues on the fentanyl patch here and has an order for PRN iv morphine which she has not needed. == Dyspnea : Probably secondary to diastolic heart failure, pulmonary hypertension, COPD, possible pnuemonia, and her tachycardia. Controlled with non-rebreather mask. Hopefully, will improve with diuresis, anti-biotics, rate control. She has orders for morphine and lorazepam. Currently, those orders are for pain and anxiety respectively -- recommend that we also permit these for dyspnea or tachypnea. == Constipation: This is a chronic problem for the patient. We are advancing the bowel protocol, but so far no results. Have recommended a bisacodyl suppository today -- nurse can feel for impaction at time of suppository delivery. == Weakness: The rapid onset of this makes me wonder if this was secondary to electrolyte abnormalities -- e.g. potassium. It will be interesting to see if strength improves with electrolyte correction. So far , it hasn't. == Nausea: In case part of her nausea is secondary to her level of constipation, would encourage an aggressive bowel protocol as noted above. If nausea persists, may want to schedule an anti-emetic. She is not in good shape to consider EGD at this time unless there are no good alternatives. == Disposition: Her frequent ER usage and apparent decline makes me wonder if she is able to live alone any longer. I wonder if she is able to take her medications correctly at this point. == Hospice has been consulted and discussed with the patient and her stepson. They appear ready to enroll with hospice on 10/28/16. Unless there is significant improvement in dyspnea, nausea, constipation, and weakness, she will probably initially need care center placement. == Palliative care will continue to follow to assist with symptom management and to further clarify goals of medical treatment as the clinical course evolves. . Time Spent Total Floor Time (mins): 40 (Total floor time included chart review, patient exam, collaboration with primary nurse, conversation with hospice nurse, and the above referenced bedside discussion with patient and her stepson. ) Face to Face Time (mins): 25 >50% Counseling/Coord of Care: Yes Attestation To help prompt me to consider important information that might be impacting today's encounter and assessment, information from prior notes written by myself or my colleagues may have been "brought forward" into today's note. My signature on this note, however, is an attestation that I personally performed the exam, history, and/or decision-making noted today, and, unless otherwise indicated, the interactions with patient, family, and staff as well as the review of records all occurred today. I also attest that the listed assessment and stated plan reflect my best clinical judgment today based on the combination of historical information, prior notes, and today's exam/ interactions. When time spent is documented, it refers only to time spent today by the signer, or if indicated, combined time spent today by collaborating physician/nurse practitioner. . Cliff Ramachandran MD Oct 27, 2016 13:59
--- NOTE | 2016-10-27 14:09 | HHI.PR ---
Subjective Remarks Was seen and evaluated in follow-up for respiratory failure with acute myocardial infarction. Still with no bowel output. Some hypoxemia off of her nonrebreather in the high 80s. Complaining abdominal discomfort. Discussed with [employer]HB[employer], son and patient along with hospice for stefania. Patient will benefit from hospice and will likely be discharged in a.m. to hospice care team. We'll adjust medications appropriately Objective Vitals Vital Signs Date Time Temp Pulse Resp B/P (MAP) Pulse Ox O2 Delivery O2 Flow Rate FiO2 10/27/16 13:00 78 17 89/65 (73) 99 10/27/16 12:00 98.1 74 14 98/73 (81) 96 10/27/16 12:00 72 10/27/16 11:00 66 9 87/68 (74) 96 10/27/16 10:00 68 10/27/16 10:00 68 11 87/61 (70) 96 10/27/16 09:00 80 17 97/68 (78) 98 10/27/16 08:00 79 10/27/16 08:00 86 23 100/57 (71) 10/27/16 07:31 78 19 98/64 (75) 100 10/27/16 07:00 96 Non-Rebreather 13.00 10/27/16 07:00 97.5 76 13 103/62 (76) 100 10/27/16 06:01 74 18 110/66 (81) 99 10/27/16 06:00 78 10/27/16 05:01 76 15 89/60 (70) 98 10/27/16 04:31 86 26 94/67 (76) 94 10/27/16 04:01 97.4 82 12 99/72 (81) 99 10/27/16 04:00 82 10/27/16 03:31 76 10 97/59 (72) 98 10/27/16 02:01 80 10/27/16 02:01 80 10 95/67 (76) 100 10/27/16 01:01 86 15 114/76 (89) 100 10/27/16 00:31 80 12 111/64 (80) 98 10/27/16 00:07 98.0 88 20 115/80 (92) 96 10/27/16 00:00 90 10/26/16 23:31 88 11 113/70 (84) 100 10/26/16 23:31 88 11 113/70 (84) 100 10/26/16 23:01 90 11 105/70 (82) 100 10/26/16 22:31 96 12 111/80 (90) 100 10/26/16 22:01 102 17 120/79 (93) 99 10/26/16 22:01 102 10/26/16 21:31 102 19 116/74 (88) 98 10/26/16 21:01 100 14 121/73 (89) 97 10/26/16 21:01 100 10/26/16 20:31 96 11 116/78 (91) 100 10/26/16 20:01 97.4 100 18 107/79 (88) 97 10/26/16 20:01 100 10/26/16 20:00 98 Non-Rebreather 10.00 10/26/16 19:31 100 12 103/76 (85) 98 10/26/16 19:01 98 13 102/69 (80) 100 10/26/16 19:01 98 10/26/16 19:00 100 Non-Rebreather 13.00 10/26/16 18:00 106 10/26/16 18:00 102 16 119/79 (92) 98 10/26/16 17:00 106 21 127/84 (98) 95 10/26/16 16:00 102 10/26/16 16:00 97.7 102 16 133/75 (94) 99 10/26/16 15:00 97.5 102 21 131/90 (104) 98 10/26/16 15:00 102 10/26/16 14:00 104 10/26/16 14:00 104 37 118/75 (89) 86 I/O 10/26/16 10/26/16 10/26/16 10/27/16 10/27/16 10/27/16 06:59 14:59 22:59 06:59 14:59 22:59 Intake Total 982 ml 146 ml 120 ml 1032 ml Output Total 200 ml 250 ml 350 ml Balance 782 ml 146 ml -130 ml 682 ml Intake Oral 240 ml 120 ml 360 ml IV Total 742 ml 146 ml 672 ml Output Urine Total 200 ml 250 ml 350 ml Result Diagram: 10/27/16 0500 10/27/16 0500 Imaging Last Impressions Abdomen X-Ray 10/27/16 0000 Signed Impressions: Service Date/Time: Thursday, October 27, 2016 10:57 - CONCLUSION: Nonspecific bowel gas pattern with dilated colon seen. Yoni Lopez MD Chest X-Ray 10/25/16 0000 Signed Impressions: Service Date/Time: Tuesday, October 25, 2016 07:57 - CONCLUSION: 1. Cardiomegaly with minimally improved positive fluid balance. 2. Stable small bilateral pleural effusions and associated lower lobe airspace disease. Edvin Broussard MD Objective Remarks GENERAL: This is a well-nourished, well-developed patient, with accessory muscle use with respirations, frail appearing CARDIOVASCULAR: afib rate controlled without murmurs, gallops, or rubs. RESPIRATORY: Decreased breath sounds due to shallow breathing bilaterally. No wheezes, rales, or rhonchi. GASTROINTESTINAL: Abdomen soft, non-tender, moderately distended. Normal active bowel sounds MUSCULOSKELETAL: Bilateral hyperpigmentation lower extremities, right lateral skin laceration is about the same. Otherwise Extremities without clubbing, cyanosis, but there is +1 edema bilateral lower extremities NEURO: Alert and oriented 4, moves all 4 extremities weakly A/P Problem List: (1) CHF (congestive heart failure) ICD Code: I50.9 - Heart failure, unspecified Status: Acute Plan: He is Acute exacerbation of chronic diastolic heart failure Continue metoprolol, bumex We'll hold off on ANGELES inhibitor due to arf ST negative 04/2016 ECHO shows right sided heart failure (2) Hyponatremia ICD Code: E87.1 - Hyponatremia Status: Acute Plan: Related to congestive heart failure and volume overload We'll continue to diuresis and follow sodium improved (3) Skin tear of right lower leg without complication ICD Code: S81.811A - Laceration without foreign body, right lower leg, initial encounter Status: Chronic Plan: improved Would recommend continue fluid management as the area slow to heal due to edema Positive MRSA and wound on cultures (09/2016) Bactroban (4) Hyperkalemia ICD Code: E87.5 - Hyperkalemia Status: Acute Plan: improved with bumex (5) Neuropathic pain ICD Code: M79.2 - Neuralgia and neuritis, unspecified Status: Chronic Plan: continue Patient's home medications for pain and follow clinically (6) Atrial fibrillation ICD Code: I48.91 - Unspecified atrial fibrillation Status: Acute Plan: HR stable, Elevated trop, cardio consult appreciated, continue medical management dc tele, Cardizem po/bb (7) Acute renal failure ICD Code: N17.9 - Acute renal failure Status: Acute Plan: Probably due to aggressive diuresis Continue with monitoring fluid balance and avoid nephrotoxic medications Catheter placed for accurate ins and outs (8) Sepsis due to pneumonia ICD Code: J18.9 - Pneumonia, unspecified organism; A41.9 - Sepsis, unspecified organism Plan: Patient with improved tachycardia, improved leukocytosis Patient with multiple drug allergies and PO medications (multiple allergies) have been prescribed (9) Acute myocardial infarction ICD Code: I21.3 - ST elevation (STEMI) myocardial infarction of unspecified site Plan: Continue with medical management, beta jeff, heparin Poor candidate for heart catheterization due to pulmonary disease (10) Constipation ICD Code: K59.00 - Constipation Status: Acute Plan: fleet, suppository Assessment and Plan DNR Hospice consulted, palliative care following Discharge Planning in am to hospice Problem Qualifiers (1) CHF (congestive heart failure): Gabbie Young MD Oct 27, 2016 14:09
[2016-10-27] MEDS ORDERED: VANCOMYCIN TROUGH ONE (15:45)
--- NOTE | 2016-10-27 19:54 | EKG ---
Date Performed: 10/26/2016 Time Performed: 16:11:37 PTAGE: 76 years EKG: ATRIAL FIBRILLATION DIFFUSE ST-T CHANGES PREVIOUS TRACING : 10/25/2016 08.10 Compared to the previous tracing rate better controll ed DOCTOR: Arslan Harris Interpretating Date/Time 10/27/2016 19:53:35
[2016-10-27] MEDS: MORPHINE SULFATE 4 MG/ML INJ IV PRN (19:58)
[2016-10-27] MEDS: DOXYCYCLINE HYCLATE 100 MG TAB PO SCH (20:01)
--- NOTE | 2016-10-27 20:26 | HHI.PR ---
Subjective Remarks DRAFT Pt not seen F/U ARF and AR Objective Vitals Vital Signs Date Time Temp Pulse Resp B/P (MAP) Pulse Ox O2 Delivery O2 Flow Rate FiO2 10/27/16 18:10 99 Non-Rebreather 13.00 50 10/27/16 16:10 97.4 90 18 108/81 (90) 99 10/27/16 16:00 70 10/27/16 15:00 72 12 104/63 (77) 98 10/27/16 14:00 72 10/27/16 14:00 68 11 99/65 (76) 99 10/27/16 13:00 78 17 89/65 (73) 99 10/27/16 12:00 98.1 74 14 98/73 (81) 96 10/27/16 12:00 72 10/27/16 11:00 66 9 87/68 (74) 96 10/27/16 10:00 68 10/27/16 10:00 68 11 87/61 (70) 96 10/27/16 09:00 80 17 97/68 (78) 98 10/27/16 08:00 96 10.00 10/27/16 08:00 79 10/27/16 08:00 86 23 100/57 (71) 10/27/16 07:31 78 19 98/64 (75) 100 10/27/16 07:00 96 Non-Rebreather 13.00 10/27/16 07:00 97.5 76 13 103/62 (76) 100 10/27/16 06:01 74 18 110/66 (81) 99 10/27/16 06:00 78 10/27/16 05:01 76 15 89/60 (70) 98 10/27/16 04:31 86 26 94/67 (76) 94 10/27/16 04:01 97.4 82 12 99/72 (81) 99 10/27/16 04:00 82 10/27/16 03:31 76 10 97/59 (72) 98 10/27/16 02:01 80 10/27/16 02:01 80 10 95/67 (76) 100 10/27/16 01:01 86 15 114/76 (89) 100 10/27/16 00:31 80 12 111/64 (80) 98 10/27/16 00:07 98.0 88 20 115/80 (92) 96 10/27/16 00:00 90 10/26/16 23:31 88 11 113/70 (84) 100 10/26/16 23:31 88 11 113/70 (84) 100 10/26/16 23:01 90 11 105/70 (82) 100 10/26/16 22:31 96 12 111/80 (90) 100 10/26/16 22:01 102 17 120/79 (93) 99 10/26/16 22:01 102 10/26/16 21:31 102 19 116/74 (88) 98 10/26/16 21:01 100 14 121/73 (89) 97 10/26/16 21:01 100 10/26/16 20:31 96 11 116/78 (91) 100 I/O 10/26/16 10/26/16 10/26/16 10/27/16 10/27/16 10/27/16 07:00 15:00 23:00 07:00 15:00 23:00 Intake Total 982 ml 146 ml 120 ml 1032 ml 149 ml Output Total 200 ml 250 ml 350 ml Balance 782 ml 146 ml -130 ml 682 ml 149 ml Intake Oral 240 ml 120 ml 360 ml IV Total 742 ml 146 ml 672 ml 149 ml Output Urine Total 200 ml 250 ml 350 ml # Bowel Movements 1 Result Diagram: 10/27/16 0500 10/27/16 0500 A/P Problem List: (1) CHF (congestive heart failure) ICD Code: I50.9 - Heart failure, unspecified Status: Acute (2) Hyponatremia ICD Code: E87.1 - Hyponatremia Status: Acute (3) Skin tear of right lower leg without complication ICD Code: S81.811A - Laceration without foreign body, right lower leg, initial encounter Status: Chronic (4) Hyperkalemia ICD Code: E87.5 - Hyperkalemia Status: Acute (5) Neuropathic pain ICD Code: M79.2 - Neuralgia and neuritis, unspecified Status: Chronic (6) Atrial fibrillation ICD Code: I48.91 - Unspecified atrial fibrillation Status: Acute (7) Acute renal failure ICD Code: N17.9 - Acute renal failure Status: Acute (8) Sepsis due to pneumonia ICD Code: J18.9 - Pneumonia, unspecified organism; A41.9 - Sepsis, unspecified organism (9) Acute myocardial infarction ICD Code: I21.3 - ST elevation (STEMI) myocardial infarction of unspecified site (10) Constipation ICD Code: K59.00 - Constipation Status: Acute Assessment and Plan (1) CHF (congestive heart failure) Acute exacerbation of chronic diastolic heart failure Continue metoprolol, bumex We'll hold off on ANGELES inhibitor due to arfcute renal failure Stress test negative 04/2016 ECHO shows right sided heart failure (2) Hyponatremia Related to congestive heart failure and volume overload We'll continue to diuresis and follow sodium improved (3) Skin tear of right lower leg without complication Chronic Improved Would recommend continue fluid management as the area slow to heal due to edema Positive MRSA and wound on cultures (09/2016) Bactroban (4) Hyperkalemia improved with bumex (5) Neuropathic pain continue Patient's home medications for pain and follow clinically (6) Atrial fibrillation HR stable, Elevated trop, cardio consult appreciated, continue medical management dc tele, Cardizem po/bb (7) Acute renal failure Probably due to diuresis Continue with monitoring fluid balance and avoid nephrotoxic medications Catheter placed for accurate ins and outs (8) Sepsis due to pneumonia Patient with improved tachycardia, improved leukocytosis Patient with multiple drug allergies and PO medications have been prescribed ( Doxycycline) (9) Acute myocardial infarction Continue with medical management, beta jeff, heparin, asa and statin Poor candidate for heart catheterization due to pulmonary disease (10) Constipation bowel regimen Discharge Planning DNR Hospice consulted, palliative care following in am to hospice Problem Qualifiers (1) CHF (congestive heart failure): Naun Vernon MD Oct 27, 2016 20:26
--- NOTE | 2016-10-27 20:49 | HHI.DCPOC ---
Discharge Care Plan Diagnosis: (1) Acute myocardial infarction Your Health Problems Are: Difficulty with ADL Exercise Tolerance Goals to Promote Your Health * To prevent worsening of your condition and complications * To maintain your health at the optimal level Directions to Meet Your Goals Take your medications as prescribed Follow your dietary instruction Follow activity as directed Keep your appointments as scheduled Take your immunizations and boosters as scheduled If your symptoms worsen call your PCP, if no PCP go to Urgent Care Center or Emergency Room Smoking is Dangerous to Your Health. Avoid second hand smoke Call the 24-hour hour crisis hotline for domestic abuse at Naun Vernon MD Oct 27, 2016 20:49
[2016-10-27] MEDS ORDERED: DOXY100T PO (20:58)
[2016-10-27] MEDS: traZODone HCL 50 MG TAB PO SCH (21:47)
[2016-10-27] MEDS: RESTASIS EYE EACH EYE SCH (21:48)
[2016-10-28] VITALS: BP 136/68; RESP 20; TEMP 98.2; O2SAT 97
[2016-10-28] MEDS: CHLORHEXIDINE GLUCONATE 2 % 1 PACK (2 CLOTHS)(taper/protocol) TOPICAL SCH (04:40)
[2016-10-28 08:00] VITALS: BP 142/86; PULSE 89; RESP 18; TEMP 97.7; O2SAT 99
[2016-10-28 08:01] VITALS: PULSE 99
[2016-10-28 08:05] VITALS: O2SAT 98
[2016-10-28] MEDS: DILTIAZEM-CD 180 MG CAP ER PO SCH (08:48)
[2016-10-28] MEDS: METOPROLOL TARTRATE 25 MG TAB PO SCH (08:48)
[2016-10-28] MEDS: ASPIRIN 325 MG TAB PO SCH (08:49)
[2016-10-28] MEDS: DOXYCYCLINE HYCLATE 100 MG TAB PO SCH (08:49)
[2016-10-28] MEDS: SENNOSIDES 8.6 MG TAB PO SCH (08:49)
[2016-10-28] MEDS: PRAVASTATIN SOD 40 MG TAB PO SCH (08:49)
[2016-10-28] MEDS: MUPIROCIN 2% OINT 22 GM TUBE TOPICAL SCH (08:50)
[2016-10-28] MEDS: BUMETANIDE INJ 1 MG/4 ML VIAL IV PUSH SCH (08:50)
[2016-10-28] MEDS: FOLIC ACID 1 MG TAB PO SCH (08:51)
[2016-10-28] MEDS: SODIUM CHLORIDE 0.9% FLUSH 10 ML FLUSH IV FLUSH SCH (08:51)
--- NOTE | 2016-10-28 09:07 | HHI.PR ---
Subjective Remarks F/U ARF and AL. Feels terrible constant chest pressure and SOB on NRB dw RN Objective Vitals Vital Signs Date Time Temp Pulse Resp B/P (MAP) Pulse Ox O2 Delivery O2 Flow Rate FiO2 10/28/16 08:00 97.7 89 18 142/86 (104) 99 10/28/16 00:00 98.2 20 136/68 (90) 97 10/27/16 22:03 81 10/27/16 20:30 98 Non-Rebreather 12.00 10/27/16 20:00 99 Non-Rebreather 13.00 50 10/27/16 20:00 98.2 74 20 144/81 (102) 100 10/27/16 18:10 99 Non-Rebreather 13.00 50 10/27/16 16:10 97.4 90 18 108/81 (90) 99 10/27/16 16:00 70 10/27/16 15:00 72 12 104/63 (77) 98 10/27/16 14:00 72 10/27/16 14:00 68 11 99/65 (76) 99 10/27/16 13:00 78 17 89/65 (73) 99 10/27/16 12:00 98.1 74 14 98/73 (81) 96 10/27/16 12:00 72 10/27/16 11:00 66 9 87/68 (74) 96 10/27/16 10:00 68 10/27/16 10:00 68 11 87/61 (70) 96 I/O 10/27/16 10/27/16 10/27/16 10/28/16 10/28/16 10/28/16 07:00 15:00 23:00 07:00 15:00 23:00 Intake Total 1032 ml 149 ml 240 ml 60 ml Output Total 350 ml 350 ml 375 ml Balance 682 ml 149 ml -110 ml -315 ml Intake Oral 360 ml 240 ml 60 ml IV Total 672 ml 149 ml Output Urine Total 350 ml 350 ml 375 ml # Bowel Movements 1 0 Result Diagram: 10/27/16 0500 10/27/16 0500 Imaging Last Impressions Abdomen X-Ray 10/27/16 0000 Signed Impressions: Service Date/Time: Thursday, October 27, 2016 10:57 - CONCLUSION: Nonspecific bowel gas pattern with dilated colon seen. Yoni Lopez MD Chest X-Ray 10/25/16 0000 Signed Impressions: Service Date/Time: Tuesday, October 25, 2016 07:57 - CONCLUSION: 1. Cardiomegaly with minimally improved positive fluid balance. 2. Stable small bilateral pleural effusions and associated lower lobe airspace disease. Edvin Broussard MD Objective Remarks Well-developed well-nourished on nonrebreather Decreased breath sounds equal in expansion Irregularly irregular Abdomen soft and nontender Extremities warm no cyanosis with trace lower extremity edema Alert and oriented nonfocal Procedures none A/P Problem List: (1) CHF (congestive heart failure) ICD Code: I50.9 - Heart failure, unspecified Status: Acute (2) Hyponatremia ICD Code: E87.1 - Hyponatremia Status: Acute (3) Skin tear of right lower leg without complication ICD Code: S81.811A - Laceration without foreign body, right lower leg, initial encounter Status: Chronic (4) Hyperkalemia ICD Code: E87.5 - Hyperkalemia Status: Acute (5) Neuropathic pain ICD Code: M79.2 - Neuralgia and neuritis, unspecified Status: Chronic (6) Atrial fibrillation ICD Code: I48.91 - Unspecified atrial fibrillation Status: Acute (7) Acute renal failure ICD Code: N17.9 - Acute renal failure Status: Acute (8) Sepsis due to pneumonia ICD Code: J18.9 - Pneumonia, unspecified organism; A41.9 - Sepsis, unspecified organism (9) Acute myocardial infarction ICD Code: I21.3 - ST elevation (STEMI) myocardial infarction of unspecified site (10) Constipation ICD Code: K59.00 - Constipation Status: Acute Assessment and Plan (1) CHF (congestive heart failure) Acute exacerbation of chronic diastolic heart failure Continue metoprolol, bumex We'll hold off on ANGELES inhibitor due to acute renal failure Stress test negative 04/2016 ECHO shows right sided heart failure (2) Hyponatremia Related to congestive heart failure and volume overload We'll continue to diuresis and follow sodium improved (3) Skin tear of right lower leg without complication Chronic Improved Would recommend continue fluid management as the area slow to heal due to edema Positive MRSA and wound on cultures (09/2016) Bactroban (4) Hyperkalemia improved with bumex (5) Neuropathic pain continue Patient's home medications for pain and follow clinically (6) Atrial fibrillation HR stable, Elevated trop, cardio consult appreciated, continue medical management dc tele, Cardizem po/bb (7) Acute renal failure Probably due to diuresis Continue with monitoring fluid balance and avoid nephrotoxic medications Catheter placed for accurate ins and outs (8) Sepsis due to pneumonia Patient with improved tachycardia, improved leukocytosis Patient with multiple drug allergies and PO medications have been prescribed ( Doxycycline) (9) Acute myocardial infarction Continue with medical management, beta jeff, heparin, asa and statin Poor candidate for heart catheterization due to pulmonary disease (10) Constipation bowel regimen Discharge Planning DNR Hospice consulted, palliative care following Discharge to hospice today Problem Qualifiers (1) CHF (congestive heart failure): Naun Vernon MD Oct 28, 2016 09:07
--- NOTE | 2016-10-28 09:09 | HHI.DS ---
Discharge Summary Admission Date Oct 24, 2016 at 07:28 Discharge Date: Oct 28, 2016 Admitting Diagnosis hyperkalemia (1) CHF (congestive heart failure) ICD Code: I50.9 - Heart failure, unspecified Diagnosis: Principal Status: Acute (2) Hyponatremia ICD Code: E87.1 - Hyponatremia Diagnosis: Principal Status: Acute (3) Skin tear of right lower leg without complication ICD Code: S81.811A - Laceration without foreign body, right lower leg, initial encounter Diagnosis: Secondary Status: Chronic (4) Hyperkalemia ICD Code: E87.5 - Hyperkalemia Diagnosis: Secondary Status: Acute (5) Neuropathic pain ICD Code: M79.2 - Neuralgia and neuritis, unspecified Diagnosis: Secondary Status: Chronic (6) Atrial fibrillation ICD Code: I48.91 - Unspecified atrial fibrillation Diagnosis: Secondary Status: Acute (7) Acute renal failure ICD Code: N17.9 - Acute renal failure Diagnosis: Principal Status: Acute (8) Sepsis due to pneumonia ICD Code: J18.9 - Pneumonia, unspecified organism; A41.9 - Sepsis, unspecified organism Diagnosis: Principal (9) Acute myocardial infarction ICD Code: I21.3 - ST elevation (STEMI) myocardial infarction of unspecified site Diagnosis: Principal Status: Acute (10) Constipation ICD Code: K59.00 - Constipation Diagnosis: Secondary Status: Acute Procedures none Brief History - From Admission This patient is a 76-year-old female with a known history of COPD and coronary artery disease who complained of 4-5 days of increased work of breathing, dyspnea on exertion and productive cough over the last 5 days. She was taking cough medicine at home and thought that it improved however she was still having more symptoms and decided to come to the hospital. Here she has been found to be hyponatremic, edematous and hyperkalemic. Patient appears to have exacerbation of congestive heart failure. Stress test was done 04/2016 due to patient complaining of increased chest discomfort. The stress test was negative. Patient here has a BNP of 789 with signs and symptoms of congestive heart failure and volume overload. She has been admitted to the hospital for treatment of the same. She also has a right lower extremity skin tear which happened in September but is been slow to heal due to increased edema. It was MRSA positive in September and the patient was given doxycycline. Of note also the patient has excessive allergies/drug intolerance list which will be adjusted during this hospitalization due to multiple drug interactions and patient denies many of these adverse side effects and says that these are not true allergies. CBC/BMP: 10/27/16 0500 10/27/16 0500 Significant Findings Laboratory Tests Test 10/25/16 10:45 10/25/16 15:18 10/25/16 17:30 10/26/16 04:47 Lactic Acid Level 2.5 mmol/L (0.4-2.0) Troponin I 2.57 NG/ML (0.02-0.05) 2.32 NG/ML (0.02-0.05) White Blood Count 23.1 TH/MM3 (4.0-11.0) Red Blood Count 3.70 MIL/MM3 (4.00-5.30) Hematocrit 34.7 % (35.0-46.0) Neutrophils (%) (Auto) 87.9 % (16.0-70.0) Lymphocytes (%) (Auto) 4.8 % (9.0-44.0) Neutrophils # (Auto) 20.4 TH/MM3 (1.8-7.7) Monocytes # (Auto) 1.5 TH/MM3 (0-0.9) Blood Urea Nitrogen 47 MG/DL (7-18) Creatinine 1.80 MG/DL (0.50-1.00) Random Glucose 134 MG/DL (74-106) Sodium Level 129 MEQ/L (136-145) Chloride Level 93 MEQ/L (98-107) Estimat Glomerular Filtration Rate 27 ML/MIN (>89) Test 10/26/16 16:15 10/27/16 05:00 Troponin I 1.77 NG/ML (0.02-0.05) White Blood Count 21.2 TH/MM3 (4.0-11.0) Red Blood Count 3.56 MIL/MM3 (4.00-5.30) Hemoglobin 10.9 GM/DL (11.6-15.3) Hematocrit 33.8 % (35.0-46.0) Platelet Count 459 TH/MM3 (150-450) Neutrophils (%) (Auto) 83.6 % (16.0-70.0) Lymphocytes (%) (Auto) 6.0 % (9.0-44.0) Basophils (%) (Auto) 2.1 % (0.0-2.0) Neutrophils # (Auto) 17.8 TH/MM3 (1.8-7.7) Monocytes # (Auto) 1.5 TH/MM3 (0-0.9) Basophils # (Auto) 0.4 TH/MM3 (0-0.2) Blood Urea Nitrogen 55 MG/DL (7-18) Creatinine 2.00 MG/DL (0.50-1.00) Random Glucose 119 MG/DL (74-106) Sodium Level 132 MEQ/L (136-145) Chloride Level 93 MEQ/L (98-107) Estimat Glomerular Filtration Rate 24 ML/MIN (>89) Imaging Last Impressions Abdomen X-Ray 10/27/16 0000 Signed Impressions: Service Date/Time: Thursday, October 27, 2016 10:57 - CONCLUSION: Nonspecific bowel gas pattern with dilated colon seen. Yoni Lopez MD Chest X-Ray 10/25/16 0000 Signed Impressions: Service Date/Time: Tuesday, October 25, 2016 07:57 - CONCLUSION: 1. Cardiomegaly with minimally improved positive fluid balance. 2. Stable small bilateral pleural effusions and associated lower lobe airspace disease. Edvin Broussard MD PE at Discharge Well-developed well-nourished on nonrebreather Decreased breath sounds equal in expansion Irregularly irregular Abdomen soft and nontender Extremities warm no cyanosis with trace lower extremity edema Alert and oriented nonfocal Hospital Course (1) CHF (congestive heart failure) Acute exacerbation of chronic diastolic heart failure Continue metoprolol, bumex We'll hold off on ANGELES inhibitor due to acute renal failure Stress test negative 04/2016 ECHO shows right sided heart failure (2) Hyponatremia Related to congestive heart failure and volume overload We'll continue to diuresis and follow sodium improved (3) Skin tear of right lower leg without complication Chronic Improved Would recommend continue fluid management as the area slow to heal due to edema Positive MRSA and wound on cultures (09/2016) Bactroban (4) Hyperkalemia improved with bumex (5) Neuropathic pain continue Patient's home medications for pain and follow clinically (6) Atrial fibrillation HR stable, Elevated trop, cardio consult appreciated, continue medical management dc tele, Cardizem po/bb (7) Acute renal failure Probably due to diuresis Continue with monitoring fluid balance and avoid nephrotoxic medications Catheter placed for accurate ins and outs (8) Sepsis due to pneumonia Patient with improved tachycardia, improved leukocytosis Patient with multiple drug allergies and PO medications have been prescribed ( Doxycycline) (9) Acute myocardial infarction Continue with medical management, beta jeff, heparin, asa and statin Poor candidate for heart catheterization due to pulmonary disease (10) Constipation bowel regimen Pt Condition on Discharge: Deteriorating Discharge Disposition: Hospice/Med Facility Discharge Time: > 30 minutes Discharge Instructions DIET: Follow Instructions for: As Tolerated, No Restrictions Activities you can perform: Regular-No Restrictions Follow up Referrals: PCP Follow-up - 1 Week New Medications: Carvedilol (Carvedilol) 6.25 Mg Tab 6.25 MG PO BID, #60 TAB 0 Refills Furosemide (Furosemide) 20 Mg Tab 20 MG PO DAILY for fluid, #30 TAB 0 Refills Doxycycline Hyclate (Doxycycline Hyclate) 100 Mg Tab 100 MG PO Q12HR for Infection, #24 TAB Continued Medications: Aspirin DR (Aspir-81) 81 Mg Tabdr 1 TAB PO DAILY Cholecalciferol (Vitamin D) 2,000 Unit Cap 1 CAP PO DAILY Coenzyme Q10 (Ubidecarenone) (Co Q 10) 100 Mg Cap 1 CAP PO DAILY Cyclobenzaprine (Flexeril) 5 Mg Tab 5 MG PO DAILY for Muscle Spasm, #90 TAB 0 Refills Cyclosporine Opth 0.05% (Restasis Opth 0.05%) 0.05% Emul 1 DROP EACH EYE BID for Dry Eye, #1 BOX 0 Refills Donepezil (Donepezil) 10 Mg Tab 10 MG PO HS for Dementia, #30 TAB 0 Refills Fentanyl Patch 72 HR (Duragesic Patch 72 HR) 100 Mcg/Hr Patch 100 MCG T-DERMAL q48 for Pain Management, #10 PATCH 0 Refills Remove old patch when new one placed. Ferrous Gluconate (Iron) 27 Mg Tab 1 TAB PO DAILY Folic Acid (Folic Acid) 400 Mcg Tab 1 MG PO DAILY for Nutritional Supplement, TAB 0 Refills Hydralazine HCl (Hydralazine HCl) 50 Mg Tablet 1 TAB PO QID Ipratropium-Albuterol Neb (Duoneb) 0.5-2.5 Mg/3 Ml Neb 1 NEBULE INH Q8HR NEB PRN for SOB/WHEEZING, #90 NEBULE 0 Refills Lactulose Liq (Lactulose Liq) 10 Gm/15 Ml Soln 30 ML PO Q6H PRN for CONSTIPATION, ML 0 Refills Latanoprost Opth Drops (Latanoprost Opth Drops) 0.005% Drops 1 DROP EACH EYE BID for Glaucoma, #2.5 ML 0 Refills Refrigerate until opened. Lorazepam (Lorazepam) 1 Mg Tab 1 MG PO DAILY PRN for ANXIETY, TAB 0 Refills Methotrexate (Methotrexate) 2.5 Mg Tab 5 MG PO Q7D, TAB 0 Refills Methylprednisolone (Methylprednisolone) 8 Mg Tab 4 MG PO DIRECTED, TAB 0 Refills Pravastatin (Pravastatin) 40 Mg Tab 40 MG PO DAILY for Cholesterol Management, #30 TAB 0 Refills Trazodone (Trazodone) 50 Mg Tab 25 MG PO HS for Control Depression, #30 TAB 0 Refills Discontinued Medications: Labetalol (Labetalol) 300 Mg Tab 300 MG PO TID for Blood Pressure Management, TAB 0 Refills Spironolactone (Aldactone) 25 Mg Tab 25 MG PO DAILY, #30 TAB 0 Refills Naun Vernon MD Oct 28, 2016 09:09
[2016-10-28] MEDS: ENOXAPARIN SODIUM 60 MG/0.6 ML SYRINGE SQ SCH (09:24)
[2016-10-28] MEDS: RESTASIS EYE EACH EYE SCH (09:24)
[2016-10-28] MEDS: LATANOPROST 0.005% OPHT SOLN 2.5 ML BTL EACH EYE SCH (09:24)
[2016-10-28] MEDS: ONDANSETRON HCL 4 MG/2 ML VIAL IVP PRN (10:03)
[2016-10-28 12:00] VITALS: BP 126/66; PULSE 83; RESP 17; TEMP 97.5; O2SAT 99
[2016-10-29] MEDS ORDERED: VANCOMYCIN TROUGH ONE (03:45)
== END 2016-10-28 13:45 | disposition hospice, inpatient (51) | DRG 280 ==
LOC: PHED 20:18 → PHEDA 22:34 → PH3B 10-22 00:51 → OBSVTOIN 10-24 07:28 → PHICU 10-25 03:35 → PH3B 10-27 16:10
PROVIDERS: ADMIT Internal Medicine; ATTEND Internal Medicine
DX: I13.0 Hypertensive heart and chronic kidney disease with heart failure and stage 1 through stage 4 chronic kidney disease, or unspecified chronic kidney disease (principal); I50.43 Acute on chronic combined systolic (congestive) and diastolic (congestive) heart failure; I21.3 ST elevation (STEMI) myocardial infarction of unspecified site; J96.90 Respiratory failure, unspecified, unspecified whether with hypoxia or hypercapnia; A41.9 Sepsis, unspecified organism; J18.9 Pneumonia, unspecified organism; N17.9 Acute kidney failure, unspecified; F03.90 Unspecified dementia, unspecified severity, without behavioral disturbance, psychotic disturbance, mood disturbance, and anxiety; I48.91 Unspecified atrial fibrillation; J44.0 Chronic obstructive pulmonary disease with (acute) lower respiratory infection; J44.9 Chronic obstructive pulmonary disease, unspecified; E87.1 Hypo-osmolality and hyponatremia; I27.2 Other secondary pulmonary hypertension; E87.5 Hyperkalemia; Z95.1 Presence of aortocoronary bypass graft; I08.1 Rheumatic disorders of both mitral and tricuspid valves; M06.9 Rheumatoid arthritis, unspecified; F41.9 Anxiety disorder, unspecified; K59.09 Other constipation; I73.9 Peripheral vascular disease, unspecified; Z96.642 Presence of left artificial hip joint; Z66 Do not resuscitate; S81.811A Laceration without foreign body, right lower leg, initial encounter; Z51.5 Encounter for palliative care; G89.4 Chronic pain syndrome; N18.9 Chronic kidney disease, unspecified; I25.10 Atherosclerotic heart disease of native coronary artery without angina pectoris
CPT/HCPCS: 36600; 71010; 74000; 76937; 80048; 80053; 81001; 82550; 82805; 83605; 83735; 83880; 84484; 85025; 85610; 87040; 87641; 93005; 93306; 94002; 94640; 94664; 96361; 96372; 96374; 96375; 96376; G0378; G8987-GP; G8988-GP; J0610; J1650; J1815; J1940; J2060; J2270; J2405; J3370; J7030; J7050